=== PATIENT | male | born 1945 | race Caucasian/White ===

== ENCOUNTER 2023-08-24 05:57 | Day surgery (SDC) | payer MEDICARE, OTHER, SELFPAY ==
[2023-08-11 10:04] VITALS: BMI 35.4
[2023-08-24] VITALS (10 sets, daily range): BP systolic 120–166; BP diastolic 52–76; BMI 34.5
[2023-08-24 08:44] LABS: ACT-LR - POC 240 Seconds (116-155)
[2023-08-24 08:59] LABS: ACT-LR - POC 303 Seconds (116-155)
--- NOTE | 2023-08-24 09:20 | ITS.CL.ABL ---
Clinical Laboratory Science Professor - Ablation
Ablation
Procedure Report:
ELECTROPHYSIOLOGY ABLATION STUDY
DATE:: August 24, 2023 REFERRING: Dr. Deny Villar
INDICATION: Paroxysmal supraventricular tachycardia in the form of atrial fibrillation. Also with elevated bleeding risk and eventual consideration for watchman implantation
HISTORY: See H and P. As above
ANTIARRHYTHMIC DRUG: Amiodarone
PRE-PROCEDURE PHANI: No atrial thrombus
PRESENTING RHYTHM: Atrial ventricular pacing
'TIME-OUT': called and confirmed.
SEDATION/ANESTHESIA: provided via the anesthesia department using general anesthesia (LMA).
INTRAVENOUS/ARTERIAL ACCESS:
Right femoral venous - 8Fr
Left femoral venous - 8 Fr, 6 Fr
Ultrasound guidance for bilateral femoral vein access was utilized by me to obtain access with demonstration of normal anatomy
CHADS-VASC Score: Age greater than 75, hypertension
HAS-Bled Score
PROCEDURE:
1. A decapolar CS catheter was placed within the CS for mapping and pacing. This was also used as the reference catheter for the 3-D map.
2. The intracardiac ultrasound catheter was positioned in the RA to identify the FO for targeting of transseptal puncture, assist in identification of the pulmonary vein ostia, monitoring pre and post ablation pulmonary vein flow velocities,
monitoring for 'bubble' formation during RF application as a sign of thermal injury, and to monitor for pericardial effusion during mapping and ablation procedure. Left atrial size, LV ejection fraction, and pulmonary vein flows were monitored
pre and post ablation procedure. The other valves were inspected and found to be free of significant regurgitation or stenosis.
3. Half of the calculated heparin bolus was administered prior to the first transeptal puncture. Transseptal puncture was performed to diagnose RA and LA pressure so that safety of LA mapping and ablation could be further assessed, and to access
the left atrium and pulmonary veins for mapping and ablation. This entailed advancing an 12 Khmer sheath with dilator apparatus into the superior vena cava and withdrawing both (monitoring intracardiac ultrasound, fluoroscopy and tip pressure)
with the tip oriented toward the atrial septum. The fossa ovalis was engaged (indicated by sudden displacement of the sheath tip as well as tenting of the fossa seen on intracardiac ultrasound). Left atrial access required a pass with the
Brock[place]brough needle extended. Left atrial catheter position was confirmed by pressure monitoring (RA mean pressure 8 mm Hg and LA mean presure 14 mm Hg), LA saturation (99%), as well as fluoroscopy. The sheath was advanced over the dilator and
positioned in the left atrium. The remainder of the calculated heparin bolus was administered and heparin was
infused to maintain ACT at 300 -350 seconds throughout the case.
4. RA pacing was performed via the proximal decapolar poles and LA pacing was performed via the distal decapolr poles.
5. A quadrapolar catheter was first positioned at the His position for His Bundle recording which was tagged via the 3-D Navex sytem, and then passed to the RVA for RV pacing and recording.
6. The multipolar catheter and the PFA catheter were placed in each of the LIPV, LSPV, RSPV and the RIPV. The left atrium was relatively narrow and somewhat displaced anteriorly by the descending aorta and as such was very narrow from the posterior
wall to the ligament of Feng region.
7. Next, a 3-D map was created using Navex. A 3-D reconstructed CT image was compared to the 3-D Navex map to assist in anatomic interpretation, mapping and ablation. The CT image and the NavX image were fused.
8. Pulmonary vein and extrapulmonary vein lesions were given. 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 The posterior wall was isolated from 1 cm below the inferior pulmonary veins to the level of the carinae. The patient
was noninducible for nonpulmonary vein triggers or other tachycardia post pulmonary vein and left atrial posterior wall isolation. There was entrance next block in all 4 pulmonary veins and the left atrial posterior wall.
This was confirmed with a multipolar catheter post ablation.
9. The dual-chamber pacemaker was interrogated and found to have stable function. The device was interrogated remotely. Programming is DDD�CLS.
TOTAL FLOURO TIME: 12.7 minutes 123 mGy
TOTAL RF DURATION: 0 minutes
REVERSAL OF HEPARIN: 35 mg of protamine, slow IV administration
COMPLICATIONS:
None
Intracardiac US shows no pericardial effusion post ablation.
SUMMARY:
Complex left atrial mapping and ablation.
Pulmonary vein and left atrial posterior wall isolation as above. The left atrium was displaced by the descending aorta leading to a relatively narrow atrium from transseptal point back to the left pulmonary veins.
RECOMMENDATIONS:
1. Admit to monitored bed.
2. Resume anticoagulation for minimum 3 months
3. Consider watchman implantation in the next 3 to 6 months
4. Will stop amiodarone today
[2023-08-24] MEDS: FLOMAX 0.400000000000000022 MG PO (10:53)
--- NOTE | 2023-08-24 13:11 | W.PN.UPDATE ---
Update Note
Progress Note Update
78 yo WM s/p PVI (same day). He feels good, no cp, sob, lety diet, R fem site c/d/i, EKG AV dual paced. He will continue OAC Eliquis dose at 4pm at home. He will continue atenolol. Activity restrictions reviewed. He will f/u Dr. Villar in 2 mo. He is
for d/c home after 2p if groin stable and voiding.
SUMMARY:
Complex left atrial mapping and ablation.
Pulmonary vein and left atrial posterior wall isolation as above. The left atrium was displaced by the descending aorta leading to a relatively narrow atrium from transseptal point back to the left pulmonary veins.
RECOMMENDATIONS:
1. Admit to monitored bed.
2. Resume anticoagulation for minimum 3 months
3. Consider watchman implantation in the next 3 to 6 months
4. Will stop amiodarone today
== END 2023-08-24 13:58 | disposition home or self-care (01) ==
LOC: CATH 05:57
PROVIDERS: ATTENDING PHYSICIAN Internal Medicine Cardiovascular Disease; FAMILY PHYSICIAN Family Medicine; OTHER PHYSICIAN Internal Medicine Cardiovascular Disease
DX: I48.0 Paroxysmal atrial fibrillation (principal); Z88.5 Allergy status to narcotic agent; I50.32 Chronic diastolic (congestive) heart failure; G45.9 Transient cerebral ischemic attack, unspecified; I71.40 Abdominal aortic aneurysm, without rupture, unspecified; Z79.01 Long term (current) use of anticoagulants; Z79.02 Long term (current) use of antithrombotics/antiplatelets; I47.20 Ventricular tachycardia, unspecified; Z87.891 Personal history of nicotine dependence; C91.10 Chronic lymphocytic leukemia of B-cell type not having achieved remission; I10 Essential (primary) hypertension
CPT/HCPCS: C1732; C1733; C1894; C1730; C1892; C1759; 76937; 85347; 86900; 86901; 93005; 93656; C1769

== ENCOUNTER 2023-09-21 06:16 | Day surgery (SDC) | payer MEDICARE, OTHER, SELFPAY ==
[2023-09-21] VITALS (13 sets, daily range): BP systolic 135–171; BP diastolic 55–90; BMI 34.1
== END 2023-09-21 14:25 | disposition home or self-care (01) ==
LOC: SDS 06:16
PROVIDERS: ATTENDING PHYSICIAN Internal Medicine Gastroenterology
DX: K83.8 Other specified diseases of biliary tract (principal); K80.50 Calculus of bile duct without cholangitis or cholecystitis without obstruction; K31.89 Other diseases of stomach and duodenum; R93.89 Abnormal findings on diagnostic imaging of other specified body structures; R93.5 Abnormal findings on diagnostic imaging of other abdominal regions, including retroperitoneum; R93.2 Abnormal findings on diagnostic imaging of liver and biliary tract; Z79.02 Long term (current) use of antithrombotics/antiplatelets; Z79.01 Long term (current) use of anticoagulants
CPT/HCPCS: 43237; 43264; 43262; 43261; 88305; 74330; 76000; C1769

== ENCOUNTER 2023-12-27 04:41 | Inpatient (IN) | payer MEDICARE, OTHER, SELFPAY ==
[2023-12-26 21:06] VITALS: BP 138/77
[2023-12-26 22:03] LABS: % Basophils 0.4 % (0-2); % Immature Granulocytes 0.6 % (0-0.5); % Lymphocytes 21.6 % (20.5-51.1); % Monocytes 2.9 % (1.7-9.3); % Neutrophils 74.5 % (42.2-75.2); Absolute Basophils 0.1 10^3/uL (0-0.2); Absolute Immature Granulocytes 0.2 10^3/uL (0-0.05); Absolute Lymphocytes 6.7 10^3/uL (1.2-3.4); Absolute Monocytes 0.9 10^3/uL (0.1-0.6); Hematocrit 34.6 % (39.0-52.0); Hemoglobin 10.8 g/dL (13.0-18.0); Mean Corp Hgb Conc. 31.2 g/dL (33.0-37.0); Mean Corpuscular Hgb 24.5 pg (27.0-31.0); Mean Corpuscular Volume 78.6 fL (80.0-94.0); Mean Platelet Volume 10.6 fL (7.4-10.4); Nucleated Red Blood Cells % 0 % (-); Platelet Count 334 10^3/uL (130-400); Red Cell Dist. Width 19.5 % (11.5-14.5); White Blood Cell Count 30.9 10^3/uL (4.8-10.8)
[2023-12-26 22:10] LABS: ALT (SGPT) 18 U/L (0-50); AST (SGOT) 26 U/L (17-59); Albumin 4.4 g/dl (3.5-5.0); Alkaline Phosphatase 59 U/L (38-126); Blood Urea Nitrogen 13 mg/dl (9-20); Carbon Dioxide 25 mmol/L (22-30); Chloride 96 mmol/L (98-107); Glucose 163 mg/dl (70-99); Lipase 32 U/L (23-300); Potassium 4.3 mmol/L (3.5-5.1); Sodium 133 mmol/L (135-145); Total Bilirubin 0.6 mg/dl (0.2-1.3); Total Protein 6.8 g/dl (6.3-8.2); eGFR > 60.00
[2023-12-26 22:29] VITALS: BP 192/62
[2023-12-26 23:00] VITALS: BP 129/107
[2023-12-26] MEDS: ZOFRAN 4 MG IV (23:00)
[2023-12-26] MEDS: OFIRMEV 100 IV (23:00)
[2023-12-26] MEDS: NSS 500 IV (23:00)
[2023-12-26 23:45] VITALS: BMI 36.1
--- NOTE | 2023-12-26 23:53 | ED.GENMED ---
History of Present Illness
General
Chief Complaint: Abdominal Pain
Source: patient and spouse
Exam Limitations: none
Time Seen by Provider: 12/26/23 22:48
History of Present Illness
History of Present Illness:
78-year-old male started with abdominal pain nausea and vomiting earlier today. Continued throughout the day. No radiation to the back. Chest pain or shortness of breath. No fever. Symptoms are moderate in nature
Past History
Past History
ED Past Medical History: Arrthythmia, COPD and Hypercholesterolemia
ED Past Surgical History: Cardiac (Pacemaker) and Orthopedic
Social History
Tobacco: Former smoker
Review of Systems
Review of Systems
All Other Systems: Not applicable
Constitutional: Denies fever
Respiratory: Reports no symptoms
Cardiac: Reports no symptoms
Phy Exam
Physical Exam
Physical Exam:
GENERAL: Alert and oriented in no apparent distress. Elderly and frail
EYE: Orbits normal.
NECK: Supple, no significant adenopathy.
ENT: Pharynx without erythema
CARDIAC: Regular rate and rhythm with occasional irregular beats. Pacemaker left upper chest wall
LUNGS: Clear breath sounds,normal
ABDOMEN: Soft, no distention. Decreased bowel sounds. Mild epigastric tenderness. No rebound or guarding no mass or hernia.
NEUROLOGICAL: Alert and oriented , grossly non-focal
SKIN: Warm and dry, no rash or lesion, no discoloration, skin intact.
MUSCULOSKELETAL: No edema,no deformity.Good color
PSYCH: Normal and appropriate interaction.
Course
Orders/Labs/Results
Orders:
Orders
12/26/23 21:10
Electrocardiogram (*1) Urgent
Reason for Study: Chest Pain
EKG- Treatment ONCE
12/26/23 21:47
Complete Blood Count/With Diff Urgent
Comprehensive Metabolic Panel Urgent
Lipase Urgent
12/26/23 22:49
CT Abd/Pel (IV only)-DH only Urgent
Comment:
Reason For Exam: Abdominal pain nausea vomiting
IV Insert/Care/Rem.- Treatment PRN
Urinalysis Reflex To Culture Urgent
Date Specimen was Collected: 12/27/23
Time Specimen was Collected: 00:44
0.9% Sodium Chloride 500 ml [Nss] 500 ml IV BOLUS
12/26/23 22:59
Acetaminophen 1000MG/100Ml [Ofirmev] 1,000 mg in 100 ml IV ONCE
Acetaminophen IV Indication:: ED Narcotic Naive Pt-ONCE
Ondansetron Injectable [Zofran] 4 mg IV NOW STA
12/26/23 23:31
NT-proBNP Urgent
Comment: ADD ON
Troponin I Urgent
12/27/23 00:39
CXR Port [CR Chest Portable - 1 View] Urgent
Comment:
Reason For Exam: hypoxia
Reason Study Needs to be Portable: Unable to Transport
12/27/23 00:44
Piperacillin/Tazo 3.375 Gram [Zosyn] 3.375 gram in 50 ml IV NOW
12/27/23 00:46
Urine Microscopic Reflex Cult Urgent
Urine Culture Urgent
SASHA Source: U
Specimen Description:
Date Specimen was Collected: 12/27/23
Time Specimen was Collected: 00:44
12/27/23 00:50
Add On- LAB Urgent
Tests Added?: probnp
12/27/23 00:52
Furosemide [Lasix] 40 mg IV NOW STA
12/27/23 01:13
HYDROmorphone [Dilaudid] 0.25 mg .ROUTE .STK-MED ONE
12/27/23 04:10
Albuterol [ProAIR HFA INHALER] 2 puff INH R Q4HPRN PRN
12/27/23 04:11
Admit/Transfer Patient As Directed
Co-Sign Provider:
Level of Care: Inpatient admission
Assign to:: Telemetry
Physician / Group: Hospitalist
Diagnosis: CHF, Abdominal pain
Reason for Telemetry: Subacute Heart Failure
Date to Stop Telemetry: 12/29/23
Time to Stop Telemetry: 11:00
Reason for Hospitalization: CHF
Expected length of stay greater than two midnights?: Yes
ELOS- Estimated Length of Stay in days: 2
I certify the patient meets the requirements for IP care: Yes
12/27/23 04:12
Code Status As Directed
Resuscitation Status: Full Code
PRN Pain Medication Management As Directed
May give lesser potent ordered pain med per pt: Yes
preference::
Protocol:: Medication orders for pain may be administered in a
manner that supports deferring to patient preference
when the pt is:
- Requesting an ordered lesser potent pain medication.
Least to most potent pain medications are defined
as: acetaminophen < NSAID < tramadol < opioids
(morphine, oxycodone, hydromorphone).
- Requesting a lesser dose of the same medication IF
ORDERED.
- Requesting a less intrusive route of administration
if both routes are prescribed by the provider (PO <
IV).
12/27/23 04:28
HYDROmorphone [Dilaudid] 0.25 mg IV NOW STA
12/27/23 05:00
Flush (0.9% Sodium Chloride) [Flush (Nss)] See Dose Instructions IV PER PROTOCOL
12/27/23 05:04
Acetaminophen [Tylenol] 650 mg PO Q6HPRN PRN
HYDROmorphone [Dilaudid] 0.25 mg IV Q4HPRN PRN
Ondansetron Injectable [Zofran] 4 mg IV Q6HPRN PRN
12/27/23 05:04
CT Angio Abd/Pelvis w/wo IV [CT Abd/pelvis Angio W/wo Iv] Routine
Comment:
Reason For Exam: evaluate AAA, ? leak
Consult Notification Routine
Specialty to Notify: Gastroenterology
Date consulting provider notified: 12/27/23
Time consulting provider notified: 19:52
Notified:: Other
Comment: provider already notified
GASTROINTESTINAL CONSULT Routine
Consulting Provider: Amanda Adams
Was physician already notified: No
Reason for consult: Intractable N/abd pain,biliary dilation w/o elev lft
Vascular Surgery Consult Routine
Consulting Provider: Sabrina Ji
Was physician already notified: Yes
Reason for consult: f/u on question of AAA graft leak
VTE Contraindication Routine
VTE Mechanical Device Contraindication: Medical Contraindication
Pharmocologic Contraindication: Medical Contraindication
Activity As Directed
Activity Level: With Assistance
Intake/ Output As Directed
Frequency: Per unit guidelines
Patient Education As Directed
Type: CHF folder
Comment: give on admission. Document in Interdisciplinary Education record
Sleep Apnea Assessment by RN As Directed
Comment:
Physician Instructions:
Vital Signs As Directed
Frequency: Other
Additional Instructions:: Q12 or per unit guidelines if more frequent.
Weight As Directed
Frequency: Daily
Type of Scale: Standing Scale
Comment: Daily morning weight. If unable to stand, use balanced bed scale.
Weight As Directed
Frequency: Once
Type of Scale: Standing Scale
Comment: Upon Admission. If unable to stand, use balanced bed scale.
Pulse Ox/cont/shift [RESP] Routine
Quantity: 1
Special Instructions: Daily pulse oximetry at rest. If greater than 92% at rest also obtain pulse oximetry
while ambulating as tolerated.
12/27/23 05:06
Basic Metabolic Panel Urgent
Complete Blood Count/No Diff Urgent
Magnesium IN AM
Procalcitonin IN AM
PCT Algorithmm Indication: Respiratory
12/27/23 06:00
Echo 2D MMode Color/Doppler IN AM
Reason for Study: heart failure
Cholesterol Lowering
At Your Request: Full Participation
Does patient need a safe tray?: No
Cholesterol Lowering: Sodium, 2 Gram
12/27/23 08:00
Apixaban [Eliquis] 5 mg PO BID
Atenolol [Tenormin] 50 mg PO DAILY
Clopidogrel Bisulfate [Plavix] 75 mg PO DAILY
Furosemide [Lasix] 20 mg IV BID AT 0800,1600
Pantoprazole [Protonix IV] 40 mg IV DAILY
Rosuvastatin Calcium [Crestor] 40 mg PO DAILY
Tamsulosin [Flomax] 0.4 mg PO DAILY
Tiotropium [place] 2.5 Mcg [Spiriva Respimat 2.5 Mcg] 2 puff INH R DAILY
12/29/23 11:00
DC Protocol for Telemetry ONCE
Abnormal Lab Results
12/26/23 12/27/23
21:47 00:46
WBC 30.9 H 10^3/uL
(4.8-10.8)
RBC 4.40 L 10^6/uL
(4.70-6.10)
Hgb 10.8 L g/dL
(13.0-18.0)
Hct 34.6 L %
(39.0-52.0)
MCV 78.6 L fL
(80.0-94.0)
MCH 24.5 L pg
(27.0-31.0)
MCHC 31.2 L g/dL
(33.0-37.0)
RDW 19.5 H %
(11.5-14.5)
MPV 10.6 H fL
(7.4-10.4)
Abs Immat Gran (auto) 0.2 H 10^3/uL
(0-0.05)
Absolute Neuts (auto) 23.0 H 10^3/uL
(1.4-6.5)
Absolute Lymphs (auto) 6.7 H 10^3/uL
(1.2-3.4)
Absolute Monos (auto) 0.9 H 10^3/uL
(0.1-0.6)
Immature Gran % 0.6 H %
(0-0.5)
Sodium 133 L mmol/L
(135-145)
Chloride 96 L mmol/L
(98-107)
Creatinine 0.6 L mg/dL
(0.7-1.3)
Glucose 163 H mg/dl
(70-99)
Ur Occult Blood Reflex 1+ A
(Negative)
Urine RBC 11-15 A /HPF
(0-2)
Urine Bacteria (Reflex) Moderate A
(Negative)
12/26/23 21:47
12/26/23 21:47
Vital Signs
Initial and Last Documented VS:
Initial Vital Signs
Temp Pulse Resp BP Pulse Ox
98.0 F 78 20 138/77 95
12/26/23 21:06 12/26/23 21:06 12/26/23 21:06 12/26/23 21:06 12/26/23 21:06
Last Documented Vital Signs
Temp Pulse Resp BP Pulse Ox
98.0 F 82 18 138/57 92
12/28/23 03:30 12/28/23 03:30 12/28/23 03:30 12/28/23 03:30 12/28/23 03:30
MDM/Problems Addressed
Differential Diagnosis Includes:
Large differential including bowel obstruction, biliary disease, bile duct issue with a history of bile duct stone
*Radiology
Radiology exam reviewed: preliminary read by ED provider (CHF) and radiology read reviewed (Dilated intrahepatic ducts. Questionable endoleak of the graft)
*Pulse Oximetry
Patient hypoxic: no
*EKG
Interpreted by ED Provider?: Yes
Interpretation: abnormal
Comparison EKG: changes noted
Heart Rate: 83
Rate: normal
Rhythm: av sequential
*Critical Care Note
Total Time (30-74mins, 75-104mins- exclusive of procedures): Not Applicable
Data Reviewed
Review of Other/Old Records Reveals: Labs, Records and Testing
Update Note
Update Note:
Reviewed with vascular surgery. They do not feel this is an acute endoleak. Because of patient's symptoms unclear at this time. However with white count of 30,000 over baseline. Does have a history of CLL. In addition dilated ducts. Concerning
for either obstructing stone cholangitis. Antibiotics ordered. Referred to hospitalist.
ED Attending Note
-
Portions of this chart may have been created with voice recognition software.� Occasional wrong word or��sound alike� substitutions may have occurred due to the inherent limitations of voice recognition software.
Discharge Plan
Departure
Patient Disposition: Admit
Date of Disposition: 12/27/23
Time of Disposition: 00:50
Presentation/result/management discussed w/ accepting MD/DO: Vascular surgery
Discharge Problem:
Epigastric pain vomiting, Leukocytosis, CHF, Possible endoleak vascular graft.
Interventions
Interventions:
*Risk Screen - Suicide Last Done: 12/26/23 21:06
*General Assessment Last Done: 12/26/23 21:06
*Neglect/Abuse Screening Last Done: 12/26/23 21:06
ED- Fall Risk Assessment Last Done: 12/26/23 23:50
*ED COVID-19 Vaccine History Last Done: 12/26/23 23:43
HL-Zpuhyy-Niulrzjaaa Assessment Last Done: 12/26/23 23:43
[2023-12-27 00:17] LABS: Troponin I < 0.012 ng/ml
[2023-12-27 00:51] LABS: Urine Albumin Trace (Neg - Trace); Urine Bilirubin Negative (Negative); Urine Character Clear (Clear); Urine Color Yellow; Urine Glucose Negative (Negative); Urine Ketone Negative (Negative); Urine Leukocyte Negative (Negative); Urine Nitrite Negative (Negative); Urine Occult Blood 1+ (Negative); Urine Urobilinogen Negative (Neg - 1+)
[2023-12-27] MEDS: LASIX 40 MG IV (00:58)
[2023-12-27] MEDS: ZOSYN 50 IV ×3 (00:59→23:58)
[2023-12-27 03:55] LABS: NT-proBNP 2090 pg/ml
--- NOTE | 2023-12-27 04:02 | DOWNTIME ---
There was a [employer] Downtime on 11/29/2023 from 0100 to 11/29/2023 at 0300. Downtime documentation of patient's care, including medication administrations, has been reconciled in the electronic record per guidelines. Refer to the
patient's paper chart under the miscellaneous tab to see printed paper medication records and downtime forms.
--- NOTE | 2023-12-27 04:19 | HPS.HSE ---
Family Physician
-
Family Physician: NOT KNOW UNKNOWN - PT DOES
Chief Complaint
-
Nausea and abdominal pain
History of Present Illness
This is an 78-year-old male with past medical history significant for AAA status post grafting at pain after years ago, known biliary dilation with normal LFTs status post ERCP, CLL, status post pacemaker, hypertension presenting to the emergency
department with a 1 day history of abdominal pain and nausea.
Patient reports sudden onset of nausea and abdominal pain at around 12 noon. He was not doing anything unusual. He reports a colicky mid epigastric pain. There was no radiation to the back. There was no radiation down toward the pelvis. He
denies any associated shortness of breath or dyspnea on exertion. He denies any weakness in his arms or tingling. Patient reports nausea but no vomiting. He denied any diaphoresis. He denies history of peptic ulcer disease. He denies history of
GERD. Does not been any recent use of NSAIDs. He is off for aspirin. He denies any melena or hematochezia.
Pain was unrelenting and persistent so he came to the emergency department. He did not try to take anything by mouth due to the nausea. He had no vomiting and he had no diarrhea. He denies any fevers or chills. He denies any cough. He denies
any urinary symptoms recently. He denies any recent episodes of diarrhea. He has not been any recent changes medications. He denies any palpitations or lightheadedness or dizziness.
Patient reports about a 10 pound weight gain over the last 2 months. He denies any significant ankle edema PND. He denied exertional chest pain recently.
ED, afebrile, blood pressure 130/77, pulse 79, oxygen saturation 95 on room air. Troponin is negative. BNP is 2080, unchanged from prior. ECG with a dual a-v paced rhythm with pvcs, WBCs shows a leukocytosis to 30,000 from a baseline of 15,000,
CT of the abdomen pelvis shows abnormality of the graft suggestive for for possible impending leak. This was discussed with vascular who felt there is no such leg. Recommended CTA was not urgently.
Medical History
Past Medical History
Past Medical History: Reports Arrhythmia (Paroxysmal atrial fibrillation), CHF, COPD, CVA and HTN
Additional Past Medical History:
Status post pacemaker
BPH
Past Surgical History: Reports Other
Additional Past Surgical History:
Triple AAA repair 2 years ago
Social History
Tobacco: Former Smoker
Alcohol: Occasional
Drug: None
Personal:
Living: With Family
Employment: Retired
Family History
Family History: Not pertinent
Allergies / Home Medications
Allergies reflects when Allergies were last updated in [facility].
Home Medications with original date entered in [facility]
Allergy/Medication List:
Allergies
Allergy/AdvReac Type Severity Reaction Status Date / Time
oxycodone [From Percocet] Allergy Rash Verified 12/26/23 21:09
atorvastatin [From Lipitor] AdvReac Unknown calf pain Verified 12/26/23 21:09
niacin AdvReac Unknown 'not feel Verified 12/26/23 21:09
well'
Home Medications
albuterol sulfate 90 mcg/actuation aerosol inhaler 2 inh inhalation R Q4HPRN PRN shortness of breath 02/13/23
apixaban 5 mg tablet (Eliquis) 5 mg PO BID Blood Clot Prevention/Tx 02/13/23
atenolol 50 mg tablet 50 mg PO DAILY Blood Pressure 02/13/23
clopidogrel 75 mg tablet 75 mg PO DAILY Blood Clot Prevention/Tx 02/13/23
rosuvastatin 40 mg tablet 40 mg PO DAILY High Cholesterol 02/13/23
tamsulosin 0.4 mg capsule 0.4 mg PO DAILY Urinary Issue 02/13/23
umeclidinium 62.5 mcg/actuation blister powder for inhalation (Incruse Ellipta) 1 inh inhalation R DAILY COPD 02/13/23
potassium chloride 10 mEq capsule,extended release 10 meq PO DAILY Electrolyte Repletion #30 caps 02/17/23
acetaminophen 500 mg tablet (Tylenol Extra Strength) 1,000 mg PO TIDPRN PRN mild pain 03/07/23
therapeutic multivitamin 1 tab PO DAILY Supplement 03/07/23
furosemide 40 mg tablet 20 mg PO DAILY Fluid retention/Swelling 09/21/23
Review of Systems
-
History Source: Patient
Constitutional: Reports No Symptoms
EENT: Reports No Symptoms
Respiratory: Reports No Symptoms
Cardiac: Reports No Symptoms
Abdomen/GI: Reports Abdominal Pain and Nausea
: Reports No Symptoms
Musculoskeletal: Reports No Symptoms
Skin: Reports No Symptoms
Neurological: Reports No Symptoms
Endocrine: Reports No Symptoms
Hematologic/Lymphatic: Reports No Symptoms
Psych: Reports No Symptoms
Physical Exam
Vital Signs
Vital Signs
Temp Pulse Resp BP Pulse Ox
98.5 F 79 23 129/107 97
12/26/23 23:50 12/26/23 23:45 12/26/23 23:45 12/26/23 23:00 12/27/23 00:59
Physical Exam
General: Well Developed, No Apparent Distress and Conversant
HEENT: NormoCephalic, Anicteric, Moist mucous membranes and Atraumatic
Respiratory: Crackles (Bibasilar)
Cardiac: S1/S2 and Regular Rhythm
Breast: Deferred by me
GI: Soft, Non Distended, Normal Bowel Sounds and Tender (Epigastric tenderness)
Rectal: Deferred by Provider
Genito-urinary: Deferred by me
Musculoskeletal: No Clubbing, No Cyanosis and No Edema
Skin: Warm
Neuro: AO x 3
Hematologic/Lymphatic: No Lymphadenopathy
Psych: Calm
Laboratory Results
-
12/26/23 21:47
12/26/23 21:47
Laboratory Results
Total Bilirubin 0.6 mg/dl (0.2-1.3) 12/26/23 21:47
AST 26 U/L (17-59) 12/26/23 21:47
ALT 18 U/L (0-50) 12/26/23 21:47
Alkaline Phosphatase 59 U/L (38-126) 12/26/23 21:47
Troponin I < 0.012 ng/ml 12/26/23 23:31
Lipase 32 U/L (23-300) 12/26/23 21:47
Data Reviewed
-
Diagnostic Radiology: Image Personally Visualized and interpreted
CT Scan: Report Reviewed by me
Medical Tests (Nuc Med, Echo, EKG etc): Image Personally Visualized and interpreted
Lab Data: Labs Reviewed by me
Old Records: Reviewed
Impression/Plan
-
IMPRESSION:
78-year-old with history of AAA status. Graft repair 2 years ago, known biliary abnormality, CLL, presenting to the emergency department with episode of abdominal pain and nausea that started about 12 hours prior. Patient has epigastric tenderness
to palpation but otherwise exam appears benign. He is requiring 2 L nasal cannula but no acute infiltrates on x-ray. Possible mild CHF. He has increased leukocytosis compared to baseline.
PLAN:
1. Abdominal Pain - Epigastric, non-radiating. Associated with nausea. No reliving factors. Improved with zofran and dilaudid in ED. No clear etiology on labs and imaging. Possibly gastritis but patient denies reflux. No melena. No vomiting.
Biliary dilation without transaminitis, elevated lipase or bili. No stones. ? MAss. Prior MRCP per patient
- PPI iv daily
- pain control and antiemetics
- attempt regular diet for now
- GI consultation
2. CHF - 10 Ib weight gain over 2 months. On lasix 20mg po daily. Bibasilar Crackles on exam and on 2 L O2. Increased reticular pattern on Xray. BNP unchanged. Trop negative.
- telemetry
- IV lasix 20mg bid
- check echo
- daily weights and i/os
-fluid restriction
3. AAA - ? of AAA leak on CT a/p. Vascular d/w ED, unlikely. Recommended repeat scan.
- CT angio a/p routine
- Vascular consult
4. Leukocytosis - h/o CLL. Prior baseline is around 15k as recently as July, now 30k. No sign of acute infection for me. U/A clear. Xray ? infiltrates. Got zosyn in ED.
- hold further abx
- urine cultures
- procalcitonin
- repeat labs in am
5. AFIB
- continue apixaban
- continue atenolol
6. COPD - No evidence of acute exacerbation. No history of severe exacerbations
- continue ics/laba and prn albuterol
7. CVA
- on plavix
DVT PPX - on apixaban
Code Status - Full Code
[2023-12-27 04:20] LABS: Urine Bacteria Moderate (Negative); Urine Hyaline Cast 0-2 /LPF (0-2); Urine White Cell 0-2 /HPF (0-5)
--- NOTE | 2023-12-27 04:44 | DOWNTIME ---
There was a [employer] Client [employer] Operator Downtime on 12/27/2023 from 0100 to 12/27/2023 at 0355. Downtime documentation of patient's care, including medication administrations, has been reconciled in the electronic record per guidelines. Refer to the
patient's paper chart under the miscellaneous tab to see printed paper medication records and downtime forms.
[2023-12-27] MEDS: DILAUDID 0.25 MG IV ×4 (05:07→19:54)
[2023-12-27 05:15] VITALS: BMI 36.1
[2023-12-27 05:39] LABS: Hematocrit 32.9 % (39.0-52.0); Hemoglobin 10.5 g/dL (13.0-18.0); Mean Corp Hgb Conc. 31.9 g/dL (33.0-37.0); Mean Corpuscular Hgb 25.7 pg (27.0-31.0); Mean Corpuscular Volume 80.4 fL (80.0-94.0); Mean Platelet Volume 10.6 fL (7.4-10.4); Platelet Count 295 10^3/uL (130-400); Red Blood Cell Count 4.09 10^6/uL (4.70-6.10); Red Cell Dist. Width 19.5 % (11.5-14.5); White Blood Cell Count 31.5 10^3/uL (4.8-10.8)
[2023-12-27 05:51] LABS: Blood Urea Nitrogen 12 mg/dl (9-20); Carbon Dioxide 26 mmol/L (22-30); Chloride 94 mmol/L (98-107); Estimated Creatinine Clearance 113 ml/min; Glucose 145 mg/dl (70-99); Potassium 3.6 mmol/L (3.5-5.1); Procalcitonin < 0.05 ng/ml (0.0-0.25); Sodium 136 mmol/L (135-145); eGFR > 60.00
[2023-12-27 06:00] LABS: Magnesium 1.6 mg/dl (1.6-2.3)
--- NOTE | 2023-12-27 07:55 | W.PN.UPDATE ---
Update Note
Progress Note Update
Seen and examined in the emergency room with RESUME WRITER's. Full consultation to follow. Briefly, 78-year-old male with history of abdominal aortic aneurysm repair with branched endoprosthesis and for visceral stents (Isidoro Montez at the [facility]
[place] 2 years ago). Patient follows with them regularly. Noted new onset of abdominal pain starting yesterday. Describes it is 8 out of 10 in the epigastrium. No associated nausea/vomiting/diarrhea. No radiation to the back. Relatively
constant pain. Relieved somewhat with pain medicines. On exam/ He is in no acute distress. Breathing is unlabored. Abdomen is soft, nondistended, nontender to exam. Lower extremity with 2+ femoral pulses palpable bilaterally. Groins are flat
bilaterally. On the right side nonpalpable distal pulses. Left side 2+ palpable PT pulse. Feet are warm. No rubor, no ulcerations.
CT angiogram images reviewed. Aortic branched endoprosthesis appears well-positioned. 4 visceral stents are widely patent. Including SMA and celiac stents. I do not see any trevon extravasation into the aneurysm sac on arterial phase imaging.
Even on delayed phase imaging I do not see any definitive contrast. As noted on the radiologist report, there may be high attenuation in the aneurysm sac but no definitive findings to my interpretation to definitively confirm endoleak though there
is some high attenuation around the origin of the left iliac limb.
Plan/ Status post endovascular aortic aneurysm repair with four-vessel visceral branch endoprosthesis. No clear evidence of a type Ia or type Ib endoleak. I cannot say that there is a definitive type III endoleak but may be some high attenuation
within the aneurysm sac around the origin of the left iliac limb. But there is no trevon extravasation. The aneurysm sac is intact. I do not have any prior imaging to compare the size and morphology of this to know if this is expanded or not, but
the current measurement suggest that it has not as it only measures approximately 5.2 cm. In addition his white blood cell count is over 30,000. Would explore for other etiologies of abdominal pain. His pain is mainly in the epigastrium which
seems less likely related to this as well. Assuming this is not the cause of his pain, would recommend follow-up with Dr. Montez in relatively short order to reevaluate.
[2023-12-27] MEDS: SPIRIVA RESPIMAT 2.5 MCG INH (08:09)
--- NOTE | 2023-12-27 08:14 | CON.VAS ---
Consultation
Consultation Request
Date/Time Consultation Performed: 12/27/2023 0800
Requesting Provider: Hospitalist
Performing Provider: Blanka Sandoval NP-C for Gus Murry MD
Reason for Consultation: ABD pain
Medical History
-
Chief Complaint: ABD pain
History of Present Illness:
This is an 78-year-old male with history of CAD, CLL, CHF, COPD, CVA, HTN, hypercholesterolemia, and abdominal aortic aneurysm repair with branched endoprosthesis and for visceral stents (Isidoro Montez at the [facility] 2 years
ago), who presents to ED with ABD pain. Patient follows with [facility] regularly, for continued AAA monitoring. Noted new onset of abdominal pain starting yesterday. Describes it is 8 out of 10 in the epigastrium. No associated
nausea/vomiting/diarrhea. No radiation to the back. Relatively constant pain. Relieved somewhat with pain medicines.
Past Medical History
Past Medical History: Arrhythmias (2:1 AV block), CAD, Cancer (CLL), CHF, COPD, CVA, HTN, Hypercholesterolemia and Other (abdominal aortic aneurysm with endovascular repair and stent, iron def anemia, choledocholithiasis)
Past Surgical History: Cardiac (Pacemaker) and Other (abdominal aortic aneurysm with endovascular repair and stent, ERCP, hernia repair)
Social History
Tobacco: Former Smoker
Allergies / Home Medications
Allergy/AdvReac Type Severity Reaction Status Date / Time
oxycodone [From Percocet] Allergy Rash Verified 12/26/23 21:09
atorvastatin [From Lipitor] AdvReac Unknown calf pain Verified 12/26/23 21:09
niacin AdvReac Unknown 'not feel Verified 12/26/23 21:09
well'
�Medication �Instructions �Recorded �Confirmed �Type
albuterol sulfate 90 mcg/actuation 2 inh inhalation R Q4HPRN PRN 02/13/23 12/27/23 History
aerosol inhaler shortness of breath
atenolol 50 mg tablet 50 mg PO DAILY Blood Pressure 02/13/23 12/27/23 History
clopidogrel 75 mg tablet 75 mg PO DAILY Blood Clot 02/13/23 12/27/23 History
Prevention/Tx
rosuvastatin 40 mg tablet 40 mg PO DAILY High Cholesterol 02/13/23 12/27/23 History
tamsulosin 0.4 mg capsule 0.4 mg PO DAILY Urinary Issue 02/13/23 12/27/23 History
umeclidinium 62.5 mcg/actuation 1 inh inhalation R DAILY COPD 02/13/23 12/27/23 History
blister powder for inhalation
(Incruse Ellipta)
potassium chloride 10 mEq 10 meq PO DAILY Electrolyte 02/17/23 12/27/23 Rx
capsule,extended release Repletion #30 caps
acetaminophen 500 mg tablet 1,000 mg PO TIDPRN PRN mild pain 03/07/23 12/27/23 History
(Tylenol Extra Strength)
therapeutic multivitamin 1 tab PO DAILY Supplement 03/07/23 12/27/23 History
furosemide 40 mg tablet 40 mg PO DAILY Fluid 09/21/23 12/27/23 History
retention/Swelling
apixaban 5 mg tablet (Eliquis) 5 mg PO BID 12/27/23 12/27/23 History
Review of Systems
-
History Source: Patient
Constitutional: Reports No Symptoms
EENT: Reports No Symptoms
Respiratory: Reports No Symptoms
Cardiac: Reports No Symptoms
Vascular: Denies Leg Pain / Claudication
Abdomen/GI: Reports Abdominal Pain (epigastric); Denies Nausea or Vomiting
Musculoskeletal: Reports No Symptoms
Skin: Reports No Symptoms
Neurological: Reports No Symptoms
Physical Exam
Vital Signs
Temp Pulse Resp BP Pulse Ox
98 F 79 23 129/107 95
12/27/23 05:16 12/26/23 23:45 12/26/23 23:45 12/26/23 23:00 12/27/23 05:16
Lab Results
12/27/23 05:06
12/27/23 05:06
Troponin I < 0.012 ng/ml 12/26/23 23:31
Kfl-O-Jmznrgjbnko Pept 2090 pg/ml 12/26/23 23:31
Physical Exam
General: No Apparent Distress
HEENT: Normocephalic, Anicteric and Atraumatic
Respiratory: Non Labored Respirations
Cardiac: Negative JVD
GI: Soft, Non Tender and Non Distended
Musculoskeletal: No Edema
Skin: Warm, Dry and Other ( Feet are warm. No rubor, no ulcerations.)
Neuro: AO x 3
Pulses: Bilateral Femoral: +2 and Left Posterior Tibial: +1 ( right side nonpalpable distal pulses)
Assessment / Plan
-
Assessment: 78 year old male with reports of epigastric ABD pain and post endovascular aortic aneurysm repair with four-vessel visceral branch endoprosthesis. No clear evidence of a type Ia or type Ib endoleak.
Plan:
CT angiogram images reviewed with attending Dr. Gus Murry, aortic branched endoprosthesis appears well-positioned. 4 visceral stents are widely patent. Including SMA and celiac stents. No evidence of trevon extravasation into the aneurysm sac on
arterial phase imaging. As noted on the radiologist report, there may be high attenuation in the aneurysm sac but no definitive findings to definitively confirm endoleak though there is some high attenuation around the origin of the left iliac limb.
Would explore for other etiologies of abdominal pain. His pain is mainly in the epigastrium which seems less likely to be related to AAA repair. Assuming this is not the cause of his pain, would recommend follow-up with Dr. Montez in
relatively short order to reevaluate.
--- NOTE | 2023-12-27 09:09 | CON.GI ---
Addendum entered and electronically signed by Amanda Mckenzie Do, MD 12/27/23 16:48:
I saw and examined the patient.
The OPERATIONS TEAM LEADER's note was reviewed and I agree with the note.
Comment: Joby is an 78yo M with h/o AAA s/p endovascular repair 05/2021, pacemaker and afib on eliquis with CLL who was admitted for acute epigastric abd pain x1 day. GI consulted for abnormal CT scan. He has h/o ERCP EUS in 09/[address] Mar. There was plan for repeat EUS in Jan [address] done at [facility]. Vitals stable, obese, epigastric TTP, NABS. no jaundice. Labs with normal LFTs, WBC to 33. CTA Findings: . Moderate extrahepatic and mild
intrahepatic biliary dilatation. Moderate gallbladder distention and mild diffuse gallbladder wall thickening. Cholelithiasis in the gallbladder lumen and suspected obstructing choledocholithiasis in the distal common bile duct. Mild wall thickening
and hyperenhancement of the extrahepatic bile ducts suspicious for acute cholangitis (supported by leukocytosis, but not by normal LFTs and bilirubin level).
Impression
- Acute epigastric abd pain
ddx includes PUD, gastritis or choledocholithiasis
- Abnormal CTA with biliary dilation and possible choledocholithiasis
- Leukocytosis
- CLL
- AAA
- COPD
- CVA
- HTN
- HL
Recommendation
- Trend LFTs
- Monitor abd exam
- Not clear if he can have MRI/MRCP due to his pacemaker
- Will d/w Dr Mar interventional GI to see if pt may benefit from EUS inpatient vs outpatient basis
- For now hold AC (plavix/eliquis) if possible
We will follow with you.
Original Note:
Consultation
-
Date/Time Consultation Requested: 12/27/23 0504
Date/Time Consultation Performed: 12/27/23 0900
Requesting Provider: Dr. Montalvo
Performing Provider: Dr. Adams/EFREN Sands
Reason for Consultation: abd pain
Medical History
Chief Complaint / HPI
Chief Complaint: epigastric pain
History of Present Illness:
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
stent May 2021 at [facility], history of trauma to kidney with repair, history of iron deficiency anemia, choledocholithiasis status post ERCP 09/2023, patient is to have a watchman implant in February. We did order a repeat CT for
follow-up from his ERCP/EUS was performed at [facility] and had planned for a ERCP/EUS in January when he had time for a Plavix washout. The patient states that yesterday morning he awoke around 8 AM. He had ceral and at around
noon he was sitting watching television when he developed epigastric discomfort which he describes as sharp, constant, nonradiating. Nothing made better. Nothing made worse. He tried Tums with no relief. He tried making himself vomit which did
not relieve anything. He he waited until approximately 7 PM and proceeded to the ER. At that time he was given pain medication which relieved the pain. The pain does come back when the pain medication wears off. He denies any fevers, chills,
nausea, vomiting, melena, hematochezia, dysphagia or odynophagia. No early satiety or unintentional weight loss. No acholic stools, no bilirubinuria, no pruritus, his last bowel movement was yesterday prior to breakfast and was normal. He
continues on Eliquis and Plavix at this time. He was started on Zosyn for a white count of 30.9. He has baseline runs in the mid teens with his history of CLL. He has remained afebrile here. He denies any shortness of breath, diaphoresis.WBC
31.5, hemoglobin 10.5, hematocrit 32.9, platelets 295, sodium 136, potassium 3.6, chloride 94, CO2 26, BUN 12, creatinine 0.6, glucose 145, calcium 9.0, magnesium 1.6, total bilirubin 0.6, AST 26, ALT 18, alk phos 59, troponin less than 0.012,
proBNP 2090, albumin 4.4, lipase 32, procalcitonin less than 0.05, UA positive for occult blood, RBC 11-15 with moderate bacteria negative nitrates, chest x-ray pending. CT abdomen and pelvis angio with and without to be detailed below.
Past Medical History
Past Medical History: Arrhythmias (2:1 AV block), CAD, Cancer (CLL), CHF, COPD, CVA, HTN, Hypercholesterolemia and Other (abdominal aortic aneurysm with endovascular repair and stent, iron def anemia, choledocholithiasis)
Past Surgical History: Other ( Pacemaker, abdominal aortic aneurysm with endovascular repair and stent, ERCP, trauma to kidney with repair, hernia repair)
Social History
Tobacco: Former Smoker
Alcohol: Occasional
Drug: None
Personal:
Living: With Family
Employment: Retired
Family History
Family History: Other (No family history gastrointestinal malignancy or IBD)
Allergies / Home Medications
Allergy/AdvReac Type Severity Reaction Status Date / Time
oxycodone [From Percocet] Allergy Rash Verified 12/26/23 21:09
atorvastatin [From Lipitor] AdvReac Unknown calf pain Verified 12/26/23 21:09
niacin AdvReac Unknown 'not feel Verified 12/26/23 21:09
well'
�Medication �Instructions �Recorded
albuterol sulfate 90 mcg/actuation 2 inh inhalation R Q4HPRN PRN 02/13/23
aerosol inhaler shortness of breath
atenolol 50 mg tablet 50 mg PO DAILY Blood Pressure 02/13/23
clopidogrel 75 mg tablet 75 mg PO DAILY Blood Clot 02/13/23
Prevention/Tx
rosuvastatin 40 mg tablet 40 mg PO DAILY High Cholesterol 02/13/23
tamsulosin 0.4 mg capsule 0.4 mg PO DAILY Urinary Issue 02/13/23
umeclidinium 62.5 mcg/actuation 1 inh inhalation R DAILY COPD 02/13/23
blister powder for inhalation
(Incruse Ellipta)
potassium chloride 10 mEq 10 meq PO DAILY Electrolyte 02/17/23
capsule,extended release Repletion #30 caps
acetaminophen 500 mg tablet 1,000 mg PO TIDPRN PRN mild pain 03/07/23
(Tylenol Extra Strength)
therapeutic multivitamin 1 tab PO DAILY Supplement 03/07/23
furosemide 40 mg tablet 40 mg PO DAILY Fluid 09/21/23
retention/Swelling
apixaban 5 mg tablet (Eliquis) 5 mg PO BID 12/27/23
Review of Systems
-
All other systems: A 12 pt ROS was Negative except as stated above in HPI
Vital Signs
Temp Pulse Resp BP Pulse Ox
98 F 79 23 129/107 95
12/27/23 05:16 12/26/23 23:45 12/26/23 23:45 12/26/23 23:00 12/27/23 05:16
Physical Exam
Exam
General: No Apparent Distress
HEENT: Anicteric
Respiratory: Clear
Cardiac: Irregular Rhythm
GI: Soft, Non Distended, Normal Bowel Sounds and Tender (epigastric)
Skin: Warm and Dry
Neuro: AO x 3
Psych: Calm
Results
WBC 31.5 10^3/uL (4.8-10.8) H 12/27/23 05:06
Hgb 10.5 g/dL (13.0-18.0) L 12/27/23 05:06
Hct 32.9 % (39.0-52.0) L 12/27/23 05:06
MCV 80.4 fL (80.0-94.0) 12/27/23 05:06
Plt Count 295 10^3/uL (130-400) 12/27/23 05:06
Absolute Neuts (auto) 23.0 10^3/uL (1.4-6.5) H 12/26/23 21:47
Sodium 136 mmol/L (135-145) 12/27/23 05:06
Potassium 3.6 mmol/L (3.5-5.1) 12/27/23 05:06
Chloride 94 mmol/L (98-107) L 12/27/23 05:06
Carbon Dioxide 26 mmol/L (22-30) 12/27/23 05:06
BUN 12 mg/dl (9-20) 12/27/23 05:06
Creatinine 0.6 mg/dL (0.7-1.3) L 12/27/23 05:06
Calcium 9.0 mg/dl (8.4-10.2) 12/27/23 05:06
Total Bilirubin 0.6 mg/dl (0.2-1.3) 12/26/23 21:47
AST 26 U/L (17-59) 12/26/23 21:47
ALT 18 U/L (0-50) 12/26/23 21:47
Alkaline Phosphatase 59 U/L (38-126) 12/26/23 21:47
Lipase 32 U/L (23-300) 12/26/23 21:47
Diagnostic Image Results:
CT Abd/pelvis Angio W/wo Iv
IMPRESSION:
1. Moderate extrahepatic and mild intrahepatic biliary dilatation. Moderate gallbladder distention and mild diffuse gallbladder wall thickening. Cholelithiasis in the gallbladder lumen and suspected obstructing choledocholithiasis in the distal
common bile duct. Mild wall thickening and hyperenhancement of the extrahepatic bile ducts suspicious for acute cholangitis (supported by leukocytosis, but not by normal LFTs and bilirubin level).
2. Aortobiiliac endograft, celiac artery, superior mesenteric artery, and bilateral renal artery stents in place (all patent).
3. High attenuation blood or thrombus in the [place] aneurysm sac surrounding the endograft with suspected delayed extravasation of contrast from the proximal left iliac limb of the endograft into the aneurysm sac suspicious for a small I or type
III endoleak.
4. 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
5. Small hiatal hernia.
6. Mild to moderate subpleural airspace consolidation in the posterior and anteromedial basilar segment of the left lower lobe which has increased since 08/11/2023. Diagnostic possibilities are (1) left lower lobe pneumonia (if there are
signs/symptoms of pulmonary infection) or (2) increasing segmental atelectasis.
7. 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
8. Severe calcific atherosclerotic disease in the coronary arteries.
Electronically signed by Mason Smith MD, 12/27/2023 7:47 AM
11/02/2023 CT abdomen with IV contrast: ([facility]) hepatic biliary ductal dilatation with possibly choledocholithiasis. Mild diffuse gallbladder wall thickening may be due to acute cholecystitis. Possibly a noncalcified gallstone, small
amount of inspissated sludge or polyp. Tiny air lucency present along the nondependent wall could be iatrogenic in nature.
Prior GI Procedures:
ERCP 09/21/2023 (Dr. Mar) - A filling defect consistent with a stone was seen on
the cholangiogram.
- The common bile duct was moderately dilated.
- Choledocholithiasis was found. Complete removal was
accomplished by biliary sphincterotomy and balloon
extraction.
- Multiple balloon sweeps were performed to see if the
possible soft tissue lesion (hypoechoic material seen
at the level of ampulla) could be extruded out for
visualization and no lesion was seen.
- A biliary sphincterotomy was performed.
- The biliary tree was swept and sludge was found.
- Biopsies were performed in the terminal end of the
main duct and ampulla.
EUS 09/21/2023 (Dr. Mar) - There was dilation in the common bile duct which
measured up to 14 mm.
- Three stones were visualized endosonographically in
the lower third of the main bile duct. Also hypoechoic
material at the level of ampulla favored to be sludge.
- Multiple stones were visualized endosonographically
in the gallbladder body.
- Hypoechoic material which moved with patient's
change in position suggestive of sludge was visualized
endosonographically in the gallbladder body.
- There was no sign of significant pathology in the
pancreatic head and pancreatic body.
- There was no sign of significant pathology in the
ampulla.
- No specimens collected.
EGD: Never
Colonoscopy: Spring 2023 Dr. Grier 'polyp'
Assessment / Plan
-
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
stent May 2021 at [facility], history of trauma to kidney with repair, history of iron deficiency anemia, choledocholithiasis status post ERCP 09/2023, patient is to have a watchman implant in February. We did order a repeat CT for
follow-up from his ERCP/EUS was performed at [facility] and had planned for a ERCP/EUS in January when he had time for a Plavix washout. The patient states that yesterday morning he awoke around 8 AM. He had ceral and at around
noon he was sitting watching television when he developed epigastric discomfort which he describes as sharp, constant, nonradiating. Nothing made better. Nothing made worse. He tried Tums with no relief. He tried making himself vomit which did
not relieve anything. He he waited until approximately 7 PM and proceeded to the ER.
Impression:
Epigastric pain
Leukocytosis-> worse than baseline with hx of CLL
Intra/extrahepatic biliary ductal dilatation with normal LFTs -> prior ERCP 09/21/23
PAF on Eliquis
AAA with Endograft and stent on Plavix-> possible endoleak
Plan:
-On Zosyn
-Check Blood cultures x 2
-Obtain MRI/MRCP
-Trend labs
-Further recommendations to be forthcoming
-
-
Thank you for consultation and allowing me to participate in the patient's care. Please call the commercial pest control technician GI physician during the after hours with any questions or concerns.
[2023-12-27] MEDS: PROTONIX IV 40 MG IV (09:14)
[2023-12-27] MEDS: LASIX 20 MG IV ×2 (09:14→15:18)
[2023-12-27] MEDS: PLAVIX 75 MG PO (09:16)
[2023-12-27] MEDS: FLOMAX 0.4 MG PO (09:16)
[2023-12-27] MEDS: TENORMIN 50 MG PO (09:16)
[2023-12-27] MEDS: CRESTOR 40 MG PO (09:16)
[2023-12-27] MEDS: ELIQUIS 5 MG PO (09:16)
--- NOTE | 2023-12-27 15:31 | W.PN.HOSP.TC ---
Today's Communication/Plan
-
Follow WBC
Watch for fevers
Await GI input
Assessment / Plan
Assessment / Plan
IMPRESSION:
78-year-old with history of AAA status. Graft repair 2 years ago, known biliary abnormality, CLL, presenting to the emergency department with episode of abdominal pain and nausea that started about 12 hours prior. Patient has epigastric tenderness
to palpation but otherwise exam appears benign. He is requiring 2 L nasal cannula but no acute infiltrates on x-ray. Possible mild CHF. He has increased leukocytosis compared to baseline.
PLAN:
Abdominal Pain - Epigastric, non-radiating. Associated with nausea. No reliving factors. Improves with zofran and dilaudid . Rule out biliary etiology
Intra and extrahepatic biliary ductal dilatation with suspicion for obstructing choledocholithiasis in the distal common bile duct-patient also has mild wall thickening and hyperenhancement of the extrahepatic biliary duct suspicious for
cholangitis. With CLL and elevated white count unclear which is contributing to leukocytosis today but the levels of WBCs higher than before. Follow closely for fevers. GI input pending. LFTs are normal.
AAA - with endovascular graft -appreciate vascular input who does not see an obvious endoleak. Advised to follow-up as an outpatient.
CHF - 10 Ib weight gain over 2 months. On lasix 20mg po daily. Bibasilar Crackles on exam and on 2 L O2. Increased reticular pattern on Xray. BNP unchanged. Trop negative.
- telemetry
-cw IV lasix 20mg bid
- check echo
- daily weights and i/os
-fluid restriction
Leukocytosis - h/o CLL. Prior baseline is around 15k as recently as July, now 30k.
AFIB
- continue apixaban
- continue atenolol
COPD - No evidence of acute exacerbation. No history of severe exacerbations
- continue ics/laba and prn albuterol
CVA
- on plavix
DVT PPX - on apixaban
Code Status - Full Code
DW at bedside.
Total time spent on today's encounter was 52 minutes which included time spent in counseling the patient/family regarding diagnosis and treatment plan as listed above, goals of care, and symptom management. Case was discussed with nursing staff,
specialists.. All labs and imaging personally reviewed by me. Remainder the time spent in detailed review of previous records, lab data, imaging, and other medical provider documentation.
Anticipated Discharge: > 48 hours
Subjective/Interval History
-
Date of Service: December 27, 2023
Abdominal pain is better as long as he is getting the pain medication. No fevers.
Denies any nausea vomiting currently.
Objective Data
-
Labs:
Laboratory Results
12/27/23
05:06
WBC 31.5 H
Hgb 10.5 L
Hct 32.9 L
Plt Count 295
Sodium 136
Potassium 3.6
Chloride 94 L
Carbon Dioxide 26
BUN 12
Creatinine 0.6 L
Glucose 145 H
Calcium 9.0
Vital Signs:
Vital Signs
Temp Pulse Resp BP Pulse Ox
99.0 F 79 23 129/107 95
12/27/23 11:14 12/26/23 23:45 12/26/23 23:45 12/26/23 23:00 12/27/23 05:16
I&O
12/26/23 12/27/23 12/28/23
06:59 06:59 06:59
Intake Total 550 / 550
Output Total 1000 / 1000 800 / 800
Balance -450 / -450 -800 / -800
Review of Systems
-
Constitutional: Denies Fever
EENT: Denies Sore Throat
Respiratory: Denies Trouble Breathing
Cardiac: Denies Chest Pain
Neuro: Denies Dizzy
Physical Exam
-
General: No Apparent Distress
HEENT: Moist Mucous Membranes
Respiratory: Wheezes (occasional), Rales (BL bases) and Non Labored Respirations; Negative Accessory Resp Muscle Use
Cardiac: Regular Rhythm and S1/S2
GI: Soft, Nondistended, Normal Bowel Sounds and Tender (Epigatric/RUQ area)
Neuro: AO x 3
Psych: Calm
Data Reviewed
-
Labs: Labs Reviewed by me
[2023-12-27 17:55] VITALS: BP 139/61
[2023-12-27 17:56] VITALS: BMI 34.5
--- NOTE | 2023-12-27 18:00 | PTCARENOTE ---
Received patient from ED via stretcher. AAOx3, pulled over from stretcher to bed. Assessed and oriented to room. Call billy in close reach.
[2023-12-27 19:35] VITALS: BP 106/35
[2023-12-27 23:18] VITALS: BP 124/51
[2023-12-28] VITALS (7 sets, daily range): BP systolic 90–138; BP diastolic 40–57; BMI 33.5
[2023-12-28] MEDS: ZOSYN 50 IV ×3 (05:09→17:44)
[2023-12-28 06:07] LABS: INR 1.52; PT 18.4 Sec (11.4-14.6)
[2023-12-28 06:11] LABS: Hematocrit 31.5 % (39.0-52.0); Hemoglobin 10.1 g/dL (13.0-18.0); Mean Corp Hgb Conc. 32.1 g/dL (33.0-37.0); Mean Corpuscular Hgb 25.9 pg (27.0-31.0); Mean Corpuscular Volume 80.8 fL (80.0-94.0); Mean Platelet Volume 10.7 fL (7.4-10.4); Platelet Count 257 10^3/uL (130-400); Red Cell Dist. Width 19.2 % (11.5-14.5); White Blood Cell Count 39.8 10^3/uL (4.8-10.8)
[2023-12-28 06:28] LABS: % Basophils 0.2 % (0-2); % Eosinophils 0.1 % (0-6); % Immature Granulocytes 1.1 % (0-0.5); % Lymphocytes 16.9 % (20.5-51.1); % Monocytes 7.5 % (1.7-9.3); % Neutrophils 74.2 % (42.2-75.2); Absolute Basophils 0.1 10^3/uL (0-0.2); Absolute Eosinophils 0.1 10^3/uL (0-0.7); Absolute Immature Granulocytes 0.4 10^3/uL (0-0.05); Absolute Lymphocytes 6.7 10^3/uL (1.2-3.4); Absolute Neutrophils 29.6 10^3/uL (1.4-6.5); Nucleated Red Blood Cells % 0 % (-)
[2023-12-28 06:33] LABS: ALT (SGPT) 16 U/L (0-50); AST (SGOT) 34 U/L (17-59); Albumin 3.6 g/dl (3.5-5.0); Alkaline Phosphatase 56 U/L (38-126); Blood Urea Nitrogen 18 mg/dl (9-20); Calcium 8.8 mg/dl (8.4-10.2); Carbon Dioxide 31 mmol/L (22-30); Chloride 91 mmol/L (98-107); Direct Bilirubin 0.2 mg/dl (0.0-0.4); Estimated Creatinine Clearance 83 ml/min; Glucose 107 mg/dl (70-99); Potassium 3.2 mmol/L (3.5-5.1); Sodium 132 mmol/L (135-145); Total Bilirubin 0.9 mg/dl (0.2-1.3); Total Protein 5.9 g/dl (6.3-8.2); eGFR > 60.00
[2023-12-28] MEDS: SPIRIVA RESPIMAT 2.5 MCG 2 PUFF INH (07:39)
[2023-12-28] MEDS: CRESTOR 40 MG PO (09:01)
[2023-12-28] MEDS: TENORMIN 50 MG PO (09:01)
[2023-12-28] MEDS: LASIX 20 MG IV (09:01)
[2023-12-28] MEDS: FLOMAX 0.4 MG PO (09:01)
[2023-12-28] MEDS: PROTONIX IV 40 MG IV (09:01)
[2023-12-28] MEDS: NSS (PRESERVATIVE FREE) 10 ML IV (09:06)
--- NOTE | 2023-12-28 09:15 | W.PN.GI.CBS2 ---
Addendum entered and electronically signed by Amanda Mckenzie Do, MD 12/28/23 11:10:
I saw and examined the patient.
The THREAD TOOL GRINDER SET UP OPERATOR's note was reviewed and I agree with the note.
Comment: Continues to have similar abd pain. No nausea/vomiting but lack of appetite. Vitals stable, exam TTP epigastric OOB to chair pale appearing. Labs LFTs remain normal but WBC rising. BC pending
Recommendations
- Plan for EUS/ERCP tomorrow after eliquis washout
- Due to plavix on board would preclude biopsies
- Our team will update
- Continue to hold AC
- NPO at NM
- Optimize respiratory status as much as possible
Will follow with you
Original Note:
Today's Communication / Plan
-
still with abdominal pain with chest pressure, requiring 1 L O2 with hypoxemia with weaning
per pt likely cannot have MRI but awaiting records and MRI review of pacer
LFT's remains normal
further rise in WBC's today-- IV Zosyn added 12/26
blood cx pending
Dr. Mar to review if EUS can be done and timing -- pt with similar CT in October and due follow up EUS 02/01/24
Eliquis/Plavix hold last dose 12/26
on cholesterol lowering diet
cont rx for CHF per hospitalist team
Assessment / Plan
-
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
stent May 2021 at [facility], history of trauma to kidney with repair, history of iron deficiency anemia, choledocholithiasis status post ERCP 09/2023, patient is to have a watchman implant in February. We did order a repeat CT for
follow-up from his ERCP/EUS was performed at [facility] and had planned for a ERCP/EUS in January when he had time for a Plavix washout. The patient states that yesterday morning he awoke around 8 AM. He had ceral and at around
noon he was sitting watching television when he developed epigastric discomfort which he describes as sharp, constant, nonradiating. Nothing made better. Nothing made worse. He tried Tums with no relief. He tried making himself vomit which did
not relieve anything. He he waited until approximately 7 PM and proceeded to the ER.
Impression:
Epigastric pain
chest tightness
hypoxemia -CXR with mild edema/atlectasis LLL PNA not excluded
CHF with recent wt gain prior to admission
Leukocytosis-> worse than baseline with hx of CLL
Intra/extrahepatic biliary ductal dilatation with normal LFTs -> prior ERCP 09/21/23( filling defect with stone s/p shincterotomy and stone removal, CBD dilated, multiple balloon sweeps to see if soft tissue lesion(hypoechoic material seen at the
level of ampulla, no lesion seen bx ampullary leison neg)
cholelithiasis with GBWT and distention
PAF on Eliquis
AAA with Endograft and stent on Plavix-> possible endoleak s/p vascular eval
other med problems:
- CLL
- AAA
- COPD
- CVA
- HTN
- HL
11/02/23- CT abdomen with contrast /oral contrast ---extraheopatic biliary dilatation with possible choledocholithiasis, mild diffuse GBWT may be acute cholecystitis, possible non calcified gallstone, small amount of sludge or polyp, tiny air laong
non dependent wall could be iatrogenic in nature
Plan:
still with abdominal pain with chest pressure, requiring 1 L O2 with hypoxemia with weaning
per pt likely cannot have MRI but awaiting records and MRI review of pacer
LFT's remains normal
further rise in WBC's today-- IV Zosyn added 12/26
blood cx pending
Dr. Mar to review if EUS can be done and timing -- pt with similar CT in October and due follow up EUS 02/01/24
Eliquis/Plavix hold last dose 12/26
on cholesterol lowering diet
cont rx for CHF per hospitalist team
Subjective
Subjective
Date of Service: December 28, 2023
12/25 stool, on cholesterol lowering diet, no fever
Objective
Data Reviewed
Laboratory Data:
Laboratory Results
12/28/23 05:12
12/28/23 05:12
Laboratory Results
PT 18.4 Sec (11.4-14.6) H 12/28/23 05:12
INR 1.52 12/28/23 05:12
Magnesium 1.6 mg/dl (1.6-2.3) 12/27/23 05:06
Total Bilirubin 0.9 mg/dl (0.2-1.3) 12/28/23 05:12
AST 34 U/L (17-59) 12/28/23 05:12
ALT 16 U/L (0-50) 12/28/23 05:12
Alkaline Phosphatase 56 U/L (38-126) 12/28/23 05:12
Lipase 32 U/L (23-300) 12/26/23 21:47
Vital Signs and I&O:
Vital Signs
Temp Pulse Resp BP Pulse Ox
98.4 F 83 18 130/53 95
12/28/23 07:54 12/28/23 07:54 12/28/23 07:54 12/28/23 07:54 12/28/23 07:54
I&O
12/27/23 12/28/23 12/29/23
06:59 06:59 06:59
Intake Total 550 / 550 480 / 480
Output Total 1000 / 1000 1350 / 1350
Balance -450 / -450 -870 / -870
Physical Exam
Physical Exam
HEENT: Anicteric and Moist mucous membranes
Cardiology: Normal Sinus Rhythm
Pulmonary: Other (decreased )
GI: Soft, Distended (mild with large abdomen ) and Tender (epigastric )
Neuro: Non Focal
[2023-12-28] MEDS: DILAUDID 0.25 MG IV ×3 (10:53→21:05)
--- NOTE | 2023-12-28 11:25 | CON.CAR ---
Addendum entered and electronically signed by Ricky Kendall MD 12/28/23 16:19:
I saw and examined the patient.
The Duster Tender's note was reviewed and I agree with the note.
Comment: Briefly, 78-year-old man past medical history of ischemic cardiomyopathy presenting in acute decompensated heart failure with reduced ejection fraction (EF 40%), prior SC with PCI and on revascularized residual disease, permanent pacemaker,
prior TIA who presents with abdominal pain and is being worked up for cholelithiasis/acute cholangitis by GI and cardiology is asked to comment on his risk for this procedure
On admission he was found to have decompensated heart failure
His tells me that she feels his abdomen has been more distended over at least the past week or so
Initially requiring supplemental oxygen, chest x-ray concerning for pulmonary edema
With IV diuresis he has been weaned to room air at the time of my exam
Would continue IV diuresis 40 mg twice daily
Monitor daily weights and renal function/electrolytes closely
In regards to surgical risk, ERCP is not a high risk procedure
Given known ischemic heart disease, heart failure and prior TIA he would be high risk
Plan to optimize with further IV diuresis leading into the procedure
Original Note:
Consultation
Consultation Request
Date/Time Consultation Requested: 12/28/23
Date/Time Consultation Performed: 12/28/23
Requesting Provider: Dr. Medley
Performing Provider: Dr. Kendall
Reason for Consultation: Preoperative risk stratification, recurrent CM, PPM and needs MRI
Medical History
-
History of Present Illness:
Patient came to [facility] Monday night with abdominal pain and was admitted with acute HF and plans for GI work-up, cardiology is now consulted for preoperative risk stratification, acute HF and CM treatment and also to help determine if PPM is MRI
compatible. Patient has a h/o abnormal ERCP and has [facility] Patient had an outpatient CT scan 12/06/23 and was recommended to proceed with EUS/ERCP on 12/15/23, but was not scheduled until 02/01/24. Patient now admitted
and being seen by GI who is recommend an inpatient MRI and EUS/ERCP. Patient reports that he was able to vacuum his home prior to admission without chest pain or SOB. Patient has a h/o CAD with previous SC and PCI in 1999, but stable CAD by last
cath in 2018. Patient had an echo 02/14/23 and EF was 50-55%. Echo repeated this admission shows EF is down to 40-45%. Patient also being treated for acute HF and weight is down by at least 7 lbs from admission, but he remains hypoxic. Interestingly
his pro-BNP is lower than previous. No pleural effusion on CXR. Patient has a Biotronik PPM since 2012 and had a generator change 2020. Patient reportedly with increased PVC burden as noticed by his primary insurance collector's office, but this was just
prior to admission and he has not talked to them about the increased PVCs yet. Patient is v paced 97% of the time.
PMH:
h/o abnormal ERCP abnormality filling defect with stone s/p sphincterotomy and stone removal, CBD dilated, hypoechoic material seen at the level of ampulla, no lesion seen bx ampullary lesion neg 09/21/23
Chronic HFrEF
CLL
CM EF 40% by echo 12/27/23
CAD
h/o anteroseptal SC w/ stent 03/1999
cath at [facility] mid to distal LAD 90% stenosis , Diag-1 ostial 90%, Diag-2 ostial 20%, Diag-3 ostial 80%, ostial circumflex 20%, ramus ostial 50%, RCA 30%, proximal PDA 40% 02/06/13
significant distal LAD, severe proximal diagonal, 100% stenosis of proximal PDA, and 60% stenosis of the mid OM1 by cath 09/18/18
s/p Biotronik dual-chamber permanent pacemaker 12/2012, s/p generator change 01/20/21
Paroxysmal atrial fibrillation
47 min long episode 11/15/23
Chronic Eliquis anticoagulation
h/o TIA
Hypertension
Hyperlipidemia
AAA status post endovascular repair 05/2021
COPD
Past Medical History
Past Medical History: Other (in HPI)
Past Surgical History: Cardiac (EVAR 05/2021 at [place], [facility])
Social History
Tobacco: Former Smoker
Alcohol: Daily
Drug: None
Personal:
Living: With Family
Employment: Retired
Family History
Family History: CAD
Allergies / Home Medications
Allergy/AdvReac Type Severity Reaction Status Date / Time
oxycodone [From Percocet] Allergy Rash Verified 12/26/23 21:09
atorvastatin [From Lipitor] AdvReac Unknown calf pain Verified 12/26/23 21:09
niacin AdvReac Unknown 'not feel Verified 12/26/23 21:09
well'
�Medication �Instructions �Recorded �Confirmed �Type
albuterol sulfate 90 mcg/actuation 2 inh inhalation R Q4HPRN PRN 02/13/23 12/27/23 History
aerosol inhaler shortness of breath
atenolol 50 mg tablet 50 mg PO DAILY Blood Pressure 02/13/23 12/27/23 History
clopidogrel 75 mg tablet 75 mg PO DAILY Blood Clot 02/13/23 12/27/23 History
Prevention/Tx
rosuvastatin 40 mg tablet 40 mg PO DAILY High Cholesterol 02/13/23 12/27/23 History
tamsulosin 0.4 mg capsule 0.4 mg PO DAILY Urinary Issue 02/13/23 12/27/23 History
umeclidinium 62.5 mcg/actuation 1 inh inhalation R DAILY COPD 02/13/23 12/27/23 History
blister powder for inhalation
(Incruse Ellipta)
potassium chloride 10 mEq 10 meq PO DAILY Electrolyte 02/17/23 12/27/23 Rx
capsule,extended release Repletion #30 caps
acetaminophen 500 mg tablet 1,000 mg PO TIDPRN PRN mild pain 03/07/23 12/27/23 History
(Tylenol Extra Strength)
therapeutic multivitamin 1 tab PO DAILY Supplement 03/07/23 12/27/23 History
furosemide 40 mg tablet 40 mg PO DAILY Fluid 09/21/23 12/27/23 History
retention/Swelling
apixaban 5 mg tablet (Eliquis) 5 mg PO BID Blood Clot 12/27/23 12/27/23 History
Prevention/Tx
Review of Systems
-
History Source: Patient and Family ( and sister in law sitting bedside helping with HPI)
All other systems: Negative unless noted
Physical Exam
Vital Signs
Temp Pulse Resp BP Pulse Ox
98.4 F 83 18 130/53 96
12/28/23 07:54 12/28/23 07:54 12/28/23 07:54 12/28/23 07:54 12/28/23 08:10
GEN: NAD. AAOx3
HEENT: EOMI, MMM
LUNGS: Wearing oxygen at 2 L NC. CTA B/L, no wheezes or rales
CV: Reg, S1/S2, no murmur
ABD: soft, BS+, NT, ND
EXT: Trace B/L LE edema
NEURO: Gross non-focal
SKIN: No rash
Lab Results
12/28/23 05:12
12/28/23 05:12
Troponin I < 0.012 ng/ml 12/26/23 23:31
Hhj-M-Pemvxpxmepw Pept 2090 pg/ml 12/26/23 23:31
Impression / Plan
-
PCP: Dr. Raphael Fenton
Director Payer: Dr. Villar
Impression:
Admitted with abdominal pain 12/26/23
Intra/extrahepatic biliary ductal dilatation with normal LFTs
s/p ERCP abnormality filling defect with stone s/p sphincterotomy and stone removal, CBD dilated, hypoechoic material seen at the level of ampulla, no lesion seen bx ampullary lesion neg 09/21/23
Acute HFrEF
Leukocytosis
CLL
CM EF 40% by echo 12/27/23
CAD
h/o anteroseptal SC w/ stent 03/1999
cath at [facility] mid to distal LAD 90% stenosis , Diag-1 ostial 90%, Diag-2 ostial 20%, Diag-3 ostial 80%, ostial circumflex 20%, ramus ostial 50%, RCA 30%, proximal PDA 40% 02/06/13
significant distal LAD, severe proximal diagonal, 100% stenosis of proximal PDA, and 60% stenosis of the mid OM1 by cath 09/18/18
s/p Biotronik dual-chamber permanent pacemaker 12/2012, s/p generator change 01/20/21
Paroxysmal atrial fibrillation
47 min long episode 11/15/23
Chronic Eliquis anticoagulation
h/o TIA
Hypertension
Hyperlipidemia
AAA status post endovascular repair 05/2021
COPD
Frequent PVCs
Hypokalemia
Echo 02/14/2023: EF 50-55%, mild cLVH, mild TR
Echo 12/27/23: EF 40 to 45%, global hypokinesis, mild concentric LVH, mild peak/mean 21/11 mmHg and KILO 1.3 cm sq, no aortic regurgitation
Plan:
-Patient came to [facility] Monday night with abdominal pain and was admitted with acute HF and plans for GI work-up, cardiology is now consulted for preoperative risk stratification, acute HF and CM treatment and also to help determine if PPM is MRI
compatible. Patient has a h/o abnormal ERCP and has been following with Dr. Mar at [facility]. Patient had an outpatient CT scan 12/06/23 and was recommended to proceed with EUS/ERCP on 12/15/23, but was not scheduled until 02/01/24. Patient now admitted
and being seen by GI who is recommend an inpatient MRI and EUS/ERCP. Patient reports that he was able to vacuum his home prior to admission without chest pain or SOB. Patient has a h/o CAD with previous SC and PCI in 1999, but stable CAD by last
cath in 2019. Patient had an echo 02/14/23 and EF was 50-55%. Echo repeated this admission shows EF is down to 40-45%. Patient also being treated for acute HF and weight is down by at least 7 lbs from admission, but he remains hypoxic. Interestingly
his pro-BNP is lower than previous. No pleural effusion on CXR. Patient has a Biotronik PPM since 2012 and had a generator change 2020. Patient reportedly with increased PVC burden as noticed by his primary insurance collector's office, but this was just
prior to admission and he has not talked to them about the increased PVCs yet. Patient is v paced 97% of the time.
-Weight is down 7 lbs overnight and LE edema has improved, but patient remains hypoxic on 2 L NC. Will increase Lasix to 40 mg IV BID. Patient was taking Lasix 40 mg PO daily prior to admission.
-EF down to 40-45% by echo 12/27/23 compared to echo 02/14/23 when EF was 50-55%.
-Patient with h/o CAD, but no chest pain or anginal symptoms recently. Last stress test and cath were in 2019 when he had multivessel CAD with significant distal LAD, severe proximal Diag-1, 100% stenosis within the proximal PDA and 60% mid OM-1
stenosis. Patient has been medically managed for this CAD. Patient will need to follow up with his primary insurance collector to consider repeat ischemic evaluation.
-Patient was taking Plavix 75 mg daily prior to admission and this is on hold in anticipation of EUS/ERCP, will start aspirin 81 mg daily.
-Will change atenolol to Toprol XL 25 mg BID
-Hypotension precludes addition of MICHAEL/ARB/aldosterone antagonist
-When patient was in earlier this year the CM team checked SGLT-2 cost and it was cost prohibitive.
-Potassium down to 3.2 today, KCl 40 meq now and then 20 meq daily ordered by me
-ECG reviewed by me is AV paced and frequent PVCs seen
-Patient's Biotronik DC PPM is MRI compatible. Called MRI dept and had them refax the MRI clearance to patient's primary insurance collector and also talked with patient's primary insurance collector's office to confirm receipt and they are diligently working to
complete form to expedite MRI. TT communication with GI team as well to let them known that MRI can be performed.
-Device checked 11/15/23 and patient had a 47 minute long episode of Afib. Patient with known paroxysmal Afib and s/p PVI 08/24/23
-Eliquis is on hold in anticipation of EUS/ERCP. Patient with h/o TIA. Last dose of Eliquis 12/27/23 AM and resume as soon as possible. If patient needs to be off OAC for more than 24 hours post-EUS/ERCP then would consider Heparin gtt.
-Patient with known CLL, but WBC trending up. Afebrile.
-90 minutes in face to face time, chart prep and coordination of care
--- NOTE | 2023-12-28 11:27 | W.PN.HOSP.TC ---
Today's Communication/Plan
-
Continue antibiotics.
EUS tomorrow. Continue to hold Eliquis and Plavix.
Consult cardiology.
Continue with IV Lasix for today.
Assessment / Plan
Assessment / Plan
IMPRESSION:
78-year-old with history of AAA status. Graft repair 2 years ago, known biliary abnormality, CLL, presenting to the emergency department with episode of abdominal pain and nausea that started about 12 hours prior. Patient has epigastric tenderness
to palpation but otherwise exam appears benign. He is requiring 2 L nasal cannula but no acute infiltrates on x-ray. Possible mild CHF. He has increased leukocytosis compared to baseline.
PLAN:
Abdominal Pain - Epigastric, non-radiating. Associated with nausea. No reliving factors. Improves with zofran and dilaudid . Rule out biliary etiology.
Intra and extrahepatic biliary ductal dilatation with suspicion for obstructing choledocholithiasis in the distal common bile duct-patient also has mild wall thickening and hyperenhancement of the extrahepatic biliary duct suspicious for
cholangitis. With CLL and elevated white count unclear which is contributing to leukocytosis today but the levels of WBCs higher than before. Follow closely for fevers. GI input noted -EUS tomorrow planned. LFTs are normal. Hold AC
CW empirical abx with Zosyn till EUS.
AAA - with endovascular graft -appreciate vascular input who does not see an obvious endoleak. Advised to follow-up as an outpatient.
Acute on chronic CHF - 10 Ib weight gain over 2 months. On lasix 20mg po daily. Bibasilar Crackles on exam and on 2 L O2. Increased reticular pattern on Xray. BNP unchanged. Trop negative.
-Improved weight with IV diuresis. He is off of oxygen.
-Echo shows EF of 40 to 45% which is the same for his mild attic stenosis which is new compared to recent echocardiogram. The echocardiogram was difficult study .
- telemetry
- cw IV lasix 20mg bid
- Consult cards for pre endo cardiac clearance
- daily weights and i/os
-fluid restriction
Leukocytosis - h/o CLL. Prior baseline is around 15k as recently as July, now 30k.
AFIB
- Hold apixaban for procedure
- continue atenolol
COPD - No evidence of acute exacerbation. No history of severe exacerbations
- continue ics/laba and prn albuterol
CVA
- on plavix -hold for procedure tomorrow.
DVT PPX - on AC
Code Status - Full Code
Total time spent on today's encounter was 52 minutes which included time spent in counseling the patient/family regarding diagnosis and treatment plan as listed above, goals of care, and symptom management. Case was discussed with nursing staff,
specialists.. All labs and imaging personally reviewed by me. Remainder the time spent in detailed review of previous records, lab data, imaging, and other medical provider documentation.
Anticipated Discharge: > 48 hours
Subjective/Interval History
-
Date of Service: December 28, 2023
Complains of persistent abdominal pain but improved with pain medication. No nausea vomiting.
Cough present but denies shortness of breath at rest. He is off of oxygen today.
Objective Data
-
Labs:
Laboratory Results
12/28/23
05:12
WBC 39.8 H
Hgb 10.1 L
Hct 31.5 L
Plt Count 257
PT 18.4 H
INR 1.52
Sodium 132 L
Potassium 3.2 L
Chloride 91 L
Carbon Dioxide 31 H
BUN 18
Creatinine 0.8
Glucose 107 H
Calcium 8.8
Total Bilirubin 0.9
AST 34
ALT 16
Alkaline Phosphatase 56
Vital Signs:
Vital Signs
Temp Pulse Resp BP Pulse Ox
98.4 F 83 18 130/53 96
12/28/23 07:54 12/28/23 07:54 12/28/23 07:54 12/28/23 07:54 12/28/23 08:10
I&O
12/27/23 12/28/23 12/29/23
06:59 06:59 06:59
Intake Total 550 / 550 480 / 480
Output Total 1000 / 1000 1350 / 1350
Balance -450 / -450 -870 / -870
Review of Systems
-
EENT: Denies Sore Throat
Cardiac: Denies Chest Pain
Neuro: Denies Dizzy
Physical Exam
-
General: No Apparent Distress
HEENT: Moist Mucous Membranes
Respiratory: Crackles (bibasal); Negative Wheezes
Cardiac: Regular Rhythm and S1/S2
GI: Soft, Nondistended, Normal Bowel Sounds and Tender (in epigastric and RUQ)
Neuro: AO x 3
Psych: Calm
Data Reviewed
-
Labs: Labs Reviewed by me
--- NOTE | 2023-12-28 11:47 | W.PN.UPDATE ---
Update Note
Progress Note Update
updated pt , wifem, nursing staff, and Dr. Medley with plan for EUS tomorrow. Still awaiting pt smoke jumper supervisor review if MRI can be done with current pacer.
--- NOTE | 2023-12-28 14:23 | PN.CDI ---
CDI
- -
CDI:
Physician Documentation Request
Admit Date: 12/27/23 04:41
Dear Doctor Galindo,
Clinical Indicators:
Patient admitted with abdominal pain and acute on chronic CHF.
Lasix IV x 4 doses.
Sodium levels:
12/26/23 12/28/23
21:47 05:12
Sodium 133 L 132 L
Based on the above, could you clarify in the progress notes, the appropriate diagnosis, if significant, that supports the above abnormalities and additional evaluation, monitoring and/or treatment rendered:
Hyponatremia
Abnormal lab values, clinically insignificant
Other, please specify
Use of terms such as suspected, likely, concern for, or probable (associated with a specific diagnosis that is being evaluated, monitored, or treated as if it exists) are acceptable and can be coded in the inpatient setting, when documented at the
time of discharge.
Thank you,
Stephanie Mercado RN BSN
CDI Specialist
available via tiger text
Please use your independent medical judgment in providing your response.
[2023-12-28] MEDS: LOW STRENGTH ASPIRIN 81 MG PO (15:40)
[2023-12-28] MEDS: KCL 40 MEQ PO (15:40)
[2023-12-28] MEDS: LASIX 40 MG IV (15:41)
--- NOTE | 2023-12-28 15:44 | CM ---
Alert awake oriented patient who lives with his Elke who lives in a 1 story home with 1 step to enter and bed and bathroom on first floor. He is independent in driving and in all activities of daily living.He was offered VN he declined
need.No DME.
[facility] hx / No SNF history
Pharmacy [facility]
PCP DR Raphael Mar
PLAN Home Declined VN
[2023-12-29] VITALS (12 sets, daily range): BP systolic 109–144; BP diastolic 45–74; BMI 33.7
[2023-12-29] MEDS: ZOSYN 50 IV ×2 (00:35→05:11)
[2023-12-29 08:07] LABS: Hematocrit 32.4 % (39.0-52.0); Hemoglobin 10.4 g/dL (13.0-18.0); Mean Corp Hgb Conc. 32.1 g/dL (33.0-37.0); Mean Corpuscular Hgb 25.7 pg (27.0-31.0); Mean Corpuscular Volume 80.2 fL (80.0-94.0); Platelet Count 276 10^3/uL (130-400); Red Blood Cell Count 4.04 10^6/uL (4.70-6.10); Red Cell Dist. Width 18.8 % (11.5-14.5); White Blood Cell Count 25.2 10^3/uL (4.8-10.8)
[2023-12-29 08:10] LABS: INR 1.39; PT 16.9 Sec (11.4-14.6)
[2023-12-29 08:28] LABS: ALT (SGPT) 21 U/L (0-50); AST (SGOT) 38 U/L (17-59); Albumin 3.5 g/dl (3.5-5.0); Alkaline Phosphatase 69 U/L (38-126); Blood Urea Nitrogen 25 mg/dl (9-20); Calcium 8.7 mg/dl (8.4-10.2); Carbon Dioxide 28 mmol/L (22-30); Chloride 90 mmol/L (98-107); Estimated Creatinine Clearance 73 ml/min; Glucose 98 mg/dl (70-99); Potassium 3.4 mmol/L (3.5-5.1); Sodium 133 mmol/L (135-145); Total Protein 6.1 g/dl (6.3-8.2); eGFR > 60.00
[2023-12-29] MEDS: SPIRIVA RESPIMAT 2.5 MCG 2 PUFF INH (08:33)
[2023-12-29] MEDS: KCL 20 MEQ PO ×2 (09:01→17:20)
[2023-12-29] MEDS: FLOMAX 0.4 MG PO (09:01)
[2023-12-29] MEDS: CRESTOR 40 MG PO (09:01)
[2023-12-29] MEDS: LOW STRENGTH ASPIRIN 81 MG PO (09:01)
[2023-12-29] MEDS: NSS (PRESERVATIVE FREE) 10 ML IV (09:02)
[2023-12-29] MEDS: PROTONIX IV 40 MG IV (09:02)
[2023-12-29] MEDS: LASIX 40 MG IV ×2 (09:02→17:21)
[2023-12-29] MEDS: FLUSH (NSS) 2 FLUSH IV ×2 (09:02→17:21)
[2023-12-29] MEDS: TOPROL XL 25 MG PO ×2 (09:03→21:17)
[2023-12-29] MEDS: DILAUDID 0.25 MG IV (09:14)
[2023-12-29] MEDS: FLUSH (NSS) 1 FLUSH IV (09:17)
--- NOTE | 2023-12-29 10:20 | W.PN.CARDCBS ---
Addendum entered and electronically signed by Sonny Alegre DO 12/29/23 17:40:
I saw and examined the patient.
The Doll Wigs Hackler's note was reviewed and I agree with the note.
Comment:
Patient seen post-procedurally. Patient reports doing well, no complaints. No cp, sob, palpitations, or weakness. Additionally, notes no edema or distension.
tele HEALTH COUNSELOR with PVCs
PO diuresis in AM and reassess in AM
Eliquis, plavix when able; stop ASA
Replete electrolytes
Monitor on telemetry
Original Note:
Today's Communication / Plan
-
Will continue IV lasix today, plan to transition to PO lasix in AM, possibly 60mg daily.
BMP in 1 week
Eliquis and plavix ok to restart tonight per GI
Stop aspirin
K 3.4, will give an additional 20 meq
Impression / Plan
-
PCP: Dr. Raphael Fenton
Model Maker Scale: Dr. Villar
Impression:
Admitted with abdominal pain 12/26/23
Intra/extrahepatic biliary ductal dilatation with normal LFTs
s/p ERCP abnormality filling defect with stone s/p sphincterotomy and stone removal, CBD dilated, hypoechoic material seen at the level of ampulla, no lesion seen bx ampullary lesion neg 09/21/23
Acute HFrEF
Leukocytosis
CLL
CM EF 40% by echo 12/27/23
CAD
h/o anteroseptal IN w/ stent 03/1999
cath at [facility] mid to distal LAD 90% stenosis , Diag-1 ostial 90%, Diag-2 ostial 20%, Diag-3 ostial 80%, ostial circumflex 20%, ramus ostial 50%, RCA 30%, proximal PDA 40% 02/06/13
significant distal LAD, severe proximal diagonal, 100% stenosis of proximal PDA, and 60% stenosis of the mid OM1 by cath 09/18/18
s/p Biotronik dual-chamber permanent pacemaker 12/2012, s/p generator change 01/20/21
Paroxysmal atrial fibrillation
47 min long episode 11/15/23
Chronic Eliquis anticoagulation
h/o TIA
Hypertension
Hyperlipidemia
AAA status post endovascular repair 05/2021
COPD
Frequent PVCs
Hypokalemia
Echo 02/14/2023: EF 50-55%, mild cLVH, mild TR
Echo 12/27/23: EF 40 to 45%, global hypokinesis, mild concentric LVH, mild peak/mean 21/11 mmHg and KILO 1.3 cm sq, no aortic regurgitation
Plan:
-Presented with abdominal pain. Admitted with suspected cholelithiasis and acute heart failure.
-Underwent EUS today and found to have sludge in the gallbladder without evidence of cholelithiasis.
-Aspirin 81mg daily started while Plavix and Eliquis on hold for procedure. Per GI, ok to resume Plavix and Eliquis tonight. Will stop aspirin.
-EF down to 40-45% by echo 12/26, may consider repeat ischemic eval as OP.
-Diuresing with IV lasix 40mg BID. Weight down at least 5lbs this admission, down to 215lbs 12/28. Creat stable at 0.9. He reports weight typically between 210-213lbs.
-Continue IV lasix for now, will plan to transition to PO lasix in AM.
-Continue Toprol XL 25mg BID. SGLT 2 inhibitor cost prohibitive.
-Follow BP and consider addition MICHAEL/ARB/aldosterone antagonist as BP allows.
-K 3.4. KCl 20 meq daily started 12/27. Will give an additional 20 meq today.
-No arrhythmias noted on review of telemetry. HR stable.
HPI: Patient came to [facility] Monday night with abdominal pain and was admitted with acute HF and plans for GI work-up, cardiology is now consulted for preoperative risk stratification, acute HF and CM treatment and also to help determine if PPM is MRI
compatible. Patient has a h/o abnormal ERCP and has been following with Dr. Mar at [facility]. Patient had an outpatient CT scan 12/06/23 and was recommended to proceed with EUS/ERCP on 12/15/23, but was not scheduled until 02/01/24. Patient now admitted
and being seen by GI who is recommend an inpatient MRI and EUS/ERCP. Patient reports that he was able to vacuum his home prior to admission without chest pain or SOB. Patient has a h/o CAD with previous IN and PCI in 1999, but stable CAD by last
cath in 2018. Patient had an echo 02/14/23 and EF was 50-55%. Echo repeated this admission shows EF is down to 40-45%. Patient also being treated for acute HF and weight is down by at least 7 lbs from admission, but he remains hypoxic. Interestingly
his pro-BNP is lower than previous. No pleural effusion on CXR. Patient has a Biotronik PPM since 2012 and had a generator change 2020. Patient reportedly with increased PVC burden as noticed by his primary turret punch operator's office, but this was just
prior to admission and he has not talked to them about the increased PVCs yet. Patient is v paced 97% of the time.
Progress Note - Model Maker Scale
Subjective
Date of Service: December 29, 2023
Feeling well post-procedure. No chest pain, no SOB.
Objective
Labs:
12/29/23 07:16
12/29/23 07:16
Labs
Hgb 10.4 g/dL (13.0-18.0) L 12/29/23 07:16
Hct 32.4 % (39.0-52.0) L 12/29/23 07:16
Plt Count 276 10^3/uL (130-400) 12/29/23 07:16
PT 16.9 Sec (11.4-14.6) H 12/29/23 07:16
INR 1.39 12/29/23 07:16
Sodium 133 mmol/L (135-145) L 12/29/23 07:16
Potassium 3.4 mmol/L (3.5-5.1) L 12/29/23 07:16
BUN 25 mg/dl (9-20) H 12/29/23 07:16
Creatinine 0.9 mg/dL (0.7-1.3) 12/29/23 07:16
Glucose 98 mg/dl (70-99) 12/29/23 07:16
Troponins
12/26/23
23:31
Troponin I < 0.012
Vital Signs and I&O:
Vital Signs
Temp Pulse Resp BP Pulse Ox
98.7 F 57 16 123/54 95
12/29/23 07:30 12/29/23 08:37 12/29/23 08:37 12/29/23 07:30 12/29/23 08:37
Vital Signs
Temp Pulse Resp BP Pulse Ox
98.7 F 57 16 123/54 95
12/29/23 07:30 12/29/23 08:37 12/29/23 08:37 12/29/23 07:30 12/29/23 08:37
Intake & Output
12/27/23 12/28/23 12/29/23 12/30/23
06:59 06:59 06:59 06:59
Intake Total 550 / 550 480 / 480 620 / 620
Output Total 1000 / 1000 1350 / 1350 600 / 600
Balance -450 / -450 -870 / -870
Physical Exam
Physical Exam
GEN: No distress, awake, alert, oriented x3
HEENT: supple, anicteric, mmm
LUNGS: CTA, no wheezes/rales
CV: irreg, S1/S2, 1/6 syst LSB, no gallop
EXT: No clubbing or cyanosis, trace edema
NEURO: Gross non-focal
SKIN: Warm, dry, no rash
--- NOTE | 2023-12-29 12:55 | PTCARENOTE ---
received patient from PACU post EUS- assisted to bed. vitals noted, patient remains on oxygen 2L, POX 94%. no distress noted. patient reporting no complaints. at bedside. plan of care on going.
[2023-12-29] MEDS: ZOSYN IV (13:25)
--- NOTE | 2023-12-29 14:50 | W.PN.HOSP.TC ---
Addendum entered and electronically signed by Wu Medley MD 12/29/23 16:46:
Na 132-133 noted - abnormal lab value
Original Note:
Today's Communication/Plan
-
Start on diet.
Resume anticoagulants.
Discontinue antibiotics.
DC planning
Assessment / Plan
Assessment / Plan
IMPRESSION:
78-year-old with history of AAA status. Graft repair 2 years ago, known biliary abnormality, CLL, presenting to the emergency department with episode of abdominal pain and nausea that started about 12 hours prior. Patient has epigastric tenderness
to palpation but otherwise exam appears benign. He is requiring 2 L nasal cannula but no acute infiltrates on x-ray. Possible mild CHF. He has increased leukocytosis compared to baseline.
PLAN:
Abdominal Pain - Epigastric, non-radiating. Associated with nausea. No reliving factors. Improves with zofran and dilaudid . Rule out biliary etiology.
Intra and extrahepatic biliary ductal dilatation with suspicion for obstructing choledocholithiasis in the distal common bile duct-patient also has mild wall thickening and hyperenhancement of the extrahepatic biliary duct suspicious for
cholangitis. With CLL and elevated white count unclear which is contributing to leukocytosis today but the levels of WBCs higher than before. LFT remain normal.
Patient endoscopic ultrasound which shows no cholelithiasis but the sludge in the gallbladder. CBD dilated but no stones. No further interventions recommended by GI. Discontinue antibiotics. Start on diet. Reassume anticoagulants and Plavix.
Pt today asymptomatic without abdo pain.
AAA - with endovascular graft -appreciate vascular input who does not see an obvious endoleak. Advised to follow-up as an outpatient.
Acute on chronic CHF - 10 Ib weight gain over 2 months. On lasix 20mg po daily. Bibasilar Crackles on exam and on 2 L O2. Increased reticular pattern on Xray. BNP unchanged. Trop negative.
-Improved weight with IV diuresis. He is off of oxygen.
-Echo shows EF of 40 to 45% which is the same for his mild attic stenosis which is new compared to recent echocardiogram. The echocardiogram was difficult study .
- telemetry
- cw IV lasix per cards
- appt cards for pre endo cardiac clearance
- daily weights and i/os
-fluid restriction
Leukocytosis - h/o CLL.
AFIB
- cw apixaban
- continue atenolol
COPD - No evidence of acute exacerbation. No history of severe exacerbations
- continue ics/laba and prn albuterol
CVA
- on plavix -hold for procedure tomorrow.
DVT PPX - on AC
Code Status - Full Code
Anticipated Discharge: Within 24 hours
Subjective/Interval History
-
Date of Service: December 29, 2023
Back from endoscopic ultrasound. Currently without any abdominal pain. Denies any nausea vomiting. No fevers.
Objective Data
-
Labs:
Laboratory Results
12/29/23
07:16
WBC 25.2 H
Hgb 10.4 L
Hct 32.4 L
Plt Count 276
PT 16.9 H
INR 1.39
Sodium 133 L
Potassium 3.4 L
Chloride 90 L
Carbon Dioxide 28
BUN 25 H
Creatinine 0.9
Glucose 98
Calcium 8.7
Total Bilirubin 1.0
AST 38
ALT 21
Alkaline Phosphatase 69
Vital Signs:
Vital Signs
Temp Pulse Resp BP Pulse Ox
97.8 F 79 18 127/53 93
12/29/23 14:28 12/29/23 14:28 12/29/23 14:28 12/29/23 14:28 12/29/23 14:28
I&O
12/28/23 12/29/23 12/30/23
06:59 06:59 06:59
Intake Total 480 / 480 620 / 620 100 / 100
Output Total 1350 / 1350 600 / 600
Balance -870 / -870 20 / 20 100 / 100
Review of Systems
-
Respiratory: Denies Trouble Breathing
Cardiac: Denies Chest Pain
Neuro: Denies Dizzy
Physical Exam
-
General: No Apparent Distress
HEENT: Moist Mucous Membranes
Respiratory: Non Labored Respirations; Negative Accessory Resp Muscle Use
Cardiac: Regular Rhythm and S1/S2
GI: Soft and Nontender
Neuro: AO x 3
Psych: Calm
Data Reviewed
-
Labs: Labs Reviewed by me
--- NOTE | 2023-12-29 15:40 | W.PN.UPDATE ---
Update Note
Progress Note Update
GI front end mechanic aware to call patient and schedule outpatient f/u with Dr Mar in 8 weeks as per him.
wll sign off.
--- NOTE | 2023-12-29 16:52 | CM ---
Pt had Echo today.
supportive .
Offered VN he declined need. at this time.
will drive him home.
PLAN Home no needs
[2023-12-29] MEDS: ELIQUIS 5 MG PO (21:17)
[2023-12-30 03:25] VITALS: BP 139/68
[2023-12-30 05:05] VITALS: BMI 33.7
[2023-12-30] MEDS: SPIRIVA RESPIMAT 2.5 MCG 2 PUFF INH (07:25)
[2023-12-30 08:15] VITALS: BP 134/58
--- NOTE | 2023-12-30 08:35 | W.PN.HOSP.TC ---
Today's Communication/Plan
-
dc
Assessment / Plan
Assessment / Plan
IMPRESSION:
78-year-old with history of AAA status. Graft repair 2 years ago, known biliary abnormality, CLL, presenting to the emergency department with episode of abdominal pain and nausea that started about 12 hours prior. Patient has epigastric tenderness
to palpation but otherwise exam appears benign. He is requiring 2 L nasal cannula but no acute infiltrates on x-ray. Possible mild CHF. He has increased leukocytosis compared to baseline.
PLAN:
Abdominal Pain - Epigastric, non-radiating. Associated with nausea. No reliving factors. Resolved now.
Intra and extrahepatic biliary ductal dilatation with suspicion for obstructing choledocholithiasis in the distal common bile duct-patient also has mild wall thickening and hyperenhancement of the extrahepatic biliary duct suspicious for
cholangitis. With CLL and elevated white count unclear which is contributing to leukocytosis today but the levels of WBCs higher than before. LFT remain normal.
Patient endoscopic ultrasound which shows no cholelithiasis but the sludge in the gallbladder. CBD dilated but no stones. No further interventions recommended by GI. Discontinued antibiotics. Started on diet. Reassumed anticoagulants and Plavix.
Pt remains asymptomatic and tolerating diet. Abdomen benign.
AAA - with endovascular graft -appreciate vascular input who does not see an obvious endoleak. Advised to follow-up as an outpatient.
Acute on chronic CHF - 10 Ib weight gain over 2 months. On lasix 20mg po daily. Bibasilar Crackles on exam and on 2 L O2. Increased reticular pattern on Xray. BNP unchanged. Trop negative.
-Improved weight with IV diuresis. He is off of oxygen. Patient says his weight is around 212.
-Echo shows EF of 40 to 45% which is the same for his mild attic stenosis which is new compared to recent echocardiogram. The echocardiogram was difficult study .
-Will switch back to home dose of Lasix.
Leukocytosis - h/o CLL.
AFIB
-Rate controlled.
- cw apixaban
- continue atenolol
COPD - No evidence of acute exacerbation. No history of severe exacerbations
- continue ics/laba and prn albuterol
CVA
- on plavix -hold for procedure tomorrow.
DVT PPX - on AC
Code Status - Full Code
Medically stable for discharge home today.
Total time of discharge 32 minutes
Anticipated Discharge: Today
Subjective/Interval History
-
Date of Service: December 30, 2023
No further abdominal pains. Tolerating diet. He had his breakfast without any issues. He is up and about walking without difficulty he states.
Not short of breath. No chest pain or palpitations.
No fever.
Objective Data
-
Vital Signs:
Vital Signs
Temp Pulse Resp BP Pulse Ox
97.4 F 79 18 134/58 93
12/30/23 08:15 12/30/23 08:15 12/30/23 08:15 12/30/23 08:15 12/30/23 08:15
I&O
12/29/23 12/30/23 12/31/23
06:59 06:59 06:59
Intake Total 620 / 620 1240 / 1240
Output Total 600 / 600 1575 / 1575
Balance -335 / -335
Review of Systems
-
Neuro: Denies Dizzy
Physical Exam
-
General: Comfortable
Respiratory: Clear to Auscultation and Non Labored Respirations; Negative Accessory Resp Muscle Use
Cardiac: Regular Rhythm, S1/S2 and Other (V paced)
GI: Soft and Nontender
Neuro: AO x 3
Psych: Calm; Negative Confused
[2023-12-30] MEDS: ELIQUIS 5 MG PO (08:52)
[2023-12-30] MEDS: FLOMAX 0.4 MG PO (08:52)
[2023-12-30] MEDS: KCL 20 MEQ PO (08:52)
[2023-12-30] MEDS: NSS (PRESERVATIVE FREE) 10 ML IV (08:53)
[2023-12-30] MEDS: PROTONIX IV 40 MG IV (08:53)
[2023-12-30] MEDS: FLUSH (NSS) 2 FLUSH IV (08:53)
[2023-12-30] MEDS: TOPROL XL 25 MG PO (08:53)
[2023-12-30] MEDS: PLAVIX 75 MG PO (08:53)
[2023-12-30] MEDS: CRESTOR 40 MG PO (08:53)
[2023-12-30] MEDS: LASIX 40 MG IV (08:54)
--- NOTE | 2023-12-30 09:25 | CM ---
Jordon is cleared for discharge today. He has declined home care services.
Pt's to provide transport home at discharge.
Plan: Discharge to home with no needs.
--- NOTE | 2023-12-30 09:28 | W.PN.CARDCBS ---
Addendum entered and electronically signed by Sonny Alegre DO 12/30/23 09:48:
I saw and examined the patient.
The Skip Hoist Engineer's note was reviewed and I agree with the note.
Comment:
Patient resting comfortably in bed, no complaints
Euvolemic on exam
ASVP on telemetry
Resume oral lasix, BMP 1 week
GDMT with beta-jose ramon; reassess further medical therapy as outpatient (unable to tolerate in-patient due to low BP)
Follow-up as scheduled with outpatient wildlife management professor, Dr Villar
Stable for DC from CV standpoint, will sign off. Please call with questions.
Original Note:
Today's Communication / Plan
-
PO lasix
BMP in 1 week
Follow up arranged
Impression / Plan
-
PCP: Dr. Raphael Fenton
Snow Remover: Dr. Villar
Impression:
Admitted with abdominal pain 12/26/23
Intra/extrahepatic biliary ductal dilatation with normal LFTs
s/p ERCP abnormality filling defect with stone s/p sphincterotomy and stone removal, CBD dilated, hypoechoic material seen at the level of ampulla, no lesion seen bx ampullary lesion neg 09/21/23
Acute HFrEF
Leukocytosis
CLL
CM EF 40% by echo 12/27/23
CAD
h/o anteroseptal [place] w/ stent 03/1999
cath at [facility] mid to distal LAD 90% stenosis , Diag-1 ostial 90%, Diag-2 ostial 20%, Diag-3 ostial 80%, ostial circumflex 20%, ramus ostial 50%, RCA 30%, proximal PDA 40% 02/06/13
significant distal LAD, severe proximal diagonal, 100% stenosis of proximal PDA, and 60% stenosis of the mid OM1 by cath 09/18/18
s/p Biotronik dual-chamber permanent pacemaker 12/2012, s/p generator change 01/20/21
Paroxysmal atrial fibrillation
47 min long episode 11/15/23
Chronic Eliquis anticoagulation
h/o TIA
Hypertension
Hyperlipidemia
AAA status post endovascular repair 05/2021
COPD
Frequent PVCs
Hypokalemia
Echo 02/14/2023: EF 50-55%, mild cLVH, mild TR
Echo 12/27/23: EF 40 to 45%, global hypokinesis, mild concentric LVH, mild peak/mean 21/11 mmHg and KILO 1.3 cm sq, no aortic regurgitation
Plan:
-Presented with abdominal pain. Admitted with suspected cholelithiasis and acute heart failure.
-Underwent EUS 12/28 and found to have sludge in the gallbladder without evidence of cholelithiasis.
-Continue Plavix and Eliquis.
-Diuresed with IV lasix 40mg BID this admission. Weight down at least 5lbs this admission, down to 215lbs 12/29. Creat stable at 0.9.
-Agree w/ transition back to PO lasix 40mg daily. Recheck BMP in 1 week.
-EF down to 40-45% by echo 12/26, may consider repeat ischemic eval as OP.
-Continue Toprol XL 25mg BID. SGLT 2 inhibitor cost prohibitive.
-Follow up has been arranged w/ primary wildlife management professor.
HPI: Patient came to [facility] Monday night with abdominal pain and was admitted with acute HF and plans for GI work-up, cardiology is now consulted for preoperative risk stratification, acute HF and CM treatment and also to help determine if PPM is MRI
compatible. Patient has a h/o abnormal ERCP and has been following with Dr. Mar at [facility]. Patient had an outpatient CT scan 12/06/23 and was recommended to proceed with EUS/ERCP on 12/15/23, but was not scheduled until 02/01/24. Patient now admitted
and being seen by GI who is recommend an inpatient MRI and EUS/ERCP. Patient reports that he was able to vacuum his home prior to admission without chest pain or SOB. Patient has a h/o CAD with previous AL and PCI in 1999, but stable CAD by last
cath in 2019. Patient had an echo 02/14/23 and EF was 50-55%. Echo repeated this admission shows EF is down to 40-45%. Patient also being treated for acute HF and weight is down by at least 7 lbs from admission, but he remains hypoxic. Interestingly
his pro-BNP is lower than previous. No pleural effusion on CXR. Patient has a Biotronik PPM since 2012 and had a generator change 2020. Patient reportedly with increased PVC burden as noticed by his primary wildlife management professor's office, but this was just
prior to admission and he has not talked to them about the increased PVCs yet. Patient is v paced 97% of the time.
Progress Note - Snow Remover
Subjective
Date of Service: December 30, 2023
No complaints. Denies SOB or edema.
Objective
Labs:
12/29/23 07:16
12/29/23 07:16
Labs
Hgb 10.4 g/dL (13.0-18.0) L 12/29/23 07:16
Hct 32.4 % (39.0-52.0) L 12/29/23 07:16
Plt Count 276 10^3/uL (130-400) 12/29/23 07:16
PT 16.9 Sec (11.4-14.6) H 12/29/23 07:16
INR 1.39 12/29/23 07:16
Sodium 133 mmol/L (135-145) L 12/29/23 07:16
Potassium 3.4 mmol/L (3.5-5.1) L 12/29/23 07:16
BUN 25 mg/dl (9-20) H 12/29/23 07:16
Creatinine 0.9 mg/dL (0.7-1.3) 12/29/23 07:16
Glucose 98 mg/dl (70-99) 12/29/23 07:16
Vital Signs and I&O:
Vital Signs
Temp Pulse Resp BP Pulse Ox
97.4 F 79 18 134/58 93
12/30/23 08:15 12/30/23 08:15 12/30/23 08:15 12/30/23 08:15 12/30/23 08:15
Vital Signs
Temp Pulse Resp BP Pulse Ox
97.4 F 79 18 134/58 93
12/30/23 08:15 12/30/23 08:15 12/30/23 08:15 12/30/23 08:15 12/30/23 08:15
Intake & Output
12/28/23 12/29/23 12/30/23 12/31/23
06:59 06:59 06:59 06:59
Intake Total 480 / 480 620 / 620 1240 / 1240
Output Total 1350 / 1350 600 / 600 1575 / 1575
Balance -870 / -870 -335 / -335
Physical Exam
Physical Exam
GEN: No distress, awake, alert, oriented x3
HEENT: supple, anicteric, mmm
LUNGS: CTA, no wheezes/rales
CV: irreg, S1/S2, 1/6 syst murmur, no gallop
EXT: No clubbing or cyanosis, trace edema
NEURO: Gross non-focal
SKIN: Warm, dry, no rash
[2023-12-30 11:34] VITALS: BP 141/72
--- NOTE | 2023-12-30 15:02 | W.DCSUMMARY ---
Discharge Summary
Discharge Data
Date of Admission: 12/27/23
Date of Discharge: 12/30/23
-
Pending Results: No
Hospital Course
Primary diagnosis:
Acute abdominal pain suspected biliary in nature
Sludge in gallbladder
Common bile duct dilatation without stones
acute on chronic heart failure with mid range EF
Secondary diagnosis:
abdominal aortic aneurysm status post endovascular graft in past
History of chronic lymphocytic leukemia
Paroxysmal atrial fibrillation
chronic obstructive pulmonary disease without flare
History of stroke
Hospital course:
patient presents with abdominal pain. He was quite symptomatic. Initial CT imaging abdominal and subsequent CT angiogram abdomen pelvis showed moderate extrahepatic and mild intrahepatic biliary dilatation. There was also moderate gallbladder
distention and mild diffuse gallbladder wall thickening. There is a cholelithiasis in the gallbladder lumen and suspected obstructing choledocholithiasis in the distal common bile duct. There is mild wall thickening of the hyperenhancement of the
extrahepatic bile duct. Despite this his LFTs were normal.
In view of abnormal biliary tract he went on to have an endoscopic ultrasound which showed CBD dilatation but no evidence of ducatal stones. There was gallbladder without stones but there was thick sludge. Post ERCP he had no further abdominal
pain and he was tolerating diet. I suspect may be this was more of biliary colic in nature from sludge or having had passed stones.
He has a AAA with endovascular graft and was seen by vascular who felt there is no endovascular leak issues and had no recommendations for interventions.
Once he was tolerating diet he was discharged home.
There was element of acute on chronic heart failure needing intravenous diuretics. On was seen by cardiology. His weight did improve to 215 pounds. Normally he is up to 212 at home apparently. He was switched back to his home Lasix dose and
advised to follow with Cards on DC.
Consultants on board:
Vascular Everett Lobato
Cardiology Danish Parker
GI Jose A Cheng
Discharge Plan
-
Patient Disposition: Home (Routine Discharge)
Discharge Diagnosis/Procedures: Acute abdominal pain suspect possibly biliary colic status post endoscopic ultrasound with dilatation of CBD ( no stones) and sludge in the gallbladder.
Diet: 2 Gram Sodium
Activity: As tolerated
Driving Restrictions: As prior to admission
Blood Work: BMP in 1 week
Specialty Instructions: Weigh Daily- Call MD for wt gain/loss 3 lbs overnight/5 lbs in 1 week
Instructions: *[facility] Heart Failure Instructions
Referrals:
Jose A Mar MD [Active] - in one to two months (in 8 weeks)
Deny Villar MD [Active] - 01/03/24 10:00 am (You have a follow up visit with Dr. Villar. Please call the office with questions. )
UNKNOWN - PT DOES,NOT KNOW [Family Provider] -
Prescriptions:
New
metoprolol succinate 25 mg Tablet Extended Release 24 Hr
25 mg PO BID Qty: 60 0RF
Rx Instructions:
New in lieu of your Atenolol
Continued
clopidogrel 75 mg tablet
75 mg PO DAILY
tamsulosin 0.4 mg capsule
0.4 mg PO DAILY
rosuvastatin 40 mg tablet
40 mg PO DAILY
albuterol sulfate 90 mcg/actuation HFA aerosol inhaler
2 inh INHALATION R Q4HPRN PRN (Reason: shortness of breath )
Incruse Ellipta 62.5 mcg/actuation Blister With Device
1 inh INHALATION R DAILY
potassium chloride 10 mEq capsule, extended release
10 meq PO DAILY Qty: 30 0RF
therapeutic multivitamin Tablet
1 tab PO DAILY
acetaminophen [Tylenol Extra Strength] 500 mg Tablet
1,000 mg PO TIDPRN PRN (Reason: mild pain)
furosemide 40 mg tablet
40 mg PO DAILY
Eliquis 5 mg Tablet
5 mg PO BID
Discontinued
atenolol 50 mg tablet
50 mg PO DAILY
Discharge Orders:
Discharge Patient (As Directed); Ordered 12/30/23
Ordered By: Wu Medley
Discharge Date and Time
Discharge Date/Time: 12/30/23 12:30
Print Language: IRISH
--- NOTE | 2024-01-01 09:33 | W.HF.CON ---
Heart Failure
- LV Function
Left ventricular function study result: LV Ejection fraction >40%
Ejection Fraction Percentage: 40-45
- ARNI
Patient already on ARNI: No
Heart Failure ARNI Not Indicated: LV Ejection Fraction >/= 40%
- ACEI/ARB
Patient already on ACEI/ARB: No
Heart Failure ACEI/ARB Not Indicated: LV Ejection Fraction > 40%
- Beta Jude
Patient already on Evidence Based Beta Jude: Yes
- Mineralocorticord Receptor Antagonist
Patient already on MRA: No
Heart Failure MRA Not Indicated: LV Ejection Fraction > 40%
- SGLT-2 Inhibitor
Patient already on SGLT-2 Inhibitor: No
Heart Failure SGLT-2 Inhibitor Contraindication: Patient Refusal
Heart Failure SGLT-2 Inhibitor Not Indicated: LV Ejection Fraction >40%
- Afib Anticoagulation
Patient already on Anticoagulation for Afib: Yes
- NYHA CHF Classification
NYHA CHF Classification Level: Class III - Symptoms w/ min exertion, interferes w/ nml daily activity
- ACC/AHA Stage
ACC/AHA Stage: Stage C: Symptomatic Heart Failure
== END 2023-12-30 12:30 | disposition home or self-care (01) | DRG 291 ==
LOC: 4 EAST ACU 04:41
PROVIDERS: Nurse Practitioner; Nurse Practitioner Adult Health; Student in an Organized Health Care Education/Training Program; ADMITTING PHYSICIAN Internal Medicine; ATTENDING PHYSICIAN Internal Medicine; CONSULT PHYSICIAN Internal Medicine Cardiovascular Disease; CONSULT PHYSICIAN Internal Medicine Gastroenterology; EMERGENCY PHYSICIAN Emergency Medicine; OTHER PHYSICIAN Nurse Practitioner
DX: I11.0 Hypertensive heart disease with heart failure (principal); I50.23 Acute on chronic systolic (congestive) heart failure; C91.10 Chronic lymphocytic leukemia of B-cell type not having achieved remission; R10.9 Unspecified abdominal pain; E66.9 Obesity, unspecified; Z68.33 Body mass index [BMI] 33.0-33.9, adult; I48.0 Paroxysmal atrial fibrillation; J44.9 Chronic obstructive pulmonary disease, unspecified; E87.6 Hypokalemia; I25.10 Atherosclerotic heart disease of native coronary artery without angina pectoris; Z87.891 Personal history of nicotine dependence; Z95.0 Presence of cardiac pacemaker; I25.2 Old myocardial infarction; Z79.01 Long term (current) use of anticoagulants; Z86.73 Personal history of transient ischemic attack (TIA), and cerebral infarction without residual deficits
CPT/HCPCS: 71045; 74174; 74177; 80048; 80053; 81003; 81015; 82248; 83690; 83735; 83880; 84145; 84484; 85025; 85027; 85610; 87040; 87086; 93005; 93306; 94640; Q9950; Q9967

== ENCOUNTER 2024-02-20 06:00 | Inpatient (IN) | payer MEDICARE, OTHER, SELFPAY ==
[2024-02-14 10:29] VITALS: BMI 35.5
[2024-02-20] VITALS (22 sets, daily range): BP systolic 90–166; BP diastolic 41–75; BMI 34.9
[2024-02-20 08:34] LABS: ACT-LR - POC 252 Seconds (116-155)
--- NOTE | 2024-02-20 08:43 | ITS.CL.PN ---
Application Integrator - Procedure Note
Procedure
Procedure Note:
Watchman implantation report
Date: February 20, 2024
Referring: Dr. Deny Villar
History: 78-year-old male with history of significant anemia and bleeding as well as elevated stroke risk. Prior history of dual-chamber pacemaker for AV block and PVI with maintenance of sinus rhythm but given elevated stroke risk need for
long-term oral anticoagulation or it substitute
Procedure report:
Primary: Erickson
Transseptal spar machine operator Manager Department: [facility]
After informed consent and patient safety timeout the patient was sedated by the anesthesiology service with general anesthesia. The PHANI probe was passed demonstrating no left atrial appendage thrombus and right femoral venous access under
ultrasound guidance was performed. Intracardiac ultrasound demonstrated no pericardial effusion nor intracardiac thrombus. The 8 Congolese sheath was upgraded to a watchman sheath with its RF wire system. The dual-chamber pacemaker was interrogated
preprocedure and left at DDD�CLS 6130 beats minute with stable lead pre and post procedure.
Under direct visualization of intracardiac ultrasound the RF wire was withdrawn into the sheath and at the fossa radiofrequency wire crossed into the left atrium and over this wire the sheath was brought into the left atrium. Over the RF wire the
pigtail catheter was brought to the left atrium and venography demonstrated an anterior windsock morphology with a 20 mm ostium. A 24 mm device was brought to the table and exchanged for the pigtail wire with slight clockwise delivery at the back
wall of the left atrial appendage a 24 mm device was delivered. 10 to 15% compression was noted.
Pass criteria was met with tug test, compression, position, and venography demonstrating an ostial location. The device was delivered and sheaths were removed from the left atrium. Heparin was utilized to maintain an ACT from 300 to 350 seconds.
Protamine was delivered once the sheath was back into the right atrium and there was no pericardial effusion postdelivery. Stable lead positions were noted and sheaths were withdrawn with a [id number] stitch at the right femoral vein.
Impression:
24 mm Watchman device delivery
Plan:
Continue oral coagulation for 3 months with PHANI in 3 months and outpatient follow-up with Dr. Villar.
[2024-02-20] MEDS: SOLU-CORTEF 100 MG IV (09:10)
[2024-02-20] MEDS: BENADRYL 50 MG IV (09:10)
[2024-02-20] MEDS: TYLENOL 650 MG PO (09:43)
--- NOTE | 2024-02-20 10:51 | PTCARENOTE ---
Rec'd Pt a,a+ox3, denies pain, hives on Pt chest and R shoulder, previously noted in recovery by Vickie MCMANUS, are fading and nearly gone now. R femoral vein dsg D+I with pea sized SS drainage noted. Site soft, no hematoma noted. Bilat DP pulses weak on
palpation.
--- NOTE | 2024-02-20 13:57 | CM ---
Reviewed chart. Met with and Mrs. Gray to review discharge plans. He states prior to admission he resides with his spouse in a one story home without any steps to enter. He states prior to admission he was independent with ambulation and adls.
He states he does not have any DME in the home. He states he has a prescription plan. Medical work-up in progress. The discharge plan is to return home with his spouse when medically stable.
[2024-02-20] MEDS: TOPROL XL 50 MG PO (20:02)
[2024-02-20] MEDS: ELIQUIS 5 MG PO (20:02)
--- NOTE | 2024-02-21 02:30 | PTCARENOTE ---
received patient at the change of shift. AAOx3. denies any pain. ambulating to the BR independently. R groin site CDI. + pulses/ LE edema noted. Vpaced on tele with PVCs. bp stable. R groin site intact/ecchymotic. reviewed plan of care with patient
and verbalized understanding. call billy within reach. makes needs known.
[2024-02-21 04:35] VITALS: BP 129/82; BMI 34.9
[2024-02-21 06:04] LABS: Blood Urea Nitrogen 15 mg/dl (9-20); Carbon Dioxide 28 mmol/L (22-30); Chloride 101 mmol/L (98-107); Estimated Creatinine Clearance 104 ml/min; Glucose 122 mg/dl (70-99); Potassium 4.4 mmol/L (3.5-5.1); Sodium 136 mmol/L (135-145); eGFR > 60.00
[2024-02-21 06:06] LABS: Hematocrit 32.5 % (39.0-52.0); Hemoglobin 9.7 g/dL (13.0-18.0); Mean Corp Hgb Conc. 29.8 g/dL (33.0-37.0); Mean Corpuscular Hgb 25.7 pg (27.0-31.0); Mean Corpuscular Volume 86.2 fL (80.0-94.0); Mean Platelet Volume 11.1 fL (7.4-10.4); Platelet Count 288 10^3/uL (130-400); Red Blood Cell Count 3.77 10^6/uL (4.70-6.10); Red Cell Dist. Width 25.2 % (11.5-14.5); White Blood Cell Count 15.5 10^3/uL (4.8-10.8)
[2024-02-21] MEDS: SPIRIVA RESPIMAT 2.5 MCG 2 PUFF INH (07:46)
[2024-02-21 07:57] VITALS: BP 121/43
--- NOTE | 2024-02-21 07:59 | W.PN.CARDCBS ---
Addendum entered and electronically signed by Alden Erickson MD 02/21/24 09:34:
Patient seen and examined
No chest pain or pressure
Agree with PIPE FITTER note and assessment
Agree with PIPE FITTER plan
Exam as per PIPE FITTER note
Right groin clean dry and intact
Cor regular
Paced on telemetry
Impression:
PAF prior PVI 08/2023
post Watchman device 02/20/24
HTN
HLD
CAD PCI 1999
NSVT
AVB post PPM 2012
COPD
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
AAA post EVAR 06/01
TIA/CVA
BPH
LEVI prior IV iron infusions
Chronic lymphocytic leukemia
Plan:
post Watchman device implant
groin stable, mild ecchymosis
tele AsVpaced with occ PVC's
hives post procedure, ? IV contrast allergy vs latex, completely resolved this am
Continue OAC Eliquis 5mg bid
HF continue toprol, lasix, farxiga
f/u PHANI in 3 mo
continue cardiac care with Dr. Villar
stable for d/c home today
Original Note:
Today's Communication / Plan
-
stable for d/c home
Impression / Plan
-
PCP: Raphael Fenton DO
CDY: Deny Villar MD
Impression:
PAF prior PVI 08/2023
post Watchman device 02/20/24
HTN
HLD
CAD PCI 1999
NSVT
AVB post PPM 2012
COPD
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
AAA post EVAR 06/01
TIA/CVA
BPH
LEVI prior IV iron infusions
Chronic lymphocytic leukemia
Plan:
post Watchman device implant
groin stable, mild ecchymosis
tele AsVpaced with occ PVC's
hives post procedure, ? IV contrast allergy vs latex, completely resolved this am
Continue OAC Eliquis 5mg bid
HF continue toprol, lasix, farxiga
f/u PHANI in 3 mo
continue cardiac care with Dr. Villar
stable for d/c home today
Progress Note - Front Edger
Subjective
Date of Service: February 21, 2024
denies cp, sob
Objective
Labs:
02/21/24 04:34
02/21/24 04:34
Labs
Hgb 9.7 g/dL (13.0-18.0) L 02/21/24 04:34
Hct 32.5 % (39.0-52.0) L 02/21/24 04:34
Plt Count 288 10^3/uL (130-400) D 02/21/24 04:34
Sodium 136 mmol/L (135-145) 02/21/24 04:34
Potassium 4.4 mmol/L (3.5-5.1) 02/21/24 04:34
BUN 15 mg/dl (9-20) 02/21/24 04:34
Creatinine 0.6 mg/dL (0.7-1.3) L 02/21/24 04:34
Glucose 122 mg/dl (70-99) H 02/21/24 04:34
Vital Signs and I&O:
Vital Signs
Temp Pulse Resp BP Pulse Ox
97.7 F 73 16 124/64 93
02/21/24 04:35 02/21/24 07:52 02/21/24 07:52 02/20/24 23:02 02/21/24 07:52
Vital Signs
Temp Pulse Resp BP Pulse Ox
97.7 F 73 16 124/64 93
02/21/24 04:35 02/21/24 07:52 02/21/24 07:52 02/20/24 23:02 02/21/24 07:52
Intake & Output
02/19/24 02/20/24 02/21/24 02/22/24
06:59 06:59 06:59 06:59
Intake Total 950 / 950
Balance 950 / 950
Physical Exam
Physical Exam
NAD< AOX3
S1, S2, RRR
bibasilar rales, no wheeze, non labored
SNTND Bsx4
R fem site c/d/i mild ecchymosis, soft
[2024-02-21 08:00] VITALS: BP 130/41
[2024-02-21] MEDS: ELIQUIS 5 MG PO (08:05)
[2024-02-21] MEDS: TOPROL XL 50 MG PO (08:05)
[2024-02-21] MEDS: LASIX 20 MG PO (08:05)
[2024-02-21] MEDS: FARXIGA 10 MG PO (08:05)
[2024-02-21] MEDS: CRESTOR 40 MG PO (08:05)
[2024-02-21] MEDS: PLAVIX 75 MG PO (08:05)
[2024-02-21] MEDS: FLOMAX 0.4 MG PO (08:05)
[2024-02-21] MEDS: KCL 10 MEQ PO (08:05)
--- NOTE | 2024-02-21 09:04 | W.DS.TRANS ---
DC Summary - Toggle Press Folder And Feeder
-
Discharge Instructions:
Sleep Apnea Risk Intermediate
Discharge Diagnosis/Procedures AFib, s/p Watchman device implant
Diet Low Cholesterol
Driving Restrictions No driving for 24 hours
Others Tests Follow up PHANI is scheduled at [facility] with Dr. Stewart on 05/21/2024. You will
receive information in the mail and a call the
day prior with arrival time.
Instructions:
Stand-Alone Forms: DC Instructions- Cath/EP Lab
Changes to Home Medications: No
Discharge Medications:
DC Medications w/original date entered in [facility]
albuterol sulfate 90 mcg/actuation aerosol inhaler 2 inh inhalation R Q4HPRN PRN shortness of breath 02/13/23
clopidogrel 75 mg tablet 75 mg PO DAILY Blood Clot Prevention/Tx 02/13/23
rosuvastatin 40 mg tablet 40 mg PO DAILY High Cholesterol 02/13/23
tamsulosin 0.4 mg capsule 0.4 mg PO DAILY Urinary Issue 02/13/23
umeclidinium 62.5 mcg/actuation blister powder for inhalation (Incruse Ellipta) 1 inh inhalation R DAILY COPD 02/13/23
potassium chloride 10 mEq capsule,extended release 10 meq PO DAILY Electrolyte Repletion #30 caps 02/17/23
acetaminophen 500 mg tablet (Tylenol Extra Strength) 1,000 mg PO TIDPRN PRN mild pain 03/07/23
therapeutic multivitamin 1 tab PO DAILY Supplement 03/07/23
apixaban 5 mg tablet (Eliquis) 5 mg PO BID Blood Clot Prevention/Tx 12/27/23
dapagliflozin propanediol 10 mg tablet (Farxiga) 10 mg PO DAILY 02/13/24
furosemide 20 mg tablet 20 mg PO DAILY 02/14/24
metoprolol succinate 50 mg tablet,extended release 24 hr (Toprol XL) 50 mg PO BID 02/14/24
Home Medication Changes
Pending Results: No
[2024-02-21 10:10] VITALS: BMI 35.7
--- NOTE | 2024-02-21 11:09 | PTCARENOTE ---
Patient discharge to home, escorted to car in a wheelchair. Discharge teaching completed with and patient, they verbalized understanding.
== END 2024-02-21 11:12 | disposition home or self-care (01) | DRG 274 ==
LOC: IVU 06:00
PROVIDERS: Internal Medicine Cardiovascular Disease; Nurse Practitioner; ADMITTING PHYSICIAN Internal Medicine Cardiovascular Disease; FAMILY PHYSICIAN Family Medicine
PROC: B24BZZ4 Ultrasonography of Heart with Aorta, Transesophageal (ICD-10-PCS; 2024-02-20)
PROC: 02L73DK Occlusion of Left Atrial Appendage with Intraluminal Device, Percutaneous Approach (ICD-10-PCS; 2024-02-20)
DX: I48.0 Paroxysmal atrial fibrillation (principal); Q21.19 Other specified atrial septal defect
CPT/HCPCS: 33340; 80048; 85027; 86850; 86900; 86901; 93005; 93355; C1759; C1892; C1894; Q9967

== ENCOUNTER 2024-05-21 08:13 | Day surgery (SDC) | payer MEDICARE, OTHER, SELFPAY ==
[2024-05-21 08:34] VITALS: BMI 32.1
== END 2024-05-21 10:00 | disposition home or self-care (01) ==
LOC: CATH 08:13
PROVIDERS: ATTENDING PHYSICIAN Internal Medicine Cardiovascular Disease; FAMILY PHYSICIAN Family Medicine; OTHER PHYSICIAN Internal Medicine Cardiovascular Disease
DX: Z45.09 Encounter for adjustment and management of other cardiac device (principal); I48.0 Paroxysmal atrial fibrillation; I08.1 Rheumatic disorders of both mitral and tricuspid valves; I11.0 Hypertensive heart disease with heart failure; I50.22 Chronic systolic (congestive) heart failure; E78.5 Hyperlipidemia, unspecified; I25.10 Atherosclerotic heart disease of native coronary artery without angina pectoris; J44.9 Chronic obstructive pulmonary disease, unspecified; Z86.73 Personal history of transient ischemic attack (TIA), and cerebral infarction without residual deficits; C91.10 Chronic lymphocytic leukemia of B-cell type not having achieved remission; Z79.02 Long term (current) use of antithrombotics/antiplatelets; Z79.01 Long term (current) use of anticoagulants; Z79.84 Long term (current) use of oral hypoglycemic drugs
CPT/HCPCS: 93312; 93320; 93325

== ENCOUNTER → 2024-09-20 11:27 | Outpatient (REF) | payer MEDICARE, OTHER, SELFPAY ==
[2024-09-20 12:42] LABS: Blood Urea Nitrogen 9 mg/dl (9-20); Calcium 9.2 mg/dl (8.4-10.2); Carbon Dioxide 28 mmol/L (22-30); Chloride 98 mmol/L (98-107); Glucose 100 mg/dl (70-99); Potassium 4.3 mmol/L (3.5-5.1); Sodium 135 mmol/L (135-145); eGFR > 60.00
== END ==
LOC: REG 11:27
PROVIDERS: ATTENDING PHYSICIAN Internal Medicine Gastroenterology; FAMILY PHYSICIAN Family Medicine
DX: K52.9 Noninfective gastroenteritis and colitis, unspecified (principal); K80.50 Calculus of bile duct without cholangitis or cholecystitis without obstruction
CPT/HCPCS: 36415; 80048

== ENCOUNTER → 2024-09-26 09:31 | Outpatient (REF) | payer MEDICARE, OTHER, SELFPAY | LOC: RAD 09:31 | PROVIDERS: ATTENDING PHYSICIAN Internal Medicine Gastroenterology; FAMILY PHYSICIAN Family Medicine | DX: K80.50 Calculus of bile duct without cholangitis or cholecystitis without obstruction (principal) | CPT/HCPCS: 74170; Q9967 ==

== ENCOUNTER 2024-09-28 09:56 | Emergency (ER) | payer MEDICARE, OTHER, SELFPAY ==
[2024-09-28] VITALS (9 sets, daily range): BP systolic 137–178; BP diastolic 63–74; BMI 29.9
--- NOTE | 2024-09-28 10:50 | EDRN ---
Alyx Loza PA in to see pt at this time.
--- NOTE | 2024-09-28 11:17 | ED.GENMED ---
History of Present Illness
General
Chief Complaint: Vascular Symptoms
Source: patient
Exam Limitations: none
Time Seen by Provider: 09/28/24 10:40
Nursing documentation reviewed up to this point in time: agreed with
History of Present Illness
History of Present Illness:
Patient is an 79-year-old male who presents to the emergency department after abnormal result of CT scan performed outpatient. Patient states he has had a few weeks of lack of appetite as well as loose stools. He was seen by the GI doctor who
ordered a CAT scan. The CT scan which was performed on 09/26/2024 revealed a possible contained rupture of his AAA surrounding his stent. This was discussed with patient's vascular surgeon, Dr. Montez at [facility] who recommended evaluation in the
emergency department for further workup.
Patient had a stent placed for a AAA at [facility] many years ago.
Patient denies any chest pain, shortness of breath, dizziness/lightheadedness. He denies any numbness/tingling in extremities. He denies any true abdominal pain however just reports a generalized lack of appetite and loose stools. No fevers or
chills. No urinary symptoms.
Past History
Past History
ED Past Medical History: Arrthythmia, COPD and Hypercholesterolemia
ED Past Surgical History: Cardiac (Pacemaker) and Orthopedic
Social History
Tobacco: Former smoker
Review of Systems
Review of Systems
Allergies reviewed?: Yes
All Other Systems: ROS reviewed and negative except as documented in HPI and ROS
Phy Exam
Physical Exam
Physical Exam:
Vitals: Hypertensive, otherwise vital signs stable. Afebrile
General: Patient is in no apparent distress
Skin: Warm and dry, no rashes or lesions
Head: Normocephalic, atraumatic
Eyes: Sclera nonicteric. EOMs intact. No nystagmus.
Throat: Protecting airway
Neck: Normal ROM, no cervical spine tenderness, no meningismus. No JVD
Cardiac: Regular rate and rhythm, no murmurs. 2+ palpable radial, femoral, DP pulses.
Pulm: Normal respiratory effort, no wheezes, rales, rhonchi heard on exam
.
Abdomen: Abdomen soft. No focal abdominal tenderness. No pulsatile mass.
Extremities: No evidence of cyanosis or edema. Perfusing
Neuro: AAOx3. Grossly intact.
Psychiatric: Normal affect.
Course
Orders/Labs/Results
Orders:
Orders
09/28/24 11:03
CT Angio Abd/Pelvis w/wo IV [CT Abd/pelvis Angio W/wo Iv] Urgent
Comment: possible endoleak seen on prior study
Reason For Exam: Anorexia, weakness
pacemaker [Interrogate Pacemaker- Treatment] ONCE
09/28/24 11:05
Electrocardiogram (*1) Urgent
Reason for Study: Fatigue / Weakness
EKG- Treatment ONCE
09/28/24 11:32
Complete Blood Count/With Diff Urgent
Comprehensive Metabolic Panel Urgent
Lipase Urgent
Comment: ADD ON
09/28/24 15:32
Add On- LAB Urgent
Tests Added?: Lipase
Abnormal Lab Results
09/28/24
11:32
WBC 16.9 H 10^3/uL
(4.8-10.8)
Hgb 11.4 L g/dL
(13.0-18.0)
Hct 38.5 L %
(39.0-52.0)
MCH 24.0 L pg
(27.0-31.0)
MCHC 29.6 L g/dL
(33.0-37.0)
RDW 19.8 H %
(11.5-14.5)
MPV 11.0 H fL
(7.4-10.4)
Abs Immat Gran (auto) 0.1 H 10^3/uL
(0-0.05)
Absolute Neuts (auto) 11.5 H 10^3/uL
(1.4-6.5)
Absolute Lymphs (auto) 4.2 H 10^3/uL
(1.2-3.4)
Carbon Dioxide 33 H mmol/L
(22-30)
Creatinine 0.6 L mg/dL
(0.7-1.3)
09/28/24 11:32
09/28/24 11:32
Vital Signs
Initial and Last Documented VS:
Initial Vital Signs
Temp Pulse Resp BP Pulse Ox
97.6 F 79 16 153/74 96
09/28/24 10:03 09/28/24 10:03 09/28/24 10:03 09/28/24 10:03 09/28/24 10:03
Last Documented Vital Signs
Temp Pulse Resp BP Pulse Ox
97.6 F 74 23 162/69 99
09/28/24 10:03 09/28/24 17:30 09/28/24 17:30 09/28/24 17:00 09/28/24 17:30
MDM/Problems Addressed
Differential Diagnosis Includes:
Not limited to: AAA leak, acute dehydration, cardiac arrhythmia, pancreatitis, malignancy, etc.
MDM/Problems Addressed:
79-year-old male with 2 weeks of anorexia and loose stools presenting with concern of possible contained rupture of AAA and new endoleak seen on outpatient CT scan. Patient has history of AAA s/p stent placement approximately 4 years ago with [facility],
follows with Dr. Montez. Sent by [facility] for further evaluation and possible transfer. Patient denies chest pain, abdominal pain, numbness/tingling in extremities or significant weakness. Patient mildly hypertensive and hemodynamically
stable on arrival. He is afebrile. Physical exam as above. Patient well-appearing, no apparent distress. Cardio/pulmonary assessment unremarkable. He has 2+ palpable and equal peripheral pulses in bilateral upper and lower extremities. Abdomen
benign without pulsatile mass. Discussed with attending physician. Will plan to check basic labs, EKG. Will interrogate pacemaker. Will obtain CT angiogram of the abdomen/pelvis for further characterization of possible AAA stent abnormality.
Update: Labs reviewed. Leukocytosis of 16.9 which appears around patient's baseline. Stable anemia of 11.4, Actually increased from last visit. Chemistry unremarkable with normal lipase. Unfortunately�we do not have the equipment in our
department to interrogate patient's pacemaker. EKG shows paced rhythm. CT pending. Patient remains hemodynamically stable and in no apparent distress.
Update: CTA abdomen/pelvis reveals similar findings outpatient CT scan concern for contained rupture of [place] abdominal aortic aneurysm with surrounding stent with progressive endoleak. Also findings consistent with possible pancolitis and biliary
dilatation. Ultimately�suspect patient's presenting symptoms possibly related to pancolitis however more emergent concern would be a rupture of his AAA.
Update 4:00 PM: Case discussed with [facility], Dr. Rodrigez. His CT imaging was reviewed by both herself and her colleague, patient's vascular surgeon Dr. Montez. They are concerned for possible mass surrounding area of AAA,
considering possible lymphoma. However�they recommend immediate level 0 transfer down to [facility] ICU given concern for contained ruptured AAA with endoleak. They will proceed with further monitoring/workup at [facility]. Patient
accepted to [facility] under the service of Dr. Rodrigez. Estimated transport time 6 PM. Discussed with patient and patient's who are comfortable with plan. He remains hemodynamically stable.
Update 5:49 PM: Patient transported to [facility] in stable condition.
Chronic conditions affecting care:
AAA status post stent, CHF, pacemaker
Acute Exacerbation and/or Progression of Chronic Illness:
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
*Radiology
Radiology exam reviewed: radiology read reviewed
*Pulse Oximetry
SaO2: 96
Oxygen Mode of Delivery: Room air
Patient hypoxic: no
*EKG
Interpreted by ED Provider?: Yes
EKG Intrepretation Date: 09/28/24
Interpretation: abnormal
Comparison EKG: changes noted
Heart Rate: 71
Rate: normal
Rhythm: ventricular paced
Ischemia: non-specific ST changes
*Clearance Diver Interpretation
Rate: normal
Interpretation: abnormal
Heart Rate: 76
Rhythm: ventricular paced
*Critical Care Note
Total Time (30-74mins, 75-104mins- exclusive of procedures): Not Applicable
Data Reviewed
Review of Other/Old Records Reveals: Radiology Studies (CT abdomen/pelvis performed outpatient 09/26/2024 which showed new contained rupture of [place] abdominal aortic aneurysm with progressive endoleak)
Patient Management
Discussion with other providers: Tooling Inspector (Discussed with vascular surgery at [facility])
ED Attending Note
-
Portions of this chart may have been created with voice recognition software.� Occasional wrong word or��sound alike� substitutions may have occurred due to the inherent limitations of voice recognition software.
Discharge Plan
Departure
Patient Disposition: Acute Care Hospital
Date of Disposition: 09/28/24
Time of Disposition: 16:19
Discharge Problem:
Leaking abdominal aortic aneurysm (AAA), Anorexia
Prescriptions:
No Action
clopidogrel 75 mg tablet
75 mg PO DAILY
tamsulosin 0.4 mg capsule
0.4 mg PO DAILY
rosuvastatin 40 mg tablet
40 mg PO DAILY
albuterol sulfate 90 mcg/actuation HFA aerosol inhaler
2 inh INHALATION R Q4HPRN PRN (Reason: shortness of breath )
Incruse Ellipta 62.5 mcg/actuation Blister With Device
1 inh INHALATION R DAILY
potassium chloride 10 mEq capsule, extended release
10 meq PO DAILY Qty: 30 0RF
therapeutic multivitamin Tablet
1 tab PO DAILY
dapagliflozin propanediol [Farxiga] 10 mg Tablet
10 mg PO DAILY
furosemide 20 mg Tablet
20 mg PO DAILY
metoprolol succinate [Toprol XL] 50 mg Tablet Extended Release 24 Hr
25 mg PO DAILY
Eliquis 5 mg Tablet
5 mg PO BID
Referrals:
Raphael Fenton DO [Family Provider, Family Practice]
Hospital Transfer
Other hospital: [facility]
I certify that the patient requires transfer: Yes
Discussed case with accepting physician: Dr. Rodrigez
Reason for transfer: higher level of care
Interventions
Interventions:
*Risk Screen - Suicide Last Done: 09/28/24 10:03
*General Assessment Last Done: 09/28/24 11:20
*Neglect/Abuse Screening Last Done: 09/28/24 10:03
*ED- Fall Risk Assessment Last Done: 09/28/24 11:20
*ED COVID-19 Vaccine History Last Done: 09/28/24 11:20
ED- Cardiac Assessment Last Done: 09/28/24 11:30
ED- Pulmonary Assessment Last Done: 09/28/24 11:30
ED-Peripheral Vascular Assessment Last Done: 09/28/24 11:30
ED-Skin Assessment Last Done: 09/28/24 11:30
Discharge Date and Time
Print Language: CROATIAN
[2024-09-28 11:47] LABS: Hematocrit 38.5 % (39.0-52.0); Hemoglobin 11.4 g/dL (13.0-18.0); Mean Corp Hgb Conc. 29.6 g/dL (33.0-37.0); Mean Corpuscular Volume 81.1 fL (80.0-94.0); Platelet Count 257 10^3/uL (130-400); Red Cell Dist. Width 19.8 % (11.5-14.5)
[2024-09-28 11:58] LABS: Nucleated Red Blood Cells % 0 % (-)
[2024-09-28 12:02] LABS: ALT (SGPT) 11 U/L (0-50); AST (SGOT) 21 U/L (17-59); Albumin 3.8 g/dl (3.5-5.0); Alkaline Phosphatase 55 U/L (38-126); Blood Urea Nitrogen 10 mg/dl (9-20); Calcium 9.2 mg/dl (8.4-10.2); Carbon Dioxide 33 mmol/L (22-30); Chloride 99 mmol/L (98-107); Estimated Creatinine Clearance 100 ml/min; Glucose 85 mg/dl (70-99); Potassium 4.2 mmol/L (3.5-5.1); Sodium 135 mmol/L (135-145); Total Protein 6.4 g/dl (6.3-8.2); eGFR > 60.00
--- NOTE | 2024-09-28 12:42 | EDRN ---
Pt OOB to [facility] at this time.
--- NOTE | 2024-09-28 15:56 | EDRN ---
Pt assisted in calling his and speaking w/ her at this time about pending transfer to [facility].
--- NOTE | 2024-09-28 16:08 | EDRN ---
Pt's spouse called about pt's plan for transfer to [facility] and asking about his CT scan and is now speaking w/ Alyx BRAXTON. Pt asking to speak w/ spouse again and will pass my phone to him when Alyx BRAXTON is done.
--- NOTE | 2024-09-28 16:34 | EDRN ---
Report called to Lydia Ceja RN at [facility] at this time. Pt will be admitted to [facility] Heart and Vascular ICU [facility] room 735. Pt is scheduled to leave via ground transport at 18:00. [facility] has requested a call when pt leaves here.
[2024-09-28 16:37] LABS: Lipase 32 U/L (23-300)
--- NOTE | 2024-09-28 17:39 | EDRN ---
Report given to [facility] transport person from [facility] at this time.
--- NOTE | 2024-09-28 17:50 | EDRN ---
Per pt request this RN called his spouse to tell him that pt had left via ambulance for [facility] at this time and gave her room number and building and floor info.
--- NOTE | 2024-09-28 18:26 | EDRN ---
Attempted to call Lydia Ceja RN at 17:55 though there was no answer. Called again at 18:26 and informed Suzy MCMANUS that pt had left [facility] at 17:50.
== END 2024-09-28 17:50 | disposition short-term general hospital (02) ==
LOC: EMR 09:56
PROVIDERS: Physician Assistant; EMERGENCY PHYSICIAN Emergency Medicine; FAMILY PHYSICIAN Family Medicine
DX: I71.30 Abdominal aortic aneurysm, ruptured, unspecified (principal); R63.0 Anorexia; Z68.29 Body mass index [BMI] 29.0-29.9, adult; I50.9 Heart failure, unspecified; R03.0 Elevated blood-pressure reading, without diagnosis of hypertension; Z95.0 Presence of cardiac pacemaker; Z87.891 Personal history of nicotine dependence
CPT/HCPCS: 99285; 74174; 80053; 83690; 85025; 93005; Q9967

== ENCOUNTER 2024-10-16 15:50 | Inpatient (IN) | payer MEDICARE, OTHER, SELFPAY ==
[2024-10-16 11:47] VITALS: BMI 30.1
[2024-10-16 11:53] VITALS: BP 135/64
[2024-10-16 12:08] LABS: Hematocrit 32.3 % (39.0-52.0); Hemoglobin 9.6 g/dL (13.0-18.0); Mean Corp Hgb Conc. 29.7 g/dL (33.0-37.0); Mean Corpuscular Volume 81.2 fL (80.0-94.0); Nucleated Red Blood Cells % 0 % (-); Platelet Count 184 10^3/uL (130-400); Red Cell Dist. Width 18.8 % (11.5-14.5)
[2024-10-16 12:20] LABS: INR 1.06; PT 14.3 Sec (11.4-14.6)
[2024-10-16 12:22] LABS: ALT (SGPT) 12 U/L (0-50); AST (SGOT) 21 U/L (17-59); Albumin 3.7 g/dl (3.5-5.0); Alkaline Phosphatase 52 U/L (38-126); Blood Urea Nitrogen 9 mg/dl (9-20); Calcium 8.8 mg/dl (8.4-10.2); Carbon Dioxide 28 mmol/L (22-30); Chloride 100 mmol/L (98-107); Glucose 100 mg/dl (70-99); Potassium 3.7 mmol/L (3.5-5.1); Sodium 134 mmol/L (135-145); Total Protein 6.1 g/dl (6.3-8.2); eGFR > 60.00
--- NOTE | 2024-10-16 13:48 | ED.GENMED ---
History of Present Illness
General
Chief Complaint: Abdominal Symptoms
Source: patient
Exam Limitations: none
Time Seen by Provider: 10/16/24 12:59
Nursing documentation reviewed up to this point in time: agreed with
History of Present Illness
History of Present Illness:
79-year-old male with past medical history of AAA with repair CHF, paroxysmal A-fib with pulmonary vein isolation, watchman's procedure 03/05,, COPD, chronic heart failure, and iron deficiency anemia
pacemaker stroke on Plavix, CLL(no meds followed by trent at [facility]) presents to the ER for evaluation of for evaluation of dark stools since yesterday. Patient denies any abdominal pain. He does feel little weak. He denies any back pain
chest pain. reports that patient will typically get iron transfusions however has not needed one in the past several months. His GI specialist was made aware today of his dark stools and recommend that he come to the ER.
Past History
Past History
ED Past Medical History: Arrthythmia, COPD and Hypercholesterolemia
ED Past Surgical History: Cardiac (Pacemaker) and Orthopedic
Social History
Tobacco: Former smoker
Phy Exam
General Physical Exam
General Presentation: no apparent distress
General age: appears stated age
General Skin: warm and dry
General Habitus: elderly
General Mental: alert
General Hydration: appears well hydrated
Cardiovascular Exam
Cardiovascular Exam: regular rate/rhythm and normal peripheral pulses
Pulmonary Exam
Pulmonary Exam: lungs clear and no respiratory distress
Gastrointestinal Exam
Gastrointestinal Exam: soft and other ( dark brown stool heme positive )
Neurological Exam
Neurological Exam: alert and oriented x3
Musculoskeletal Exam
Musculoskeletal Exam: full ROM
Skin Exam
Skin Exam: normal color and warm/dry
Psychiatric Exam
Psychiatric Exam: normal mood/affect
Course
Orders/Labs/Results
Orders:
Orders
10/16/24 11:59
Complete Blood Count/With Diff Urgent
Comprehensive Metabolic Panel Urgent
PT/INR [Prothrombin Time] Urgent
10/16/24 14:29
Electrocardiogram (*1) Stat
Reason for Study: Other
Other Reason for Exam: chest pain
Cardiac Monitoring- Treatment ONCE
EKG- Treatment ONCE
10/16/24 15:14
Admit/Transfer Patient As Directed
Co-Sign Provider:
Level of Care: Inpatient admission
Assign to:: Telemetry
Physician / Group: Jaime Ugarte
Diagnosis: GI bleed, anemia
Reason for Telemetry: Arrhythmia
Date to Stop Telemetry: 10/19/24
Time to Stop Telemetry: 11:00
Reason for Hospitalization: GI bleed, anemia
Expected length of stay greater than two midnights?: Yes
ELOS- Estimated Length of Stay in days: 3
I certify the patient meets the requirements for IP care: Yes
PRN Pain Medication Management As Directed
May give lesser potent ordered pain med per pt: Yes
preference::
Protocol:: Medication orders for pain may be administered in a
manner that supports deferring to patient preference
when the pt is:
- Requesting an ordered lesser potent pain medication.
Least to most potent pain medications are defined
as: acetaminophen < NSAID < tramadol < opioids
(morphine, oxycodone, hydromorphone).
- Requesting a lesser dose of the same medication IF
ORDERED.
- Requesting a less intrusive route of administration
if both routes are prescribed by the provider (PO <
IV).
10/16/24 15:16
Code Status As Directed
Resuscitation Status: Full Code
10/16/24 17:07
HydrALAZINE [Apresoline] 25 mg PO TID
10/16/24 17:07
GASTROINTESTINAL CONSULT Routine
Consulting Provider: Salguti,Samantha
Was physician already notified: Yes
Activity As Directed
Activity Level: As Tolerated
INT (Intravenous Needle Therapy) As Directed
Comment: Place 2 IV catheters of the largest bore possible until stable
Intake/ Output As Directed
Frequency: Per unit guidelines
Orthostatic Vital Signs As Directed
Orthostatic VS Frequency: Now
Comment: then every four hours for twenty-four hours
Pneumatic Compression Sleeves As Directed
Type: Knee high
Vital Signs As Directed
Frequency: Per unit guidelines
Weight As Directed
Frequency: Daily
Type of Scale: Standing Scale
Comment: Daily morning weight. If unable to stand, use balanced bed scale.
Weight As Directed
Frequency: Once
Type of Scale: Standing Scale
Comment: Upon Admission. If unable to stand, use balanced bed scale.
Pulse Ox/cont/shift [RESP] Routine
Quantity: 1
Special Instructions: Daily pulse oximetry at rest. If greater than 92% at rest also obtain pulse oximetry
while ambulating as tolerated.
DX Deep Vein Thrombosis Video Routine
10/16/24 20:00
Pantoprazole [Protonix IV] 40 mg IV BID
10/17/24 06:00
Basic Metabolic Panel IN AM
Complete Blood Count/No Diff IN AM
10/17/24 08:00
Dapagliflozin [Farxiga] 10 mg PO DAILY
Furosemide [Lasix] 20 mg PO DAILY
Metoprolol Xl [Toprol Xl] 50 mg PO DAILY
Potassium Chloride [KCl] 10 meq PO DAILY
Rosuvastatin Calcium [Crestor] 40 mg PO DAILY
Tamsulosin [Flomax] 0.4 mg PO DAILY
umeclidinium [Incruse Ellipta] 1 inh INH R DAILY
10/19/24 11:00
DC Protocol for Telemetry ONCE
Abnormal Lab Results
10/16/24
11:59
WBC 16.4 H 10^3/uL
(4.8-10.8)
RBC 3.98 L 10^6/uL
(4.70-6.10)
Hgb 9.6 L g/dL
(13.0-18.0)
Hct 32.3 L %
(39.0-52.0)
MCH 24.1 L pg
(27.0-31.0)
MCHC 29.7 L g/dL
(33.0-37.0)
RDW 18.8 H %
(11.5-14.5)
MPV 10.7 H fL
(7.4-10.4)
Abs Immat Gran (auto) 0.1 H 10^3/uL
(0-0.05)
Absolute Neuts (auto) 12.2 H 10^3/uL
(1.4-6.5)
Absolute Monos (auto) 0.7 H 10^3/uL
(0.1-0.6)
Immature Gran % 0.7 H %
(0-0.5)
Lymphocytes % 18.5 L %
(20.5-51.1)
Sodium 134 L mmol/L
(135-145)
Creatinine 0.6 L mg/dL
(0.7-1.3)
Glucose 100 H mg/dl
(70-99)
Total Protein 6.1 L g/dl
(6.3-8.2)
10/16/24 11:59
10/16/24 11:59
Vital Signs
Initial and Last Documented VS:
Initial Vital Signs
Temp Pulse Resp BP Pulse Ox
98.5 F 96 18 135/64 98
10/16/24 11:53 10/16/24 11:53 10/16/24 11:53 10/16/24 11:53 10/16/24 11:53
Last Documented Vital Signs
Temp Pulse Resp BP Pulse Ox
97.8 F 77 16 147/68 98
10/16/24 17:10 10/16/24 17:10 10/16/24 17:10 10/16/24 17:10 10/16/24 17:10
Diathermy Equipment Repairer consulted with Physician
Diathermy Equipment Repairer consulted with physician?: Yes (Gordon )
MDM/Problems Addressed
Differential Diagnosis Includes:
Not limited to GI bleed, anemia
MDM/Problems Addressed:
Patient is an 79-year-old male presents to the ER for evaluation of black dark stools. Patient is on Plavix. Patient denies any lightheaded weakness. He is in no acute distress. He denies any shortness of breath. Hemoglobin today is 9.6 which
is decreased from hemoglobin of 11.4 on September 28 several weeks ago. Will admit for GI bleed. brown stool heme positive.
Chronic conditions affecting care:
On Plavix
*Pulse Oximetry
SaO2: 98
Oxygen Mode of Delivery: Room air
Patient hypoxic: no
*Critical Care Note
Total Time (30-74mins, 75-104mins- exclusive of procedures): Not Applicable
ED Attending Note
-
Portions of this chart may have been created with voice recognition software.� Occasional wrong word or��sound alike� substitutions may have occurred due to the inherent limitations of voice recognition software.
Discharge Plan
Departure
Patient Disposition: Admit
Date of Disposition: 10/16/24
Time of Disposition: 14:32
Admit to: Med/Surg
Admit to doctor: hospitalist
Presentation/result/management discussed w/ accepting MD/DO: Hospitalist
Patient with high blood pressure during this ER visit?: Yes
Condition: Fair
Covid-19: Not Applicable
Discharge Problem:
GI (gastrointestinal hemorrhage)
Interventions
Interventions:
*Risk Screen - Suicide Last Done: 10/16/24 11:53
*General Assessment Last Done: 10/16/24 11:53
*Neglect/Abuse Screening Last Done: 10/16/24 11:53
*ED- Fall Risk Assessment Last Done: 10/16/24 11:53
*ED COVID-19 Vaccine History Last Done: 10/16/24 16:46
*Nursing Disposition Last Done: 10/16/24 16:23
LO-Ydhidb-Uxfcfmanql Assessment Last Done: 10/16/24 12:00
Discharge Date and Time
Discharge Date/Time: 10/16/24 16:44
--- NOTE | 2024-10-16 14:36 | HPS.HSE ---
Addendum entered and electronically signed by Jaime Ugarte MD 10/16/24 16:03:
see update note for addendum
Original Note:
Family Physician
-
Family Physician: Raphael Fenton DO
Chief Complaint
-
dark stools
History of Present Illness
Patient is a 79-year-old male with past medical history significant for paroxysmal atrial fibrillation, HFrEF, COPD, CVA, hypertension, BPH and CLL who presented to [facility] ED for evaluation of dark stools since yesterday. Patient and at bedside
assisted in HPI. Patient with recent hospitalization at [facility] and was discharged 10/06/2024. During that stay patient vascular surgeon did procedure to check for leaking of AAA stent, which it was not. Patient reports normal bowel movements post
discharge up to yesterday when he began having watery black stools. This morning they contacted GI who recommended patient go to ED for evaluation. He reports that he has required multiple iron infusions for iron deficiency and recently has not
needed one. Patient denies any abdominal pain, nausea, vomiting, constipation, dizziness, chills or shortness of breath.
Medical History
Past Medical History
Past Medical History: Reports Other
Additional Past Medical History:
paroxysmal atrial fibrillation
HFrEF
COPD
CVA
hypertension
BPH
CLL
Past Surgical History: Reports Other
Additional Past Surgical History:
dual chamber pacer implantation 12/23
left groin abscess removal 10/26
Cardiac Cath 09/28
Stent implant 04/2021
cardiac ablation August 2023
watchman 02/2024
Triple AAA repair
Social History
Tobacco: Former Smoker
Alcohol: Occasional
Drug: None
Personal:
Living: With Family
Employment: Retired
Family History
Family History: Not pertinent
Allergies / Home Medications
Allergies reflects when Allergies were last updated in [employer].
Home Medications with original date entered in [email or web address]
Allergy/Medication List:
Allergies
Allergy/AdvReac Type Severity Reaction Status Date / Time
atorvastatin (From Lipitor) Allergy calf pain Verified 10/16/24 11:52
niacin Allergy 'not feel Verified 10/16/24 11:52
well'
oxycodone (From Percocet) Allergy Rash Verified 10/16/24 11:52
Home Medications
clopidogrel 75 mg tablet 75 mg PO DAILY Blood Clot Prevention/Tx 02/13/23
rosuvastatin 40 mg tablet 40 mg PO DAILY High Cholesterol 02/13/23
tamsulosin 0.4 mg capsule 0.4 mg PO DAILY Urinary Issue 02/13/23
umeclidinium 62.5 mcg/actuation blister powder for inhalation (Incruse Ellipta) 1 inh inhalation R DAILY COPD 02/13/23
potassium chloride 10 mEq capsule,extended release 10 meq PO DAILY Electrolyte Repletion #30 caps 02/17/23
dapagliflozin propanediol 10 mg tablet (Farxiga) 10 mg PO DAILY Diabetes 02/13/24
furosemide 20 mg tablet 20 mg PO DAILY Electrolyte Repletion 02/14/24
famotidine 20 mg tablet (Pepcid) 20 mg PO BID 10/16/24
hydralazine 25 mg tablet 25 mg PO TID 10/16/24
metoprolol succinate 50 mg tablet,extended release 24 hr (Toprol XL) 50 mg PO DAILY 10/16/24
Review of Systems
-
History Source: Patient
Constitutional: Denies Fatigue or Chills
EENT: Reports No Symptoms
Respiratory: Denies Cough or Trouble Breathing
Cardiac: Denies Chest Pain, Palpitations or Syncope
Abdomen/GI: Reports Black Stools; Denies Abdominal Pain, Nausea, Vomiting or Constipated
: Reports No Symptoms
Musculoskeletal: Reports No Symptoms
Skin: Reports No Symptoms
Neurological: Denies Dizzy or Weakness
Endocrine: Reports No Symptoms
Hematologic/Lymphatic: Reports No Symptoms
Psych: Reports No Symptoms
Physical Exam
Vital Signs
Vital Signs
Temp Pulse Resp BP Pulse Ox
98.5 F 96 18 135/64 98
10/16/24 11:53 10/16/24 11:53 10/16/24 11:53 10/16/24 11:53 10/16/24 13:50
Physical Exam
General: Well Developed, Well Nourished, No Apparent Distress, Comfortable and Conversant
HEENT: NormoCephalic, Moist mucous membranes and Atraumatic
Respiratory: Clear
Cardiac: S1/S2 and Regular Rhythm; No Murmur, Rub or Gallop
GI: Soft, Non Tender, Non Distended and Normal Bowel Sounds
Rectal: Hem Positive (per ED ); No Deferred by Provider
Musculoskeletal: No Clubbing, No Cyanosis and No Edema
Skin: Warm and IV/Catheter Site
Neuro: Awake, AO x 3 and Nonfocal/grossly intact
Psych: Calm and Intact Judgment/Insight
Laboratory Results
-
10/16/24 11:59
10/16/24 11:59
Laboratory Results
PT 14.3 Sec (11.4-14.6) 10/16/24 11:59
INR 1.06 10/16/24 11:59
Total Bilirubin 0.6 mg/dl (0.2-1.3) 10/16/24 11:59
AST 21 U/L (17-59) 10/16/24 11:59
ALT 12 U/L (0-50) 10/16/24 11:59
Alkaline Phosphatase 52 U/L (38-126) 10/16/24 11:59
Data Reviewed
-
Lab Data: Labs Reviewed by me (WBC 16.4, hgb 9.6, hct 32.3)
Impression/Plan
-
IMPRESSION/PLAN:
#GI bleed
WBC 16.4, hgb 9.6, hct 32.3
- Admit to telemetry
- Consult GI
- NPO
- IV Protonix BID
- trend h/h
#paroxysmal atrial fibrillation
s/p watchman
- continue metoprolol
#HFrEF
- daily weights
- I & Os
- continue dapagliflozin, furosemide and potassium chloride
#COPD
- continue Incruse Ellipta
#CVA
- hold clopidogrel in setting of GI bleed
#hypertension
- continue hydralazine
#BPH
- continue tamsulosin
#CLL
follows with [facility] in [place]
no current treatment
Code status: full code
DVT prophylaxis: SCDs
--- NOTE | 2024-10-16 15:35 | CM ---
Patient seen at bedside in ED, also present. Patient states that he lives with his in a one story home with no DME prior to admission. Patient stated that his PCP is Dr. Fenton and that he uses the [facility] in [place]. Patient stated that his
is his only VN support. CM will continue to follow for discharge planning needs.
Plan; home with ; watch for medical treatment plan
[2024-10-16 15:50] VITALS: BMI 30.1
--- NOTE | 2024-10-16 15:54 | CON.GI ---
Addendum entered and electronically signed by Samantha Miller MD 10/16/24 18:01:
I saw and examined the patient.
The GROUP FITNESS ASSISTANT DEPARTMENT HEAD or PA's note was reviewed and I agree with the note.
Comment: 79-year-old male with history of abdominal aortic aneurysm with endovascular repair with [facility], currently on Plavix, history of choledocholithiasis status post EUS/ERCP in 2019 for, history of CLL presenting with black
stool in the last 3 days. No previous similar episodes. No abdominal pain, nausea, vomiting, heartburn or trouble swallowing. Normal bowel pattern is 1 formed stool a day without any blood or black stool. Denies any oral iron, Pepto-Bismol.
Does not take any PPI or H2 jose ramon. History of iron deficiency anemia, followed by Dr. Pimentel his outpatient campus security officer, endoscopy evaluation in July 2024, EGD with gastritis and some erosions in the antrum, colonoscopy with diverticulosis.
No small bowel capsule done per patient. Gets IV iron infusions every couple of months, last infusion was 3 months ago. No dizziness or lightheadedness. Baseline hemoglobin around 9.0-11.0
In the emergency room, hemoglobin was 9.6, normal LFTs, normal BUN. Currently hemodynamically stable
Abdominal exam-soft, nontender, nondistended
Heme positive dark green stool
- Anemia and heme positive dark stool, hemodynamically stable
Rule out esophagitis, ulcer disease, erosions versus other
Currently not on PPI, start Protonix 40 mg IV twice daily
Okay for clear liquid diet tonight but n.p.o. past midnight for upper endoscopy tomorrow on Plavix
Discussed with patient that this is more for diagnostic endoscopy since his last endoscopy in July 2024 did show erosions in the stomach.
Monitor H&H and transfuse if needed
Patient reports seeing his vascular surgeon at [facility] for recent CAT scan showing possible leak around abdominal aortic aneurysm as per patient, no leakage noted and no concern.
Will follow-up
Original Note:
Consultation
-
Date/Time Consultation Requested: 10/16/24 1530
Date/Time Consultation Performed: 10/16/24 1555
Requesting Provider: EFREN Madrigal
Performing Provider: Dr. Miller/EFREN Sands
Reason for Consultation: dark OB positive stool
Medical History
Chief Complaint / HPI
Chief Complaint: epigastric pain
History of Present Illness:
79-year-old male with past medical history of iron deficiency anemia, CLL, 40 lbs weight loss, recent endoscopic evaluation by his primary GI (Dr. 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
status post post pacemaker, TIA, CAD with anteroseptal [place] in 1999, PAF s/p Watchman 02/15/2025, COPD, hyperlipidemia, CHF, BPH, abdominal aortic aneurysm with endovascular repair and stent May 2021 at [facility] on Plavix, history of trauma
to kidney with repair, choledocholithiasis status post EUS/ERCP 09/2023 extracting stones. Had outpatient CT that was concerning for new contained rupture of the [place] AAA surrounding an abdominal aortobiliac endograft. Patient states he was
evaluated by his CT Surg at [place] who states this was not a leak. Patient currently presents with 3 days of dark black stools. We are asked to evaluate for the same. He usually has 1 soft brown formed BM daily. Denies any oral iron or Pepto. He is
on Plavix only. Not on PPI. He denies any Fevers, C, N, V, hematochezia, dysphagia or odynophagia. States his weight stabilized this past month. Denies any early satiety. He does not smoke. He drinks 1 glass of wine most days of the week. Was dx
with CLL just over 1 year ago. His Hgb runs between 9-12 with the need for IV iron every 2 months. He states his last IV iron was 3 months ago.
Past Medical History
Past Medical History: Arrhythmias (2:1 AV block), CAD, Cancer (CLL), CHF, COPD, CVA, HTN, Hypercholesterolemia and Other (abdominal aortic aneurysm with endovascular repair and stent, iron def anemia, choledocholithiasis)
Past Surgical History: Other ( Pacemaker, abdominal aortic aneurysm with endovascular repair and stent, ERCP, trauma to kidney with repair, hernia repair, Watchman)
Social History
Tobacco: Former Smoker
Alcohol: Occasional
Drug: None
Personal:
Living: With Family
Employment: Retired
Family History
Family History: Other (No family history gastrointestinal malignancy or IBD)
Allergies / Home Medications
Allergy/AdvReac Type Severity Reaction Status Date / Time
atorvastatin (From Lipitor) Allergy calf pain Verified 10/16/24 11:52
niacin Allergy 'not feel Verified 10/16/24 11:52
well'
oxycodone (From Percocet) Allergy Rash Verified 10/16/24 11:52
�Medication �Instructions �Recorded
clopidogrel 75 mg tablet 75 mg PO DAILY Blood Clot 02/13/23
Prevention/Tx
rosuvastatin 40 mg tablet 40 mg PO DAILY High Cholesterol 02/13/23
tamsulosin 0.4 mg capsule 0.4 mg PO DAILY Urinary Issue 02/13/23
umeclidinium 62.5 mcg/actuation 1 inh inhalation R DAILY COPD 02/13/23
blister powder for inhalation
(Incruse Ellipta)
potassium chloride 10 mEq 10 meq PO DAILY Electrolyte 02/17/23
capsule,extended release Repletion #30 caps
dapagliflozin propanediol 10 mg 10 mg PO DAILY Diabetes 02/13/24
tablet (Farxiga)
furosemide 20 mg tablet 20 mg PO DAILY Electrolyte 02/14/24
Repletion
famotidine 20 mg tablet (Pepcid) 20 mg PO BID 10/16/24
hydralazine 25 mg tablet 25 mg PO TID 10/16/24
metoprolol succinate 50 mg 50 mg PO DAILY 10/16/24
tablet,extended release 24 hr
(Toprol XL)
Review of Systems
-
All other systems: A 12 pt ROS was Negative except as stated above in HPI
Vital Signs
Temp Pulse Resp BP Pulse Ox
98.5 F 96 18 135/64 98
10/16/24 11:53 10/16/24 11:53 10/16/24 11:53 10/16/24 11:53 10/16/24 13:50
Physical Exam
Exam
General: No Apparent Distress
HEENT: Anicteric
Respiratory: Clear (anterior)
Cardiac: Regular Rhythm
GI: Soft, Non Tender, Non Distended and Normal Bowel Sounds
Rectal: Hem Positive (very dark brown, briskly OB positive)
Musculoskeletal: No Edema
Neuro: AO x 3
Psych: Calm
Results
WBC 16.4 10^3/uL (4.8-10.8) H 10/16/24 11:59
Hgb 9.6 g/dL (13.0-18.0) L 10/16/24 11:59
Hct 32.3 % (39.0-52.0) L 10/16/24 11:59
MCV 81.2 fL (80.0-94.0) 10/16/24 11:59
Plt Count 184 10^3/uL (130-400) 10/16/24 11:59
Absolute Neuts (auto) 12.2 10^3/uL (1.4-6.5) H 10/16/24 11:59
PT 14.3 Sec (11.4-14.6) 10/16/24 11:59
INR 1.06 10/16/24 11:59
Sodium 134 mmol/L (135-145) L 10/16/24 11:59
Potassium 3.7 mmol/L (3.5-5.1) 10/16/24 11:59
Chloride 100 mmol/L (98-107) 10/16/24 11:59
Carbon Dioxide 28 mmol/L (22-30) 10/16/24 11:59
BUN 9 mg/dl (9-20) 10/16/24 11:59
Creatinine 0.6 mg/dL (0.7-1.3) L 10/16/24 11:59
Calcium 8.8 mg/dl (8.4-10.2) 10/16/24 11:59
Total Bilirubin 0.6 mg/dl (0.2-1.3) 10/16/24 11:59
AST 21 U/L (17-59) 10/16/24 11:59
ALT 12 U/L (0-50) 10/16/24 11:59
Alkaline Phosphatase 52 U/L (38-126) 10/16/24 11:59
Diagnostic Image Results:
Prior GI Procedures:
EGD 07/31/24 (Dr. Pimentel) Z line irregular, small HH, patchy inflammation, erosions and erythema in the gastric antrum. Second portion of the duodenum and examined portion of the duodenum were normal.
COLO 07/31/24 (Dr. Pimentel) Examined portion of the ileum was normal. Entire examined colon normal. Diverticulosis in the sigmoid colon.
EUS 12/29/23:
- There was dilation in the common bile duct which
measured up to 11 mm.
- Hyperechoic material consistent with sludge was
visualized endosonographically in the gallbladder body.
- Main pancreatic duct (MPD) diameter was measured.
Endosonographically, the MPD had a mildly dilated
appearance.
- There was no sign of significant pathology in the
ampulla.
- No specimens collected.
ERCP 09/21/2023 (Dr. Mar) - A filling defect consistent with a stone was seen on
the cholangiogram.
- The common bile duct was moderately dilated.
- Choledocholithiasis was found. Complete removal was
accomplished by biliary sphincterotomy and balloon
extraction.
- Multiple balloon sweeps were performed to see if the
possible soft tissue lesion (hypoechoic material seen
at the level of ampulla) could be extruded out for
visualization and no lesion was seen.
- A biliary sphincterotomy was performed.
- The biliary tree was swept and sludge was found.
- Biopsies were performed in the terminal end of the
main duct and ampulla.
EUS 09/21/2023 (Dr. Mar) - There was dilation in the common bile duct which
measured up to 14 mm.
- Three stones were visualized endosonographically in
the lower third of the main bile duct. Also hypoechoic
material at the level of ampulla favored to be sludge.
- Multiple stones were visualized endosonographically
in the gallbladder body.
- Hypoechoic material which moved with patient's
change in position suggestive of sludge was visualized
endosonographically in the gallbladder body.
- There was no sign of significant pathology in the
pancreatic head and pancreatic body.
- There was no sign of significant pathology in the
ampulla.
- No specimens collected.
Colonoscopy: Spring 2023 Dr. Grier 'polyp'
Assessment / Plan
-
79-year-old male with past medical history of iron deficiency anemia, CLL, 40 lbs weight loss, recent endoscopic evaluation by his primary GI (Dr. 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
status post post pacemaker, TIA, CAD with anteroseptal [place] in 1999, PAF s/p Watchman 02/15/2025, COPD, hyperlipidemia, CHF, BPH, abdominal aortic aneurysm with endovascular repair and stent May 2021 at [facility] on Plavix, history of trauma
to kidney with repair, choledocholithiasis status post EUS/ERCP 09/2023 extracting stones. Had outpatient CT that was concerning for new contained rupture of the [place] AAA surrounding an abdominal aortobiiliac endograft. Patient states he was
evaluated by his CT Surg at [place] who states this was not a leak. Patient currently presents with 3 days of dark black stools. We are asked to evaluate for the same. Patient with Hgb of 9.6 down from 11.4 on
7/19/25. Patient with gastric erosions seen on EGD in July with primary GI. Patient currenly on Plavix. Discussed with patient and Dx EGD while on Plavix will be performed tomorrow.
Impression:
OB positive anemia
Hx iron deficiency anemia
CLL
PAF s/p Watchman
HFrEF
COPD
Abdominal endovascular repair/stent on Plavix
Recent cath at [facility] right fem approach -> groin site looks good
Plan:
-Clear liquid, no red
-NPO after midnight
-Pantoprazole 40 mg IV BID
-EGD tomorrow (dx only)
-Trend labs
-Further recommendations to be forthcoming.
-
-
Thank you for consultation and allowing me to participate in the patient's care. Please call the machine precision engraver GI physician during the after hours with any questions or concerns.
--- NOTE | 2024-10-16 16:04 | W.PN.UPDATE ---
Update Note
Progress Note Update
I saw and examined the patient.
The FIRE PROTECTION SPECIALIST Gerardo's note was reviewed and I agree with the note.
Comment: 79 y/o M, hx of paroxysmal atrial fibrillation, HFrEF, COPD, CVA, hypertension, BPH and CLL presents to ER for dark stools. Patient was evaluated 2 weeks prior (09/28) at ER with concern for ruptured AAA with endoleak - patient was
evaluated at [place] and felt not an endoleak - no intervention was recommended. Patient reports yesterday he developed dark stools seen on multiple BM's. He denies abd pain, nausea/vomiting. Does feel weak but no other complaints. Previously did
received Iron transfusions but not for several months. He caleld his GI specialist who recommended ER for hospitalization.
Exam:
General: Well Developed, Well Nourished, No Apparent Distress, Comfortable and Conversant
HEENT: NormoCephalic, Moist mucous membranes and Atraumatic
Respiratory: Clear
Cardiac: S1/S2 and Regular Rhythm; No Murmur, Rub or Gallop
GI: Soft, Non Tender, Non Distended and Normal Bowel Sounds
Rectal: Hem Positive (per ED ); No Deferred by Provider
Musculoskeletal: No Clubbing, No Cyanosis and No Edema
Skin: Warm and IV/Catheter Site
Neuro: Awake, AO x 3 and Nonfocal/grossly intact
Psych: Calm and Intact Judgment/Insight
Assessment:
GI bleed, likely upper
- melanotic stools
- HD stable
- daily CBC
- hold Plavix
- IV PPI BID
- GI consulted
- clears for now
PAF
Hx of CHF
- euvolemic status
- s/p Watchman - Eliquis stopped previously
- continue BB/Lasix/KCL/Farxiga
DVT ppx: SCDs
Code: Full
Rest of plan as per FIRE PROTECTION SPECIALIST Gerardo note
[2024-10-16 16:23] VITALS: BP 133/78
[2024-10-16 17:10] VITALS: BP 147/68
[2024-10-16 17:11] VITALS: BMI 29.1
--- NOTE | 2024-10-16 17:22 | PTCARENOTE ---
pt arrived at 1650 via stretcher from ED. pt ambulated from hallway to bed w/out assist. assessment completed by this nurse. VSS. pt oriented to room
[2024-10-16] MEDS: APRESOLINE 25 MG PO ×2 (18:33→21:50)
[2024-10-16 19:00] VITALS: BP 122/58
[2024-10-16 20:15] VITALS: BMI 29.1
[2024-10-16] MEDS: NSS (PRESERVATIVE FREE) 10 ML IV (20:23)
[2024-10-16] MEDS: PROTONIX IV 40 MG IV (20:23)
[2024-10-16] MEDS: PEPCID 20 MG PO (20:23)
[2024-10-16 23:00] VITALS: BP 116/77; BP 120/53; BP 135/73; PULSE 101; PULSE 99
[2024-10-17] VITALS (9 sets, daily range): BP systolic 94–146; BP diastolic 44–72; PULSE 77–98; BMI 29.0
--- NOTE | 2024-10-17 07:29 | W.PN.HOSP.TC ---
Today's Communication/Plan
-
monitor H&H
IV iron supplementation
diet as per GI
Assessment / Plan
Assessment / Plan
Physical Exam
General: no acute distress, appears comfortable at this time
HEENT: NormoCephalic, Moist mucous membranes and Atraumatic
Respiratory: Clear
Cardiac: S1/S2 and Regular Rhythm; No Murmur, Rub or Gallop
GI: Soft, Non Tender, Non Distended and Normal Bowel Sounds
Musculoskeletal: No Clubbing, No Cyanosis and No Edema
Neuro: AOx3 conversant coherent
Psych: Calm and Intact Judgment/Insight
79M afib watchman HFrEF COPD CVA HTN BPH CLL here for black stools anemia concerning for GIB
#GI bleed
- Tele admit
- Consult GI appreciated EGD performed unremarkable, diet advanced to full liquid, possible colonoscopy inpt vs outpt with his GI doctor
- IV Protonix BID
- trend h/h
#Iron deficiency Anemia
IV iron supplementation
#paroxysmal atrial fibrillation
s/p watchman
- continue metoprolol
#HFrEF
- daily weights
- I & Os
- continue dapagliflozin, furosemide and potassium chloride
#COPD
- continue Incruse Ellipta
#CVA
- hold clopidogrel in setting of GI bleed
#hypertension
- continue hydralazine
#BPH
- continue tamsulosin
#CLL
follows with [facility] in [place]
no current treatment
Code status: full code
DVT prophylaxis: SCDs
discussed with patient and patient's Elke
I spent a total of 50 minutes with the patient or on the floor. More than 50% of this time involved counseling and coordination of care.
Anticipated Discharge: 24 - 48 hours
Subjective/Interval History
-
Date of Service: October 17, 2024
No acute distress, ambulatory without need for assist device. Reports having diarrhea but no further black stools. Elke present during evaluation.
Objective Data
-
Labs:
Laboratory Results
10/17/24
06:45
WBC Pending
Hgb Pending
Hct Pending
Plt Count Pending
Sodium Pending
Potassium Pending
Chloride Pending
Carbon Dioxide Pending
BUN Pending
Creatinine Pending
Glucose Pending
Calcium Pending
Vital Signs:
Vital Signs
Temp Pulse Resp BP Pulse Ox
98.9 F 78 16 137/61 94
10/17/24 03:00 10/17/24 03:00 10/17/24 03:00 10/17/24 03:00 10/17/24 03:00
[2024-10-17 07:36] LABS: Blood Urea Nitrogen 7 mg/dl (9-20); Calcium 8.3 mg/dl (8.4-10.2); Carbon Dioxide 29 mmol/L (22-30); Chloride 100 mmol/L (98-107); Estimated Creatinine Clearance 90 ml/min; Glucose 87 mg/dl (70-99); Potassium 3.8 mmol/L (3.5-5.1); Sodium 133 mmol/L (135-145); eGFR > 60.00
[2024-10-17] MEDS: SPIRIVA RESPIMAT 2.5 MCG 2 PUFF INH (07:58)
[2024-10-17 07:59] LABS: Hematocrit 28.1 % (39.0-52.0); Hemoglobin 8.6 g/dL (13.0-18.0); Mean Corp Hgb Conc. 30.6 g/dL (33.0-37.0); Mean Corpuscular Volume 78.7 fL (80.0-94.0); Platelet Count 161 10^3/uL (130-400); Red Cell Dist. Width 18.6 % (11.5-14.5)
[2024-10-17] MEDS: NSS (PRESERVATIVE FREE) 10 ML IV ×2 (08:29→21:02)
[2024-10-17] MEDS: TOPROL XL 50 MG PO (08:29)
[2024-10-17] MEDS: PROTONIX IV 40 MG IV ×2 (08:29→21:02)
[2024-10-17] MEDS: FLOMAX 0.4 MG PO (08:29)
[2024-10-17] MEDS: PEPCID 20 MG PO ×2 (08:29→21:02)
[2024-10-17] MEDS: LASIX 20 MG PO (08:30)
[2024-10-17] MEDS: FARXIGA 10 MG PO (08:30)
[2024-10-17] MEDS: KCL 10 MEQ PO (08:30)
[2024-10-17] MEDS: CRESTOR 40 MG PO (08:30)
[2024-10-17] MEDS: APRESOLINE 25 MG PO ×3 (08:30→21:04)
[2024-10-17 10:23] LABS: Hematocrit 31.4 % (39.0-52.0); Hemoglobin 9.3 g/dL (13.0-18.0)
[2024-10-17 13:46] LABS: Iron 35 ug/dl (49-181)
[2024-10-17 13:55] LABS: Total Iron Binding Capacity 235 ug/dl (261-462)
[2024-10-17 14:11] LABS: Ferritin 69.1 ng/ml (17.9-464.0)
--- NOTE | 2024-10-17 14:29 | W.PN.UPDATE ---
Update Note
Progress Note Update
Discussed with patient and , upper endoscopy unremarkable.
Advance to full liquid diet and if continues to have black stool, he will consider colonoscopy inpatient and if it clears and hemoglobin stable, he is going to call his GI doctor for outpatient colonoscopy and capsule study.
[2024-10-17 14:31] LABS: Vitamin B12 768 pg/ml (239-931)
[2024-10-17 15:51] LABS: Folate 7.0 ng/ml (2.76-20)
[2024-10-17] MEDS: FERRLECIT 110 MG IV (16:24)
[2024-10-18 03:01] VITALS: BP 149/62
[2024-10-18 05:36] LABS: Hematocrit 27.9 % (39.0-52.0); Hemoglobin 8.5 g/dL (13.0-18.0); Mean Corp Hgb Conc. 30.5 g/dL (33.0-37.0); Mean Corpuscular Volume 79.3 fL (80.0-94.0); Platelet Count 142 10^3/uL (130-400); Red Cell Dist. Width 18.8 % (11.5-14.5)
[2024-10-18 06:00] VITALS: BMI 28.9
--- NOTE | 2024-10-18 06:30 | PTCARENOTE ---
Pt had 12-beat run of V tach on monitor. Pt asymptomatic. Back into A-V paced rhythm. EFREN Penn notified. Add-on magnesium to morning labs ordered. Plan of care ongoing.
[2024-10-18 06:36] LABS: Blood Urea Nitrogen 5 mg/dl (9-20); Calcium 8.3 mg/dl (8.4-10.2); Carbon Dioxide 30 mmol/L (22-30); Chloride 100 mmol/L (98-107); Estimated Creatinine Clearance 90 ml/min; Glucose 87 mg/dl (70-99); Magnesium 2.0 mg/dl (1.6-2.3); Potassium 3.6 mmol/L (3.5-5.1); Sodium 134 mmol/L (135-145); eGFR > 60.00
--- NOTE | 2024-10-18 07:14 | W.PN.HOSP.TC ---
Today's Communication/Plan
-
monitor H&H, possible discharge tomorrow if remains stable/improves
IV iron infusion
diet as per GI
stool studies, prn Imodium if neg
Assessment / Plan
Assessment / Plan
Physical Exam
General: no acute distress, appears comfortable at this time
HEENT: NormoCephalic, Moist mucous membranes and Atraumatic
Respiratory: Clear
Cardiac: S1/S2 and Regular Rhythm; No Murmur, Rub or Gallop
GI: Soft, Non Tender, Non Distended and Normal Bowel Sounds
Musculoskeletal: No Clubbing, No Cyanosis and No Edema
Neuro: AOx3 conversant coherent
Psych: Calm and Intact Judgment/Insight
79M afib watchman HFrEF COPD CVA HTN BPH CLL here for black stools anemia concerning for GIB
#GI bleed
- Tele admit
- Consult GI appreciated EGD performed unremarkable, diet advanced to full liquid, outpt capsule endoscopy
- IV Protonix BID
- trend h/h
#Iron deficiency Anemia
IV iron supplementation
#Diarrhea
check stool studies, if neg start imodium prn
#paroxysmal atrial fibrillation
s/p watchman
- continue metoprolol
#HFrEF
- daily weights
- I & Os
- continue dapagliflozin, furosemide and potassium chloride
#COPD
- continue Incruse Ellipta
#CVA
- hold clopidogrel in setting of GI bleed
#hypertension
- continue hydralazine
#BPH
- continue tamsulosin
#CLL
follows with [facility] in [place]
no current treatment
Code status: full code
DVT prophylaxis: SCDs
discussed with patient and patient's Elke
I spent a total of 40 minutes with the patient or on the floor. More than 50% of this time involved counseling and coordination of care.
Anticipated Discharge: Within 24 hours
Subjective/Interval History
-
Date of Service: October 18, 2024
No acute distress sitting up comfortably in chair. Reports persistent diarrhea non-bloody, small dark stools. Family present during evaluation.
Objective Data
-
Labs:
Laboratory Results
10/18/24
05:22
WBC 12.9 H
Hgb 8.5 L
Hct 27.9 L
Plt Count 142
Sodium 134 L
Potassium 3.6
Chloride 100
Carbon Dioxide 30
BUN 5 L
Creatinine 0.6 L
Glucose 87
Calcium 8.3 L
Vital Signs:
Vital Signs
Temp Pulse Resp BP Pulse Ox
98.2 F 85 16 149/62 96
10/18/24 03:01 10/18/24 03:01 10/18/24 03:01 10/18/24 03:01 10/18/24 03:01
I&O
10/17/24 10/18/24 10/19/24
06:59 06:59 06:59
Intake Total 1140 / 1140
Balance 1140 / 1140
[2024-10-18] MEDS: SPIRIVA RESPIMAT 2.5 MCG 2 PUFF INH (07:24)
[2024-10-18 07:35] VITALS: BP 136/56
[2024-10-18] MEDS: KCL 10 MEQ PO (09:14)
[2024-10-18] MEDS: APRESOLINE 25 MG PO ×3 (09:15→21:08)
[2024-10-18] MEDS: CRESTOR 40 MG PO (09:15)
[2024-10-18] MEDS: TOPROL XL 50 MG PO (09:15)
[2024-10-18] MEDS: PEPCID 20 MG PO ×2 (09:15→21:08)
[2024-10-18] MEDS: FLOMAX 0.4 MG PO (09:15)
[2024-10-18] MEDS: LASIX 20 MG PO (09:15)
[2024-10-18] MEDS: FARXIGA 10 MG PO (09:15)
[2024-10-18] MEDS: NSS (PRESERVATIVE FREE) 10 ML IV ×2 (09:16→21:08)
[2024-10-18] MEDS: KCL 40 MEQ PO (09:16)
[2024-10-18] MEDS: PROTONIX IV 40 MG IV ×2 (09:16→21:07)
[2024-10-18 11:11] VITALS: BP 118/66
[2024-10-18 11:51] LABS: Glucose - Point of Care 155 mg/dl (70-99)
[2024-10-18] MEDS: FERRLECIT 110 MG IV (13:32)
--- NOTE | 2024-10-18 14:28 | W.PN.GI.CBS2 ---
Today's Communication / Plan
-
Full liquid diet
Trend Hb
Outpatient video capsule endoscopy
Assessment / Plan
-
79-year-old male with past medical history of iron deficiency anemia, CLL, 40 lbs weight loss, recent endoscopic evaluation by his primary GI (Dr. 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
status post post pacemaker, TIA, CAD with anteroseptal [place] in 1999, PAF s/p Watchman 02/15/2025, COPD, hyperlipidemia, CHF, BPH, abdominal aortic aneurysm with endovascular repair and stent May 2021 at [facility] on Plavix, history of trauma
to kidney with repair, choledocholithiasis status post EUS/ERCP 09/2023 extracting stones. Had outpatient CT that was concerning for new contained rupture of the [place] AAA surrounding an abdominal aortobiiliac endograft. Patient states he was
evaluated by his CT Surg at [place] who states this was not a leak. Patient currently presents with 3 days of dark black stools. We are asked to evaluate for the same. Patient with Hgb of 9.6 down from 11.4 on
09/28/24. Patient with gastric erosions seen on EGD in July with primary GI. Patient currenly on Plavix. Discussed with patient and Dx EGD while on Plavix will be performed tomorrow.
Impression:
OB positive anemia
Hx iron deficiency anemia
CLL
PAF s/p Watchman
HFrEF
COPD
Abdominal endovascular repair/stent on Plavix
Recent cath at [facility] right fem approach -> groin site looks good
EGD 10/17/2024
Impression:
- No gross lesions in the entire esophagus.
- Z-line variable, 37 cm from the incisors.
- 3 cm, small hiatal hernia.
- Erosive gastropathy with no bleeding and no stigmata of recent
bleeding.
- Normal examined duodenum.
Plan:
Patient has small amount of dark stool this a.m. No significant amount. Hb this a.m. 8.5. Continue full liquid diet
Continue to trend hemoglobin
Continue PPI
plavix on hold . Ok to restart in 72 hours if stable
If Hb stable tomorrow okay to advance diet. Will recommend outpatient video capsule endoscopy-patient's family would like to have capsule endoscopy with Dr. Mar (already seen him in the office in the past) . Last colonoscopy 07/2024.
Total Time Spent with Patient (in minutes): 35
Subjective
Subjective
Date of Service: October 18, 2024
Small amount of dark stool this a.m. Denies any abdominal pain/nausea/vomiting. Tolerating liquid diet
Objective
Data Reviewed
Laboratory Data:
Laboratory Results
10/18/24 05:22
10/18/24 05:22
Laboratory Results
PT 14.3 Sec (11.4-14.6) 10/16/24 11:59
INR 1.06 10/16/24 11:59
Phosphorus 2.9 mg/dl (2.5-4.5) 10/18/24 05:22
Magnesium 2.0 mg/dl (1.6-2.3) 10/18/24 05:22
Total Bilirubin 0.6 mg/dl (0.2-1.3) 10/16/24 11:59
AST 21 U/L (17-59) 10/16/24 11:59
ALT 12 U/L (0-50) 10/16/24 11:59
Alkaline Phosphatase 52 U/L (38-126) 10/16/24 11:59
Vital Signs and I&O:
Vital Signs
Temp Pulse Resp BP Pulse Ox
97.8 F 90 14 118/66 95
10/18/24 11:11 10/18/24 11:11 10/18/24 11:11 10/18/24 11:11 10/18/24 11:11
I&O
10/17/24 10/18/24 10/19/24
06:59 06:59 06:59
Intake Total 1140 / 1140
Balance 1140 / 1140
Physical Exam
Physical Exam
GI: Soft, Non Distended and Non Tender
[2024-10-18 15:07] VITALS: BP 138/58
--- NOTE | 2024-10-18 16:55 | PN.CDI ---
CDI
- -
CDI:
Physician Documentation Request
Admit Date: 10/16/24 15:50
Dear Doctor Kalli,
Please review the following and provide your response in the progress notes.
Clinical Indicators:
Pt admitted with GI bleed/CLL no source found yet
Sodium levels are as below
10/16/24
11:59
Sodium 134 L
10/17/24 10/18/24
06:45 05:22
Sodium 133 L 134 L
Based on the above, could you clarify in the progress notes, the appropriate diagnosis, if significant, that supports the above abnormalities and additional evaluation, monitoring and/or treatment rendered:
Hyponatremia
Abnormal lab value
Other ( please specify)
Use of terms such as suspected, likely, concern for, or probable (associated with a specific diagnosis that is being evaluated, monitored, or treated as if it exists) are acceptable and can be coded in the inpatient setting, when documented at the
time of discharge.
Thank you,
Radha Riggs RN
CDI Specialist
[place] [facility]
Please use your independent medical judgment in providing your response.
[2024-10-18 19:48] VITALS: BP 144/66
[2024-10-18 23:56] VITALS: BP 132/62
[2024-10-19 03:47] VITALS: BP 120/60
[2024-10-19 06:00] VITALS: BMI 28.7
--- NOTE | 2024-10-19 07:24 | W.PN.HOSP.TC ---
Today's Communication/Plan
-
Discharge
Assessment / Plan
Assessment / Plan
Physical Exam
General: no acute distress, appears comfortable at this time
HEENT: NormoCephalic, Moist mucous membranes and Atraumatic
Respiratory: Clear
Cardiac: S1/S2 and Regular Rhythm; No Murmur, Rub or Gallop
GI: Soft, Non Tender, Non Distended and Normal Bowel Sounds
Musculoskeletal: No Clubbing, No Cyanosis and No Edema
Neuro: AOx3 conversant coherent
Psych: Calm and Intact Judgment/Insight
79M afib watchman HFrEF COPD CVA HTN BPH CLL here for black stools anemia concerning for GIB
#GI bleed
- Tele admit
- Consult GI appreciated EGD performed unremarkable, diet advanced to Low residue, outpt capsule endoscopy
- no further episodes dark stool
- IV Protonix BID completed
- H&H trending up
#Iron deficiency Anemia
IV iron supplementation
switch to oral Iron on discharge
#Diarrhea resolved
#paroxysmal atrial fibrillation s/p watchman
#Episode NSVT noted on monitor 10/18/24 12 beats asymptomatic, no further episodes noted
- continue metoprolol
#HFrEF
- daily weights
- I & Os
- continue dapagliflozin, furosemide and potassium chloride
#COPD
- continue Incruse Ellipta
#CVA
#Abdominal endovascular repair/stent
- hold clopidogrel in setting of GI bleed, resume 10/21/24 as per GI
#hypertension
- continue hydralazine
#BPH
- continue tamsulosin
#CLL
follows with [facility] in [place]
Follow up recommended
#Mild Hyponatremia
Code status: full code
DVT prophylaxis: SCDs
Medically stable for discharge home with outpatient follow up recommendations.
discussed with patient and patient's Elke
I spent a total of 40 minutes with the patient or on the floor. More than 50% of this time involved counseling and coordination of care.
Anticipated Discharge: Today
Subjective/Interval History
-
Date of Service: October 19, 2024
No acute distress, sitting up comfortably in chair. Overall reports feeling well. Diarrhea resolved. Denies new acute issues. Eager to go home.
Objective Data
-
Labs:
Laboratory Results
10/19/24
06:00
WBC Pending
Hgb Pending
Hct Pending
Plt Count Pending
Sodium Pending
Potassium Pending
Chloride Pending
Carbon Dioxide Pending
BUN Pending
Creatinine Pending
Glucose Pending
Calcium Pending
Vital Signs:
Vital Signs
Temp Pulse Resp BP Pulse Ox
98.6 F 83 18 120/60 97
10/19/24 03:47 10/19/24 03:47 10/19/24 03:47 10/19/24 03:47 10/19/24 03:47
I&O
10/18/24 10/19/24 10/20/24
06:59 06:59 06:59
Intake Total 1140 / 1140 720 / 720
Balance 1140 / 1140 720 / 720
[2024-10-19] MEDS: SPIRIVA RESPIMAT 2.5 MCG 2 PUFF INH (07:37)
[2024-10-19 07:41] VITALS: BP 122/53
[2024-10-19] MEDS: PEPCID 20 MG PO (08:06)
[2024-10-19] MEDS: CRESTOR 40 MG PO (08:06)
[2024-10-19] MEDS: APRESOLINE 25 MG PO (08:06)
[2024-10-19] MEDS: FARXIGA 10 MG PO (08:07)
[2024-10-19] MEDS: NSS (PRESERVATIVE FREE) 10 ML IV (08:07)
[2024-10-19] MEDS: TOPROL XL 50 MG PO (08:07)
[2024-10-19] MEDS: KCL 10 MEQ PO (08:07)
[2024-10-19] MEDS: LASIX 20 MG PO (08:07)
[2024-10-19] MEDS: FLOMAX 0.4 MG PO (08:07)
[2024-10-19] MEDS: PROTONIX IV 40 MG IV (08:08)
[2024-10-19 09:51] LABS: Hematocrit 32.5 % (39.0-52.0); Hemoglobin 9.4 g/dL (13.0-18.0); Mean Corp Hgb Conc. 28.9 g/dL (33.0-37.0); Mean Corpuscular Volume 82.1 fL (80.0-94.0); Platelet Count 165 10^3/uL (130-400); Red Cell Dist. Width 18.8 % (11.5-14.5)
[2024-10-19 10:39] LABS: Blood Urea Nitrogen 4 mg/dl (9-20); Calcium 8.7 mg/dl (8.4-10.2); Carbon Dioxide 27 mmol/L (22-30); Chloride 100 mmol/L (98-107); Estimated Creatinine Clearance 77 ml/min; Glucose 98 mg/dl (70-99); Magnesium 2.0 mg/dl (1.6-2.3); Potassium 3.8 mmol/L (3.5-5.1); Sodium 135 mmol/L (135-145); eGFR > 60.00
[2024-10-19 11:19] VITALS: BP 137/60
--- NOTE | 2024-10-19 12:40 | W.PN.GI.CBS2 ---
Today's Communication / Plan
-
VCE as outpatient
Monitor H&H
Assessment / Plan
-
79-year-old male with past medical history of iron deficiency anemia, CLL, 40 lbs weight loss, recent endoscopic evaluation by his primary GI (Dr. 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
status post post pacemaker, TIA, CAD with anteroseptal FL in 1999, PAF s/p Watchman 02/15/2025, COPD, hyperlipidemia, CHF, BPH, abdominal aortic aneurysm with endovascular repair and stent May 2021 at [facility] on Plavix, history of trauma
to kidney with repair, choledocholithiasis status post EUS/ERCP 09/2023 extracting stones. Had outpatient CT that was concerning for new contained rupture of the [place] AAA surrounding an abdominal aortobiiliac endograft. Patient states he was
evaluated by his CT Surg at [place] who states this was not a leak. Patient currently presents with 3 days of dark black stools. We are asked to evaluate for the same. Patient with Hgb of 9.6 down from 11.4 on
09/28/24. Patient with gastric erosions seen on EGD in July with primary GI. Patient currenly on Plavix. Discussed with patient and Dx EGD while on Plavix will be performed tomorrow.
Impression:
OB positive anemia
Hx iron deficiency anemia
CLL
PAF s/p Watchman
HFrEF
COPD
Abdominal endovascular repair/stent on Plavix
Recent cath at [facility] right fem approach -> groin site looks good
EGD 10/17/2024
Impression:
- No gross lesions in the entire esophagus.
- Z-line variable, 37 cm from the incisors.
- 3 cm, small hiatal hernia.
- Erosive gastropathy with no bleeding and no stigmata of recent
bleeding.
- Normal examined duodenum.
Plan:
No further GI bleeding today. Hb stable at 9.4. Okay to advance diet
Continue PPI bid
plavix on hold . Ok to restart in 48 hours
Will recommend outpatient video capsule endoscopy-patient's family would like to have capsule endoscopy with Dr. Mar (already seen him in the office in the past) . Last colonoscopy 07/2024.
Will sign off. Please call us back if any questions
Total Time Spent with Patient (in minutes): 35
Subjective
Subjective
Date of Service: October 19, 2024
No further black stool. Tolerating liquid diet
Objective
Data Reviewed
Laboratory Data:
Laboratory Results
10/19/24 09:30
10/19/24 09:30
Laboratory Results
PT 14.3 Sec (11.4-14.6) 10/16/24 11:59
INR 1.06 10/16/24 11:59
Phosphorus 2.8 mg/dl (2.5-4.5) 10/19/24 09:30
Magnesium 2.0 mg/dl (1.6-2.3) 10/19/24 09:30
Total Bilirubin 0.6 mg/dl (0.2-1.3) 10/16/24 11:59
AST 21 U/L (17-59) 10/16/24 11:59
ALT 12 U/L (0-50) 10/16/24 11:59
Alkaline Phosphatase 52 U/L (38-126) 10/16/24 11:59
Vital Signs and I&O:
Vital Signs
Temp Pulse Resp BP Pulse Ox
97.4 F 86 14 137/60 98
10/19/24 11:19 10/19/24 11:19 10/19/24 11:19 10/19/24 11:19 10/19/24 11:19
I&O
10/18/24 10/19/24 10/20/24
06:59 06:59 06:59
Intake Total 1140 / 1140 720 / 720
Balance 1140 / 1140 720 / 720
Physical Exam
Physical Exam
GI: Soft, Non Distended and Non Tender
[2024-10-19] MEDS: FERRLECIT 110 MG IV (13:05)
[2024-10-19 15:04] VITALS: BP 135/62
--- NOTE | 2024-10-19 15:32 | W.DCSUMMARY ---
Discharge Summary
Discharge Data
Date of Admission: 10/16/24
Date of Discharge: 10/19/24
-
Pending Results: No
Discharge Plan
-
Patient Disposition: Home (Routine Discharge)
Discharge Diagnosis/Procedures: Occult GI Bleed
Iron deficiency Anemia
paroxysmal atrial fibrillation status post watchman
Chronic Heart Failure with Reduced Ejection Fraction
COPD
History Stroke
Abdominal endovascular repair/stent
Hypertension
BPH
CLL
Condition: Fair
Diet: Low Cholesterol, 2 Gram Sodium and Low Residue
Activity: As tolerated
Driving Restrictions: As prior to admission
Bathing Restrictions: None
Blood Work: Repeat CBC and BMP with primary care provider in 1 week of discharge.
Others Tests: Follow up with GI for Capsule Endoscopy
Activity Restrictions/Additional Instructions:
Follow up with primary care provider in 1 week of discharge. Follow up with GI and Transit Operations Supervisor in 2 weeks of discharge.
Iron Supplementation prescribed for iron deficiency anemia.
Plavix on hold for recent occult GI bleed. Ok to resume Monday10/21/24.
Please take medications as prescribed/recommended and follow up with primary care provider and/or other healthcare provider involved in your care for refills and/or further adjustment to your medication regimen as necessary.
Referrals:
Nicanor Landers DO [Active, Hematology / Oncology] - in two weeks
Raphael Fenton DO [Family Provider, Family Practice] - in one week
Prescriptions:
New
ferrous sulfate 325 mg (65 mg iron) tablet
325 mg PO DAILY Qty: 30 0RF
Continued
tamsulosin 0.4 mg capsule
0.4 mg PO DAILY
rosuvastatin 40 mg tablet
40 mg PO DAILY
Incruse Ellipta 62.5 mcg/actuation Blister With Device
1 inh INHALATION R DAILY
potassium chloride 10 mEq capsule, extended release
10 meq PO DAILY Qty: 30 0RF
dapagliflozin propanediol [Farxiga] 10 mg Tablet
10 mg PO DAILY
furosemide 20 mg Tablet
20 mg PO DAILY
metoprolol succinate [Toprol XL] 50 mg Tablet Extended Release 24 Hr
50 mg PO DAILY
hydralazine 25 mg Tablet
25 mg PO TID
famotidine [Pepcid] 20 mg Tablet
20 mg PO BID
Held
clopidogrel 75 mg tablet
75 mg PO DAILY
Hold Instructions: Resume on 10/21/24.
Discharge Orders:
Discharge Patient (As Directed); Ordered 10/19/24
Ordered By: Gypsy Mahan
Discharge Date and Time
Print Language: UZBEK
--- NOTE | 2024-10-19 16:11 | CM ---
Pt for dc today with .
No needs were identified. IMM Signed.
== END 2024-10-19 16:16 | disposition home or self-care (01) | DRG 378 ==
LOC: 3 WEST ACU 15:50
PROVIDERS: Emergency Medicine; Nurse Practitioner Family; ADMITTING PHYSICIAN Internal Medicine; ATTENDING PHYSICIAN Internal Medicine; CONSULT PHYSICIAN Internal Medicine Gastroenterology; EMERGENCY PHYSICIAN Emergency Medicine; FAMILY PHYSICIAN Family Medicine
PROC: 0DJ08ZZ Inspection of Upper Intestinal Tract, Via Natural or Artificial Opening Endoscopic (ICD-10-PCS; 2024-10-17)
DX: K25.4 Chronic or unspecified gastric ulcer with hemorrhage (principal); C91.10 Chronic lymphocytic leukemia of B-cell type not having achieved remission; I50.22 Chronic systolic (congestive) heart failure; E87.1 Hypo-osmolality and hyponatremia; D50.9 Iron deficiency anemia, unspecified; J44.9 Chronic obstructive pulmonary disease, unspecified; R63.4 Abnormal weight loss; I25.10 Atherosclerotic heart disease of native coronary artery without angina pectoris; N40.0 Benign prostatic hyperplasia without lower urinary tract symptoms; K44.9 Diaphragmatic hernia without obstruction or gangrene; K31.89 Other diseases of stomach and duodenum; K22.89 Other specified disease of esophagus; I11.0 Hypertensive heart disease with heart failure; E78.00 Pure hypercholesterolemia, unspecified; I48.0 Paroxysmal atrial fibrillation; R19.7 Diarrhea, unspecified; I25.2 Old myocardial infarction; Z86.79 Personal history of other diseases of the circulatory system; Z86.73 Personal history of transient ischemic attack (TIA), and cerebral infarction without residual deficits; Z87.891 Personal history of nicotine dependence; Z95.0 Presence of cardiac pacemaker; Z79.02 Long term (current) use of antithrombotics/antiplatelets; Z95.828 Presence of other vascular implants and grafts; Z88.5 Allergy status to narcotic agent; Z88.8 Allergy status to other drugs, medicaments and biological substances; Z68.28 Body mass index [BMI] 28.0-28.9, adult; Z79.84 Long term (current) use of oral hypoglycemic drugs
CPT/HCPCS: 80048; 80053; 82607; 82728; 82746; 82962; 83540; 83550; 83735; 84100; 85014; 85018; 85025; 85027; 85610; 86850; 86900; 86901; 93005; 94640; 99285; J2916

== ENCOUNTER 2025-01-08 18:39 | Inpatient (IN) | payer MEDICARE, OTHER, SELFPAY ==
[2025-01-08] VITALS (10 sets, daily range): BP systolic 126–140; BP diastolic 42–69; BMI 25.9; BMI 26.1
[2025-01-08 16:25] LABS: INR 1.29; PT 16.6 Sec (11.4-14.6)
[2025-01-08 16:26] LABS: APTT 45.6 Sec (23.4-35.0)
[2025-01-08 16:36] LABS: ALT (SGPT) 47 U/L (0-50); AST (SGOT) 61 U/L (17-59); Albumin 2.8 g/dl (3.5-5.0); Alkaline Phosphatase 88 U/L (38-126); Blood Urea Nitrogen 18 mg/dl (9-20); Calcium 8.6 mg/dl (8.4-10.2); Carbon Dioxide 29 mmol/L (22-30); Chloride 96 mmol/L (98-107); Estimated Creatinine Clearance 97 ml/min; Glucose 109 mg/dl (70-99); Potassium 3.7 mmol/L (3.5-5.1); Sodium 130 mmol/L (135-145); Total Protein 5.6 g/dl (6.3-8.2); eGFR > 60.00
[2025-01-08 16:39] LABS: Hematocrit 23.3 % (39.0-52.0); Hemoglobin 7.0 g/dL (13.0-18.0); Mean Corp Hgb Conc. 30.0 g/dL (33.0-37.0); Mean Corpuscular Volume 71.5 fL (80.0-94.0); Platelet Count 116 10^3/uL (130-400); Red Cell Dist. Width 19.7 % (11.5-14.5)
[2025-01-08 16:57] LABS: Absolute Neutrophils -Man Diff 15.9 10^3/uL (1.4-6.5)
[2025-01-08 16:59] LABS: Anisocytosis 1+; Macrocytosis 1+; Normal RBC Morphology No; Platelets Checked Yes
[2025-01-08 17:00] LABS: Polychromasia Slight
[2025-01-08 17:01] LABS: Hypochromasia 2+
[2025-01-08 17:02] LABS: Stomatocytes 1+; Total Cells Counted 100
--- NOTE | 2025-01-08 17:30 | ED.GENMED ---
History of Present Illness
General
Chief Complaint: Rectal Bleeding
Source: patient
Exam Limitations: none
Time Seen by Provider: 01/08/25 15:57
History of Present Illness
History of Present Illness:
See MDM
Past History
Past History
ED Past Medical History: Arrthythmia, COPD and Hypercholesterolemia
ED Past Surgical History: Cardiac (Pacemaker) and Orthopedic
Social History
Tobacco: Former smoker
Phy Exam
Physical Exam
Physical Exam:
See MDM
Course
Orders/Labs/Results
Orders:
Orders
01/08/25 15:56
Electrocardiogram (*1) Urgent
Reason for Study: Fatigue / Weakness
EKG- Treatment ONCE
01/08/25 16:03
Type+Screen Urgent
Complete Blood Count/With Diff Urgent
Comprehensive Metabolic Panel Urgent
Manual Differential Urgent
PTT Urgent
Prothrombin Time Urgent
01/08/25 17:27
IV Insert/Care/Rem.- Treatment PRN
Pantoprazole 80 mg/100 ml Nss [Protonix] 80 mg in 100 ml IV NOW
Pantoprazole [Protonix IV] 80 mg IV NOW STA
01/08/25 17:30
Blood Bank Products [* Blood Bank Products] Urgent
's Orders: Mason Hale DO
Blood Bank Products: *Packed RBC Leuko (PRBC's
Quantity: 1
Transfuse Today: Yes
Reason: Bleeding
Abnormal Lab Results
01/08/25
16:03
WBC 19.2 H 10^3/uL
(4.8-10.8)
RBC 3.26 L 10^6/uL
(4.70-6.10)
Hgb 7.0 L g/dL
(13.0-18.0)
Hct 23.3 L %
(39.0-52.0)
MCV 71.5 L fL
(80.0-94.0)
MCH 21.5 L pg
(27.0-31.0)
MCHC 30.0 L g/dL
(33.0-37.0)
RDW 19.7 H %
(11.5-14.5)
Plt Count 116 L 10^3/uL
(130-400)
Abs Neuts (Manual) 15.9 H 10^3/uL
(1.4-6.5)
Segmented Neutrophils 83 H %
(42-75)
Lymphocytes (Manual) 11 L %
(20-51)
PT 16.6 H Sec
(11.4-14.6)
APTT 45.6 H Sec
(23.4-35.0)
Sodium 130 L mmol/L
(135-145)
Chloride 96 L mmol/L
(98-107)
Creatinine 0.5 L mg/dL
(0.7-1.3)
Glucose 109 H mg/dl
(70-99)
AST 61 H U/L
(17-59)
Total Protein 5.6 L g/dl
(6.3-8.2)
Albumin 2.8 L g/dl
(3.5-5.0)
01/08/25 16:03
01/08/25 16:03
Vital Signs
Initial and Last Documented VS:
Initial Vital Signs
Resp
16
01/08/25 15:59
Last Documented Vital Signs
Temp Pulse Resp BP Pulse Ox
98.4 F 73 21 127/46 99
01/08/25 16:09 01/08/25 17:30 01/08/25 17:30 01/08/25 17:00 01/08/25 17:31
MDM/Problems Addressed
Differential Diagnosis Includes:
Note:
CHIEF COMPLAINT(S)
Weakness and black stools.
HISTORY OF PRESENT ILLNESS
The patient is an 79-year-old male with a history of chronic lymphocytic leukemia (CLL), presenting with weakness and black stools. He has a history of an abdominal aortic aneurysm (AAA) with previous stent placement and has been under monitoring by
several specialists, including a supervisor sandblaster/oncologist, vascular surgeon, and investments manager (GI). The patient reports weakness noted while attempting to get out of bed, requiring assistance. As per the conversation with accompanying family,
the patient has experienced black stools recently and noted stomach upset with diarrhea. Notably, he recently underwent a video capsule endoscopy approximately three to four weeks ago, revealing a GI bleed, per family. He had discontinued
clopidogrel (Plavix) as per his cardiologists instructions after the placement of a Watchman device. There is concern for a recurring GI bleed. The patient reported not taking any iron supplements or bismuth subsalicylate (Pepto Bismol) recently.
PAST MEDICAL AND SURGICAL HISTORY
The patient has a known history of CLL, AAA with stent placement, and is under the care of various specialists for these conditions. He has undergone multiple CT scans, endoscopies, and capsule endoscopy.
PHYSICAL EXAM
General: Alert, no acute distress.
Skin: Warm, dry. Pale
Head: Normocephalic, atraumatic
Neck: Appears supple, trachea midline.
Eyes, Ears, Nose, Mouth, and Throat: Moist mucous membranes
Cardiovascular: No signs of cyanosis
Respiratory: Respirations are non-labored.
Abdomen: Non-distended and nontender
Rectal: Melanotic stool that is guaiac positive
Musculoskeletal: No deformities
Neurological: No focal neurological deficit observed.
Psychiatric: Cooperative, appropriate mood and affect.
PLAN
The plan includes blood transfusion due to symptomatic anemia and a hemoglobin level of seven. The patient will be admitted for further evaluation and management of the potential GI bleed. Protonix (pantoprazole) will be administered to reduce
stomach acid production. The patients management will involve the GI team, and further imaging or procedures such as endoscopy may be considered based on the hospitalist teams evaluation.
DIFFERENTIAL DIAGNOSIS
- Gastrointestinal bleed
- Chronic lymphocytic leukemia
- Anemia due to chronic disease
- Peptic ulcer disease
- Colorectal cancer
- Gastritis
- Diverticulosis
- Angiodysplasia
- Ischemic colitis
- Medication-induced gastrointestinal bleeding
SUMMARY OF ENCOUNTER
The patient was seen in the emergency department for evaluation of weakness and black stools, likely due to a GI bleed. Discussion with the family revealed a recent history of black stools and prior gastrointestinal evaluations indicating bleeding.
The patient required a blood transfusion due to significant anemia likely exacerbated by the GI bleed.
DISPOSITION
Admit.
EMERGENCY TREATMENTS ADMINISTERED
Transfusion and Protonix (pantoprazole) for reduction of gastric acid.
DIAGNOSIS
- Gastrointestinal hemorrhage (ICD-10: K92.2)
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
- Chronic lymphocytic leukemia (ICD-10: C91.10)
EKG
My independent EKG interpretation is:
- Rhythm at 78 beats per minute
- Wide QRS
- Left axis
- No ST elevation noted
Disposition:
SUMMARY OF ENCOUNTER
The patient, an 79-year-old male with a history of chronic lymphocytic leukemia, presented with generalized weakness and fatigue. He appeared somewhat pale and complained of dark stools. On examination, there was evidence of melena, which tested
guaiac positive. The patients baseline hemoglobin is typically around 9 to 10, but today it was noted to be 7. Due to symptomatic anemia and the marking of a potential gastrointestinal bleed, a proton pump inhibitor drip was initiated, and a blood
transfusion was administered. The decision was made to admit the patient for further evaluation and management.
DISPOSITION
Admit.
ASSESSMENT
Symptomatic anemia likely secondary to gastrointestinal bleed, history of chronic lymphocytic leukemia, and documented melena.
EMERGENCY TREATMENTS ADMINISTERED
Pantoprazole drip and blood transfusion were administered to manage symptomatic anemia.
PLAN
Initiate admission for further evaluation and management of potential gastrointestinal bleed, monitoring of hemoglobin levels, and continuation of the PPI drip.
INDEPENDENT REVIEW OF LABS AND INTERPRETATION OF TESTS
My independent review of hemoglobin level is 7, a marked drop from the patients baseline of 9 to 10, indicating significant anemia.
MEDICAL DECISION MAKING
- Complexity of Data Reviewed: Chronic conditions affecting care: Chronic lymphocytic leukemia, gastrointestinal bleed, anemia due to chronic disease. Differential diagnosis includes gastrointestinal bleed, chronic lymphocytic leukemia, anemia due
to chronic disease, peptic ulcer disease, colorectal cancer, gastritis, diverticulosis, angiodysplasia, ischemic colitis, and medication-induced gastrointestinal bleeding.
- Data:
Category 1:
My independent interpretation of EKG: Rhythm at 78 beats per minute, wide QRS, left axis, no ST elevation noted.
Category 3:
Discussion of management with other physicians, specifically consultation with Dr. Fermin office regarding the potential need for further imaging and university transfer, which was not deemed necessary at this time.
DIAGNOSIS
- Gastrointestinal hemorrhage (ICD-10: K92.2)
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
- Chronic lymphocytic leukemia (ICD-10: C91.10)
*Pulse Oximetry
SaO2: 99
Oxygen Mode of Delivery: Room air
Patient hypoxic: no
*Critical Care Note
Total Time (30-74mins, 75-104mins- exclusive of procedures): 33 min
comment:
The high probability of a clinically significant, sudden or life threatening deterioration of the gastrointestinal system(s) required my full and direct attention, intervention and personal management. The aggregate critical care time was 33
minutes. This time is in addition to time spent performing reported procedures but includes the following:
[x] Data Review and interpretation
[x] Patient assessment and monitoring of vital signs
[x] Documentation
[x] Medication orders and management
ED Attending Note
-
Portions of this chart may have been created with voice recognition software.� Occasional wrong word or��sound alike� substitutions may have occurred due to the inherent limitations of voice recognition software.
Discharge Plan
Departure
Patient Disposition: Admit
Date of Disposition: 01/08/25
Time of Disposition: 17:37
Admit to: Med/Surg
Presentation/result/management discussed w/ accepting MD/DO: Hospitalist
Discharge Problem:
GI (gastrointestinal bleed)
Prescriptions:
No Action
clopidogrel 75 mg tablet
75 mg PO DAILY
tamsulosin 0.4 mg capsule
0.4 mg PO DAILY
rosuvastatin 40 mg tablet
40 mg PO DAILY
Incruse Ellipta 62.5 mcg/actuation Blister With Device
1 inh INHALATION R DAILY
potassium chloride 10 mEq capsule, extended release
10 meq PO DAILY Qty: 30 0RF
dapagliflozin propanediol [Farxiga] 10 mg Tablet
10 mg PO DAILY
furosemide 20 mg Tablet
20 mg PO DAILY
metoprolol succinate [Toprol XL] 50 mg Tablet Extended Release 24 Hr
50 mg PO DAILY
hydralazine 25 mg Tablet
25 mg PO TID
famotidine [Pepcid] 20 mg Tablet
20 mg PO BID
ferrous sulfate 325 mg (65 mg iron) tablet
325 mg PO DAILY Qty: 30 0RF
Referrals:
Raphael Fenton DO [Family Provider, Family Practice]
Interventions
Interventions:
*Risk Screen - Suicide Last Done: 01/08/25 16:13
*General Assessment Last Done: 01/08/25 16:13
*Neglect/Abuse Screening Last Done: 01/08/25 16:13
*ED- Fall Risk Assessment Last Done: 01/08/25 16:13
*ED COVID-19 Vaccine History Last Done: 01/08/25 16:13
*ED Influenza Vaccine History Last Done: 01/08/25 16:13
KX-Rtwfib-Kufantbljo Assessment Last Done: 01/08/25 16:25
ED- Cardiac Assessment Last Done: 01/08/25 16:25
ED- Pulmonary Assessment Last Done: 01/08/25 16:25
Discharge Date and Time
Print Language: MOHAWK
[2025-01-08] MEDS: PROTONIX IV 80 MG IV (17:37)
[2025-01-08] MEDS: PROTONIX 100 IV (17:37)
--- NOTE | 2025-01-08 17:49 | W.PN.UPDATE ---
Update Note
Progress Note Update
This note serves as an addendum to the H&P by sales and retail management recruiter Manasa Jeffrey
HPI�
79M
PMH: GIB, Fe Def anemia, CLL, Prx AF, watchman, chr HFrEF, COPD, CVA, HTN, BPH seen at ER
- [facility]: BP 125/60, HR 90, POx 95%
- reports black stools anemia concerning for GIB
- [facility]
- weakness for 6 months
- dark stool
Relevant VS:
Temp Pulse Resp BP Pulse Ox
98.4 F 73 21 127/46 99
01/08/25 16:09 01/08/25 17:30 01/08/25 17:30 01/08/25 17:00 01/08/25 17:31
PE
Gen: NAD
HEENT: anicteric
Neck: supple
Lungs: CTA
Cor: RRR S1 S2
Abdomen:�soft non tender abdomen
OSEI: hoB POS black stool
NARROW GAUGE ENGINEER: NFND
Relevant Data�
10/19/24 01/08/25
09:30 16:03
WBC 15.1 H 19.2 H
Hgb 9.4 L 7.0 L
Plt Count 165 116 L
Lymphocytes (Manual) 11 L
Last hospitalist admission: 10/16/24 -10/19/24
DC DXS:
Occult GI Bleed
Iron deficiency Anemia
paroxysmal atrial fibrillation status post watchman
Chronic Heart Failure with Reduced Ejection Fraction
COPD
History Stroke
Abdominal endovascular repair/stent
Hypertension
BPH
CLL
ASSESSMENT & PLAN
UGIB - acute vs. subacute
ACBLA with Hgb 7
New mild thrombocytopenia
- Not on blood thinner
- Blood consented
- T & S
- agree with 1 Unit PRBC - trend H & H
- Clear till MN then NPO after MN
- PPI gtt
- GI consult
Known HX
paroxysmal atrial fibrillation status post watchman
Chronic Heart Failure with Reduced Ejection Fraction
COPD
History Stroke
Abdominal endovascular repair/stent
Hypertension
BPH
CLL
DVT Px: SCD
Full code
IP TLM
--- NOTE | 2025-01-08 17:53 | HPS.HSE ---
Family Physician
-
Family Physician: Raphael Fenton DO
Chief Complaint
-
weakness and dark stools
History of Present Illness
Patient is a 79-year-old male with past medical history significant for paroxysmal atrial fibrillation, HFrEF, COPD, CVA, hypertension, BPH and CLL who presented to [facility] ED for evaluation of weakness and dark stools. Patient and family at bedside to
assist with HPI. Patient has been experiencing black stools, stomach upset and diarrhea with significant weakness this morning when attempting to get out of bed. He recently underwent a video capsule endoscopy approximately three to four weeks ago,
revealing a GI bleed, per family. He had discontinued clopidogrel (Plavix) as per his cardiologists instructions after the placement of a Watchman device. There is concern for a recurring GI bleed. The patient reported not taking any iron
supplements or bismuth subsalicylate (Pepto Bismol) recently. Patient denies any chest pain, shortness of breath, nausea or vomiting.
Medical History
Past Medical History
Past Medical History: Reports Other
Additional Past Medical History:
paroxysmal atrial fibrillation
HFrEF
COPD
CVA
hypertension
BPH
CLL
Past Surgical History: Reports Other
Additional Past Surgical History:
dual chamber pacer implantation 12/23
left groin abscess removal 10/26
Cardiac Cath 09/28
Stent implant 04/2021
cardiac ablation August 2023
watchman 02/2024
Triple AAA repair
Social History
Tobacco: Former Smoker
Alcohol: Occasional
Drug: None
Personal:
Living: With Family
Employment: Retired
Family History
Family History: Not pertinent
Allergies / Home Medications
Allergies reflects when Allergies were last updated in [facility].
Home Medications with original date entered in [facility]
Allergy/Medication List:
Allergies
Allergy/AdvReac Type Severity Reaction Status Date / Time
atorvastatin (From Lipitor) Allergy calf pain Verified 01/08/25 18:20
niacin Allergy 'not feel Verified 01/08/25 18:20
well'
oxycodone (From Percocet) Allergy Rash Verified 01/08/25 18:20
Home Medications
rosuvastatin 40 mg tablet 40 mg PO DAILY High Cholesterol 02/13/23
tamsulosin 0.4 mg capsule 0.4 mg PO DAILY Urinary Issue 02/13/23
umeclidinium 62.5 mcg/actuation blister powder for inhalation (Incruse Ellipta) 1 inh inhalation R DAILY COPD 02/13/23
potassium chloride 10 mEq capsule,extended release 10 meq PO DAILY Electrolyte Repletion #30 caps 02/17/23
dapagliflozin propanediol 10 mg tablet (Farxiga) 10 mg PO DAILY Diabetes 02/13/24
furosemide 20 mg tablet 20 mg PO DAILY Electrolyte Repletion 02/14/24
metoprolol succinate 50 mg tablet,extended release 24 hr (Toprol XL) 50 mg PO DAILY Blood Pressure 10/16/24
Review of Systems
-
History Source: Patient
Constitutional: Denies Fever or Chills
EENT: Denies Sore Throat
Respiratory: Denies Cough, Hemoptysis or Trouble Breathing
Cardiac: Denies Chest Pain, Diaphoresis, Palpitations or Syncope
Abdomen/GI: Reports Abdominal Pain, Diarrhea and Black Stools; Denies Nausea or Vomiting
: Denies Dysuria, Frequency or Urgency
Musculoskeletal: Denies Joint Pain or Joint Swelling
Skin: Denies Rash
Neurological: Reports Weakness; Denies Dizzy, Headache or Numbness
Endocrine: Denies Polyuria or Polydipsia
Physical Exam
Vital Signs
Vital Signs
Temp Pulse Resp BP Pulse Ox
98.4 F 73 21 127/46 99
01/08/25 16:09 01/08/25 17:30 01/08/25 17:30 01/08/25 17:00 01/08/25 17:31
Physical Exam
General: Well Developed, No Apparent Distress, Comfortable, Conversant and Appears Chronically Ill
HEENT: NormoCephalic, Moist mucous membranes, PERRLA, Nose Appears Normal and Ears Appear Normal
Respiratory: Clear and Non Labored Respirations
Cardiac: S1/S2 and Regular Rhythm; No Murmur or Peripheral Edema
GI: Soft, Non Tender, Non Distended and Normal Bowel Sounds
Rectal: Hem Positive (tested in ED )
Musculoskeletal: No Clubbing, No Cyanosis and No Edema
Skin: Warm and IV/Catheter Site
Neuro: Awake and AO x 3
Psych: Calm and Intact Judgment/Insight
Laboratory Results
-
01/08/25 16:03
01/08/25 16:03
Laboratory Results
PT 16.6 Sec (11.4-14.6) H 01/08/25 16:03
INR 1.29 01/08/25 16:03
APTT 45.6 Sec (23.4-35.0) H 01/08/25 16:03
Total Bilirubin 0.8 mg/dl (0.2-1.3) 01/08/25 16:03
AST 61 U/L (17-59) H 01/08/25 16:03
ALT 47 U/L (0-50) 01/08/25 16:03
Alkaline Phosphatase 88 U/L (38-126) 01/08/25 16:03
Data Reviewed
-
Medical Tests (Nuc Med, Echo, EKG etc): Report Reviewed by me (EKG: Atrial-sensed ventricular-paced rhythm with prolonged AV conduction WITH PREMATURE ATRIAL COMPLEXES WITH Aberrant conduction)
Lab Data: Labs Reviewed by me (WBC 19.2, hgb 7.0, hct 23.3, PT16.6, INR 1.29, PTT 45.6, Na 130)
Impression/Plan
-
IMPRESSION/PLAN:
#symptomatic anemia likely 2/2 UGIB
WBC 19.2, hgb 7.0, hct 23.3, PT 16.6, INR 1.29, PTT 45.6, Na 130
EKG: Atrial-sensed ventricular-paced rhythm with prolonged AV conduction WITH
PREMATURE ATRIAL COMPLEXES WITH Aberrant conduction
- Admit to telemetry
- Consult GI
- NPO at midnight, clears until then
- blood consent obtained in ED, scanned to chart
- 1 unit PRBCs
- IV Protonix gtt
- trend h/h
#paroxysmal atrial fibrillation
s/p watchman
- continue metoprolol
#HFrEF
- daily weights
- I & Os
- continue dapagliflozin, furosemide and potassium chloride
#COPD
- continue Incruse Ellipta
#BPH
- continue tamsulosin
#CLL
follows with [facility] in [place]
no current treatment
#CVA
clopidogrel d/c per cardiology s/p watchman
#hypertension
Code status: full code
DVT prophylaxis: SCDs
[2025-01-08] MEDS: OFIRMEV 100 IV (21:21)
[2025-01-09] VITALS (11 sets, daily range): BP systolic 12–139; BP diastolic 50–64; PULSE 76–84; BMI 27.0
[2025-01-09 00:32] LABS: Hematocrit 23.6 % (39.0-52.0); Hemoglobin 7.1 g/dL (13.0-18.0)
--- NOTE | 2025-01-09 01:02 | PTCARENOTE ---
Patient admitted to room 2137 from ED. Patient AAOX3, VSS, machine tack puller from ED stretcher due to weakness. Tele on patient: AV paced. Patient states he is familiar with room and using call billy appropriately.
[2025-01-09] MEDS: PROTONIX 100 IV ×3 (02:39→23:02)
[2025-01-09 03:05] LABS: Hematocrit 24.7 % (39.0-52.0); Hemoglobin 7.3 g/dL (13.0-18.0)
[2025-01-09] MEDS: TYLENOL 650 MG PO (04:38)
--- NOTE | 2025-01-09 05:12 | PTCARENOTE ---
Patients initial Hemoglobin 7.0. Redraw done two hours after packed RBC completed. HGB resulted 7.1. Messaged SCREEN PRINTING MACHINE OPERATOR. Patient asymptomatic and vitals stable. Redraw completed 2 hours after. HGB resulted 7.3. Messaged SCREEN PRINTING MACHINE OPERATOR. No new orders at this time.
[2025-01-09 06:39] LABS: Hematocrit 25.1 % (39.0-52.0); Hemoglobin 7.5 g/dL (13.0-18.0); Mean Corp Hgb Conc. 29.9 g/dL (33.0-37.0); Mean Corpuscular Volume 75.4 fL (80.0-94.0); Platelet Count 94 10^3/uL (130-400); Red Cell Dist. Width 20.3 % (11.5-14.5)
--- NOTE | 2025-01-09 06:50 | CON.GI ---
Addendum entered and electronically signed by Vee Fisher DO 01/09/25 11:28:
Patient seen and examined independently of EFREN. I agree with her note with my additions below
Jordon is an 79-year-old male with history of CLL follows with Dr. Herrera, pacemaker, TIA, CAD, CVA, PAF status post watchman in February 2024, COPD, AAA repair in 2021 at [place] who was taken off Plavix last month and is off all anticoagulation, does
not take NSAIDs who is here with weakness and black formed stools with drop in hemoglobin requiring transfusion who has been hemodynamically stable throughout his admission since yesterday. He is not on any therapy for CLL. Was told he has bulky
lymphadenopathy but it should not be causing his lower abdominal pain which he describes as pressure and ache.
From a bleeding standpoint since he has been off Plavix since last month he felt like his bleeding had improved until yesterday it recurred. States it was not melena but formed black stool. On admission hemoglobin 7 and on last hemoglobin here in
October was 9.4. Melenic stool on exam in the emergency room.
Denies dysphagia, GERD, nausea, vomiting. He has lost about 40 pounds this year with minimal appetite.
He has had multiple procedures done including 2 endoscopies without any significant findings, a colonoscopy with no findings and a capsule in October that showed proximal small bowel angioectasias.
He has received 1 unit transfusion since admission with no significant improvement in hemoglobin. He is still hemodynamically stable
He is on a Protonix drip.
Discussed with at the bedside
Plan for today EGD and possible enteroscopy
Addendum entered and electronically signed by EFREN Dang 01/09/25 10:14:
pt denies NSAID use
Original Note:
Consultation
-
Date/Time Consultation Requested: 01/08/252144
Date/Time Consultation Performed: 01/09/25 2024
Requesting Provider: EFREN Lara
Performing Provider: EFREN Brooks, Vee Walp, DO
Reason for Consultation: GI bleed
Medical History
Chief Complaint / HPI
Chief Complaint: epigastric pain, black stools, weakness, groin pain
History of Present Illness:
79-year-old male with past medical history of CLL (follows with Dr. 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
aortic aneurysm with endovascular repair and stent May 2021 at [facility] off plavix , prior CT in September with concerning for new contained rupture of the [place] AAA surrounding an abdominal aortobiiliac endograft with evaluated by his CT
Surg at [place] who states this was not a leak, trauma to kidney with repair, choledocholithiasis status post EUS/ERCP 09/2023 extracting stones with follow up EUS in 12/2023 with duct dilation without pathology, celiac, SM and renal artery stent per
imaging, and LEVI with wt loss and work up over last year with Dr. Pimentel and through . He also had recent second opinion with Dr. Srivastava but was awaiting record review. He now returns with weakness and dark stools with stomach upset. He also
admits to continued wt loss and lower abdominal/groin pain. On admission he is noted with hbg 7 with prior hbg 9.4 on discharge 10/19/24. In ER rectal exam with melanotic stool heme +.
In review with patient he current admits to tenderness and enlarging nodes in neck and groin. He also admits to intermittent black stool and noted recurrent 01/08 along with weakness and near fall. He was due to get CT per oncology today for
follow up for abdominal pain. He denies issues odynophagia, dysphagia, GERD, nausea, vomiting, diarrhea, constipation, or red blood in stools.
Range: Spring 2023 Dr. Grier 'polyp'
EGD 07/31/24 (Dr. Pimentel) Z line irregular, small HH, patchy inflammation, erosions and erythema in the gastric antrum. Second portion of the duodenum and examined portion of the duodenum were normal.
COLO 07/31/24 (Dr. Pimentel) Examined portion of the ileum was normal. Entire examined colon normal. Diverticulosis in the sigmoid colon.
EGD: salguti 10/17/24 -No lesions in entire esophagus Z-line variable, 3 cm, small HH- Erosive gastropathy-no bleeding and no stigmata of recent bleeding Normal examined duodenum. No specimens collected.
capsule: 10/23/24 - stomach normal, smal bowel tiny AVM's- proximal, no mass lesion, or polyps, colon normal mucosal
01/07/25 srivastava second opinion GI awaiting records
Past Medical History
Past Medical History: Arrhythmias (2:1 AV block), CAD, Cancer (CLL), CHF (with reduced EF), COPD, CVA, HTN, Hypercholesterolemia, Valvular Disease (mild ) and Other (abdominal aortic aneurysm with endovascular repair and stent with possible leak
on imaging in past, iron def anemia, choledocholithiasis, BPH, biliary ductal dilation )
Past Surgical History: Other ( Pacemaker, abdominal aortic aneurysm with endovascular repair and stent, ERCP, trauma to kidney with repair, celiac, SM,and Renal artery stent per imaging, hernia repair, Watchman)
Social History
Tobacco: Former Smoker
Alcohol: Occasional
Drug: None
Personal:
Living: With Family
Employment: Retired
Family History
Family History: Other (No family history gastrointestinal malignancy or IBD)
Allergies / Home Medications
Allergy/AdvReac Type Severity Reaction Status Date / Time
atorvastatin (From Lipitor) Allergy calf pain Verified 01/08/25 18:20
niacin Allergy 'not feel Verified 01/08/25 18:20
well'
oxycodone (From Percocet) Allergy Rash Verified 01/08/25 18:20
�Medication �Instructions �Recorded
rosuvastatin 40 mg tablet 40 mg PO DAILY High Cholesterol 02/13/23
tamsulosin 0.4 mg capsule 0.4 mg PO DAILY Urinary Issue 02/13/23
umeclidinium 62.5 mcg/actuation 1 inh inhalation R DAILY COPD 02/13/23
blister powder for inhalation
(Incruse Ellipta)
potassium chloride 10 mEq 10 meq PO DAILY Electrolyte 02/17/23
capsule,extended release Repletion #30 caps
dapagliflozin propanediol 10 mg 10 mg PO DAILY Diabetes 02/13/24
tablet (Farxiga)
furosemide 20 mg tablet 20 mg PO DAILY Electrolyte 02/14/24
Repletion
metoprolol succinate 50 mg 50 mg PO DAILY Blood Pressure 10/16/24
tablet,extended release 24 hr
(Toprol XL)
Review of Systems
-
History Source: Patient
Constitutional: Reports Weight Loss (232 down to 166 lbs )
EENT: Reports Other (concern for enlarge nodes in neck)
Respiratory: Reports No Symptoms
Cardiac: Reports No Symptoms
Abdomen/GI: Reports Abdominal Pain (lower abdomen ) and Black Stools
: Reports No Symptoms
Musculoskeletal: Reports No Symptoms
Skin: Reports No Symptoms
Neurological: Reports Weakness
Endocrine: Reports No Symptoms
Hematologic/Lymphatic: Reports Bleeding
Vital Signs
Temp Pulse Resp BP Pulse Ox
98.0 F 77 18 122/60 94
01/09/25 03:18 01/09/25 03:18 01/09/25 03:18 01/09/25 03:18 01/08/25 21:53
Physical Exam
Exam
General: Well Developed, Well Nourished and No Apparent Distress
HEENT: Normocephalic, Anicteric and Other (neck fullness )
Respiratory: Clear
Cardiac: Regular Rhythm and Murmur
GI: Soft, Non Distended and Tender (lower abdomen )
Rectal: Other (melena per ER)
Musculoskeletal: No Clubbing and No Cyanosis
Skin: Warm and Dry
Neuro: Awake, Alert and AO x 3
Psych: Calm
Results
WBC 16.3 10^3/uL (4.8-10.8) H 01/09/25 06:15
Hgb 7.5 g/dL (13.0-18.0) L 01/09/25 06:15
Hct 25.1 % (39.0-52.0) L 01/09/25 06:15
MCV 75.4 fL (80.0-94.0) L 01/09/25 06:15
Plt Count 94 10^3/uL (130-400) L 01/09/25 06:15
PT 16.6 Sec (11.4-14.6) H 01/08/25 16:03
INR 1.29 01/08/25 16:03
APTT 45.6 Sec (23.4-35.0) H 01/08/25 16:03
Sodium 130 mmol/L (135-145) L 01/08/25 16:03
Potassium 3.7 mmol/L (3.5-5.1) 01/08/25 16:03
Chloride 96 mmol/L (98-107) L 01/08/25 16:03
Carbon Dioxide 29 mmol/L (22-30) 01/08/25 16:03
BUN 18 mg/dl (9-20) 01/08/25 16:03
Creatinine 0.5 mg/dL (0.7-1.3) L 01/08/25 16:03
Calcium 8.6 mg/dl (8.4-10.2) 01/08/25 16:03
Total Bilirubin 0.8 mg/dl (0.2-1.3) 01/08/25 16:03
AST 61 U/L (17-59) H 01/08/25 16:03
ALT 47 U/L (0-50) 01/08/25 16:03
Alkaline Phosphatase 88 U/L (38-126) 01/08/25 16:03
Diagnostic Image Results:
09/28/24 CT A/p
1. CONTAINED RUPTURE of the [place] ABDOMINAL AORTIC ANEURYSM surrounding an abdominal aortobiiliac endograft with a new crescent-shaped collection of extraluminal hemorrhage peripheral to the calcified wall of the [place] aneurysm sac and overall
increase in size in the [place] aneurysm sac since 12/27/2023 consistent with a progressive endoleak (probably type I endoleak at the junction of the aortic and left iliac limbs of the endograft).
2. Patent stents in the celiac, superior mesenteric, and bilateral renal arteries. Previous embolization of the posterior branch of the left renal artery.
3. Moderate intrahepatic biliary dilatation in the left lobe of the liver. Mild extrahepatic biliary dilatation. Mild bile duct enhancement and gallbladder wall thickening which could be secondary to acute cholangitis.
4. Large chronic infarct in the posterior cortex of the left kidney.
5. Mild acute pancolitis (probably infectious in etiology).
6. Moderate diffuse thickening and trabeculation of the urinary bladder wall (either cystitis or chronic outlet obstruction).
7. Severe calcification in the coronary arteries and thoracic aorta. Mild cardiomegaly. Cardiac pacemaker in place.
8. Chronic asbestos exposure with calcified pleural plaques and mild asbestosis.
EGD 07/31/24 (Dr. Pimentel) Z line irregular, small HH, patchy inflammation, erosions and erythema in the gastric antrum. Second portion of the duodenum and examined portion of the duodenum were normal.
EGD: salguti 10/17/24 -No lesions in entire esophagus Z-line variable, 3 cm, small HH- Erosive gastropathy-no bleeding and no stigmata of recent bleeding Normal examined duodenum. No specimens collected.
COLO 07/31/24 (Dr. Pimentel) Examined portion of the ileum was normal. Entire examined colon normal. Diverticulosis in the sigmoid colon.
EUS 12/29/23:
- There was dilation in the common bile duct which
measured up to 11 mm.
- Hyperechoic material consistent with sludge was
visualized endosonographically in the gallbladder body.
- Main pancreatic duct (MPD) diameter was measured.
Endosonographically, the MPD had a mildly dilated
appearance.
- There was no sign of significant pathology in the
ampulla.
- No specimens collected.
ERCP 09/21/2023 (Dr. Mar) - A filling defect consistent with a stone was seen on
the cholangiogram.
- The common bile duct was moderately dilated.
- Choledocholithiasis was found. Complete removal was
accomplished by biliary sphincterotomy and balloon
extraction.
- Multiple balloon sweeps were performed to see if the
possible soft tissue lesion (hypoechoic material seen
at the level of ampulla) could be extruded out for
visualization and no lesion was seen.
- A biliary sphincterotomy was performed.
- The biliary tree was swept and sludge was found.
- Biopsies were performed in the terminal end of the
main duct and ampulla.
EUS 09/21/2023 (Dr. Mar) - There was dilation in the common bile duct which
measured up to 14 mm.
- Three stones were visualized endosonographically in
the lower third of the main bile duct. Also hypoechoic
material at the level of ampulla favored to be sludge.
- Multiple stones were visualized endosonographically
in the gallbladder body.
- Hypoechoic material which moved with patient's
change in position suggestive of sludge was visualized
endosonographically in the gallbladder body.
- There was no sign of significant pathology in the
pancreatic head and pancreatic body.
- There was no sign of significant pathology in the
ampulla.
- No specimens collected.
Colonoscopy: Spring 2023 Dr. Grier 'polyp'
Assessment / Plan
-
79-year-old male with past medical history of CLL (follows with Dr. 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
aortic aneurysm with endovascular repair and stent May 2021 at [facility] off plavix , prior CT in September with concerning for new contained rupture of the [place] AAA surrounding an abdominal aortobiliac endograft with evaluated by his CT
Surg at [place] who states this was not a leak, trauma to kidney with repair, choledocholithiasis status post EUS/ERCP 09/2023 extracting stones with follow up EUS in 12/2023 with duct dilation without pathology, celiac, SM and Renal artery stent per
imaging, and LEVI with wt loss and work up over last year with Dr. Pimentel and through . He also had recent second opinion with Dr. Srivastava but was awaiting record review. He now returns with weakness and dark stools with stomach upset. He
also admits to continued wt loss and lower abdominal/groin pain. On admission he is noted with hbg 7 with prior hbg 9.4 on discharge 10/19/24. In ER rectal exam with melanotic stool heme +.
Range: Spring 2023 Dr. Grier 'polyp'
EGD 07/31/24 (Dr. Pimentel) Z line irregular, small HH, patchy inflammation, erosions and erythema in the gastric antrum. Second portion of the duodenum and examined portion of the duodenum were normal.
COLO 07/31/24 (Dr. Pimentel) Examined portion of the ileum was normal. Entire examined colon normal. Diverticulosis in the sigmoid colon.
EGD: salguti 10/17/24 -No lesions in entire esophagus Z-line variable, 3 cm, small HH- Erosive gastropathy-no bleeding and no stigmata of recent bleeding Normal examined duodenum. No specimens collected.
capsule: 10/23/24 - stomach normal, smal bowel tiny AVM's- proximal, no mass lesion, or polyps, colon normal mucosal
01/07/25 srivastava second opinion awaiting records
-recurrent GI bleeding with melena on admission
-microcytic anemia
-leukocytosis with chronic elevation
-hx erosive gastropathy on EGD 10/2024 and tiny proximal AVM on capsule 10/2024
-ongoing lower abdominal pain
-murmur on exam
-hx CLL
-thrombocytopenia
-wt loss of 232 down to 160's over last year
-concern for enlarge lymph nodes in neck and lower abdomen
-pancolitis noted on prior CT 09/2024
-CT in September with concerning for new contained rupture of the [place] AAA surrounding an abdominal aortobiliac endograft with evaluated by his CT Surg at [place] who states this was not a leak
-choledocholithiasis status post EUS/ERCP 09/2023 extracting stones with follow up EUS in 12/2023 with duct dilation without pathology
other med problems:
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
[place] off Plavix , trauma to kidney with repair, hx celiac,SM and renal artery stents per imaging
PLAN:
Etiology of melena related to SB bleeding with proximal AVM noted on capsule in October vs other
trend hbg transfuse as needed
will add repeat iron studies, b12, folate to ER labs - in October iron 35, TIBC 235, % sat 14, ferritin 69 b13 768, folate 7
follow stool record no stools recorded overnight
consider EGD with enteroscopy will review with Dr. Fisher for timing as pt was also due for CT today and continued with lower abdominal pain with wt loss
cont NPO
t/c proceeding with CT with wt loss and lower abdominal pain and leukocytosis but noted with chronic elevation
pain control per hospitalist team
work up per medical team for murmur on exam- prior note mild per echo 2023
Pt due 01/[address] Mar
-
-
Thank you for consultation and allowing me to participate in the patient's care. Please call the ion implant machine operator GI physician during the after hours with any questions or concerns.
[2025-01-09 07:17] LABS: Blood Urea Nitrogen 14 mg/dl (9-20); Calcium 8.2 mg/dl (8.4-10.2); Carbon Dioxide 30 mmol/L (22-30); Chloride 97 mmol/L (98-107); Estimated Creatinine Clearance 90 ml/min; Glucose 83 mg/dl (70-99); Potassium 4.0 mmol/L (3.5-5.1); Sodium 129 mmol/L (135-145); eGFR > 60.00
[2025-01-09] MEDS: SPIRIVA RESPIMAT 2.5 MCG 2 PUFF INH (07:51)
[2025-01-09] MEDS: TOPROL XL 50 MG PO (09:37)
[2025-01-09] MEDS: DILAUDID 0.25 MG IV ×3 (09:38→21:52)
[2025-01-09] MEDS: LASIX 20 MG PO (09:38)
[2025-01-09] MEDS: CRESTOR 40 MG PO (09:38)
[2025-01-09] MEDS: FLOMAX 0.4 MG PO (09:38)
[2025-01-09] MEDS: FARXIGA 10 MG PO (09:38)
[2025-01-09] MEDS: KCL 10 MEQ PO (09:38)
--- NOTE | 2025-01-09 10:33 | W.PN.HOSP.TC ---
Today's Communication/Plan
-
start IVF.
PPI for now
trend hgb.
Gi recs
Assessment / Plan
Assessment / Plan
#symptomatic anemia likely 2/2 UGIB
- Consult GI
- NPO
- blood consent obtained in ED, scanned to chart
- s/p 1 unit PRBCs
- IV Protonix gtt
- trend h/h
#paroxysmal atrial fibrillation
s/p watchman
- continue metoprolol
#HFrEF
- daily weights
- I & Os
- continue dapagliflozin, furosemide and potassium chloride
#COPD
- continue Incruse Ellipta
#BPH
- continue tamsulosin
#CLL
follows with [facility] in [place]
no current treatment
#CVA
clopidogrel d/c per cardiology s/p watchman
#hypertension
#Neck and groin lymphadenopathy
-follows with [facility]
Code status: full code
DVT prophylaxis: SCDs
Anticipated Discharge: > 48 hours
Subjective/Interval History
-
Date of Service: January 09, 2025
states of groin lymphadenopathy pain
Objective Data
-
Labs:
Laboratory Results
01/09/25 01/09/25 01/09/25
00:07 02:55 06:15
WBC 16.3 H
Hgb 7.1 L 7.3 L 7.5 L
Hct 23.6 L 24.7 L 25.1 L
Plt Count 94 L
Sodium 129 L
Potassium 4.0
Chloride 97 L
Carbon Dioxide 30
BUN 14
Creatinine 0.5 L
Glucose 83
Calcium 8.2 L
01/09/25 01/09/25
12:00 18:00
WBC
Hgb Pending Pending
Hct Pending Pending
Plt Count
Sodium
Potassium
Chloride
Carbon Dioxide
BUN
Creatinine
Glucose
Calcium
Vital Signs:
Vital Signs
Temp Pulse Resp BP Pulse Ox
97.7 F 73 18 133/59 94
01/09/25 07:35 01/09/25 09:38 01/09/25 07:53 01/09/25 09:38 01/09/25 07:53
I&O
01/08/25 01/09/25 01/10/25
06:59 06:59 06:59
Intake Total 490 / 490
Output Total 500 / 500
Balance -10
Physical Exam
-
General: Comfortable and Pain
Respiratory: Clear to Auscultation and Non Labored Respirations; Negative Accessory Resp Muscle Use
Cardiac: Regular Rhythm and S1/S2
GI: Soft, Nontender, Nondistended and Normal Bowel Sounds
Neuro: Awake and AO x 3
Hematologic / Lymphatic: Lymphadenopathy
Psych: Calm; Negative Confused
Data Reviewed
-
Total Time Spent with Patient (in minutes): 55
[2025-01-09 10:41] LABS: Iron 23 ug/dl (49-181)
[2025-01-09] MEDS: NSS 1000 IV (10:45)
[2025-01-09 10:50] LABS: Total Iron Binding Capacity 198 ug/dl (261-462)
--- NOTE | 2025-01-09 12:17 | PTCARENOTE ---
Patient to GI lab for EGD, sent in bed with chart, IV Protonix and NSS infusing. 1200 hgb lab draw obtained prior to transport.
[2025-01-09 12:27] LABS: Hematocrit 26.3 % (39.0-52.0); Hemoglobin 7.6 g/dL (13.0-18.0)
[2025-01-09] MEDS: FERRLECIT 110 MG IV (14:06)
[2025-01-09] MEDS: DIFLUCAN 200 MG PO (14:47)
[2025-01-09 15:28] LABS: Ferritin 275.0 ng/ml (17.9-464.0)
[2025-01-09 15:59] LABS: Folate 7.5 ng/ml (2.76-20); Vitamin B12 > 1000 pg/ml (239-931)
--- NOTE | 2025-01-09 16:04 | CM ---
Met with patient at bedside; lives w/ ; one floor home; no steps to enter; no basement
Pharmacy verified: [facility] @ [address] [place]
Reported he was independent with ambulation and ADLs; drives
NO SNF or Home Health utilization history
will transport home
Plan: Discharge to home when stable; Case Management will monitor and support if services recommended
[2025-01-09 17:11] LABS: Hematocrit 24.7 % (39.0-52.0); Hemoglobin 7.4 g/dL (13.0-18.0)
[2025-01-09 17:43] LABS: Troponin I < 0.012 ng/ml
--- NOTE | 2025-01-09 17:49 | PTCARENOTE ---
Addendum entered by Claritza Kapadia RN 01/09/25 19:33:
Patient states improvement in chest discomfort s/p IV morphine administration - see MAY.
IVF and Protonix gtt infusing through R FA. Patient bedrest this shift d/t weakness, able to reposition self in bed, denies dizziness/lightheadedness. Orthos taken w/o standing negative, MD aware, PT consult in place.
Original Note:
Patient ringing call billy c/o chest discomfort to this RN, states he does not know if he has ever felt this before, describes discomfort as 'sharp' and rates it 4/10, pointing towards center of chest. Patient states he just had water ice. Vitals
taken BP 123/56 HR 85 AV paced on monitor, 98% RA. EKG taken - sent to MD. Trop and H&H ordered per MD, hgb 7.4 trop neg. MD made aware. Patient states improvement in discomfort after repositioning to a 2/10. made aware, one time dose of IV
morphine ordered.
[2025-01-09] MEDS: MORPHINE SULFATE 1 MG IV (18:14)
[2025-01-09] MEDS: MELATONIN 5 MG PO (21:51)
[2025-01-10] VITALS (7 sets, daily range): BP systolic 111–133; BP diastolic 49–62
[2025-01-10] MEDS: NSS 1000 IV (00:06)
--- NOTE | 2025-01-10 05:53 | W.PN.GI.CBS2 ---
Today's Communication / Plan
-
Please see assessment and plan for details.
Assessment / Plan
-
1. GI bleed: Likely secondary to small bowel angiectasia, on endoscopy yesterday with multiple angiectasia with oozing with contact, status post treatment. He has remained hemodynamically stable overnight, no further signs of gross bleeding.
There was 1 area that was difficult to treat likely near the ampulla, though usually bleeding is multifactorial from multiple angiectasia. At this point we will await morning hemoglobin, and if stable will advance diet, continue PPI for now.
2. Melody esophagitis: Noted on endoscopy, started on Diflucan to continue for 2 weeks.
3. Inguinal pain: Likely secondary to adenopathy given its position and palpable adenopathy, without other significant pathology in that area on previous CT scan.
Pt due 01/[address] Mar
Subjective
Subjective
Date of Service: January 10, 2025
Patient feeling well overnight, no abdominal pain, nausea or vomiting. No bowel movements overnight. Still with persistent bilateral inguinal discomfort, no changes.
Objective
Data Reviewed
Laboratory Data:
Laboratory Results
PT 16.6 Sec (11.4-14.6) H 01/08/25 16:03
INR 1.29 01/08/25 16:03
APTT 45.6 Sec (23.4-35.0) H 01/08/25 16:03
Total Bilirubin 0.8 mg/dl (0.2-1.3) 01/08/25 16:03
AST 61 U/L (17-59) H 01/08/25 16:03
ALT 47 U/L (0-50) 01/08/25 16:03
Alkaline Phosphatase 88 U/L (38-126) 01/08/25 16:03
Vital Signs and I&O:
Vital Signs
Temp Pulse Resp BP Pulse Ox
97.8 F 73 18 129/61 97
01/10/25 03:09 01/10/25 03:09 01/10/25 03:09 01/10/25 03:09 01/10/25 03:09
I&O
01/08/25 01/09/25 01/10/25
06:59 06:59 06:59
Intake Total 490 / 490 510 / 510
Output Total 500 / 500 1625 / 1625
Balance -10 / 10 -1115 / -1115
Physical Exam
Physical Exam
General: NAD
Abdomen: normal bowel sounds, soft, no tenderness, no masses or bruits, no ascites
[2025-01-10 06:59] LABS: Hematocrit 24.5 % (39.0-52.0); Hemoglobin 7.0 g/dL (13.0-18.0); Mean Corp Hgb Conc. 28.6 g/dL (33.0-37.0); Mean Corpuscular Volume 75.4 fL (80.0-94.0); Nucleated Red Blood Cells % 1.4 % (-); Platelet Count 107 10^3/uL (130-400); Red Cell Dist. Width 20.7 % (11.5-14.5)
[2025-01-10 07:30] LABS: Blood Urea Nitrogen 12 mg/dl (9-20); Calcium 7.9 mg/dl (8.4-10.2); Carbon Dioxide 25 mmol/L (22-30); Chloride 98 mmol/L (98-107); Estimated Creatinine Clearance 90 ml/min; Glucose 92 mg/dl (70-99); Potassium 4.0 mmol/L (3.5-5.1); Sodium 127 mmol/L (135-145); eGFR > 60.00
[2025-01-10] MEDS: SPIRIVA RESPIMAT 2.5 MCG 2 PUFF INH (07:34)
[2025-01-10] MEDS: FARXIGA 10 MG PO (08:05)
[2025-01-10] MEDS: CRESTOR 40 MG PO (08:05)
[2025-01-10] MEDS: DIFLUCAN 200 MG PO (08:06)
[2025-01-10] MEDS: FLOMAX 0.4 MG PO (08:06)
[2025-01-10] MEDS: DILAUDID 0.25 MG IV ×2 (08:07→18:13)
[2025-01-10] MEDS: LASIX 20 MG PO (08:07)
[2025-01-10] MEDS: TOPROL XL 50 MG PO (08:07)
[2025-01-10] MEDS: KCL 10 MEQ PO (08:07)
--- NOTE | 2025-01-10 08:31 | W.PN.HOSP.TC ---
Addendum entered and electronically signed by Cira Russell MD 01/10/25 12:06:
UA with blood, bacteria no significant WBC
will order CT w/w out contrast (patient was due to get this as outpatient for lower abdominal pain)
pain described as suprapubic/groin radiating to left flank; no hx renal stones
Hyponatremia
-fluids off
-fluid restriction, received Lasix this morning
Addendum entered and electronically signed by Cira Russell MD 01/10/25 08:58:
repeat Hg 7.8, will hold off on transfusion
Original Note:
Today's Communication/Plan
-
transfuse 1 unit
discussing diet plan with GI
monitor H/H
Assessment / Plan
Assessment / Plan
Patient is a 79-year-old male with past medical history significant for paroxysmal atrial fibrillation, HFrEF, COPD, CVA, hypertension, BPH and CLL who presented to [facility] ED for evaluation of weakness and dark stools.
EGD 01/09/25
Impression:
- It was difficult to advance beyond the 4th portion due to looping
in the stomach with resistance.
- Esophageal plaques were found, consistent with candidiasis.
- 2 cm hiatal hernia.
- Non-bleeding gastric ulcers with no stigmata of bleeding.
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 Treated with argon
plasma coagulation (APC).
- No specimens collected.
#symptomatic anemia
Melena
- s/p 1 unit PRBCs
- appreciate GI
-s/p EGD 01/09 with finding of non-bleeding gastric ulcers with no stigmata of bleeding; multiple angiectasias in duodenum s/p APC
-Hg at 7 today, may be dilution or lab fluctuation - will transfuse an additional unit
- FLD yest; NPO after MN in case requires repeat scope - discussing diet recs with GI
- PPI BID x 1 month then daily
- Per GI, Consider repeat EGD with side viewing scope
Esophageal Candidiasis
-Fluconazole 200mg PO QD x 2 weeks total
Suprapubic pain
-follow up UA
-abdomen soft
-trial of simethicone
#paroxysmal atrial fibrillation
s/p watchman
- continue metoprolol
#HFrEF
- daily weights
- I & Os
- hold farxiga and Lasix while nPO
AAA s/p endograft repar at [facility]
#COPD
- continue Incruse Ellipta
#BPH
- continue tamsulosin
#CLL
follows with [facility] in [place]
no current treatment
#CVA
clopidogrel d/c per cardiology s/p watchman
#hypertension
#Neck and groin lymphadenopathy
-follows with [facility]
Code status: full code
DVT prophylaxis: SCDs
51 minutes spent on patient care
Anticipated Discharge: 24 - 48 hours
Subjective/Interval History
-
Date of Service: January 10, 2025
has some suprapubic pain
no bleeding or melena overnight
no nausea
he feels hungry
Objective Data
-
Labs:
Laboratory Results
01/10/25 01/10/25 01/10/25
06:02 08:21 15:13
WBC 16.4 H Pending Pending
Hgb 7.0 L Pending Pending
Hct 24.5 L Pending Pending
Plt Count 107 L Pending Pending
Sodium 127 L
Potassium 4.0
Chloride 98
Carbon Dioxide 25
BUN 12
Creatinine 0.5 L
Glucose 92
Calcium 7.9 L
01/10/25
23:13
WBC Pending
Hgb Pending
Hct Pending
Plt Count Pending
Sodium
Potassium
Chloride
Carbon Dioxide
BUN
Creatinine
Glucose
Calcium
Vital Signs:
Vital Signs
Temp Pulse Resp BP Pulse Ox
97.8 F 70 16 129/61 97
01/10/25 03:09 01/10/25 07:34 01/10/25 07:34 01/10/25 03:09 01/10/25 03:09
I&O
01/09/25 01/10/25 01/11/25
06:59 06:59 06:59
Intake Total 490 / 490 510 / 510
Output Total 500 / 500 1625 / 1625
Balance -10 / -10 -1115 / -1115
Review of Systems
-
History Source: Patient
All other systems: Reviewed and negative
Physical Exam
-
General: Comfortable and Pain
Respiratory: Clear to Auscultation and Non Labored Respirations; Negative Accessory Resp Muscle Use
Cardiac: Regular Rhythm and S1/S2
GI: Soft, Nondistended, Normal Bowel Sounds and Other (suprapubic pain, no rebound or guarding )
Neuro: Awake and AO x 3
Hematologic / Lymphatic: Lymphadenopathy
Psych: Calm; Negative Confused
Data Reviewed
-
Diagnostic Radiology: Report Reviewed by me
Labs: Labs Reviewed by me
[2025-01-10 08:54] LABS: Hematocrit 26.5 % (39.0-52.0); Hemoglobin 7.8 g/dL (13.0-18.0); Mean Corp Hgb Conc. 29.4 g/dL (33.0-37.0); Mean Corpuscular Volume 76.4 fL (80.0-94.0); Nucleated Red Blood Cells % 1.2 % (-); Platelet Count 114 10^3/uL (130-400); Red Cell Dist. Width 21.2 % (11.5-14.5)
[2025-01-10] MEDS: MYLICON 80 MG PO (09:02)
[2025-01-10] MEDS: PROTONIX IV (09:03)
--- NOTE | 2025-01-10 10:15 | PN.CDI ---
CDI
- -
CDI:
Physician Documentation Request
Admit Date: 01/08/25 18:39
Dear Doctor Drew,
Please review the following and provide your response in the progress notes.
Clinical Indicators:
- Patient admit for GI bleed
- 2L IVF given
- Sodium levels:
Laboratory Tests
01/08/25 01/09/25 01/10/25
16:03 06:15 06:02
Sodium 130 L 129 L 127 L
Please provide a diagnosis for the above lab values that were monitored and treatment rendered:
Hyponatremia
Abnormal lab value only
Other (please specify)
Use of terms such as suspected, likely, concern for, or probable (associated with a specific diagnosis that is being evaluated, monitored, or treated as if it exists) are acceptable and can be coded in the inpatient setting, when documented at the
time of discharge.
Thank you,
Stacy Herrera RN
CDI Specialist
Please use your independent medical judgment in providing your response.
[2025-01-10 10:35] LABS: Urine Character Cloudy (Clear)
[2025-01-10] MEDS: TYLENOL 650 MG PO ×2 (11:33→21:00)
[2025-01-10] MEDS: NSS (PRESERVATIVE FREE) 10 ML IV ×2 (11:34→20:57)
[2025-01-10] MEDS: PROTONIX IV 40 MG IV ×2 (11:34→20:58)
[2025-01-10] MEDS: FERRLECIT 110 MG IV (13:57)
[2025-01-10] MEDS: OMNIPAQUE 50 ML PO (13:57)
[2025-01-10 18:46] LABS: Hemoglobin 7.1 g/dL (13.0-18.0)
[2025-01-10] MEDS: MELATONIN 5 MG PO (21:00)
[2025-01-10] MEDS: FLUSH (NSS) 2 FLUSH IV (21:02)
[2025-01-11] VITALS (11 sets, daily range): BP systolic 94–139; BP diastolic 44–66; PULSE 88–103; BMI 26.8
[2025-01-11] MEDS: DILAUDID 0.25 MG IV ×4 (03:03→19:52)
[2025-01-11] MEDS: FLUSH (NSS) 2 FLUSH IV (03:05)
[2025-01-11 05:54] LABS: Blood Urea Nitrogen 8 mg/dl (9-20); Calcium 8.2 mg/dl (8.4-10.2); Carbon Dioxide 28 mmol/L (22-30); Chloride 96 mmol/L (98-107); Estimated Creatinine Clearance 90 ml/min; Glucose 107 mg/dl (70-99); Magnesium 1.9 mg/dl (1.6-2.3); Potassium 3.7 mmol/L (3.5-5.1); Sodium 127 mmol/L (135-145); eGFR > 60.00
[2025-01-11 05:57] LABS: Hematocrit 23.7 % (39.0-52.0); Hemoglobin 7.2 g/dL (13.0-18.0); Mean Corp Hgb Conc. 30.4 g/dL (33.0-37.0); Mean Corpuscular Volume 73.4 fL (80.0-94.0); Platelet Count 125 10^3/uL (130-400); Red Cell Dist. Width 21.0 % (11.5-14.5)
[2025-01-11] MEDS: SPIRIVA RESPIMAT 2.5 MCG 2 PUFF INH (07:36)
[2025-01-11] MEDS: NSS (PRESERVATIVE FREE) 10 ML IV ×2 (08:47→19:12)
[2025-01-11] MEDS: PROTONIX IV 40 MG IV ×2 (08:47→19:12)
[2025-01-11] MEDS: LASIX 20 MG PO (08:48)
[2025-01-11] MEDS: FARXIGA 10 MG PO (08:48)
[2025-01-11] MEDS: CRESTOR 40 MG PO (08:48)
[2025-01-11] MEDS: TOPROL XL 50 MG PO (08:49)
[2025-01-11] MEDS: KCL 10 MEQ PO (08:49)
[2025-01-11] MEDS: DIFLUCAN 200 MG PO (08:49)
[2025-01-11] MEDS: FLOMAX 0.4 MG PO (08:50)
--- NOTE | 2025-01-11 09:13 | W.PN.GI.CBS2 ---
Today's Communication / Plan
-
Please see assessment and plan for details.
Assessment / Plan
-
1. GI bleed: Likely secondary to small bowel angiectasia, on endoscopy with multiple angiectasia with oozing with contact, status post treatment. His hemoglobin has remained stable, has been hemodynamically stable. 1 dark stool, likely
old blood yesterday, none overnight. At this point from a GI standpoint would be okay to restart diet, continue PPI twice daily for now and observation. If further signs of significant bleeding then we will plan repeat EGD with side-viewing scope
to assess the periampullary area further.
2. Melody esophagitis: Noted on endoscopy, started on Diflucan to continue for 2 weeks.
3. Inguinal pain: Likely secondary to adenopathy given its position and palpable adenopathy, without other significant pathology in that area on previous CT scan. CT scan now with similar appearance of adenopathy, slightly larger excluded
aneurysmal sac, and some stranding along this in the proximal iliac limbs. Clinically aortitis seems less likely, vascular surgery has been consulted.
Pt due 01/[address] Mar
Subjective
Subjective
Date of Service: January 11, 2025
Patient feeling well, still with some inguinal pain, but no abdominal pain. Had 1 bowel movement after he tried contrast for CT scan which was dark, though no other bowel movements. No nausea or vomiting, tolerated diet yesterday without
difficulty.
Objective
Data Reviewed
Laboratory Data:
Laboratory Results
01/11/25 05:09
01/11/25 05:09
Laboratory Results
PT 16.6 Sec (11.4-14.6) H 01/08/25 16:03
INR 1.29 01/08/25 16:03
APTT 45.6 Sec (23.4-35.0) H 01/08/25 16:03
Magnesium 1.9 mg/dl (1.6-2.3) 01/11/25 05:09
Total Bilirubin 0.8 mg/dl (0.2-1.3) 01/08/25 16:03
AST 61 U/L (17-59) H 01/08/25 16:03
ALT 47 U/L (0-50) 01/08/25 16:03
Alkaline Phosphatase 88 U/L (38-126) 01/08/25 16:03
Vital Signs and I&O:
Vital Signs
Temp Pulse Resp BP Pulse Ox
98.4 F 86 16 130/64 99
01/11/25 07:35 01/11/25 08:49 01/11/25 07:38 01/11/25 08:49 01/11/25 07:38
I&O
01/10/25 01/11/25 01/12/25
06:59 06:59 05:59
Intake Total 510 / 510 2059
Output Total 1625 / 1625 850 / 850
Balance -1115 / -1115 1210 / 1210
Physical Exam
Physical Exam
General: NAD
Abdomen: normal bowel sounds, soft, no tenderness, no masses or bruits, no ascites
--- NOTE | 2025-01-11 09:21 | W.PN.HOSP.TC ---
Today's Communication/Plan
-
see plan
Assessment / Plan
Assessment / Plan
Patient is a 79-year-old male with past medical history significant for paroxysmal atrial fibrillation, HFrEF, COPD, CVA, hypertension, BPH and CLL who presented to [facility] ED for evaluation of weakness and dark stools.
EGD 01/09/25
Impression:
- It was difficult to advance beyond the 4th portion due to looping
in the stomach with resistance.
- Esophageal plaques were found, consistent with candidiasis.
- 2 cm hiatal hernia.
- Non-bleeding gastric ulcers with no stigmata of bleeding.
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 Treated with argon
plasma coagulation (APC).
- No specimens collected.
CT A/P 01/10/25
IMPRESSION:
Prior aortic fenestrated aortobiiliac endograft which appears patent. The excluded aneurysm sac is increased in size from prior measuring 7.0 cm, previously 6.6 cm. There are findings consistent with endoleak extending along the left iliac limb,
similar to prior. There is new stranding along the excluded aneurysm sac and proximal iliac limbs as well as extensive right iliac and retroperitoneal lymphadenopathy. While this patient has reported history of CLL for which the lymph nodes may be
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 Recommend vascular surgery consultation.
Mild circumferential urinary bladder wall thickening which is nonspecific although can be seen with cystitis. Recommend correlation with urinalysis.
There is chronic mild gallbladder wall thickening and enhancement which element of chronic cholecystitis is possible.
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
#symptomatic anemia
Melena
- appreciate GI
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
- Hg slowly trending down, close to 7; given hx CAD (patient reports hx NV; will transfuse an additional unit today)
- from GI perspective, no need for further intervention inpatient
- PPI BID x 1 month then daily
Esophageal Candidiasis
-Fluconazole 200mg PO QD x 2 weeks total
Suprapubic pain
AAA s/p endograft at [facility] with concern for endoleak on imaging (determined not to require intervention at [facility] - 10/04)
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
-unclear if this is chronic finding; patient without significant mid abdominal pain; he reports his Oncologist said degree of LN wouldn't correlate with his level of CLL
-NPO until Vascular surgery eval
#paroxysmal atrial fibrillation
s/p watchman
- continue metoprolol
#HFrEF
- daily weights
- I & Os
- hold Farxiga (received this AM)
-[employer] Lasix
Hyponatremia
-urine studies show SIADH
-repeat post PRBC transfusion
-fluid restriction
-may require renal consult for SAMSCA
#COPD
- continue Incruse Ellipta
#BPH
- continue tamsulosin
#CLL
follows with [facility] in [place]
no current treatment
#CVA
clopidogrel d/c per cardiology s/p watchman
#hypertension
Code status: full code
DVT prophylaxis: SCDs
51 minutes spent on patient care
Anticipated Discharge: 24 - 48 hours
Subjective/Interval History
-
Date of Service: January 11, 2025
he is feeling ok
one episode dark BM post contrast
continues to have lower groin/abdominal pain - states his Oncologist stated lymphadenopathy not from CLL given CLL is mild
Objective Data
-
Labs:
Laboratory Results
01/11/25 01/11/25 01/11/25
05:09 05:09 13:00
WBC 18.9 H
Hgb 7.2 L Cancelled Pending
Hct 23.7 L
Plt Count 125 L
Sodium 127 L Pending
Potassium 3.7
Chloride 96 L
Carbon Dioxide 28
BUN 8 L
Creatinine 0.5 L
Glucose 107 H
Calcium 8.2 L
Vital Signs:
Vital Signs
Temp Pulse Resp BP Pulse Ox
98.4 F 86 16 130/64 99
01/11/25 07:35 01/11/25 08:49 01/11/25 07:38 01/11/25 08:49 01/11/25 07:38
I&O
01/10/25 01/11/25 01/12/25
06:59 06:59 05:59
Intake Total 510 / 510 2059
Output Total 1625 / 1625 850 / 850
Balance -1115 / -1115 1210 / 1210
Review of Systems
-
History Source: Patient
All other systems: Reviewed and negative
Physical Exam
-
General: Comfortable and Pain
Respiratory: Clear to Auscultation and Non Labored Respirations; Negative Accessory Resp Muscle Use
Cardiac: Regular Rhythm and S1/S2
GI: Soft, Nondistended, Normal Bowel Sounds and Other (suprapubic pain, no rebound or guarding )
Neuro: Awake and AO x 3
Hematologic / Lymphatic: Lymphadenopathy
Psych: Calm; Negative Confused
Data Reviewed
-
Diagnostic Radiology: Report Reviewed by me
Labs: Labs Reviewed by me
--- NOTE | 2025-01-11 10:05 | W.PN.UPDATE ---
Addendum entered and electronically signed by Cira Russell MD 01/11/25 15:04:
I discussed case with Dr. Cabrera (Vascular surgery) at [place] who reviewed films himself and with Dr. Montez - there is no change in this CT compared to one done in December. Patient has had extensive work up and they do not feel he has any need
for transfer. They stated Dr Montez is willing to do lymph node biopsy but this wouldn't be until later in the week and can be done as outpatient. I updated patient and his sister in law who would rather have this done as outpatient.
Urine positive for Proteus with + leuk esterase and nitrate, I will start antibiotics as may be contributing to some discomfort.
Our vascular surgeon, Dr. Duke, updated
Original Note:
Update Note
Progress Note Update
Discussed case with our Vascular surgeon, recommending transfer to [facility]. I called Vascular surgeon at [facility] who will review images and call me back. Patient updated.
[2025-01-11] MEDS: TYLENOL 650 MG PO ×2 (11:49→23:10)
[2025-01-11 14:55] LABS: Hemoglobin 8.0 g/dL (13.0-18.0)
[2025-01-11 15:13] LABS: Sodium 129 mmol/L (135-145)
[2025-01-11] MEDS: FERRLECIT 110 MG IV (15:24)
[2025-01-11] MEDS: STERILE WATER FOR INJECTION 10 ML IV (15:25)
[2025-01-11] MEDS: ROCEPHIN 1000 MG IV (15:25)
--- NOTE | 2025-01-11 16:48 | PTCARENOTE ---
Patient on orthostatics daily. vs documented and made aware. Pt denies dizziness or sob or pain at this time. Plan of care ongoing.
[2025-01-11] MEDS: MELATONIN 5 MG PO (21:39)
[2025-01-12] VITALS (8 sets, daily range): BP systolic 111–136; BP diastolic 47–63; PULSE 78–92; BMI 26.6
[2025-01-12] MEDS: DILAUDID 0.25 MG IV ×3 (05:30→16:43)
[2025-01-12 08:06] LABS: Hematocrit 25.5 % (39.0-52.0); Hemoglobin 7.7 g/dL (13.0-18.0); Mean Corp Hgb Conc. 30.2 g/dL (33.0-37.0); Mean Corpuscular Volume 78.5 fL (80.0-94.0); Platelet Count 125 10^3/uL (130-400); Red Cell Dist. Width 22.0 % (11.5-14.5)
[2025-01-12 08:10] LABS: Blood Urea Nitrogen 9 mg/dl (9-20); Calcium 8.2 mg/dl (8.4-10.2); Carbon Dioxide 29 mmol/L (22-30); Chloride 96 mmol/L (98-107); Estimated Creatinine Clearance 90 ml/min; Glucose 96 mg/dl (70-99); Potassium 3.5 mmol/L (3.5-5.1); Sodium 128 mmol/L (135-145); eGFR > 60.00
[2025-01-12] MEDS: SPIRIVA RESPIMAT 2.5 MCG 2 PUFF INH (08:23)
--- NOTE | 2025-01-12 08:26 | W.PN.HOSP.TC ---
Today's Communication/Plan
-
transfuse additional unit
monitor Hg and sodium
appreciate GI
continue fluconazole
IV Ceftriaxone, awaiting final culture
PT recommending HH
Assessment / Plan
Assessment / Plan
Patient is a 79-year-old male with past medical history significant for paroxysmal atrial fibrillation, HFrEF, COPD, CVA, hypertension, BPH and CLL who presented to [facility] ED for evaluation of weakness and dark stools.
EGD 01/09/25
Impression:
- It was difficult to advance beyond the 4th portion due to looping
in the stomach with resistance.
- Esophageal plaques were found, consistent with candidiasis.
- 2 cm hiatal hernia.
- Non-bleeding gastric ulcers with no stigmata of bleeding.
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 Treated with argon
plasma coagulation (APC).
- No specimens collected.
CT A/P 01/10/25
IMPRESSION:
Prior aortic fenestrated aortobiiliac endograft which appears patent. The excluded aneurysm sac is increased in size from prior measuring 7.0 cm, previously 6.6 cm. There are findings consistent with endoleak extending along the left iliac limb,
similar to prior. There is new stranding along the excluded aneurysm sac and proximal iliac limbs as well as extensive right iliac and retroperitoneal lymphadenopathy. While this patient has reported history of CLL for which the lymph nodes may be
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 Recommend vascular surgery consultation.
Mild circumferential urinary bladder wall thickening which is nonspecific although can be seen with cystitis. Recommend correlation with urinalysis.
There is chronic mild gallbladder wall thickening and enhancement which element of chronic cholecystitis is possible.
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
#symptomatic anemia
Melena
- appreciate GI
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
- Given hx CAD (s/p PCI 1999); goal for Hg > 7; s/p PRBC transfusion 01/11; will give additional today (patient at risk for slow oozing from angioectasias)
- appreciate GI, follow up further recommendations today; may get repeat scope tomorrow
- PPI BID x 1 month then daily
Esophageal Candidiasis
-Fluconazole 200mg PO QD x 2 weeks total
Suprapubic pain
AAA s/p endograft at [facility] with concern for endoleak on imaging (determined not to require intervention at [facility] - 10/04)
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
case discussed at length yesterday which patient's vascular surgeons from [facility] who did not see any change from most recent CT performed with them. They did not recommend acute transfer. They stated that Dr. Montez can biopsy the LN as
inpatient or outpatient. Patient and family prefer outpatient follow up - which should be arranged within next 1-2 weeks.
#paroxysmal atrial fibrillation
s/p watchman
- continue metoprolol
UTI
-may be contributing to suprapubic pain
-IV Ceftriaxone (day 2), follow up final cultures
#HFrEF
- daily weights
- I & Os
- hold Farxiga as may be NPO tomorrow
-[employer] Lasix
Hyponatremia
-urine studies show SIADH
-repeat post PRBC transfusion
-fluid restriction
-may require renal consult for SAMSCA
#COPD
- continue Incruse Ellipta
#BPH
- continue tamsulosin
#CLL
follows with [facility] in [place]
no current treatment
#CVA
clopidogrel d/c per cardiology s/p watchman
#hypertension
Code status: full code
DVT prophylaxis: SCDs
51 minutes spent on patient care
Anticipated Discharge: 24 - 48 hours
Subjective/Interval History
-
Date of Service: January 12, 2025
feeling well
no active complaints
getting up and moving around
no black or bloody stools
Objective Data
-
Labs:
Laboratory Results
01/12/25 01/12/25
07:20 15:00
WBC 22.5 H
Hgb 7.7 L Pending
Hct 25.5 L
Plt Count 125 L
Sodium 128 L Pending
Potassium 3.5
Chloride 96 L
Carbon Dioxide 29
BUN 9
Creatinine 0.5 L
Glucose 96
Calcium 8.2 L
Vital Signs:
Vital Signs
Temp Pulse Resp BP Pulse Ox
97.9 F 82 16 128/63 98
01/12/25 03:30 01/12/25 08:25 01/12/25 08:25 01/12/25 03:30 01/12/25 08:25
I&O
01/11/25 01/12/25 01/13/25
06:59 05:59 06:59
Intake Total 2059 1210 / 1210
Output Total 850 / 850 450 / 450
Balance 1210 / 1210 760 / 760
Review of Systems
-
History Source: Patient
All other systems: Reviewed and negative
Physical Exam
-
General: Comfortable and Pain
Respiratory: Clear to Auscultation and Non Labored Respirations; Negative Accessory Resp Muscle Use
Cardiac: Regular Rhythm and S1/S2
GI: Soft, Nondistended, Normal Bowel Sounds and Other (suprapubic pain, no rebound or guarding )
Neuro: Awake and AO x 3
Hematologic / Lymphatic: Lymphadenopathy
Psych: Calm; Negative Confused
Data Reviewed
-
Diagnostic Radiology: Report Reviewed by me
Labs: Labs Reviewed by me
[2025-01-12] MEDS: TOPROL XL 50 MG PO (08:40)
[2025-01-12] MEDS: FLOMAX 0.4 MG PO (08:40)
[2025-01-12] MEDS: TYLENOL 650 MG PO (08:41)
[2025-01-12] MEDS: LASIX 20 MG PO (08:41)
[2025-01-12] MEDS: DIFLUCAN 200 MG PO (08:41)
[2025-01-12] MEDS: CRESTOR 40 MG PO (08:41)
[2025-01-12] MEDS: NSS (PRESERVATIVE FREE) 10 ML IV ×2 (08:42→20:40)
[2025-01-12] MEDS: PROTONIX IV 40 MG IV ×2 (08:42→20:40)
[2025-01-12] MEDS: KCL 10 MEQ PO (08:42)
--- NOTE | 2025-01-12 12:09 | CON.VAS ---
Medical History
-
Chief Complaint: Abdominal Pain
History of Present Illness:
79M hx of CLL admitted for lower GI bleed now s/p scope and treatment of duodenal angioectasia. hx of fenestrated EVAR ar [facility]. 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
Past Medical History
Past Medical History: CAD, HTN and Hypercholesterolemia
Past Surgical History: Other (Fenestrated EVAR)
Family History
Family History: Reviewed & Not Pertinent
Allergies / Home Medications
Allergy/AdvReac Type Severity Reaction Status Date / Time
atorvastatin (From Lipitor) Allergy calf pain Verified 01/08/25 18:20
niacin Allergy 'not feel Verified 01/08/25 18:20
well'
oxycodone (From Percocet) Allergy Rash Verified 01/08/25 18:20
�Medication �Instructions �Recorded �Confirmed �Type
rosuvastatin 40 mg tablet 40 mg PO DAILY High Cholesterol 02/13/23 01/08/25 History
tamsulosin 0.4 mg capsule 0.4 mg PO DAILY Urinary Issue 02/13/23 01/08/25 History
umeclidinium 62.5 mcg/actuation 1 inh inhalation R DAILY COPD 02/13/23 01/08/25 History
blister powder for inhalation
(Incruse Ellipta)
potassium chloride 10 mEq 10 meq PO DAILY Electrolyte 02/17/23 01/08/25 Rx
capsule,extended release Repletion #30 caps
dapagliflozin propanediol 10 mg 10 mg PO DAILY Diabetes 02/13/24 01/08/25 History
tablet (Farxiga)
furosemide 20 mg tablet 20 mg PO DAILY Electrolyte 02/14/24 01/08/25 History
Repletion
metoprolol succinate 50 mg 50 mg PO DAILY Blood Pressure 10/16/24 01/08/25 History
tablet,extended release 24 hr
(Toprol XL)
Physical Exam
Vital Signs
Temp Pulse Resp BP Pulse Ox
98.1 F 77 16 111/47 98
01/12/25 11:35 01/12/25 11:35 01/12/25 11:35 01/12/25 11:35 01/12/25 11:29
Lab Results
Troponin I < 0.012 ng/ml 01/09/25 17:02
Physical Exam
General: Well Developed, Well Nourished and No Apparent Distress
HEENT: Normocephalic
Respiratory: Clear
Cardiac: S1/S2
GI: Soft and Tender (bilateral lower quadrant tenderness to palpation)
Musculoskeletal: No Clubbing
Skin: Warm and Dry
Neuro: Awake
Pulses: Bilateral Femoral: +2
Assessment / Plan
-
79M hx of fenestrated EVAR with expanding residual aneurysmal sac with type III vs 1b endoleak.
-recommended tx to [place] with operative surgeon. Scans were reviewed by him and he thought no intervention was warranted. Reiterated thoughts for transfer to patient who also did not want to get transferred. At this time, recommend outpatient follow
up with surgeon at [place].
-f/u Bx for baceteremia. If +, then would certaily tx [facility] for possible infected endograft
--- NOTE | 2025-01-12 12:33 | W.PN.GI.CBS2 ---
Today's Communication / Plan
-
Please see assessment and plan for details.
Assessment / Plan
-
1. GI bleed: Likely secondary to small bowel angiectasia, on endoscopy with multiple angiectasia with oozing with contact, status post treatment. His hemoglobin has remained overall stable, though has drifted down has required further
transfusion. Because of this we will plan repeat EGD tomorrow.
2. Melody esophagitis: Noted on endoscopy, started on Diflucan to continue for 2 weeks.
3. Inguinal pain: Likely secondary to adenopathy given its position and palpable adenopathy, without other significant pathology in that area on previous CT scan. CT scan now with similar appearance of adenopathy, slightly larger excluded
aneurysmal sac, and some stranding along this in the proximal iliac limbs. Events noted, discussed with vascular surgery at [facility] thought to be no significant changes.
I discussed with the patient and his [id number] at length.
Pt due 01/[address] Mar
Subjective
Subjective
Date of Service: January 12, 2025
Patient thing okay, had 1 black bowel movement this morning, doses for since yesterday, previous were more burgundy colored. He denies new abdominal pain, still some lower inguinal discomfort. He notes any fever, chills, tolerating diet without
difficulty.
Objective
Data Reviewed
Laboratory Data:
Laboratory Results
PT 16.6 Sec (11.4-14.6) H 01/08/25 16:03
INR 1.29 01/08/25 16:03
APTT 45.6 Sec (23.4-35.0) H 01/08/25 16:03
Magnesium 1.9 mg/dl (1.6-2.3) 01/11/25 05:09
Total Bilirubin 0.8 mg/dl (0.2-1.3) 01/08/25 16:03
AST 61 U/L (17-59) H 01/08/25 16:03
ALT 47 U/L (0-50) 01/08/25 16:03
Alkaline Phosphatase 88 U/L (38-126) 01/08/25 16:03
Vital Signs and I&O:
Vital Signs
Temp Pulse Resp BP Pulse Ox
98.1 F 77 16 111/47 98
01/12/25 11:35 01/12/25 11:35 01/12/25 11:35 01/12/25 11:35 01/12/25 11:29
I&O
01/11/25 01/12/25 01/13/25
06:59 05:59 06:59
Intake Total 2059 / 2059 1210 / 1210 0 / 0
Output Total 850 / 850 450 / 450
Balance 1210 / 1210 760 / 760 0 / 0
Physical Exam
Physical Exam
General: NAD
Abdomen: normal bowel sounds, soft, no tenderness, no masses or bruits, no ascites
[2025-01-12] MEDS: FERRLECIT 110 MG IV (13:02)
[2025-01-12] MEDS: SAMSCA 7.5 MG PO (13:05)
[2025-01-12 14:56] LABS: Hemoglobin 8.4 g/dL (13.0-18.0)
--- NOTE | 2025-01-12 15:11 | W.CON.NEPH ---
Consultation
-
Date/Time Consultation Requested: 01/12/25 11 AM
Date/Time Consultation Performed: 01/12/25 11 AM
Requesting Provider: Dr. Russell
Performing Provider: Dr. Stanton
Reason for Consultation: Hyponatremia
Medical History
-
Chief Complaint: Hyponatremia
History of Present Illness:
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 He has hyperlipidemia which is controlled on statin therapy. He also
has known heart failure with reduced ejection fraction on chronic diuretic therapy as well as Farxiga. He has diagnosed CLL though not on active treatment. He was admitted with weakness and dark stools. He also had stomach upset and diarrhea.
Given the severe weakness he was unable to stand and called 911 and was brought to the emergency room. Sodium on admission was 130 and has remained low. He has had intermittent hyponatremia episodes over the last 2 years as well though typically
above 130.
Past Medical History
paroxysmal atrial fibrillation
HFrEF
COPD
CVA
hypertension
BPH
CLL
dual chamber pacer implantation 12/23
left groin abscess removal 10/26
Cardiac Cath 09/28
Stent implant 04/2021
cardiac ablation August 2023
watchman 02/2024
Triple AAA repair
Social History
Tobacco: Former Smoker
Alcohol: Occasional
Family History
Family History: Not Pertinent
Allergies / Home Medications
Allergy/AdvReac Type Severity Reaction Status Date / Time
atorvastatin (From Lipitor) Allergy calf pain Verified 01/08/25 18:20
niacin Allergy 'not feel Verified 01/08/25 18:20
well'
oxycodone (From Percocet) Allergy Rash Verified 01/08/25 18:20
�Medication �Instructions �Recorded �Confirmed �Type
rosuvastatin 40 mg tablet 40 mg PO DAILY High Cholesterol 02/13/23 01/08/25 History
tamsulosin 0.4 mg capsule 0.4 mg PO DAILY Urinary Issue 02/13/23 01/08/25 History
umeclidinium 62.5 mcg/actuation 1 inh inhalation R DAILY COPD 02/13/23 01/08/25 History
blister powder for inhalation
(Incruse Ellipta)
potassium chloride 10 mEq 10 meq PO DAILY Electrolyte 02/17/23 01/08/25 Rx
capsule,extended release Repletion #30 caps
dapagliflozin propanediol 10 mg 10 mg PO DAILY Diabetes 02/13/24 01/08/25 History
tablet (Farxiga)
furosemide 20 mg tablet 20 mg PO DAILY Electrolyte 02/14/24 01/08/25 History
Repletion
metoprolol succinate 50 mg 50 mg PO DAILY Blood Pressure 10/16/24 01/08/25 History
tablet,extended release 24 hr
(Toprol XL)
Review of Systems
-
No chest pain or shortness of breath. Weakness overall.
He drinks up to 60 ounces per day. And has been told in the past to increase fluid intake.
Physical Exam
Vital Signs
Vital Signs
Temp Pulse Resp BP Pulse Ox
98.3 F 75 16 130/52 98
01/12/25 14:07 01/12/25 14:07 01/12/25 14:07 01/12/25 14:07 01/12/25 11:29
Lab Results
WBC 22.5 10^3/uL (4.8-10.8) H 01/12/25 07:20
RBC 3.25 10^6/uL (4.70-6.10) L 01/12/25 07:20
Hgb 8.4 g/dL (13.0-18.0) L 01/12/25 14:33
Hct 25.5 % (39.0-52.0) L 01/12/25 07:20
Plt Count 125 10^3/uL (130-400) L 01/12/25 07:20
Potassium 3.5 mmol/L (3.5-5.1) 01/12/25 07:20
Chloride 96 mmol/L (98-107) L 01/12/25 07:20
Carbon Dioxide 29 mmol/L (22-30) 01/12/25 07:20
BUN 9 mg/dl (9-20) 01/12/25 07:20
Creatinine 0.5 mg/dL (0.7-1.3) L 01/12/25 07:20
eGFR > 60.00 01/12/25 07:20
Glucose 96 mg/dl (70-99) 01/12/25 07:20
Calcium 8.2 mg/dl (8.4-10.2) L 01/12/25 07:20
Albumin 2.8 g/dl (3.5-5.0) L 01/08/25 16:03
Laboratory Tests
10/19/24
09:[address] abdomen pelvis 01/10/2025
IMPRESSION:
Prior aortic fenestrated aortobiiliac endograft which appears patent. The excluded aneurysm sac is increased in size from prior measuring 7.0 cm, previously 6.6 cm. There are findings consistent with endoleak extending along the left iliac limb,
similar to prior. There is new stranding along the excluded aneurysm sac and proximal iliac limbs as well as extensive right iliac and retroperitoneal lymphadenopathy. While this patient has reported history of CLL for which the lymph nodes may be
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 Recommend vascular surgery consultation.
Mild circumferential urinary bladder wall thickening which is nonspecific although can be seen with cystitis. Recommend correlation with urinalysis.
There is chronic mild gallbladder wall thickening and enhancement which element of chronic cholecystitis is possible.
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
Physical Exam
Patient is awake alert oriented and in no distress. Mood and affect were pleasant, insight and judgment were good. Pupils are equal round and reactive to light, extraocular movements are intact, sclera were anicteric. Hearing was normal, ears and
nose are intact. Oropharynx was clear. Neck was supple with trachea midline and no thyromegaly. Heart was regular rate and rhythm without rubs. Lower extremities without edema. Lungs were clear to auscultation bilaterally and with normal
excursion. Abdomen was soft, nontender, with normal active bowel sounds, and no hepatosplenomegaly. Skin was without rash and with normal turgor.
Data Reviewed
-
CT Scan: Report Reviewed by me
Medical Tests (Nuc Med, Echo etc): Image Personally Visualized and interpreted (EKG 01/09/2025 by my reading AV paced rhythm)
Labs: Labs Reviewed by me
Old Records: Reviewed
Assessment/Plan
-
Assessment
GI bleed
Hyponatremia
Paroxysmal atrial fibrillation CLL
Fenestrated EVAR
Melody esophagitis
Duodenal angiectasias
Heart failure reduced ejection fraction
COPD
Hypertension
Plan
Hyponatremia appears to be euvolemic and excess ADH related
Cause of excess ADH is uncertain at this time. He does not appear to have worsening COPD or exacerbation
Samsca 7.5 mg a day. Dose reduced given use of Diflucan
Follow BMP
[2025-01-12 15:14] LABS: Sodium 131 mmol/L (135-145)
[2025-01-12] MEDS: STERILE WATER FOR INJECTION 10 ML IV (16:28)
[2025-01-12] MEDS: ROCEPHIN 1000 MG IV (16:28)
--- NOTE | 2025-01-12 20:55 | PTCARENOTE ---
Addendum entered by Fam Fairbanks RN 01/12/25 21:18:
Compazine d/missy due to QTc being 551 so pharmacy changed the compazine to IM George
Original Note:
Patient states that Dilaudid 0.25 mg had no effect on his pain level. Also states that he has new upper GI discomfort. Patient feels nauseous and states he thinks he ate too fast. Messaged [employer]. Dilaudid increased to 0.5 mgs and compazine added to
[facility] med list.
[2025-01-12] MEDS: DILAUDID 0.5 MG IV (21:24)
[2025-01-12] MEDS: TIGAN 200 MG IM (21:25)
[2025-01-12] MEDS: MELATONIN 5 MG PO (21:29)
[2025-01-13] MEDS: DILAUDID 0.5 MG IV ×5 (01:27→21:38)
[2025-01-13 06:00] VITALS: BMI 26.4
[2025-01-13] MEDS: NSS (PRESERVATIVE FREE) 10 ML IV ×2 (07:35→20:09)
[2025-01-13] MEDS: PROTONIX IV 40 MG IV ×2 (07:35→20:09)
[2025-01-13] MEDS: DIFLUCAN 200 MG PO (07:36)
[2025-01-13] MEDS: CRESTOR 40 MG PO (07:40)
[2025-01-13] MEDS: KCL 10 MEQ PO (07:40)
[2025-01-13] MEDS: LASIX 20 MG PO (07:40)
[2025-01-13] MEDS: FLOMAX 0.4 MG PO (07:40)
[2025-01-13] MEDS: TOPROL XL 50 MG PO (07:41)
[2025-01-13 07:52] VITALS: BP 139/62
[2025-01-13] MEDS: SPIRIVA RESPIMAT 2.5 MCG INH (08:50)
[2025-01-13 08:56] LABS: Hematocrit 28.2 % (39.0-52.0); Hemoglobin 8.3 g/dL (13.0-18.0); Mean Corp Hgb Conc. 29.4 g/dL (33.0-37.0); Mean Corpuscular Volume 79.7 fL (80.0-94.0); Platelet Count 118 10^3/uL (130-400); Red Cell Dist. Width 22.8 % (11.5-14.5)
[2025-01-13 09:18] LABS: Blood Urea Nitrogen 9 mg/dl (9-20); Calcium 8.1 mg/dl (8.4-10.2); Carbon Dioxide 29 mmol/L (22-30); Chloride 97 mmol/L (98-107); Estimated Creatinine Clearance 90 ml/min; Glucose 104 mg/dl (70-99); Potassium 3.6 mmol/L (3.5-5.1); Sodium 129 mmol/L (135-145); eGFR > 60.00
[2025-01-13 10:14] VITALS: BP 119/59
--- NOTE | 2025-01-13 10:43 | PTCARENOTE ---
Pt refusing to get OOB for orthostatic vital signs today.
[2025-01-13 11:10] LABS: Hematocrit 27.8 % (39.0-52.0); Hemoglobin 8.3 g/dL (13.0-18.0); Mean Corp Hgb Conc. 29.9 g/dL (33.0-37.0); Mean Corpuscular Volume 80.8 fL (80.0-94.0); Nucleated Red Blood Cells % 0.3 % (-); Platelet Count 105 10^3/uL (130-400); Red Cell Dist. Width 23.2 % (11.5-14.5)
--- NOTE | 2025-01-13 12:05 | W.PN.HOSP.TC ---
Addendum entered and electronically signed by Sharad Navarro MD 01/13/25 14:34:
update spouse over the phone in details
Original Note:
Today's Communication/Plan
-
Clear liquid diet
Monitor potassium
Repeat H&H later today
Continue Diflucan
Assessment / Plan
Assessment / Plan
Patient is a 79-year-old male with past medical history significant for paroxysmal atrial fibrillation, HFrEF, COPD, CVA, hypertension, BPH and CLL who presented to [facility] ED for evaluation of weakness and dark stools.
#symptomatic anemia
Melena
- appreciate GI
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
- s/p repeat EGD 01/13 normal esophagus. Erosive gastropathy with no bleeding and no stigmata of recent bleeding. 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
- Given hx CAD (s/p PCI 1999); goal for Hg > 7; s/p 3u of PRBC transfusion so far. Hgb at 8.3. Repeat H/H later today.
- Clear liquids for today. Plan for possible diet advancement tomorrow and then discharge
- PPI BID x 1 month then daily
Esophageal Candidiasis
-Fluconazole 200mg PO QD x 2 weeks total
Suprapubic pain
AAA s/p endograft at [facility] with concern for endoleak on imaging (determined not to require intervention at [facility] - 10/04)
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
Dr. Russell discussed at length yesterday on 01/12/2025 which patient's vascular surgeons from [facility] who did not see any change from most recent CT performed with them. They did not recommend acute transfer. They stated that Dr. Montez can biopsy
the LN as inpatient or outpatient. Patient and family prefer outpatient follow up - which should be arranged within next 1-2 weeks.
#paroxysmal atrial fibrillation
s/p watchman
- continue metoprolol
Protease UTI
-may be contributing to suprapubic pain
-IV Ceftriaxone and p.o. antibiotics on discharge
#HFrEF
-daily weights
-I & Os
-hold Farxiga as may be NPO tomorrow
-TECHNICIAN [facility]AT[facility] Lasix
Hyponatremia
-urine studies show SIADH
-repeat post PRBC transfusion
-fluid restriction
-Status post 7.5 mg of Samsca on 01/12. Sodium at 129 today.
-Nephrology following
#COPD
- continue Incruse Ellipta
#BPH
- continue tamsulosin
#CLL
follows with [facility] in [place]
no current treatment
#CVA
clopidogrel d/c per cardiology s/p watchman
#hypertension
Code status: full code
DVT prophylaxis: SCDs
Anticipated Discharge: Within 24 hours
Subjective/Interval History
-
Date of Service: January 13, 2025
Seen post endoscopy
Denies any abdominal pain
Objective Data
-
Labs:
Laboratory Results
01/13/25 01/13/25 01/13/25
08:34 10:40 17:32
WBC 23.1 H 22.7 H Pending
Hgb 8.3 L 8.3 L Pending
Hct 28.2 L 27.8 L Pending
Plt Count 118 L 105 L Pending
Sodium 129 L
Potassium 3.6
Chloride 97 L
Carbon Dioxide 29
BUN 9
Creatinine 0.5 L
Glucose 104 H
Calcium 8.1 L
Vital Signs:
Vital Signs
Temp Pulse Resp BP Pulse Ox
98.1 F 76 18 119/59 94
01/13/25 10:14 01/13/25 10:14 01/13/25 10:14 01/13/25 10:14 01/13/25 11:43
I&O
01/12/25 01/13/25 01/14/25
05:59 06:59 06:59
Intake Total 1210 / 1210 1730 / 1730
Output Total 450 / 450 950 / 950 275 / 275
Balance 760 / 760 780 / 780 -275 / -275
Physical Exam
-
General: Comfortable
Respiratory: Clear to Auscultation and Non Labored Respirations; Negative Accessory Resp Muscle Use
Cardiac: Regular Rhythm and S1/S2
GI: Soft, Nondistended, Normal Bowel Sounds and Other (suprapubic pain, no rebound or guarding )
Neuro: Awake and AO x 3
Hematologic / Lymphatic: Lymphadenopathy
Psych: Calm; Negative Confused
Data Reviewed
-
Total Time Spent with Patient (in minutes): 55
[2025-01-13 14:00] VITALS: BP 109/52; BP 93/46; BP 98/46; PULSE 77; PULSE 88; PULSE 97
--- NOTE | 2025-01-13 14:15 | CM ---
Addendum entered by Marlys Jones 01/13/25 15:10:
HH Preference is HH. Referral forwarded.
Original Note:
GIB, Monitoring H/H, IV/Ceftriaxone, clear liquid diet, PO Diflucan. Discharge POC: Therapy rec for HH PT. Will get preference agency.
--- NOTE | 2025-01-13 14:48 | W.PN.NEPH.PH ---
Today's Communication / Plan
-
Continue Lasix
Assessment/Plan
-
79-year-old gentleman who has paroxysmal atrial fibrillation status post Watchman procedure given history of GI bleeding and rate controlled on beta-jose ramon therapy. He has hyperlipidemia which is controlled on statin therapy. He also has known
heart failure with reduced ejection fraction on chronic diuretic therapy as well as Farxiga. He has diagnosed CLL though not on active treatment. He was admitted with weakness and dark stools. He also had stomach upset and diarrhea. Given the
severe weakness he was unable to stand and called 911 and was brought to the emergency room. Sodium on admission was 130 and has remained low. He has had intermittent hyponatremia episodes over the last 2 years as well though typically above 130.
Assessment
GI bleed
Hyponatremia
Paroxysmal atrial fibrillation CLL
Fenestrated EVAR
Melody esophagitis
Duodenal angiectasias
Heart failure reduced ejection fraction
COPD
Hypertension
Plan
Hyponatremia appears to be euvolemic and excess ADH related
Cause of excess ADH is uncertain at this time. He does not appear to have worsening COPD or exacerbation
Status post Samsca 7.5 mg Dose reduced given use of Diflucan
Lasix daily
Follow BMP
-
-
Date of Service: January 13, 2025
CC / HPI / ROS
-
Chief Complaint:
Weakness dark stools
History of Present Illness:
Hyponatremia stable chronic
Review of Systems:
No chest pain or shortness of breath
Labs
-
Labs:
Sodium 129 mmol/L (135-145) L 01/13/25 08:34
Potassium 3.6 mmol/L (3.5-5.1) 01/13/25 08:34
Chloride 97 mmol/L (98-107) L 01/13/25 08:34
Carbon Dioxide 29 mmol/L (22-30) 01/13/25 08:34
BUN 9 mg/dl (9-20) 01/13/25 08:34
Creatinine 0.5 mg/dL (0.7-1.3) L 01/13/25 08:34
eGFR > 60.00 01/13/25 08:34
Glucose 104 mg/dl (70-99) H 01/13/25 08:34
Calcium 8.1 mg/dl (8.4-10.2) L 01/13/25 08:34
Albumin 2.8 g/dl (3.5-5.0) L 01/08/25 16:03
Physical Exam
-
Vital Signs:
Vital Signs
Temp Pulse Resp BP Pulse Ox
98.1 F 76 18 119/59 94
01/13/25 10:14 01/13/25 10:14 01/13/25 10:14 01/13/25 10:14 01/13/25 11:43
Respiratory:: Bilateral: Coarse
Lung Excursion:: Normal
Abdomen:: Soft
Bowel Sounds:: Normal
[2025-01-13 14:50] VITALS: BP 109/52; BP 93/46; BP 98/46; PULSE 77; PULSE 88; PULSE 97
[2025-01-13] MEDS: ROCEPHIN 1000 MG IV (14:51)
[2025-01-13] MEDS: STERILE WATER FOR INJECTION 10 ML IV (14:51)
[2025-01-13 15:48] VITALS: BP 97/61
[2025-01-13 17:37] LABS: Hematocrit 27.9 % (39.0-52.0); Hemoglobin 8.2 g/dL (13.0-18.0); Mean Corp Hgb Conc. 29.4 g/dL (33.0-37.0); Mean Corpuscular Volume 79.9 fL (80.0-94.0); Nucleated Red Blood Cells % 0.3 % (-); Platelet Count 109 10^3/uL (130-400); Red Cell Dist. Width 23.2 % (11.5-14.5)
[2025-01-13 17:49] LABS: Anisocytosis 1+; Normal RBC Morphology No
[2025-01-13 17:50] LABS: Hypochromasia 2+
[2025-01-13 17:51] LABS: Polychromasia Slight; Stomatocytes 1+
[2025-01-13 17:52] LABS: Microcytosis 1+; Target Cells Slight
[2025-01-13 17:53] LABS: Macrocytosis 2+
[2025-01-13] MEDS: MELATONIN 5 MG PO (21:36)
[2025-01-13 23:40] VITALS: BP 119/63
[2025-01-14] MEDS: DILAUDID 0.5 MG IV ×3 (01:52→11:26)
[2025-01-14 05:02] VITALS: BMI 26.3
[2025-01-14 07:00] VITALS: BP 134/66
[2025-01-14] MEDS: SPIRIVA RESPIMAT 2.5 MCG 2 PUFF INH (07:27)
[2025-01-14] MEDS: KCL 10 MEQ PO (08:49)
[2025-01-14] MEDS: FLOMAX 0.4 MG PO (08:49)
[2025-01-14] MEDS: CRESTOR 40 MG PO (08:49)
[2025-01-14] MEDS: DIFLUCAN 200 MG PO (08:50)
[2025-01-14] MEDS: PROTONIX IV 40 MG IV (08:50)
[2025-01-14] MEDS: NSS (PRESERVATIVE FREE) 10 ML IV (08:50)
[2025-01-14] MEDS: LASIX 20 MG PO (08:50)
[2025-01-14] MEDS: TOPROL XL 50 MG PO (08:51)
--- NOTE | 2025-01-14 09:25 | W.PN.GI.CBS2 ---
Addendum entered and electronically signed by Bobby Torrez MD 01/14/25 14:29:
I saw and examined the patient.
The CERTIFIED VEHICLE FIRE INVESTIGATOR or PA's note was reviewed and I agree with the note.
Comment:
This patient is an 79-year-old who had APC of his duodenum and currently has had no more bleeding. He does have no abdominal pain.
abd: soft nontender
hgb stable
plan:
diet as tolerated
f/u with dr. duff 01/24
will sign off call with questions
Original Note:
Today's Communication / Plan
-
s/p EGD with notedErosive gastropathy with no bleeding and no stigmata of recent bleeding. Multiple angioectasias in the duodenum with active oozing in the third portion of the duodenum distal to the ampulla. Treated with argon plasma
coagulation (APC)
hbg pending but no stools overnight
will allow low residue breakfast today
trend hbg-- AM labs pending
OP follow up for lymph node biopsy
pain control per hospitalist team
reviewed with nursing staff
Pt due 01/[address] Duff
Assessment / Plan
-
79-year-old male with past medical history of CLL (follows with Dr. 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
aortic aneurysm with endovascular repair and stent May 2021 at [facility] off plavix , prior CT in September with concerning for new contained rupture of the [place] AAA surrounding an abdominal aortobiliac endograft with evaluated by his CT
Surg at [facility] who states this was not a leak, trauma to kidney with repair, choledocholithiasis status post EUS/ERCP 09/2023 extracting stones with follow up EUS in 12/2023 with duct dilation without pathology, celiac, SM and Renal artery stent per
imaging, and LEVI with wt loss and work up over last year with Dr. Pimentel and through . He also had recent second opinion with Dr. Srivastava but was awaiting record review. He now returns with weakness and dark stools with stomach upset. He
also admits to continued wt loss and lower abdominal/groin pain. On admission he is noted with hbg 7 with prior hbg 9.4 on discharge 10/19/24. In ER rectal exam with melanotic stool. Since admission required 3 units PRBC's.
01/10/25 CT A/p
Prior aortic fenestrated aortobiiliac endograft which appears patent. The excluded aneurysm sac is increased in size from prior measuring 7.0 cm, previously 6.6 cm. There are findings consistent with endoleak extending along the left iliac limb,
similar to prior. There is new stranding along the excluded aneurysm sac and proximal iliac limbs as well as extensive right iliac and retroperitoneal lymphadenopathy. While this patient has reported history of CLL for which the lymph nodes may be
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 Recommend vascular surgery consultation.
Mild circumferential urinary bladder wall thickening which is nonspecific although can be seen with cystitis. Recommend correlation with urinalysis.
There is chronic mild gallbladder wall thickening and enhancement which element of chronic cholecystitis is possible.
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
Hospitalist reviewed with vascular surgery at [facility] no change
[place]: Spring 2023 Dr. Grier 'polyp'
EGD 07/31/24 (Dr. Pimentel) Z line irregular, small HH, patchy inflammation, erosions and erythema in the gastric antrum. Second portion of the duodenum and examined portion of the duodenum were normal.
COLO 07/31/24 (Dr. Pimentel) Examined portion of the ileum was normal. Entire examined colon normal. Diverticulosis in the sigmoid colon.
EGD: miguelguti 10/17/24 -No lesions in entire esophagus Z-line variable, 3 cm, small HH- Erosive gastropathy-no bleeding and no stigmata of recent bleeding Normal examined duodenum. No specimens collected.
capsule: 10/23/24 - stomach normal, smal bowel tiny AVM's- proximal, no mass lesion, or polyps, colon normal mucosal
EGD: josy 01/13/25 - Normal esophagus. Erosive gastropathy with no bleeding and no stigmata of recent bleeding. Multiple angioectasias in the duodenum with active oozing in the third portion of the duodenum distal to the ampulla. Treated
with argon plasma coagulation (APC). no specimens.
-recurrent GI bleeding with melena on admission-- EGD with erosive gastropathy and multiple duodenal angioectasia with oozing (-hx erosive gastropathy on EGD 10/2024 and tiny proximal AVM on capsule 10/2024)
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
-microcytic anemia
-leukocytosis with chronic elevation
-ongoing lower abdominal pain
-murmur on exam
-hx CLL
-thrombocytopenia
-GB thickening per imaging
-wt loss of 232 down to 160's over last year
-concern for enlarge lymph nodes in neck and lower abdomen
-pancolitis noted on prior CT 09/2024
-CT in September with concerning for new contained rupture of the [place] AAA surrounding an abdominal aortobiliac endograft with evaluated by his CT Surg at [facility] who states this was not a leak
-choledocholithiasis status post EUS/ERCP 09/2023 extracting stones with follow up EUS in 12/2023 with duct dilation without pathology
other med problems:
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
[place] off Plavix , trauma to kidney with repair, hx celiac,SM and renal artery stents per imaging
PLAN:
s/p EGD with notedErosive gastropathy with no bleeding and no stigmata of recent bleeding. Multiple angioectasias in the duodenum with active oozing in the third portion of the duodenum distal to the ampulla. Treated with argon plasma
coagulation (APC)
hbg pending but no stools overnight
will allow low residue breakfast today
trend hbg-- AM labs pending
OP follow up for lymph node biopsy
pain control per hospitalist team
reviewed with nursing staff
Pt due 01/[address] Duff
Subjective
Subjective
Date of Service: January 14, 2025
feeling hungry and still lower abdominal pain but overall feeling better
Objective
Data Reviewed
Laboratory Data:
Laboratory Results
PT 16.6 Sec (11.4-14.6) H 01/08/25 16:03
INR 1.29 01/08/25 16:03
APTT 45.6 Sec (23.4-35.0) H 01/08/25 16:03
Magnesium 1.9 mg/dl (1.6-2.3) 01/11/25 05:09
Total Bilirubin 0.8 mg/dl (0.2-1.3) 01/08/25 16:03
AST 61 U/L (17-59) H 01/08/25 16:03
ALT 47 U/L (0-50) 01/08/25 16:03
Alkaline Phosphatase 88 U/L (38-126) 01/08/25 16:03
Vital Signs and I&O:
Vital Signs
Temp Pulse Resp BP Pulse Ox
98.1 F 83 14 134/66 97
01/14/25 07:00 01/14/25 08:51 01/14/25 07:29 01/14/25 08:51 01/14/25 07:46
I&O
01/13/25 01/14/25 01/15/25
06:59 06:59 06:59
Intake Total 1730 / 1730 1720 / 1720
Output Total 950 / 950 275 / 275
Balance 780 / 780 1445 / 1445
Physical Exam
Physical Exam
HEENT: Anicteric and Moist mucous membranes
Cardiology: Normal Sinus Rhythm
Pulmonary: Clear
GI: Soft, Non Distended and Tender (lower abdomen )
Extremities: No Edema
Neuro: Non Focal
[2025-01-14 09:58] LABS: Hematocrit 30.4 % (39.0-52.0); Hemoglobin 8.7 g/dL (13.0-18.0); Mean Corp Hgb Conc. 28.6 g/dL (33.0-37.0); Mean Corpuscular Volume 81.1 fL (80.0-94.0); Nucleated Red Blood Cells % 0.3 % (-); Platelet Count 102 10^3/uL (130-400); Red Cell Dist. Width 23.7 % (11.5-14.5)
[2025-01-14 10:25] LABS: Blood Urea Nitrogen 7 mg/dl (9-20); Calcium 8.3 mg/dl (8.4-10.2); Carbon Dioxide 31 mmol/L (22-30); Chloride 96 mmol/L (98-107); Estimated Creatinine Clearance 90 ml/min; Glucose 102 mg/dl (70-99); Potassium 3.7 mmol/L (3.5-5.1); Sodium 132 mmol/L (135-145); eGFR > 60.00
[2025-01-14] MEDS: MYLICON 80 MG PO (11:21)
--- NOTE | 2025-01-14 11:43 | W.PN.HOSP.TC ---
Today's Communication/Plan
-
po diflucan
ppi bid
dc home
Assessment / Plan
Assessment / Plan
Patient is a 79-year-old male with past medical history significant for paroxysmal atrial fibrillation, HFrEF, COPD, CVA, hypertension, BPH and CLL who presented to [facility] ED for evaluation of weakness and dark stools.
#symptomatic anemia
Melena
- appreciate GI
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
- s/p repeat EGD 01/13 normal esophagus. Erosive gastropathy with no bleeding and no stigmata of recent bleeding. 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
- Given hx CAD (s/p PCI 1999); goal for Hg > 7; s/p 3u of PRBC transfusion so far. Hgb at 8.7.
- diet advanced.
- PPI BID x 1 month then daily
Esophageal Candidiasis
-Fluconazole 200mg PO QD x 2 weeks total
Suprapubic pain
AAA s/p endograft at [facility] with concern for endoleak on imaging (determined not to require intervention at [facility] - 10/04)
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
Dr. Russell discussed at length yesterday on 01/12/2025 which patient's vascular surgeons from [facility] who did not see any change from most recent CT performed with them. They did not recommend acute transfer. They stated that Dr. Montez can biopsy
the LN as inpatient or outpatient. Patient and family prefer outpatient follow up - which should be arranged within next 1-2 weeks.
#paroxysmal atrial fibrillation
s/p watchman
- continue metoprolol
Protease UTI
-may be contributing to suprapubic pain
-IV Ceftriaxone and p.o. antibiotics on discharge
#HFrEF
-daily weights
-I & Os
-hold Farxiga
-PROGRAM PROPOSALS COORDINATOR Lasix
Hyponatremia
-urine studies show SIADH
-repeat post PRBC transfusion
-fluid restriction
-Status post 7.5 mg of Samsca on 01/12. Sodium at 132 today.
-Nephrology recs-okay for dc. FR.
#COPD
- continue Incruse Ellipta
#BPH
- continue tamsulosin
#CLL
follows with [facility] in [place]
no current treatment
#CVA
clopidogrel d/c per cardiology s/p watchman
#hypertension
Code status: full code
DVT prophylaxis: SCDs
update spouse on 01/13.
d/w with nephrology
More than 30 minutes spent in discharge including
Final examination of the patient
Summarizing hospital stay
Instructions for continuing care to all relevant caregivers
Preparation of discharge records, prescriptions, and referral forms
Total time spent (in minutes): 55
Anticipated Discharge: Today
Subjective/Interval History
-
Date of Service: January 14, 2025
states of intermittent groin pain
no bm overnight
Objective Data
-
Labs:
Laboratory Results
01/14/25
09:35
WBC 20.9 H
Hgb 8.7 L
Hct 30.4 L
Plt Count 102 L
Sodium 132 L
Potassium 3.7
Chloride 96 L
Carbon Dioxide 31 H
BUN 7 L
Creatinine 0.6 L
Glucose 102 H
Calcium 8.3 L
Vital Signs:
Vital Signs
Temp Pulse Resp BP Pulse Ox
98.1 F 83 14 134/66 97
01/14/25 07:00 01/14/25 08:51 01/14/25 07:29 01/14/25 08:51 01/14/25 11:36
I&O
01/13/25 01/14/25 01/15/25
06:59 06:59 06:59
Intake Total 1730 / 1730 1720 / 1720
Output Total 950 / 950 275 / 275
Balance 780 / 780 1445 / 1445
Physical Exam
-
General: Comfortable
Respiratory: Clear to Auscultation and Non Labored Respirations; Negative Accessory Resp Muscle Use
Cardiac: Regular Rhythm and S1/S2
GI: Soft, Nondistended, Normal Bowel Sounds and Other (suprapubic pain, no rebound or guarding )
Neuro: Awake and AO x 3
Hematologic / Lymphatic: Lymphadenopathy
Psych: Calm; Negative Confused
--- NOTE | 2025-01-14 11:46 | W.DCSUMMARY ---
Discharge Summary
Discharge Data
Date of Admission: 01/08/25
Date of Discharge: 01/14/25
-
Pending Results: No
Hospital Course
79-year-old male with past medical history significant for paroxysmal atrial fibrillation, HFrEF, COPD, CVA, hypertension, BPH and CLL who presented to [facility] ED for evaluation of weakness and dark stools. Patient was eval by gastroenterology.
Patient underwent endoscopy. s/p EGD 01/09 with finding of non-bleeding gastric ulcers with no stigmata of bleeding; multiple angiectasias in duodenum s/p APC . s/p repeat EGD 01/13 normal esophagus. Erosive gastropathy with no bleeding and no
stigmata of recent bleeding. 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 Patient was continued on Diflucan. PPI was continued. Patient received total of 3 units
of PRBC. Hemoglobin was stable. Patient also with hyponatremia with concern for SIADH nephrology was consulted. Nephrology recommended Samsca and fluid restriction. Patient's sodium stabilized. Patient also complaining of groin pain. Patient
underwent CT abdomen pelvis. Per radiology there was concern for possible endoleak. Dr. Russell discussed with patient primary vascular surgeon on 01/12/2025 which patient's vascular surgeons from [facility] who did not see any change from most recent CT
performed with them. They did not recommend acute transfer. They stated that Dr. Montez can biopsy the LN as inpatient or outpatient. Patient and family prefer outpatient follow up - which should be arranged within next 1-2 weeks. Patient
postprocedure was tolerating diet without difficulty. Patient was also found to urinary tract infection and IV antibiotics were transitioned to p.o. on discharge. Patient SGLT2 inhibitor was held and recommend to follow with primary doctor.
Discharge Plan
-
Patient Disposition: Home with Home Care
Discharge Diagnosis/Procedures: Duodenal angioectasias status post APC;
Proteus urinary tract infection
Esophageal candidiasis
Hyponatremia
Diet: Low Residue
Activity: As tolerated
Driving Restrictions: As prior to admission
Bathing Restrictions: None
Blood Work: CBC and bmp in one week via primary doctor.
Referrals:
Jose A Mar MD [Active, Gastroenterology] - 01/24/25 7:30 am
Referral Note: follow up with Dr. Mar as scheduled
Raphael Fenton, [Family Provider, Family Practice] - in less than 1 week
Additional Discharge Medication Instructions: Hold Farxiga, follow up with your outpatient physician on when to resume (can increase the risk of urinary tract infections).
Prescriptions:
New
fluconazole 200 mg Tablet
200 mg PO DAILY Qty: 8 0RF
pantoprazole [Protonix] 40 mg tablet,delayed release (DR/EC)
40 mg PO BID Qty: 60 0RF
tramadol 25 mg tablet
25 mg PO Q6H PRN (Reason: Pain) Qty: 15 0RF
cephalexin 500 mg capsule
500 mg PO Q6H 7 Days Qty: 28 0RF
Continued
tamsulosin 0.4 mg capsule
0.4 mg PO DAILY
rosuvastatin 40 mg tablet
40 mg PO DAILY
Incruse Ellipta 62.5 mcg/actuation Blister With Device
1 inh INHALATION R DAILY
potassium chloride 10 mEq capsule, extended release
10 meq PO DAILY Qty: 30 0RF
furosemide 20 mg Tablet
20 mg PO DAILY
metoprolol succinate [Toprol XL] 50 mg Tablet Extended Release 24 Hr
50 mg PO DAILY
Held
dapagliflozin propanediol [Farxiga] 10 mg Tablet
10 mg PO DAILY
Hold Instructions: Resume on 01/28/25.
Discharge Orders:
Discharge Patient (As Directed); Ordered 01/14/25
Ordered By: Sharad Navarro
Discharge Date and Time
Print Language: VIETNAMESE
[2025-01-14] MEDS: ULTRAM 12.5 MG PO (12:51)
--- NOTE | 2025-01-14 13:00 | VNURNOTE ---
Home Health Liaison met with patient at bedside to discuss [facility] nurse/therapy, visits, schedule and homebound status. Patient is agreeable and understands that visits at home will be 2-3 x per week to assess and teach medical management. Patient
is aware that [facility] will contact them for start of care within a few days to approx a week after DC from . Patient is ok with timeframe.
[facility] referral accepted in Care Port.
--- NOTE | 2025-01-14 13:47 | CM ---
IV/Rocephin. Discharge POC: Home with [facility] RN, PT/OT.
--- NOTE | 2025-01-14 13:52 | W.PN.NEPH.PH ---
Today's Communication / Plan
-
Signed off
Assessment/Plan
-
79-year-old gentleman who has paroxysmal atrial fibrillation status post Watchman procedure given history of GI bleeding and rate controlled on beta-jose ramon therapy. He has hyperlipidemia which is controlled on statin therapy. He also has known
heart failure with reduced ejection fraction on chronic diuretic therapy as well as Farxiga. He has diagnosed CLL though not on active treatment. He was admitted with weakness and dark stools. He also had stomach upset and diarrhea. Given the
severe weakness he was unable to stand and called 911 and was brought to the emergency room. Sodium on admission was 130 and has remained low. He has had intermittent hyponatremia episodes over the last 2 years as well though typically above 130.
Assessment
GI bleed
Hyponatremia
Paroxysmal atrial fibrillation CLL
Fenestrated EVAR
Melody esophagitis
Duodenal angiectasias
Heart failure reduced ejection fraction
COPD
Hypertension
Plan
Hyponatremia appears to be euvolemic and excess ADH related
Cause of excess ADH is uncertain at this time. He does not appear to have worsening COPD or exacerbation
Status post Samsca 7.5 mg Dose reduced given use of Diflucan
Lasix daily
Follow BMP
Sodium remains stable at 132
Will sign off
-
-
Date of Service: January 14, 2025
CC / HPI / ROS
-
Chief Complaint:
Weakness dark stools
History of Present Illness:
Hyponatremia stable chronic
Review of Systems:
No chest pain or shortness of breath
Labs
-
Labs:
WBC 20.9 10^3/uL (4.8-10.8) H 01/14/25 09:35
RBC 3.75 10^6/uL (4.70-6.10) L 01/14/25 09:35
Hgb 8.7 g/dL (13.0-18.0) L 01/14/25 09:35
Hct 30.4 % (39.0-52.0) L 01/14/25 09:35
Plt Count 102 10^3/uL (130-400) L 01/14/25 09:35
Sodium 132 mmol/L (135-145) L 01/14/25 09:35
Potassium 3.7 mmol/L (3.5-5.1) 01/14/25 09:35
Chloride 96 mmol/L (98-107) L 01/14/25 09:35
Carbon Dioxide 31 mmol/L (22-30) H 01/14/25 09:35
BUN 7 mg/dl (9-20) L 01/14/25 09:35
Creatinine 0.6 mg/dL (0.7-1.3) L 01/14/25 09:35
eGFR > 60.00 01/14/25 09:35
Glucose 102 mg/dl (70-99) H 01/14/25 09:35
Calcium 8.3 mg/dl (8.4-10.2) L 01/14/25 09:35
Albumin 2.8 g/dl (3.5-5.0) L 01/08/25 16:03
Physical Exam
-
Vital Signs:
Vital Signs
Temp Pulse Resp BP Pulse Ox
98.1 F 83 14 134/66 97
01/14/25 07:00 01/14/25 08:51 01/14/25 07:29 01/14/25 08:51 01/14/25 11:36
Respiratory:: Bilateral: Coarse
Lung Excursion:: Normal
Abdomen:: Soft
Bowel Sounds:: Normal
--- NOTE | 2025-01-14 14:02 | W.[place]-PDMP ---
[place]-PDMP
-
Checked the [place]- Prescription Drug Monitoring Program website, no red flags identified; safe to proceed with prescription.
[2025-01-14 15:10] VITALS: BP 126/57
--- NOTE | 2025-01-14 15:21 | CM ---
Patient has been medically cleared for discharge to home with [facility] RN, PT/OT services. Patient has arranged for transport home.
== END 2025-01-14 15:21 | disposition home health service (06) | DRG 378 ==
LOC: 2 NORTH 18:39
PROVIDERS: Internal Medicine Gastroenterology; Nurse Practitioner Family; Nurse Practitioner Gerontology; Student in an Organized Health Care Education/Training Program; ADMITTING PHYSICIAN Internal Medicine; ATTENDING PHYSICIAN Hospitalist; CONSULT PHYSICIAN Internal Medicine; CONSULT PHYSICIAN Specialist; CONSULT PHYSICIAN Surgery Vascular Surgery; EMERGENCY PHYSICIAN Student in an Organized Health Care Education/Training Program; FAMILY PHYSICIAN Family Medicine
PROC: 30233N1 Transfusion of Nonautologous Red Blood Cells into Peripheral Vein, Percutaneous Approach (ICD-10-PCS; 2025-01-08)
PROC: 0D598ZZ Destruction of Duodenum, Via Natural or Artificial Opening Endoscopic (ICD-10-PCS; 2025-01-09)
DX: K31.811 Angiodysplasia of stomach and duodenum with bleeding (principal); B37.81 Candidal esophagitis; C91.10 Chronic lymphocytic leukemia of B-cell type not having achieved remission; I50.22 Chronic systolic (congestive) heart failure; E87.1 Hypo-osmolality and hyponatremia; D62 Acute posthemorrhagic anemia; K44.9 Diaphragmatic hernia without obstruction or gangrene; K25.7 Chronic gastric ulcer without hemorrhage or perforation; I48.0 Paroxysmal atrial fibrillation; I11.0 Hypertensive heart disease with heart failure; J44.9 Chronic obstructive pulmonary disease, unspecified; Z86.73 Personal history of transient ischemic attack (TIA), and cerebral infarction without residual deficits; N40.0 Benign prostatic hyperplasia without lower urinary tract symptoms; Z87.891 Personal history of nicotine dependence; Z88.6 Allergy status to analgesic agent; Z79.899 Other long term (current) drug therapy; D69.6 Thrombocytopenia, unspecified; E78.00 Pure hypercholesterolemia, unspecified; I25.10 Atherosclerotic heart disease of native coronary artery without angina pectoris; I25.2 Old myocardial infarction; Z77.090 Contact with and (suspected) exposure to asbestos; Z95.0 Presence of cardiac pacemaker; I44.1 Atrioventricular block, second degree
CPT/HCPCS: 74178; 80048; 80053; 81003; 81015; 82607; 82728; 82746; 83540; 83550; 83735; 83935; 84295; 84300; 84484; 85014; 85018; 85025; 85027; 85610; 85730; 86850; 86900; 86901; 86920; 87040; 87077; 87086; 87186; 93005; 94640; 96365; 96366; 96376; 97162; 97530; 99291; J1610; J2916; P9016; Q9967

== ENCOUNTER 2025-01-27 14:14 | Inpatient (IN) | payer MEDICARE, OTHER, SELFPAY ==
[2025-01-27] VITALS (11 sets, daily range): BP systolic 94–145; BP diastolic 41–88; PULSE 86–109; BMI 25.5; BMI 25.6
--- NOTE | 2025-01-27 11:12 | ED.GENMED ---
History of Present Illness
General
Chief Complaint: Weakness
Source: patient
Exam Limitations: none
Time Seen by Provider: 01/27/25 10:58
History of Present Illness
History of Present Illness:
79-year-old male complaining of progressive weakness shortness of breath with exertion over the last few weeks. Has remained with dark stool. Recent admission for GI bleed. No chest pain. Patient was weak when he left the hospital however his
weakness has progressed.
Past History
Past History
ED Past Medical History: Arrthythmia, COPD and Hypercholesterolemia
ED Past Surgical History: Cardiac (Pacemaker) and Orthopedic
Social History
Tobacco: Former smoker
Review of Systems
Review of Systems
All Other Systems: Not applicable
Constitutional: Denies fever or chills
Cardiac: Denies chest pain or syncope
Phy Exam
Physical Exam
Physical Exam:
GENERAL: Alert and oriented in no apparent distress. Old for stated age. Generally weak appearing. Slightly pale
EYE: Orbits normal.
NECK: Supple, no significant adenopathy.
ENT: Pharynx without erythema
CARDIAC: Regular rate and rhythm without any obvious murmurs. Pacemaker
LUNGS: No distress but a few crackles in the bases
ABDOMEN: Soft, mild left lower quadrant tenderness, which apparently is not new. No rebound or guarding no mass or hernia. Rectal exam is minimally dark but test positive
NEUROLOGICAL: Alert and oriented , grossly non-focal
SKIN: Warm and dry, pale
MUSCULOSKELETAL: No edema,no deformity.Good color
PSYCH: Normal and appropriate interaction.
Course
Orders/Labs/Results
Orders:
Orders
01/27/25 10:42
Electrocardiogram (*1) Urgent
Reason for Study: Chest Pain
Cardiac Monitoring- Treatment ONCE
EKG- Treatment ONCE
01/27/25 10:54
Type And Crossmatch [Type+Screen] Urgent
Complete Blood Count/With Diff Urgent
Comprehensive Metabolic Panel Urgent
Troponin I Urgent
01/27/25 11:10
CXR2 [CR Chest - 2 Views ] Urgent
Comment:
Reason For Exam: Short of breath/weak
Abnormal Lab Results
01/27/25
10:54
WBC 28.1 H 10^3/uL
(4.8-10.8)
RBC 3.42 L 10^6/uL
(4.70-6.10)
Hgb 7.7 L g/dL
(13.0-18.0)
Hct 26.6 L %
(39.0-52.0)
MCV 77.8 L fL
(80.0-94.0)
MCH 22.5 L pg
(27.0-31.0)
MCHC 28.9 L g/dL
(33.0-37.0)
RDW 23.2 H %
(11.5-14.5)
MPV 11.2 H fL
(7.4-10.4)
Sodium 131 L mmol/L
(135-145)
Chloride 93 L mmol/L
(98-107)
Carbon Dioxide 33 H mmol/L
(22-30)
Creatinine 0.6 L mg/dL
(0.7-1.3)
Glucose 120 H mg/dl
(70-99)
AST 129 H U/L
(17-59)
ALT 92 H U/L
(0-50)
Total Protein 5.4 L g/dl
(6.3-8.2)
Albumin 2.7 L g/dl
(3.5-5.0)
01/27/25 10:54
01/27/25 10:54
Vital Signs
Initial and Last Documented VS:
Initial Vital Signs
Temp Pulse Resp BP Pulse Ox
98.0 F 92 16 104/48 96
01/27/25 10:33 01/27/25 10:33 01/27/25 10:33 01/27/25 10:33 01/27/25 10:33
Last Documented Vital Signs
Temp Pulse Resp BP Pulse Ox
98.0 F 84 18 119/41 96
01/27/25 10:33 01/27/25 11:45 01/27/25 11:45 01/27/25 11:28 01/27/25 11:45
MDM/Problems Addressed
Differential Diagnosis Includes:
Patient with progressive weakness. Also shortness of breath with exertion. Etiologies could include recurrent GI bleed with progressive anemia, heart failure, electrolyte abnormality. Doubt infection.
*Pulse Oximetry
SaO2: 96
Oxygen Mode of Delivery: Room air
Patient hypoxic: no
*EKG
Interpreted by ED Provider?: Yes
Interpretation: abnormal
Comparison EKG: no changes
Heart Rate: 84
Rate: normal
Rhythm: other (Atrial sensed ventricular paced)
*Critical Care Note
Total Time (30-74mins, 75-104mins- exclusive of procedures): Not Applicable
Data Reviewed
Review of Other/Old Records Reveals: Labs, Records, Radiology Studies, Testing and Discharge Summary
Update Note
Update Note:
Suspect ongoing slow GI bleed. This drop in his hemoglobin may be enough to make him feel extra weak. Nothing to support heart failure or primary cardiac issue. White count is progressed upwards with mild transaminitis. This may be his CLL.
Nothing clinically to support secondary infection. Pacemaker interrogation within normal limits.
ED Attending Note
-
Portions of this chart may have been created with voice recognition software.� Occasional wrong word or��sound alike� substitutions may have occurred due to the inherent limitations of voice recognition software.
Discharge Plan
Departure
Patient Disposition: Admit
Date of Disposition: 01/27/25
Time of Disposition: 12:48
Presentation/result/management discussed w/ accepting MD/DO: Hospitalist
Discharge Problem:
Ongoing weakness/progressive GI bleed, Progressive anemia, CLL
Prescriptions:
No Action
tamsulosin 0.4 mg capsule
0.4 mg PO DAILY
rosuvastatin 40 mg tablet
40 mg PO DAILY
Incruse Ellipta 62.5 mcg/actuation Blister With Device
1 inh INHALATION R DAILY
potassium chloride 10 mEq capsule, extended release
10 meq PO DAILY Qty: 30 0RF
furosemide 20 mg Tablet
20 mg PO DAILY
metoprolol succinate [Toprol XL] 50 mg Tablet Extended Release 24 Hr
50 mg PO DAILY
acetaminophen [Tylenol] 325 mg Tablet
325 mg PO Q6HPRN PRN (Reason: MILD PAIN)
polyethylene glycol 3350 [Miralax] 17 gram Powder In Packet
17 g PO DAILY
dapagliflozin propanediol [Farxiga] 10 mg Tablet
10 mg PO DAILY
Rx Instructions:
ON HOLD UNTIL 01/28/25
pantoprazole [Protonix] 40 mg tablet,delayed release (DR/EC)
40 mg PO BID
tramadol 25 mg tablet
25 mg PO Q6HPRN PRN (Reason: MODERATE Pain)
Referrals:
Raphael Fenton DO [Family Provider, Family Practice]
Interventions
Interventions:
*Risk Screen - Suicide Last Done: 01/27/25 10:33
*General Assessment Last Done: 01/27/25 10:58
*Neglect/Abuse Screening Last Done: 01/27/25 10:33
*ED- Fall Risk Assessment Last Done: 01/27/25 10:58
*ED COVID-19 Vaccine History Last Done: 01/27/25 10:58
*ED Influenza Vaccine History Last Done: 01/27/25 10:58
ED- Cardiac Assessment Last Done: 01/27/25 11:17
ED- Neurological Assessment Last Done: 01/27/25 11:17
ED- Pulmonary Assessment Last Done: 01/27/25 11:17
Discharge Date and Time
Print Language: NAMIBIAN
[2025-01-27 11:25] LABS: ALT (SGPT) 92 U/L (0-50); AST (SGOT) 129 U/L (17-59); Albumin 2.7 g/dl (3.5-5.0); Alkaline Phosphatase 90 U/L (38-126); Blood Urea Nitrogen 20 mg/dl (9-20); Calcium 9.0 mg/dl (8.4-10.2); Carbon Dioxide 33 mmol/L (22-30); Chloride 93 mmol/L (98-107); Estimated Creatinine Clearance 90 ml/min; Glucose 120 mg/dl (70-99); Potassium 4.4 mmol/L (3.5-5.1); Sodium 131 mmol/L (135-145); Total Protein 5.4 g/dl (6.3-8.2); eGFR > 60.00
[2025-01-27 11:36] LABS: Troponin I 0.016 ng/ml
[2025-01-27 11:55] LABS: Hematocrit 26.6 % (39.0-52.0); Hemoglobin 7.7 g/dL (13.0-18.0); Mean Corp Hgb Conc. 28.9 g/dL (33.0-37.0); Mean Corpuscular Volume 77.8 fL (80.0-94.0); Platelet Count 230 10^3/uL (130-400); Red Cell Dist. Width 23.2 % (11.5-14.5)
--- NOTE | 2025-01-27 13:13 | HPS.HSE ---
Addendum entered and electronically signed by Roro Arreguin MD 01/27/25 14:11:
This is an addendum to the H&P written by Karin Harrell on 01/27/2025. �Patient seen and examined independently with [employer].
79-year-old male past medical history of paroxysmal atrial fibrillation with pacemaker and Watchman, CAD, chronic HFrEF, nonsustained ventricular tachycardia, abdominal aortic aneurysm status post repair, duodenal angiectasias status post
cauterization, erosive gastropathy, COPD, CVA, hypertension, BPH, CLL, iron deficiency anemia, hyponatremia, presenting after a fall today and hitting his forehead. With ongoing lower abdominal pain and black stool since discharge. �Also shortness
of breath and weakness.
Abdominal pain is similar to pain that he had on recent admission.
Patient was recently admitted from 01/08 to 01/14 for weakness and dark stools. �He underwent EGD which showed nonbleeding gastric ulcers, erosive gastropathy and multiple angiectasia's in the duodenum. �He received 3 units of blood. �He was also
treated for esophageal candidiasis with Diflucan. �He was treated for hyponatremia with Samsca. �He also had groin pain and underwent CT scan abdomen pelvis which showed possible endoleak/expanding aneurysm sac and stranding, lymphadenopathy and was
deemed to be stable by vascular. �He was recommended to have outpatient lymph node biopsy. �He also had a UTI treated with antibiotic.
Vital signs unremarkable.
Labs show hemoglobin 7.7 from 8.7. �Leukocytosis 28. �Sodium stable 131. �Mild transaminitis. �Hemoccult positive.
Chest x-ray shows clear lungs.
Patient with fall. �Check CT head due to head injury.
Patient with recurrent black stool likely recurrent bleeding from duodenal AVM. �Monitor hemoglobin. �Patient was told that he needed another endoscopy at [place] to further visualize deeper in the GI tract. �GI consulted.
Lower abdominal pain likely due to extensive right iliac and retroperitoneal lymphadenopathy. �Outpatient lymph node biopsy is scheduled at [place] for next week. �The findings of increased aneurysm sac and stranding noted on prior CT scan were already
discussed with vascular and no further intervention necessary.
Transaminitis possibly from Diflucan. �Continue to monitor.
Original Note:
Family Physician
-
Family Physician: Raphael Fenton,
Chief Complaint
-
weakness
History of Present Illness
79-year-old with past medical history for COPD, hypercholesteremia,CLL ,HTN, GERD, HLD, BPH,CLL with stents presented as with complaining of progressive weakness shortness of breath with exertion over the last few weeks. patient had a fall today and
hit his head on the floor due to the weakness. Has remained with dark stool. patient complained of lower abdominal pain. patient stated the pain is same as previous admission. patient was seen by GI last Monday and not sure what is causing black
stool and he need special Endoscopy which we do not do here. patient has history of AAA with stents and concern for enlarged lymph nodes. he is schedule for Biopsy next Monday. patient stated worsening sob. denied chest pain, fever, chills,
cough,congestion. denied DE LUNA< dizzy or syncope. denied dysuria or hematuria.
patient has a history AAA s/p abdominal stent 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 he is scheduled for Biopsy next Monday.
admitting for further management.
Medical History
Past Medical History
Past Medical History: Reports Other
Additional Past Medical History:
Hyperlipidemia, coronary artery disease, AAA, cataracts, groin abscess, [place], ventricular tachycardia, bundle branch block, paroxysmal A-fib, pacemaker, diastolic heart failure, DJD, headache, sick sinus syndrome, TIA, CLL, UTI
Past Surgical History: Reports Other
Additional Past Surgical History:
Pacer implantation, left groin abscess removal, stent, cardiac ablation, Watchman procedure,
Social History
Tobacco: Former Smoker
Alcohol: Occasional
Drug: None
Personal:
Living: With Family
Family History
Family History: Not pertinent
Allergies / Home Medications
Allergies reflects when Allergies were last updated in [facility].
Home Medications with original date entered in [facility]
Allergy/Medication List:
Allergies
Allergy/AdvReac Type Severity Reaction Status Date / Time
atorvastatin (From Lipitor) Allergy calf pain Verified 01/27/25 10:35
niacin Allergy 'not feel Verified 01/27/25 10:35
well'
oxycodone (From Percocet) Allergy Rash Verified 01/27/25 10:35
Home Medications
rosuvastatin 40 mg tablet 40 mg PO DAILY High Cholesterol 02/13/23
tamsulosin 0.4 mg capsule 0.4 mg PO DAILY Urinary Issue 02/13/23
umeclidinium 62.5 mcg/actuation blister powder for inhalation (Incruse Ellipta) 1 inh inhalation R DAILY COPD 02/13/23
potassium chloride 10 mEq capsule,extended release 10 meq PO DAILY Electrolyte Repletion #30 caps 02/17/23
furosemide 20 mg tablet 20 mg PO DAILY Electrolyte Repletion 02/14/24
metoprolol succinate 50 mg tablet,extended release 24 hr (Toprol XL) 50 mg PO DAILY Blood Pressure 10/16/24
acetaminophen 325 mg tablet (Tylenol) 325 mg PO Q6HPRN PRN MILD PAIN 01/27/25
dapagliflozin propanediol 10 mg tablet (Farxiga) 10 mg PO DAILY 01/27/25
pantoprazole 40 mg tablet,delayed release (Protonix) 40 mg PO BID Gastrointestinal Issue 01/27/25
polyethylene glycol 3350 17 gram oral powder packet (Miralax) 17 g PO DAILY Constipation 01/27/25
tramadol 25 mg tablet 25 mg PO Q6HPRN PRN MODERATE Pain 01/27/25
Review of Systems
-
Constitutional: Reports No Symptoms
EENT: Reports No Symptoms
Respiratory: Reports No Symptoms
Cardiac: Reports No Symptoms
Abdomen/GI: Reports Abdominal Pain and Black Stools
: Reports No Symptoms
Musculoskeletal: Reports No Symptoms
Skin: Reports No Symptoms
Neurological: Reports No Symptoms
Endocrine: Reports No Symptoms
Hematologic/Lymphatic: Reports No Symptoms
Psych: Reports No Symptoms
Physical Exam
Vital Signs
Vital Signs
Temp Pulse Resp BP Pulse Ox
98.0 F 84 18 119/41 96
01/27/25 10:33 01/27/25 11:45 01/27/25 11:45 01/27/25 11:28 01/27/25 11:45
Physical Exam
General: Well Developed, Well Nourished and No Apparent Distress
HEENT: NormoCephalic, Moist mucous membranes and Atraumatic
Respiratory: Clear
Cardiac: S1/S2 and Regular Rhythm; No Murmur or Rub
GI: Soft, Non Distended, Normal Bowel Sounds and Tender; No Organomegaly
Rectal: Deferred by Provider; No Maroon Stools
Musculoskeletal: No Clubbing, No Cyanosis and No Edema
Skin: No Rash
Neuro: Nonfocal/grossly intact
Psych: Calm
Laboratory Results
-
01/27/25 10:54
01/27/25 10:54
Laboratory Results
Total Bilirubin 0.7 mg/dl (0.2-1.3) 01/27/25 10:54
AST 129 U/L (17-59) H 01/27/25 10:54
ALT 92 U/L (0-50) H 01/27/25 10:54
Alkaline Phosphatase 90 U/L (38-126) 01/27/25 10:54
Troponin I 0.016 ng/ml 01/27/25 10:54
Data Reviewed
-
Lab Data: Labs Reviewed by me
Impression/Plan
-
# black stool with lower abdominal pain Concern for GI bleed
-Hemoccult positive in ER
- Hemoglobin 7.7
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
- s/p repeat EGD 01/13 normal esophagus. Erosive gastropathy with no bleeding and no stigmata of recent bleeding. 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
-trend hgb, transfuse if hgb less than 7
-GI consulted.
# progressive weakness weakness secondary to GI bleed as well as CLL
#fall
- PT/OT consulted
-obtain CT head.
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
#hxt of AAA s/p stents
-follows vascular at [place]
-plan for Biopsy next Monday.
#Esophageal Candidiasis
-finished the course of Fluconazole 200mg.
# History of CLL
- WBCs 28.1
-follows oncology as outpatient
# Chronic hyponatremia
- Sodium 131
-treated with Samsca last admission
-monitor BMP
# Transaminitis likely from fluconazole
- AST 129, ALT 92
-continue to trend.
#paroxysmal atrial fibrillation
-s/p watchman
- continue metoprolol
-EKg with paced rhythm
#HFrEF-not in acute exacerbation
-daily weights
-I & Os
-hold Farxiga
-HAIR DRYER Lasix
#COPD
- continue Incruse Ellipta
#BPH
- continue tamsulosin
#CLL
-follows with [facility] in [place]
-no current treatment
#GERD
-PPI continued
#HLD
-statin continued
#CVA
Code status: full code
DVT prophylaxis: SCDs
[2025-01-27] MEDS: ULTRAM 25 MG PO ×2 (13:47→16:04)
--- NOTE | 2025-01-27 14:16 | CM ---
chart reviewed. Spoke with patient at bedside
Was in in 12/2024 for upper gastrointestinal bleed
Lives with in [address] uses a walker
Independent otherwise
DME walker
PCP Dr. Raphael Fenton
[facility] [place]
[facility]
no hx of [facility]
DCP to go home with [facility]
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
will continue to follow up for dcp needs
--- NOTE | 2025-01-27 14:35 | CON.GI ---
Addendum entered and electronically signed by Nolan Quintero DO 01/27/25 17:43:
I saw and examined the patient.
The LABOR RELATIONS REPRESENTATIVE's note was reviewed and I agree with the note.
Comment: Mr. Gray is a 79 y.o male with an extensive past medical history of CLL (f/w Dr. Herrera), AV block (s/p PPM), TIA, CAD, CVA, PAF (s/p Watchman 02/2024), COPD, PAD, hx of AAA repair (in 2021 at [facility], off plavix), history of small bowel AVMs
complicated by prior obscure GI bleeding in the past (as detailed below) who re-presented to the ED with with dark stools, weight loss and intermittent lower abdominal pain. Patient has undergone multiple endoscopic evaluations in the past and was
recently seen in the GI office with Dr. Mar back on 01/24/25 given his obscure GI bleeding and known AVMs. He was advised double-balloon enteroscopy (DBE) as a definitive intervention given his previous capsule endoscopy revealing AVMs in the
proximal small bowel. He was referred to [facility] for a DBE as an outpatient was also advised to follow-up with his vascular surgeon as he was having lower abdominal pain concerning for potential vascular etiology (such as chronic mesenteric ischemia).
He represented to the ED with ongoing intermittent darker stools and chronic lower abdominal pain found to have a Hgb 7.7 (previously 8.7 on 01/14/25). Clinically, concern for recurrent black stools in the setting of his known bleeding small bowel
AVMs. Would defer pursuing an endoscopic evaluation as he was previously advised to have a double-balloon enteroscopy based on his prior video capsule endoscopy. Furthermore, in regards to his chronic lower abdominal discomfort denies any other
symptoms suggest a vascular etiology although does have risk factors. Suspect this is likely due to his extensive retroperitoneal lymphadenopathy and right iliac lymphadenopathy. Of note, he was also scheduled for an outpatient lymph node biopsy
at [facility] next week. For now, favor conservative approach and continue to monitor his serial Hgb and transfuse if needed. No plans for an inpatient endoscopic evaluation at this time and favor outpatient DBE with [facility]. However, if ongoing dark stools
and anemia requiring transfusions would consider transfer to [facility] for consideration of a DBE. See rest of care as outlined below.
GI will continue to follow, please call with any questions or concerns.
Original Note:
Consultation
-
Date/Time Consultation Requested: 01/27/25 1415
Date/Time Consultation Performed: 01/27/25 1430
Requesting Provider: EFREN Gamboa
Performing Provider: EFREN Brooks, Nolan Quintero DO
Reason for Consultation: black stools
Medical History
Chief Complaint / HPI
Chief Complaint: weakness
History of Present Illness:
79-year-old male with past medical history of CLL (follows with Dr. Herrera), hyperlipidemia, 2-1 AV block status post post pacemaker, TIA, CAD with anteroseptal RI in 1999,CVA, PAF s/p Watchman 02/20/2024, COPD, hyperlipidemia, CHF, BPH, abdominal
aortic aneurysm with endovascular repair and stent May 2021 at [facility] off plavix , prior CT in September with concerning for new contained rupture of the [place] AAA surrounding an abdominal aortobiiliac endograft with evaluated by his CT
Surg at [facility] who states this was not a leak, trauma to kidney with repair, choledocholithiasis status post EUS/ERCP 09/2023 extracting stones with follow up EUS in 12/2023 with duct dilation without pathology, celiac, SM and renal artery stent per
imaging, and LEVI with wt loss and work up over last year with Dr. Pimentel and through . He also had recent second opinion with Dr. Guthrie but was awaiting record review. On recent admission 01/08-01/14 he had hbg 7-8 range and completed EGD x 2
on 01/08 difficulty advancing to 4th portion of duodenum with looping but non bleeding ulcers and multiple duodenal angiectasias s/p APC and repeat 01/13 with multiple angioectasia in duodenum with oozing with APC treatment. he now returns with
weakness with fall and dark stools. He also admits to concern for continued wt loss with wt 232 5 month ago now down to 165 lbs. On admission labs with WBC 28,100, hbg 7.7, platelets 230(prior 90-110 range) na 131, bili 0.7, AST 129, ALT 92, alk
phos 90, albumin 2.7. Pt has also had lower abdominal pain and adenopathy due for biopsy at [facility] next week. Pt with 3 units transfused over last few weeks.
In review with patient he current admits to tenderness with concern for enlarge lower abdominal nodes. Pain is now radiating into back. He is due for follow up biopsy next week with Dr. Delcid. He also admits to continued black stool.
He did have follow up last week with Dr. Mar and discussed possible double balloon enteroscopy as still with anemia despite extensive GI work up. He denies issues odynophagia, dysphagia, GERD, nausea, vomiting, diarrhea, constipation, or red blood
in stools. Denies NSAID or anticoagulation use. Pt has been taking Tramadol along with scheduled Tylenol for pain.
[place]: Spring 2023 Dr. Grier 'polyp'
EGD 07/31/24 (Dr. Pimentel) Z line irregular, small HH, patchy inflammation, erosions and erythema in the gastric antrum. Second portion of the duodenum and examined portion of the duodenum were normal.
COLO 07/31/24 (Dr. Pimentel) Examined portion of the ileum was normal. Entire examined colon normal. Diverticulosis in the sigmoid colon.
EGD: salguti 10/17/24 -No lesions in entire esophagus Z-line variable, 3 cm, small HH- Erosive gastropathy-no bleeding and no stigmata of recent bleeding Normal examined duodenum. No specimens collected.
capsule: 10/23/24 - stomach normal, small bowel tiny AVM's- proximal, no mass lesion, or polyps, colon normal mucosal
01/07/25 [facility] second opinion GI -- Dr. Guthrie -- awaiting records for DrDebby
01/08/25- EGD- walp difficulty to advance back 4th portion of due to looping in stomach with resistance, esophageal plaques candidiasis, 2cm HH, non bleeding gastric ulcers, multiple duodenal angioectasia, s/p APC
01/13/25- bohning, normal esophagus - Erosive gastropathy with no bleeding and no stigmata of recent bleeding Multiple angioectasias in the duodenum with active oozing in the third portion of the duodenum distal to the ampulla. Treated with argon
plasma coagulation (APC). No specimens collected.
Past Medical History
Past Medical History: Arrhythmias (2:1 AV block), CAD, Cancer (CLL), CHF (with reduced EF), COPD, CVA, HTN, Hypercholesterolemia, Valvular Disease (mild ) and Other (abdominal aortic aneurysm with endovascular repair and stent with possible leak
on imaging in past, iron def anemia, choledocholithiasis, BPH, biliary ductal dilation )
Past Surgical History: Other ( Pacemaker, abdominal aortic aneurysm with endovascular repair and stent, ERCP, trauma to kidney with repair, celiac, SM,and Renal artery stent per imaging, hernia repair, Watchman)
Social History
Tobacco: Former Smoker
Alcohol: Occasional
Drug: None
Personal:
Living: With Family
Employment: Retired
Family History
Family History: Other (No family history gastrointestinal malignancy or IBD)
Allergies / Home Medications
Allergy/AdvReac Type Severity Reaction Status Date / Time
atorvastatin (From Lipitor) Allergy calf pain Verified 01/27/25 10:35
niacin Allergy 'not feel Verified 01/27/25 10:35
well'
oxycodone (From Percocet) Allergy Rash Verified 01/27/25 10:35
�Medication �Instructions �Recorded
rosuvastatin 40 mg tablet 40 mg PO DAILY High Cholesterol 02/13/23
tamsulosin 0.4 mg capsule 0.4 mg PO DAILY Urinary Issue 02/13/23
umeclidinium 62.5 mcg/actuation 1 inh inhalation R DAILY COPD 02/13/23
blister powder for inhalation
(Incruse Ellipta)
potassium chloride 10 mEq 10 meq PO DAILY Electrolyte 02/17/23
capsule,extended release Repletion #30 caps
furosemide 20 mg tablet 20 mg PO DAILY Electrolyte 02/14/24
Repletion
metoprolol succinate 50 mg 50 mg PO DAILY Blood Pressure 10/16/24
tablet,extended release 24 hr
(Toprol XL)
acetaminophen 325 mg tablet 325 mg PO Q6HPRN PRN MILD PAIN 01/27/25
(Tylenol)
dapagliflozin propanediol 10 mg 10 mg PO DAILY 01/27/25
tablet (Farxiga)
pantoprazole 40 mg tablet,delayed 40 mg PO BID Gastrointestinal Issue 01/27/25
release (Protonix)
polyethylene glycol 3350 17 gram 17 g PO DAILY Constipation 01/27/25
oral powder packet (Miralax)
tramadol 25 mg tablet 25 mg PO Q6HPRN PRN MODERATE Pain 01/27/25
Review of Systems
-
History Source: Patient
Constitutional: Reports Weight Loss and Fatigue (with fall)
EENT: Reports No Symptoms
Cardiac: Reports No Symptoms
Abdomen/GI: Reports Abdominal Pain
: Reports No Symptoms
Musculoskeletal: Reports Other
Skin: Reports No Symptoms
Neurological: Reports Weakness and Other (falls)
Endocrine: Reports No Symptoms
Hematologic/Lymphatic: Reports Bleeding (black stools)
Vital Signs
Temp Pulse Resp BP Pulse Ox
98.0 F 86 21 139/74 95
01/27/25 10:33 01/27/25 14:15 01/27/25 14:15 01/27/25 14:00 01/27/25 14:00
Physical Exam
Exam
General: Other (pale thin appearing )
HEENT: Normocephalic and Anicteric
Respiratory: Clear
Cardiac: Regular Rhythm
GI: Soft, Non Distended and Tender (lower abdomen into pelvis )
Rectal: Other (ER dark heme + stools)
Musculoskeletal: No Clubbing and No Cyanosis
Neuro: AO x 3
Psych: Calm
Results
WBC 28.1 10^3/uL (4.8-10.8) H 01/27/25 10:54
Hgb 7.7 g/dL (13.0-18.0) L 01/27/25 10:54
Hct 26.6 % (39.0-52.0) L 01/27/25 10:54
MCV 77.8 fL (80.0-94.0) L 01/27/25 10:54
Plt Count 230 10^3/uL (130-400) 01/27/25 10:54
Sodium 131 mmol/L (135-145) L 01/27/25 10:54
Potassium 4.4 mmol/L (3.5-5.1) 01/27/25 10:54
Chloride 93 mmol/L (98-107) L 01/27/25 10:54
Carbon Dioxide 33 mmol/L (22-30) H 01/27/25 10:54
BUN 20 mg/dl (9-20) 01/27/25 10:54
Creatinine 0.6 mg/dL (0.7-1.3) L 01/27/25 10:54
Calcium 9.0 mg/dl (8.4-10.2) 01/27/25 10:54
Total Bilirubin 0.7 mg/dl (0.2-1.3) 01/27/25 10:54
AST 129 U/L (17-59) H 01/27/25 10:54
ALT 92 U/L (0-50) H 01/27/25 10:54
Alkaline Phosphatase 90 U/L (38-126) 01/27/25 10:54
Diagnostic Image Results:
01/10/25 CT Abd/pelvis W/wo Iv Cont
Prior aortic fenestrated aortobiiliac endograft which appears patent. The excluded aneurysm sac is increased in size from prior measuring 7.0 cm, previously 6.6 cm. There are findings consistent with endoleak extending along the left iliac limb,
similar to prior. There is new stranding along the excluded aneurysm sac and proximal iliac limbs as well as extensive right iliac and retroperitoneal lymphadenopathy. While this patient has reported history of CLL for which the lymph nodes may be
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 Recommend vascular surgery consultation.
Mild circumferential urinary bladder wall thickening which is nonspecific although can be seen with cystitis. Recommend correlation with urinalysis.
There is chronic mild gallbladder wall thickening and enhancement which element of chronic cholecystitis is possible.
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
Prior GI Procedures:
[place]: Spring 2023 Dr. Grier 'polyp'
EGD 07/31/24 (Dr. Pimentel) Z line irregular, small HH, patchy inflammation, erosions and erythema in the gastric antrum. Second portion of the duodenum and examined portion of the duodenum were normal.
COLO 07/31/24 (Dr. Pimentel) Examined portion of the ileum was normal. Entire examined colon normal. Diverticulosis in the sigmoid colon.
EGD: sebas 10/17/24 -No lesions in entire esophagus Z-line variable, 3 cm, small HH- Erosive gastropathy-no bleeding and no stigmata of recent bleeding Normal examined duodenum. No specimens collected.
capsule: 10/23/24 - stomach normal, smal bowel tiny AVM's- proximal, no mass lesion, or polyps, colon normal mucosal
01/07/25 [facility] second opinion GI awaiting records
01/08/25- EGD- walp difficulty to advance back 4th portion of due to looping in stomach with resistance, esophageal plaques candidiasis, 2cm HH, non bleeding gastric ulcers, multiple duodenal angioectasia, s/p APC
01/13/25- bohning, normal esophagus - Erosive gastropathy with no bleeding and no stigmata of recent bleeding Multiple angioectasias in the duodenum with active oozing in the third portion of the duodenum distal to the ampulla. Treated with
argon plasma coagulation (APC). No specimens collected.
Assessment / Plan
-
79-year-old male with past medical history of CLL (follows with Dr. Herrera), hyperlipidemia, 2-1 AV block status post post pacemaker, TIA, CAD with anteroseptal RI in 1999,CVA, PAF s/p Watchman 02/20/2024, COPD, hyperlipidemia, CHF, BPH, abdominal
aortic aneurysm with endovascular repair and stent May 2021 at [facility] off Plavix , prior CT in September with concerning for new contained rupture of the [place] AAA surrounding an abdominal aortobiiliac endograft with evaluated by his CT
Surg at [facility] who states this was not a leak, trauma to kidney with repair, choledocholithiasis status post EUS/ERCP 09/2023 extracting stones with follow up EUS in 12/2023 with duct dilation without pathology, celiac, SM and renal artery stent per
imaging, and LEVI with wt loss and work up over last year with Dr. Pimentel and through . He also had recent second opinion with Dr. Guthrie but was awaiting record review. On recent admission 01/08-01/14 he had hbg 7-8 range and completed EGD x 2
on 01/08 difficulty advancing to 4th portion of duodenum with looping but non bleeding ulcers and multiple duodenal angiectasias s/p APC and repeat 01/13 with multiple angioectasia in duodenum with oozing with APC treatment. he now returns with
weakness with fall and dark stools. He also admits to concern for continued wt loss with wt 232 5 month ago now down to 165 lbs. On admission labs with WBC 28,100, hbg 7.7, platelets 230(prior 90-110 range) na 131, bili 0.7, AST 129, ALT 92, alk
phos 90, albumin 2.7. Pt has also had lower abdominal pain and adenopathy due for biopsy at [facility] next week. Pt with 3 units transfused over last few weeks. In review with patient he current admits to tenderness with concern for enlarge lower
abdominal nodes. Pain is now radiating into back. He is due for follow up biopsy next week with Dr. Delcid. He also admits to continued black stool. He did have follow up last week with Dr. Mar and discussed possible double balloon
enteroscopy as still with anemia despite extensive GI work up. Denies NSAID or anticoagulation use. Pt has been taking Tramadol along with scheduled Tylenol for pain.
[place]: Spring 2023 Dr. Grier 'polyp'
EGD 07/31/24 (Dr. Pimentel) Z line irregular, small HH, patchy inflammation, erosions and erythema in the gastric antrum. Second portion of the duodenum and examined portion of the duodenum were normal.
COLO 07/31/24 (Dr. Pimentel) Examined portion of the ileum was normal. Entire examined colon normal. Diverticulosis in the sigmoid colon.
EGD: salguti 10/17/24 -No lesions in entire esophagus Z-line variable, 3 cm, small HH- Erosive gastropathy-no bleeding and no stigmata of recent bleeding Normal examined duodenum. No specimens collected.
capsule: 10/23/24 - stomach normal, small bowel tiny AVM's- proximal, no mass lesion, or polyps, colon normal mucosal
01/07/25 [facility] second opinion GI -- Dr. Guthrie -- awaiting records for DrDebby
01/08/25- EGD- walp difficulty to advance back 4th portion of due to looping in stomach with resistance, esophageal plaques candidiasis, 2cm HH, non bleeding gastric ulcers, multiple duodenal angioectasia, s/p APC
01/13/25- bohning, normal esophagus - Erosive gastropathy with no bleeding and no stigmata of recent bleeding Multiple angioectasias in the duodenum with active oozing in the third portion of the duodenum distal to the ampulla. Treated with argon
plasma coagulation (APC). No specimens collected.
-weakness with fall
-recurrent GI bleeding with dark heme + stool on admission--recent EGD with erosive gastropathy and multiple duodenal angioectasia with oozing (-hx erosive gastropathy on EGD 10/2024 and tiny proximal AVM on capsule 10/2024)
-recent jasmin esophagitis on Diflucan
-ongoing microcytic anemia
-leukocytosis with chronic elevation
-ongoing lower abdominal pain due for biopsy next week
-hx CLL
-thrombocytopenia
-GB thickening per imaging
-wt loss of 232 down to 160's over last year
-concern for enlarge lymph nodes in neck and lower abdomen
-pancolitis noted on prior CT 09/2024
-CT in September with concerning for new contained rupture of the [place] AAA surrounding an abdominal aortobiliac endograft with evaluated by his CT Surg at [facility] who states this was not a leak
-choledocholithiasis status post EUS/ERCP 09/2023 extracting stones with follow up EUS in 12/2023 with duct dilation without pathology
other med problems:
hyperlipidemia, 2-1 AV block status post post pacemaker, TIA, CAD with anteroseptal RI in 1999, PAF s/p Watchman 02/20/2024, COPD, hyperlipidemia, CHF, BPH, abdominal aortic aneurysm with endovascular repair and stent May 2021 at [place] [facility] off Plavix , trauma to kidney with repair, hx celiac,SM and renal artery stents per imaging
PLAN:
Pt with continued dark stool and ongoing anemia
s/p 3 units transfused last few weeks
extensive work up as noted
if continued drop or signs of aggressive bleeding consider double balloon -- if hbg remains stable consider OP evaluation
pt also concern for wt loss with decreased appetite agree with plan for biopsy next week at [facility]
trend hbg transfuse < 7
ok for low residue dinner
will need continued heme follow OP for periodic iron and close watch of hbg
-
-
Thank you for consultation and allowing me to participate in the patient's care. Please call the merchandise presentation associate GI physician during the after hours with any questions or concerns.
[2025-01-27 15:30] LABS: Absolute Neutrophils -Man Diff 25.2 10^3/uL (1.4-6.5); Anisocytosis 2+; Normal RBC Morphology No; Platelets Checked Yes
[2025-01-27 15:31] LABS: Hypochromasia 3+; Macrocytosis 1+; Microcytosis 1+
--- NOTE | 2025-01-27 15:31 | VNURNOTE ---
Chart reviewed. Patient is current with [facility]. Will continue to follow hospital course and DC plans.
[2025-01-27 15:32] LABS: Hypersegmented Neutrophil 2+; Total Cells Counted 100
[2025-01-27 15:33] LABS: Polychromasia 1+; Target Cells 1+
[2025-01-27 16:32] LABS: Hematocrit 24.8 % (39.0-52.0); Hemoglobin 7.4 g/dL (13.0-18.0)
[2025-01-27] MEDS: TYLENOL 650 MG PO ×2 (17:30→23:31)
[2025-01-27] MEDS: PROTONIX 40 MG PO (19:55)
[2025-01-27 23:23] LABS: Hematocrit 24.7 % (39.0-52.0); Hemoglobin 7.1 g/dL (13.0-18.0)
[2025-01-28] VITALS (12 sets, daily range): BP systolic 82–144; BP diastolic 49–68; PULSE 86–106; BMI 24.6
[2025-01-28] MEDS: ULTRAM 25 MG PO ×4 (01:25→22:11)
[2025-01-28] MEDS: TYLENOL 650 MG PO ×3 (05:31→18:01)
--- NOTE | 2025-01-28 06:12 | W.PN.GI.CBS2 ---
Today's Communication / Plan
-
No signs of overt GI bleeding since admission and previous occult GI bleeding 2/2 known SB AVMs. Previously advised to have DBE and to be arranged as outpatient as patient follows with Dr. Mar. Recommend assessing response to transfusions and
ongoing supportive care. GI will sign-off, please re-contact with any questions or concerns.
Assessment / Plan
-
#SB AVMs
#Recurrent, Occult GI Bleeding
#Acute on Chronic Anemia
#Symptomatic Anemia
#Hx of CLL
#Retroperitoneal Lymphadenopathy
Mr. Gray is a 79 y.o male with an extensive past medical history of CLL (f/w Dr. Herrera), AV block (s/p PPM), TIA, CAD, CVA, PAF (s/p Watchman 02/2024), COPD, PAD, hx of AAA repair (in 2021 at [place], off plavix), history of small bowel AVMs
complicated by prior obscure GI bleeding in the past (as detailed below) who re-presented to the ED with with dark stools, weight loss and intermittent lower abdominal pain. Patient has undergone multiple endoscopic evaluations in the past and was
recently seen in the GI office with Dr. Mar back on 01/24/25 given his obscure GI bleeding and known AVMs. He was advised double-balloon enteroscopy (DBE) as a definitive intervention given his previous capsule endoscopy revealing AVMs in the
proximal small bowel. He was referred to [facility] for a DBE as an outpatient was also advised to follow-up with his vascular surgeon as he was having lower abdominal pain concerning for potential vascular etiology (such as chronic mesenteric ischemia).
He represented to the ED with ongoing intermittent darker stools and chronic lower abdominal pain found to have a Hgb 7.7 (previously 8.7 on 01/14/25). Clinically, concern for recurrent black stools in the setting of his known bleeding small bowel
AVMs. Would defer pursuing an endoscopic evaluation as he was previously advised to have a double-balloon enteroscopy based on his prior video capsule endoscopy. Furthermore, in regards to his chronic lower abdominal discomfort denies any other
symptoms suggest a vascular etiology although does have risk factors. Suspect this is likely due to his extensive retroperitoneal lymphadenopathy and right iliac lymphadenopathy. Of note, he was also scheduled for an outpatient lymph node biopsy
at [facility] next week. For now, favor conservative approach and continue to monitor his serial Hgb and transfuse if needed. No plans for an inpatient endoscopic evaluation at this time and favor outpatient DBE with [facility]. However, if ongoing dark stools
and anemia requiring transfusions would consider transfer to [facility] for consideration of a DBE.
Prior GI Records / Data Review:
[place]: Spring 2023 Dr. Grier 'polyp'
EGD 07/31/24 (Dr. Pimentel) Z line irregular, small HH, patchy inflammation, erosions and erythema in the gastric antrum. Second portion of the duodenum and examined portion of the duodenum were normal.
COLO 07/31/24 (Dr. Pimentel) Examined portion of the ileum was normal. Entire examined colon normal. Diverticulosis in the sigmoid colon.
EGD: sebas 10/17/24 -No lesions in entire esophagus Z-line variable, 3 cm, small HH- Erosive gastropathy-no bleeding and no stigmata of recent bleeding Normal examined duodenum. No specimens collected.
capsule: 10/23/24 - stomach normal, small bowel tiny AVM's- proximal, no mass lesion, or polyps, colon normal mucosal
01/07/25 [facility] opinion GI -- Dr. Guthrie -- awaiting records for
[facility] 4[facility] portion of due to looping in stomach with resistance, esophageal plaques candidiasis, 2cm HH, non bleeding gastric ulcers, multiple duodenal angioectasia, s/p APC
01/13/25- bohning, normal esophagus - Erosive gastropathy with no bleeding and no stigmata of recent bleeding Multiple angioectasias in the duodenum with active oozing in the third portion of the duodenum distal to the ampulla. Treated with argon
plasma coagulation (APC). No specimens collected.
Recommendations:
- Diet as tolerated
- Trend Hgb with serial CBC, transfuse for goal Hgb > 8.0
- Ordered 1 uPRBC for Hgb 6.6, f/u post-transfusion CBC and assess response
- Empiric PPI BiD
- Given occult bleeding, favor deferring inpatient transfer at this time and favor outpatient DBE at [facility]
- No plans for any endoscopic intervention at this time given recent scopes back on 07/2024 and previous VCE findings
- Avoidance of all NSAIDs
- Monitor for signs of any overt GI bleeding while inpatient and notify GI
- Has biopsy arranged at [facility] next week given his RP lymphadenopathy
- Rest of ongoing care as per primary team
Discussed with primary internal medicine team this afternoon. GI will sign-off, please recontact with any questions or concerns.
Subjective
Subjective
Date of Service: January 28, 2025
- Drift in Hgb from 7.7 -> 7.1
- Otherwise, no acute events overnight
Resting comfortably, denies any recent dark stools overnight or early this AM. Still with lower back pain but denies any other nausea/vomiting or abdominal pain.
Objective
Data Reviewed
Laboratory Data:
Laboratory Results
Total Bilirubin 0.7 mg/dl (0.2-1.3) 01/27/25 10:54
AST 129 U/L (17-59) H 01/27/25 10:54
ALT 92 U/L (0-50) H 01/27/25 10:54
Alkaline Phosphatase 90 U/L (38-126) 01/27/25 10:54
Vital Signs and I&O:
Vital Signs
Temp Pulse Resp BP Pulse Ox
98.2 F 94 16 137/68 97
01/28/25 03:09 01/28/25 03:09 01/28/25 03:09 01/28/25 03:09 01/28/25 03:09
I&O
01/26/25 01/27/25 01/28/25
06:59 06:59 06:59
Intake Total 200 / 200
Output Total 250 / 250
Balance -50 / -50
Physical Exam
Physical Exam
HEENT: Anicteric and Moist mucous membranes
Pulmonary: Other (Normal WOB on room air)
GI: Soft, Non Distended and Non Tender
Extremities: No Edema
Neuro: Non Focal
[2025-01-28 06:59] LABS: Hematocrit 23.1 % (39.0-52.0); Hemoglobin 6.6 g/dL (13.0-18.0); Mean Corp Hgb Conc. 28.6 g/dL (33.0-37.0); Mean Corpuscular Volume 80.2 fL (80.0-94.0); Platelet Count 188 10^3/uL (130-400); Red Cell Dist. Width 23.1 % (11.5-14.5)
[2025-01-28 07:19] LABS: Blood Urea Nitrogen 19 mg/dl (9-20); Calcium 8.7 mg/dl (8.4-10.2); Carbon Dioxide 33 mmol/L (22-30); Chloride 94 mmol/L (98-107); Estimated Creatinine Clearance 90 ml/min; Glucose 97 mg/dl (70-99); Potassium 3.9 mmol/L (3.5-5.1); Sodium 130 mmol/L (135-145); eGFR > 60.00
[2025-01-28] MEDS: SPIRIVA RESPIMAT 2.5 MCG 2 PUFF INH (07:57)
[2025-01-28] MEDS: LASIX PO (08:35)
[2025-01-28] MEDS: FLOMAX 0.4 MG PO (08:38)
[2025-01-28] MEDS: PROTONIX 40 MG PO ×2 (08:38→20:52)
[2025-01-28] MEDS: KCL 10 MEQ PO (08:38)
[2025-01-28] MEDS: CRESTOR 40 MG PO (08:38)
[2025-01-28] MEDS: TOPROL XL 50 MG PO (08:38)
--- NOTE | 2025-01-28 09:21 | CM ---
Patient seen at bedside on . Patient to be followed by [facility] at discharge. CM will continue to follow for discharge planning needs.
Plan home with no needs.
--- NOTE | 2025-01-28 09:25 | CM ---
Patient seen at bedside on . Patient states that he is doing well and has no needs at this time. CM will continue to follow for discharge planning needs.
Plan; home with no needs anticipated
--- NOTE | 2025-01-28 11:41 | W.PN.HOSP.TC ---
Today's Communication/Plan
-
transfuse prbc
trend h/h
GI recs
Assessment / Plan
Assessment / Plan
General: Well Developed, Well Nourished and No Apparent Distress
HEENT: NormoCephalic, Moist mucous membranes and Atraumatic
Respiratory: Clear
Cardiac: S1/S2 and Regular Rhythm; No Murmur or Rub
GI: Soft, Non Distended, Normal Bowel Sounds and Tender; No Organomegaly
Rectal: Deferred by Provider; No Maroon Stools
Musculoskeletal: No Clubbing, No Cyanosis and No Edema
Skin: No Rash
Neuro: Nonfocal/grossly intact
Psych: Calm
# Symptomatic anemia likely secondary recurrent GI bleeding
- Hemoglobin 6.6. Will transfuse 1 unit of PRBC and repeat H&H later today.
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
- s/p repeat EGD 01/13 normal esophagus. Erosive gastropathy with no bleeding and no stigmata of recent bleeding. 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
- trend hgb, transfuse if hgb less than 7
- GI consulted and recommended transfusion. Patient will eventually need double-balloon enteroscopy.
#progressive weakness weakness secondary to GI bleed as well as CLL
#fall
- PT/OT consulted
- CT head negative.
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
#hxt of AAA s/p stents
-follows vascular at [place]
-plan for Biopsy next Monday.
#Esophageal Candidiasis
-finished the course of Fluconazole 200mg.
# History of CLL
-follows oncology as outpatient
# Chronic hyponatremia
- Sodium 130. Monitor for now.
-treated with Samsca last admission
-monitor BMP
# Transaminitis likely from fluconazole
- AST 129, ALT 92
-continue to trend.
#paroxysmal atrial fibrillation
-s/p watchman
- continue metoprolol
#HFrEF-not in acute exacerbation
-daily weights
-I & Os
-hold Farxiga
-hold Lasix
#COPD
- continue Incruse Ellipta
#BPH
- continue tamsulosin
#CLL
-follows with [facility] in [place]
-no current treatment
#GERD
-PPI continued
#HLD
-statin continued
#CVA
Code status: full code
DVT prophylaxis: SCDs in the setting of GI bleed
Anticipated Discharge: 24 - 48 hours
Subjective/Interval History
-
Date of Service: January 28, 2025
states feeling weak
no bm today
Objective Data
-
Labs:
Laboratory Results
01/28/25 01/28/25 01/28/25
06:35 06:35 06:35
WBC 24.0 H
Hgb 6.6 L* Cancelled
Hct 23.1 L Cancelled
Plt Count 188
Sodium 130 L
Potassium 3.9
Chloride 94 L
Carbon Dioxide 33 H
BUN 19
Creatinine 0.6 L
Glucose 97
Calcium 8.7
01/28/25 01/28/25
15:00 21:00
WBC
Hgb Pending Pending
Hct Pending Pending
Plt Count
Sodium
Potassium
Chloride
Carbon Dioxide
BUN
Creatinine
Glucose
Calcium
Vital Signs:
Vital Signs
Temp Pulse Resp BP Pulse Ox
98.4 F 91 20 126/59 96
01/28/25 10:50 01/28/25 10:50 01/28/25 10:50 01/28/25 10:50 01/28/25 10:41
I&O
01/27/25 01/28/25 01/29/25
06:59 06:59 06:59
Intake Total 200 / 200 0 / 0
Output Total 250 / 250
Balance -50 / -50 0 / 0
Data Reviewed
-
Total Time Spent with Patient (in minutes): 55
--- NOTE | 2025-01-28 14:18 | VNURNOTE ---
[facility] liaison met with pt and spouse at bedside. PIER MASTER pt was active on [facility] services. Confirmed he'd like VN upon DC. [facility].
[2025-01-28 15:06] LABS: Hematocrit 24.5 % (39.0-52.0); Hemoglobin 7.4 g/dL (13.0-18.0)
[2025-01-28 21:58] LABS: Hematocrit 29.0 % (39.0-52.0); Hemoglobin 8.8 g/dL (13.0-18.0)
[2025-01-29] MEDS: TYLENOL 650 MG PO ×3 (00:10→17:33)
--- NOTE | 2025-01-29 03:19 | DOWNTIME ---
There was a [employer] Client [employer] Downtime on 01/29/2025 from 0100 to 01/29/2025 at 0255. Downtime documentation of patient's care, including medication administrations, has been reconciled in the electronic record per guidelines. Refer to the
patient's paper chart under the miscellaneous tab to see printed paper medication records and downtime forms.
[2025-01-29] MEDS: ULTRAM 25 MG PO (04:34)
[2025-01-29 07:30] VITALS: BP 128/71
[2025-01-29 07:44] LABS: Hematocrit 30.8 % (39.0-52.0); Hemoglobin 9.7 g/dL (13.0-18.0); Mean Corp Hgb Conc. 31.5 g/dL (33.0-37.0); Mean Corpuscular Volume 80.2 fL (80.0-94.0); Platelet Count 190 10^3/uL (130-400); Red Cell Dist. Width 20.7 % (11.5-14.5)
[2025-01-29] MEDS: SPIRIVA RESPIMAT 2.5 MCG 2 PUFF INH (07:46)
[2025-01-29 08:02] LABS: Absolute Neutrophils -Man Diff 23.6 10^3/uL (1.4-6.5); Anisocytosis 2+; Hypochromasia 2+; Normal RBC Morphology No; Platelets Checked Yes; Polychromasia 2+
[2025-01-29 08:03] LABS: Ovalocytes 1+; Stomatocytes 1+; Target Cells 1+; Total Cells Counted 100
[2025-01-29 08:17] LABS: Blood Urea Nitrogen 14 mg/dl (9-20); Calcium 8.8 mg/dl (8.4-10.2); Carbon Dioxide 30 mmol/L (22-30); Chloride 94 mmol/L (98-107); Estimated Creatinine Clearance 90 ml/min; Glucose 88 mg/dl (70-99); Potassium 3.9 mmol/L (3.5-5.1); Sodium 128 mmol/L (135-145); eGFR > 60.00
[2025-01-29 08:45] VITALS: BP 146/58; PULSE 62; O2SAT 98
[2025-01-29] MEDS: TOPROL XL 50 MG PO (08:54)
[2025-01-29] MEDS: PROTONIX 40 MG PO ×2 (08:54→19:56)
[2025-01-29] MEDS: KCL 10 MEQ PO (08:54)
[2025-01-29] MEDS: CRESTOR 40 MG PO (08:54)
[2025-01-29] MEDS: FLOMAX 0.4 MG PO (08:54)
--- NOTE | 2025-01-29 09:18 | PN.CDI ---
CDI
- -
CDI:
Physician Documentation Request
Admit Date: 01/27/25 14:14
Dear Doctor,
Please review the following and provide your response in the progress notes.
Clinical Indicators:
Pt admitted with fall, progressive weakness secondary to GI bleed and CLL
01/28 PN: ' Symptomatic anemia likely secondary recurrent GI bleeding
- Hemoglobin 6.6. Will transfuse 1 unit of PRBC and repeat H&H later today.'
Based on the above, could you clarify, in your progress note, which of the following is the most likely type of anemia you are evaluating, monitoring and/or treating?
Acute blood loss anemia
Acute blood loss anemia with baseline chronic anemia (Specify type)
Other
Use of terms such as suspected, likely, concern for, or probable (associated with a specific diagnosis that is being evaluated, monitored, or treated as if it exists) are acceptable and can be coded in the inpatient setting, when documented at the
time of discharge.
Thank you,
Serenity Villalobos RN, BSN
CDI Specialist
[place] [facility]
Please use your independent medical judgment in providing your response.
[2025-01-29 09:23] VITALS: BP 146/58; PULSE 62; O2SAT 98
[2025-01-29 10:32] VITALS: BP 131/58
--- NOTE | 2025-01-29 10:53 | W.PN.HOSP.TC ---
Addendum entered and electronically signed by Sharad Navarro MD 01/29/25 13:45:
d/w with spouse and another family member at bedside in details. Explain to them the hospital course so far, improvement in hgb. Mild downtrend in sodium and to hold off on IVF. Family wants to discuss about DBE -will defer to GI. Pt with no bowel
movement here. Hgb has remained stable overnight s/p 2u of PRBC so far. Ensure added as pt with not much appetite.
Original Note:
Today's Communication/Plan
-
repeat BMP
Encourage po intake
hgb stabilized
Assessment / Plan
Assessment / Plan
General: less pale today, sitting in chair
HEENT: NormoCephalic, Moist mucous membranes and Atraumatic
Respiratory: Clear
Cardiac: S1/S2 and Regular Rhythm; No Murmur or Rub
GI: Soft, Non Distended, Normal Bowel Sounds and Tender; No Organomegaly
Musculoskeletal: No Clubbing, No Cyanosis and No Edema
Skin: No Rash
Neuro: Nonfocal/grossly intact
Psych: Calm
# Symptomatic anemia likely secondary recurrent GI bleeding
- Hemoglobin 9.7 s/p 2u of PRBC. Goal Hgb>8
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
- s/p repeat EGD 01/13 normal esophagus. Erosive gastropathy with no bleeding and no stigmata of recent bleeding. 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
- GI consulted and recommended transfusion. Patient will eventually need double-balloon enteroscopy as outpatient-coordinate with Dr. Mar
#progressive weakness weakness secondary to GI bleed as well as CLL
#fall
- PT/OT consulted
- CT head negative.
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
#hxt of AAA s/p stents
-follows vascular at [place]
-plan for Biopsy next Monday.
#Esophageal Candidiasis
-finished the course of Fluconazole 200mg.
# History of CLL
-follows oncology as outpatient
# Chronic hyponatremia
- Na at 128. Mild downtrend.
-Fluid restriction added. Cont lasix
-monitor BMP
# Transaminitis
-continue to trend.
#paroxysmal atrial fibrillation
-s/p watchman
- continue metoprolol
#HFrEF-not in acute exacerbation
-daily weights
-I & Os
-hold Farxiga
-cont lasix
#COPD
- continue Incruse Ellipta
#BPH
- continue tamsulosin
#CLL
-follows with [facility] in [place]
-no current treatment
#GERD
-PPI continued
#HLD
-statin continued
#CVA
Code status: full code
DVT prophylaxis: SCDs in the setting of GI bleed
d/w with spouse in details on 01/28.
Anticipated Discharge: Within 24 hours
Subjective/Interval History
-
Date of Service: January 29, 2025
Not much appetite
feeling better after blood transfusion
intermittent R groin pain-chronic
denies any bowel last 24h
Objective Data
-
Labs:
Laboratory Results
01/29/25 01/29/25
06:39 14:00
WBC 25.7 H
Hgb 9.7 L
Hct 30.8 L
Plt Count 190
Sodium 128 L Pending
Potassium 3.9 Pending
Chloride 94 L Pending
Carbon Dioxide 30 Pending
BUN 14 Pending
Creatinine 0.5 L Pending
Glucose 88 Pending
Calcium 8.8 Pending
Vital Signs:
Vital Signs
Temp Pulse Resp BP Pulse Ox
97.9 F 81 18 131/58 96
01/29/25 07:30 01/29/25 10:32 01/29/25 07:30 01/29/25 10:32 01/29/25 07:30
I&O
01/28/25 01/29/25 01/30/25
06:59 06:59 06:59
Intake Total 200 / 200 740 / 740
Output Total 250 / 250 375 / 375
Balance -50 / -50 365 / 365
[2025-01-29] MEDS: LASIX 20 MG PO (11:10)
[2025-01-29] MEDS: ULTRAM 50 MG PO (11:13)
[2025-01-29] MEDS: DILAUDID 0.25 MG IV ×2 (13:18→22:22)
--- NOTE | 2025-01-29 14:01 | CM ---
CM reviewed chart, care ongoing.
Patient current with [facility], will continue services upon d/c.
CM will continue to follow for all d/c planning needs.
Plan; home with resumption of [facility]
--- NOTE | 2025-01-29 15:12 | W.PN.UPDATE ---
Update Note
Progress Note Update
Reviewed with about anemia issue with extensive work up thus far. Next step may be double balloon but pt responding to transfusion now hbg 9.7 I discussed with concern for transfer may delay bx next week and take several day to take
place. Recommended DBE as outpatient. Will try to reach to [place] for input.
[2025-01-29 15:28] VITALS: BP 116/64
[2025-01-29 15:29] LABS: ALT (SGPT) 82 U/L (0-50); AST (SGOT) 95 U/L (17-59); Albumin 2.5 g/dl (3.5-5.0); Alkaline Phosphatase 97 U/L (38-126); Total Protein 5.0 g/dl (6.3-8.2)
[2025-01-29 15:31] LABS: Blood Urea Nitrogen 13 mg/dl (9-20); Calcium 8.6 mg/dl (8.4-10.2); Carbon Dioxide 33 mmol/L (22-30); Chloride 91 mmol/L (98-107); Estimated Creatinine Clearance 90 ml/min; Glucose 117 mg/dl (70-99); Potassium 3.5 mmol/L (3.5-5.1); Sodium 127 mmol/L (135-145); eGFR > 60.00
[2025-01-29 23:16] VITALS: BP 127/70
[2025-01-30] MEDS: TYLENOL 650 MG PO ×4 (01:35→23:46)
[2025-01-30] MEDS: DILAUDID 0.25 MG IV ×4 (03:41→19:08)
[2025-01-30 06:00] VITALS: BMI 24.4
[2025-01-30 07:30] VITALS: BP 155/73
[2025-01-30] MEDS: SPIRIVA RESPIMAT 2.5 MCG 2 PUFF INH (07:30)
[2025-01-30] MEDS: CRESTOR 40 MG PO (07:50)
[2025-01-30] MEDS: LASIX 20 MG PO (07:51)
[2025-01-30] MEDS: KCL 10 MEQ PO (07:51)
[2025-01-30] MEDS: PROTONIX 40 MG PO ×2 (07:51→20:32)
[2025-01-30] MEDS: FLOMAX 0.4 MG PO (07:51)
[2025-01-30] MEDS: TOPROL XL 50 MG PO (07:52)
[2025-01-30 08:05] LABS: Hematocrit 29.5 % (39.0-52.0); Hemoglobin 9.1 g/dL (13.0-18.0); Mean Corp Hgb Conc. 30.8 g/dL (33.0-37.0); Mean Corpuscular Volume 80.8 fL (80.0-94.0); Nucleated Red Blood Cells % 0.3 % (-); Platelet Count 176 10^3/uL (130-400); Red Cell Dist. Width 21.1 % (11.5-14.5)
[2025-01-30 08:17] LABS: Blood Urea Nitrogen 12 mg/dl (9-20); Calcium 8.5 mg/dl (8.4-10.2); Carbon Dioxide 31 mmol/L (22-30); Chloride 93 mmol/L (98-107); Estimated Creatinine Clearance 90 ml/min; Glucose 92 mg/dl (70-99); Potassium 3.8 mmol/L (3.5-5.1); Sodium 127 mmol/L (135-145); eGFR > 60.00
--- NOTE | 2025-01-30 11:44 | W.PN.HOSP.TC ---
Addendum entered and electronically signed by Sharad Navarro MD 01/30/25 13:19:
Subacute blood loss anemia with baseline chronic anemia
Original Note:
Today's Communication/Plan
-
advance diet
trend hgb-seems to have stabilized
no bm
Await GI input
increase po intake
Assessment / Plan
Assessment / Plan
General: in no acute distress,
HEENT: NormoCephalic, Moist mucous membranes and Atraumatic
Respiratory: Clear
Cardiac: S1/S2 and Regular Rhythm; No Murmur or Rub
GI: Soft, Non Distended, Normal Bowel Sounds and Tender; No Organomegaly
Musculoskeletal: No Clubbing, No Cyanosis and No Edema
Skin: No Rash
Neuro: Nonfocal/grossly intact
Psych: Calm
# Symptomatic anemia likely secondary recurrent GI bleeding-seems to have stopped
- Hemoglobin 9.1 s/p 2u of PRBC. Goal Hgb>8
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
- s/p repeat EGD 01/13 normal esophagus. Erosive gastropathy with no bleeding and no stigmata of recent bleeding. 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
- GI on board and will d/w case with [facility]. However, patient with no bm for days and bleeding has stopped.
#progressive weakness weakness secondary to GI bleed as well as CLL
#Fall
- PT/OT consulted
- CT head negative.
- advanced to regular diet. Ensure added. Encourage to increase po intake
#recent CT with stranding along excluded sac as well as proximal iliac limbs with extensive lymphadenopathy
#likely abdominal pain secondary to lymphadenopathy
#hxt of AAA s/p stents
-follows vascular at [place]
-plan for Biopsy next Monday.
#Esophageal Candidiasis
-finished the course of Fluconazole 200mg.
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
- Na at 127. Mild downtrend.
-.Cont lasix
- monitor BMP
-received samsca last admit
-Does have mildly po intake/solutes. Encourage to eat more.
-nephro input
# Transaminitis
-mild improvement
#paroxysmal atrial fibrillation
-s/p watchman
-continue metoprolol
#HFrEF-not in acute exacerbation
-daily weights
-I & Os
-hold Farxiga
-cont lasix
#COPD
- continue Incruse Ellipta
#BPH
- continue tamsulosin
#CLL
-follows oncology as outpatient [facility] Dr. Jose Manuel Herrera. Last seen 01/02/25.
-no current treatment
#GERD
-PPI continued
#HLD
-statin continued
#CVA
Code status: full code
DVT prophylaxis: SCDs in the setting of anemia
d/w with spouse in details on 01/29.
PT- recs SNF. Unclear dispo at this time.
Anticipated Discharge: 24 - 48 hours
Subjective/Interval History
-
Date of Service: January 30, 2025
remains without bowel movement
states he is thirsty
Objective Data
-
Labs:
Laboratory Results
01/30/25
06:55
WBC 23.1 H
Hgb 9.1 L
Hct 29.5 L
Plt Count 176
Sodium 127 L
Potassium 3.8
Chloride 93 L
Carbon Dioxide 31 H
BUN 12
Creatinine 0.5 L
Glucose 92
Calcium 8.5
Vital Signs:
Vital Signs
Temp Pulse Resp BP Pulse Ox
97.7 F 88 16 155/72 97
01/30/25 07:30 01/30/25 07:51 01/30/25 07:31 01/30/25 07:51 01/30/25 07:30
I&O
01/29/25 01/30/25 01/31/25
06:59 06:59 06:59
Intake Total 740 / 740 1200 / 1200
Output Total 375 / 375 1275 / 1275
Balance 365 / 365 -75 / -75
Data Reviewed
-
Total Time Spent with Patient (in minutes): 55
[2025-01-30 12:07] VITALS: BMI 24.4
--- NOTE | 2025-01-30 14:44 | W.PN.UPDATE ---
Update Note
Progress Note Update
Dr. Quintero review with Dr. Travon Starr for DBE as next step. With no stools for several days and stable hbg today will need OP eval. I discussed with and contact information given to and placed on discharged. Dr. Quintero sent
patient information to [facility] to set up. I stressed to need for close monitoring of hbg with hematology(follows with Dr. Herrera) or PCP. We also discussed EGD in past with difficulty passing scope and may have difficulty with DBE. Treatment if
unable to find bleeding would be hematology and continued transfusions and Iron as needed. Plan for repeat hbg in AM and possible discharge if otherwise stable. I updated Dr. Navarro. Pt also need follow up next week for biopsy to exclude other
medical issues with pain and adenopathy. All questions answered.
--- NOTE | 2025-01-30 14:51 | CM ---
CM reviewed chart, patient seen bedside.
CM discussed therapy recommendations of SNF- patient would like to return home with [facility].
Patient reports he has several appointments next week at [facility].
CM will continue to follow for all d/c planning needs.
Plan; [facility]
[2025-01-30 15:15] VITALS: BP 120/55
[2025-01-30 16:03] VITALS: BP 124/52; BP 83/37; BP 95/51; PULSE 88; PULSE 90; PULSE 96
--- NOTE | 2025-01-30 16:19 | W.CON.NEPH ---
Consultation
-
Date/Time Consultation Requested: 01/30/25 1202
Date/Time Consultation Performed: 01/30/25 1740
Requesting Provider: Sharad Riley
Performing Provider: Yojana Hernández
Reason for Consultation: Hypoantremia
Medical History
-
Chief Complaint: weakness
History of Present Illness:
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 He has hyperlipidemia which is controlled on statin therapy. He also
has known heart failure with reduced ejection fraction on chronic diuretic therapy as well as Farxiga. He has diagnosed CLL though not on active treatment. presented to ER with complaining of progressive weakness shortness of breath with exertion
over the last few weeks. patient had a fall today and hit his head on the floor due to the weakness on 01/27. Had remained with dark stool. patient has history of AAA with stents and concern for enlarged lymph nodes and was schedule for Biopsy as
out pt.
He was recently d/c with concern of GIB and underwent EGD On 01/13 with Erosive gastropathy with no bleeding and no stigmata of recent bleeding. 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
ampulla treated with APC. He has had intermittent hyponatremia episodes over the last 2 years as well though typically above 130. Most recent admit he required samsca for worsening hyponatremia and cotn lasix and FR at d/c. On this admit sodium was
131 and now decreasing to 127 hence nephrology consulted. He recieved PRBC with stable hb and felt no active bleeding currently, followed by GI. He offers no n/v. no abd pain,. NO BM since admit. No CP or sob. NO fever. No dysuria.
Past Medical History
Hyperlipidemia, coronary artery disease, AAA, cataracts, groin abscess, [place], ventricular tachycardia, bundle branch block, paroxysmal A-fib, pacemaker, diastolic heart failure, DJD, headache, sick sinus syndrome, TIA, CLL, UTI
Past Surgical History: Other (Pacer implantation, left groin abscess removal, stent, cardiac ablation, Watchman procedure,)
Social History
Tobacco: Former Smoker
Alcohol: Occasional
Drug: None
Personal:
Living: With Family
Family History
Family History: Not Pertinent
Allergies / Home Medications
Allergy/AdvReac Type Severity Reaction Status Date / Time
atorvastatin (From Lipitor) Allergy calf pain Verified 01/27/25 16:17
niacin Allergy 'not feel Verified 01/27/25 16:17
well'
oxycodone (From Percocet) Allergy Rash Verified 01/27/25 16:17
�Medication �Instructions �Recorded �Confirmed �Type
rosuvastatin 40 mg tablet 40 mg PO DAILY High Cholesterol 02/13/23 01/27/25 History
tamsulosin 0.4 mg capsule 0.4 mg PO DAILY Urinary Issue 02/13/23 01/27/25 History
umeclidinium 62.5 mcg/actuation 1 inh inhalation R DAILY COPD 02/13/23 01/27/25 History
blister powder for inhalation
(Incruse Ellipta)
potassium chloride 10 mEq 10 meq PO DAILY Electrolyte 02/17/23 01/27/25 Rx
capsule,extended release Repletion #30 caps
furosemide 20 mg tablet 20 mg PO DAILY Electrolyte 02/14/24 01/27/25 History
Repletion
metoprolol succinate 50 mg 50 mg PO DAILY Blood Pressure 10/16/24 01/27/25 History
tablet,extended release 24 hr
(Toprol XL)
acetaminophen 325 mg tablet 325 mg PO Q6HPRN PRN MILD PAIN 01/27/25 01/27/25 History
(Tylenol)
dapagliflozin propanediol 10 mg 10 mg PO DAILY Diabetes 01/27/25 01/27/25 History
tablet (Farxiga)
pantoprazole 40 mg tablet,delayed 40 mg PO BID Gastrointestinal Issue 01/27/25 01/27/25 History
release (Protonix)
polyethylene glycol 3350 17 gram 17 g PO DAILY Constipation 01/27/25 01/27/25 History
oral powder packet (Miralax)
tramadol 25 mg tablet 25 mg PO Q6HPRN PRN MODERATE Pain 01/27/25 01/27/25 History
Review of Systems
-
All other systems: Negative unless noted
Physical Exam
Vital Signs
Vital Signs
Temp Pulse Resp BP Pulse Ox
98.6 F 93 16 120/55 96
01/30/25 15:15 01/30/25 15:15 01/30/25 15:15 01/30/25 15:15 01/30/25 15:15
Lab Results
WBC 23.1 10^3/uL (4.8-10.8) H 01/30/25 06:55
RBC 3.65 10^6/uL (4.70-6.10) L 01/30/25 06:55
Hgb 9.1 g/dL (13.0-18.0) L 01/30/25 06:55
Hct 29.5 % (39.0-52.0) L 01/30/25 06:55
Plt Count 176 10^3/uL (130-400) 01/30/25 06:55
Sodium 127 mmol/L (135-145) L 01/30/25 06:55
Potassium 3.8 mmol/L (3.5-5.1) 01/30/25 06:55
Chloride 93 mmol/L (98-107) L 01/30/25 06:55
Carbon Dioxide 31 mmol/L (22-30) H 01/30/25 06:55
BUN 12 mg/dl (9-20) 01/30/25 06:55
Creatinine 0.5 mg/dL (0.7-1.3) L 01/30/25 06:55
eGFR > 60.00 01/30/25 06:55
Glucose 92 mg/dl (70-99) 01/30/25 06:55
Calcium 8.5 mg/dl (8.4-10.2) 01/30/25 06:55
Albumin 2.5 g/dl (3.5-5.0) L 01/29/25 06:39
Physical Exam
General: Awake, Alert, Oriented, AOx3, No Distress and Nontoxic
HEENT: EOMI, Conjunctivae Clear and Facial Symmetry
Respiratory: Clear, Normal Excursion and Nonlabored Respirations
Cardiac: S1/S2, Regular Rate/Rhythm and Murmur
Breast: Deferred by me
Abdomen: Soft, Nontender and Nondistended
Musculoskeletal: No Cyanosis and No Edema
Skin: No Rash
Neuro: Nonfocal/Grossly Intact
Psych: Mood/afflect pleasant, Insight/judgement good and Appropriate
Assessment/Plan
-
IMP;
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
Symptomatic anemia likely secondary recurrent GI bleeding
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
- s/p repeat EGD 01/13 normal esophagus. Erosive gastropathy with no bleeding and no stigmata of recent bleeding. 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
progressive weakness weakness secondary to GI bleed as well as CLL
Fall
recent CT with stranding along excluded sac as well as proximal iliac limbs with extensive lymphadenopathy
abdominal pain secondary to lymphadenopathy
hxt of AAA s/p stents, Fenestrated EVAR
Esophageal Candidiasis
Transaminitis
paroxysmal atrial fibrillation-s/p watchman
HFrEF
COPD
BPH
CLL-no active treatment
GERD
HLD
CVA
Plan:
A/w concern of GIB, s/p PRBC , known angioectasias
acute on chr hyponatremia-SIADH
U osmo 454, U na 101, CXR clear
BP stable with out hypotension
will dose samca today
normal renal function
encourage solute intake
follow labs
d/w pt and nursing
[2025-01-31 00:15] VITALS: BP 108/56
[2025-01-31] MEDS: ULTRAM 50 MG PO ×2 (03:46→23:20)
[2025-01-31] MEDS: DILAUDID 0.25 MG IV ×3 (05:08→19:33)
[2025-01-31 07:30] VITALS: BP 147/58
[2025-01-31] MEDS: SPIRIVA RESPIMAT 2.5 MCG 2 PUFF INH (07:49)
[2025-01-31 07:53] LABS: Hematocrit 27.8 % (39.0-52.0); Hemoglobin 8.6 g/dL (13.0-18.0); Mean Corp Hgb Conc. 30.9 g/dL (33.0-37.0); Mean Corpuscular Volume 81.0 fL (80.0-94.0); Nucleated Red Blood Cells % 0.2 % (-); Platelet Count 180 10^3/uL (130-400); Red Cell Dist. Width 20.8 % (11.5-14.5)
[2025-01-31 08:09] LABS: Blood Urea Nitrogen 20 mg/dl (9-20); Calcium 8.4 mg/dl (8.4-10.2); Carbon Dioxide 33 mmol/L (22-30); Chloride 93 mmol/L (98-107); Estimated Creatinine Clearance 90 ml/min; Glucose 107 mg/dl (70-99); Potassium 3.6 mmol/L (3.5-5.1); Sodium 129 mmol/L (135-145); eGFR > 60.00
[2025-01-31] MEDS: TYLENOL 650 MG PO (08:26)
[2025-01-31] MEDS: CRESTOR 40 MG PO (08:26)
[2025-01-31] MEDS: PROTONIX 40 MG PO ×2 (08:27→19:33)
[2025-01-31] MEDS: TOPROL XL 50 MG PO (08:27)
[2025-01-31] MEDS: KCL 10 MEQ PO (08:27)
[2025-01-31] MEDS: FLOMAX 0.4 MG PO (08:27)
[2025-01-31] MEDS: LASIX 20 MG PO (08:27)
--- NOTE | 2025-01-31 09:24 | PN.CDI ---
CDI
- -
CDI:
Physician Documentation Request
Admit Date: 01/27/25 14:14
Dear Doctor,
Please review the following and provide your response in the progress notes.
Clinical Indicators:
Pt admitted for Symptomatic anemia likely secondary recurrent GI bleeding.
01/31 Registered Dietitian Note: ' Follow up as per level of care. Re-assessment due to weight loss...
Meal intake: avg. 90% (nurse's documentation)...
Current BW: (01/30) 155 lbs 8 oz BMI: 24.4 (normal). Weight history (10/18/24) 184 [address]
RD ordered fortified pudding BID
Patient meets AND and ASPEN criteria for severe protein calorie malnutrition of chronic disease due to a loss of more than 7.5% BW loss over one month and less than 75% of estimated nutrition needs met for more than 1 month.'
Based on the above information and your assessment, which of the following most accurately represents the patient's nutritional status?
Severe Protein Calorie Malnutrition
Other (please specify)
[place] Criteria (ACP Hospitalist 2017)
2 or more criteria must be present for either
non severe or severe malnutrition
Note that the criteria differs related to the
presence of an acute or chronic illness
Chronic Illness
Energy Intake Non Severe: <75% for >1 month
Severe: <75% for >1 month
Weight Loss Non Severe: 5% over 1 month
7.5% over 3 months
10% over 6 months
20% over 1 year
Severe: >5% over 1 month
>7.5% over 3 months
>10% over 6 months
>20% over 1 year
Body Fat Non Severe: Mild Loss
Severe: Severe Loss
Muscle Mass Non Severe: Mild Loss
Severe: Severe Loss
Fluid Accumulation Non Severe: Mild Accumulation
Severe: Moderate to severe
accumulation
Reduced Senior Account Manager Strength Non Severe: N/A
Severe: Measurably reduced
Use of terms such as suspected, likely, concern for, or probable (associated with a specific diagnosis that is being evaluated, monitored, or treated as if it exists) are acceptable and can be coded in the inpatient setting, when documented at the
time of discharge.
Thank you,
Serenity Villalobos RN, BSN
CDI Specialist
[place] Text
Please use your independent medical judgment in providing your response.
[2025-01-31 11:18] VITALS: BP 106/68; BP 86/56; PULSE 104; PULSE 94
--- NOTE | 2025-01-31 11:20 | W.PN.HOSP.TC ---
Today's Communication/Plan
-
trend hgb
trend bmp
oob/encourage po intake
ppi bid
Assessment / Plan
Assessment / Plan
General: in no acute distress,
HEENT: NormoCephalic, Moist mucous membranes and Atraumatic
Respiratory: Clear
Cardiac: S1/S2 and Regular Rhythm; No Murmur or Rub
GI: Soft, Non Distended, Normal Bowel Sounds and Tender; No Organomegaly
Musculoskeletal: No Clubbing, No Cyanosis and No Edema
Skin: No Rash
Neuro: Nonfocal/grossly intact
Psych: Calm
# Symptomatic anemia likely secondary recurrent GI bleeding in the setting of CLL
# Subacute blood loss anemia with baseline chronic anemia
- Hemoglobin 8.6 s/p 2u of PRBC. Having formed brown bowel movements. No active signs of bleeding. No significant bump in hemoglobin also has history of CLL.
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
- s/p repeat EGD 01/13 normal esophagus. Erosive gastropathy with no bleeding and no stigmata of recent bleeding. 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
- Dr. Quintero discussed with manager of warehouse at [facility] and they recommended outpatient follow-up. Please see gastroenterology correspondence for complete details.
#progressive weakness weakness secondary to GI bleed as well as CLL
#Fall
- PT/OT consulted
- CT head negative.
- advanced to regular diet. Ensure added. Encourage to increase po intake. Appetite slowly improving.
#recent CT with stranding along excluded sac as well as proximal iliac limbs with extensive lymphadenopathy
#likely abdominal pain secondary to lymphadenopathy
#hxt of AAA s/p stents
-follows vascular at [place]
-plan for Biopsy next Monday.
#Esophageal Candidiasis
-finished the course of Fluconazole 200mg.
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
- Na at 129.
-.Cont lasix
- monitor BMP
-received samsca last admit
-Does have mildly po intake/solutes. Encourage to eat more.
-nephro input
# Transaminitis
-mild improvement
#paroxysmal atrial fibrillation
-s/p watchman
-continue metoprolol
#HFrEF-not in acute exacerbation
-daily weights
-I & Os
-hold Farxiga
-cont lasix
#COPD
- continue Incruse Ellipta
#BPH
- continue tamsulosin
#CLL
-follows oncology as outpatient [facility] Dr. Jose Manuel Herrera. Last seen 01/02/25.
-no current treatment
#GERD
-PPI continued
#HLD
-statin continued
#CVA
Code status: full code
DVT prophylaxis: SCDs in the setting of anemia
d/w with spouse in details on 01/29.
PT- recs SNF. Unclear dispo at this time.
Anticipated Discharge: Within 24 hours
Subjective/Interval History
-
Date of Service: January 31, 2025
Had formed brown-colored bowel movement
In better spirits today
Appetite is improving
Objective Data
-
Labs:
Laboratory Results
01/31/25
07:02
WBC 22.4 H
Hgb 8.6 L
Hct 27.8 L
Plt Count 180
Sodium 129 L
Potassium 3.6
Chloride 93 L
Carbon Dioxide 33 H
BUN 20
Creatinine 0.5 L
Glucose 107 H
Calcium 8.4
Vital Signs:
Vital Signs
Temp Pulse Resp BP Pulse Ox
98.6 F 91 14 147/58 95
01/31/25 07:30 01/31/25 08:27 01/31/25 07:51 01/31/25 08:27 01/31/25 07:30
I&O
01/30/25 01/31/25 02/01/25
06:59 06:59 06:59
Intake Total 1200 / 1200 1080 / 1080
Output Total 1275 / 1275 700 / 700
Balance -75 / -75 380 / 380
Data Reviewed
-
Total Time Spent with Patient (in minutes): 55
[2025-01-31 14:02] VITALS: BP 102/45; BP 111/56; BP 119/58
[2025-01-31 15:22] VITALS: BP 127/55
[2025-01-31 15:34] VITALS: BMI 24.4
--- NOTE | 2025-01-31 15:58 | W.PN.NEPH.PH ---
Today's Communication / Plan
-
Add fluid restriction
Follow BMP
Assessment/Plan
-
IMP;
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
Symptomatic anemia likely secondary recurrent GI bleeding
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
- s/p repeat EGD 01/13 normal esophagus. Erosive gastropathy with no bleeding and no stigmata of recent bleeding. 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
progressive weakness weakness secondary to GI bleed as well as CLL
Fall
recent CT with stranding along excluded sac as well as proximal iliac limbs with extensive lymphadenopathy
abdominal pain secondary to lymphadenopathy
hxt of AAA s/p stents, Fenestrated EVAR
Esophageal Candidiasis
Transaminitis
paroxysmal atrial fibrillation-s/p watchman
HFrEF
COPD
BPH
CLL-no active treatment
GERD
HLD
CVA
Plan:
A/w concern of GIB, s/p PRBC , known angioectasias
acute on chronic hyponatremia-SIADH , add fluid restriction 48 ounces daily
U osmo 454, U na 101, CXR clear
BP stable with out hypotension
Sodium up to 129 following [facility]a administration on 01/30/2025
normal renal function
encourage solute intake
follow labs
d/w pt and nursing
-
-
Date of Service: January 31, 2025
CC / HPI / ROS
-
Chief Complaint:
Hyponatremia
History of Present Illness:
Serum sodium up to 129 following [facility]a intervention
Hemodynamically stable
Review of Systems:
Nonoliguric
No fever
No reported chest pain
Labs
-
Labs:
WBC 22.4 10^3/uL (4.8-10.8) H 01/31/25 07:02
RBC 3.43 10^6/uL (4.70-6.10) L 01/31/25 07:02
Hgb 8.6 g/dL (13.0-18.0) L 01/31/25 07:02
Hct 27.8 % (39.0-52.0) L 01/31/25 07:02
Plt Count 180 10^3/uL (130-400) 01/31/25 07:02
Sodium 129 mmol/L (135-145) L 01/31/25 07:02
Potassium 3.6 mmol/L (3.5-5.1) 01/31/25 07:02
Chloride 93 mmol/L (98-107) L 01/31/25 07:02
Carbon Dioxide 33 mmol/L (22-30) H 01/31/25 07:02
BUN 20 mg/dl (9-20) 01/31/25 07:02
Creatinine 0.5 mg/dL (0.7-1.3) L 01/31/25 07:02
eGFR > 60.00 01/31/25 07:02
Glucose 107 mg/dl (70-99) H 01/31/25 07:02
Calcium 8.4 mg/dl (8.4-10.2) 01/31/25 07:02
Albumin 2.5 g/dl (3.5-5.0) L 01/29/25 06:39
Physical Exam
-
Vital Signs:
Vital Signs
Temp Pulse Resp BP Pulse Ox
98.6 F 96 16 127/55 98
01/31/25 15:22 01/31/25 15:22 01/31/25 15:22 01/31/25 15:22 01/31/25 15:34
Cardiovascular:: Regular rate and rhythm
Respiratory:: Bilateral: CTA
Lung Excursion:: Normal
Abdomen:: Nontender and Soft
Bowel Sounds:: Normal
Extremity Edema:: +1: Bilateral:
[2025-01-31 21:48] LABS: Glucose - Point of Care 142 mg/dl (70-99)
[2025-01-31 23:29] VITALS: BP 136/54
[2025-02-01] MEDS: DILAUDID 0.25 MG IV ×2 (00:24→05:34)
[2025-02-01 05:40] VITALS: BMI 24.0
[2025-02-01 07:26] LABS: Hematocrit 27.7 % (39.0-52.0); Hemoglobin 8.1 g/dL (13.0-18.0); Mean Corp Hgb Conc. 29.2 g/dL (33.0-37.0); Mean Corpuscular Volume 83.9 fL (80.0-94.0); Platelet Count 180 10^3/uL (130-400); Red Cell Dist. Width 21.2 % (11.5-14.5)
[2025-02-01 08:00] VITALS: BP 121/96; BP 141/68; PULSE 104; PULSE 83
[2025-02-01 08:00] LABS: Blood Urea Nitrogen 26 mg/dl (9-20); Calcium 8.5 mg/dl (8.4-10.2); Carbon Dioxide 32 mmol/L (22-30); Chloride 94 mmol/L (98-107); Estimated Creatinine Clearance 90 ml/min; Glucose 115 mg/dl (70-99); Potassium 3.5 mmol/L (3.5-5.1); Sodium 132 mmol/L (135-145); eGFR > 60.00
[2025-02-01 08:10] LABS: Absolute Neutrophils -Man Diff 23.5 10^3/uL (1.4-6.5); Anisocytosis 1+; Normal RBC Morphology No; Platelets Checked Yes
[2025-02-01 08:11] LABS: Hypochromasia 2+; Ovalocytes 1+; Polychromasia 2+; Stomatocytes 1+; Target Cells FEW; Total Cells Counted 100
[2025-02-01] MEDS: SPIRIVA RESPIMAT 2.5 MCG 2 PUFF INH (08:24)
[2025-02-01] MEDS: CRESTOR 40 MG PO (08:36)
[2025-02-01] MEDS: FLOMAX 0.4 MG PO (08:36)
[2025-02-01] MEDS: TOPROL XL 50 MG PO (08:36)
[2025-02-01] MEDS: PROTONIX 40 MG PO ×2 (08:36→19:31)
[2025-02-01] MEDS: KCL 10 MEQ PO (08:37)
[2025-02-01] MEDS: LASIX 20 MG PO (08:37)
[2025-02-01] MEDS: TYLENOL 650 MG PO ×2 (08:44→19:31)
--- NOTE | 2025-02-01 11:14 | CM ---
Patient seen at bedside
PT rec SNF - patient and agreeable
[email or web address] packet left in room
will enter [facility] referral, to review packet & give additional facilities to enter
PLAN: SNF, pending bed availability
[2025-02-01] MEDS: ULTRAM 50 MG PO ×2 (11:23→18:22)
--- NOTE | 2025-02-01 11:44 | W.PN.HOSP.TC ---
Today's Communication/Plan
-
bowel regimen
oob
trend hgb -may require transfusion prior to dc to SNF
Assessment / Plan
Assessment / Plan
General: in no acute distress,
HEENT: NormoCephalic, Moist mucous membranes and Atraumatic
Respiratory: Clear
Cardiac: S1/S2 and Regular Rhythm; No Murmur or Rub
GI: Soft, Non Distended, Normal Bowel Sounds and Tender; No Organomegaly
Musculoskeletal: No Clubbing, No Cyanosis and No Edema
Skin: No Rash
Neuro: Nonfocal/grossly intact
Psych: Calm
# Symptomatic anemia likely secondary recurrent GI bleeding in the setting of CLL
# Subacute blood loss anemia with baseline chronic anemia
- Hemoglobin 8.1 s/p 2u of PRBC. Having formed brown bowel movements. No active signs of bleeding. Component of anemia also likely from CLL.
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
- s/p repeat EGD 01/13 normal esophagus. Erosive gastropathy with no bleeding and no stigmata of recent bleeding. 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
- Dr. Quintero discussed with vest busheler at [facility] and they recommended outpatient follow-up. Please see gastroenterology correspondence for complete details.
#progressive weakness weakness secondary to GI bleed as well as CLL
#Fall
- PT/OT consulted
- CT head negative.
- advanced to regular diet. Ensure added. Encourage to increase po intake. Appetite slowly improving.
#recent CT with stranding along excluded sac as well as proximal iliac limbs with extensive lymphadenopathy
#likely abdominal pain secondary to lymphadenopathy
#hxt of AAA s/p stents
-follows vascular at [place]
-plan for Biopsy next Monday.
#Esophageal Candidiasis
-finished the course of Fluconazole 200mg.
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
- Na improving at 132.
-.Cont lasix
- monitor BMP
-received [facility] last admit
-Does have mildly po intake/solutes. Encourage to eat more.
-nephro input
# Transaminitis
-mild improvement
#paroxysmal atrial fibrillation
-s/p watchman
-continue metoprolol
#HFrEF-not in acute exacerbation
-daily weights
-I & Os
-hold Farxiga
-cont lasix
#COPD
- continue Incruse Ellipta
#BPH
- continue tamsulosin
#CLL
#Leukocytosis likely secondary to CLL
-follows oncology as outpatient [facility] Dr. Jose Manuel Herrera. Last seen 01/02/25.
-no current treatment
-Remains afebrile. Some component could be from reactive
#GERD
-PPI continued
#HLD
-statin continued
#CVA
# Severe protein caloric malnutrition due to chronic disease
- Encourage p.o. intake. Ensure added. Dietary following.
Code status: full code
DVT prophylaxis: SCDs in the setting of anemia
d/w with spouse in details on 01/29.
PT- recs SNF. Pt/spouse now wants to go SNF. CM aware.
Anticipated Discharge: Within 24 hours
Subjective/Interval History
-
Date of Service: February 01, 2025
states of intermittent abd cramps
Objective Data
-
Labs:
Laboratory Results
02/01/25
06:22
WBC 25.3 H
Hgb 8.1 L
Hct 27.7 L
Plt Count 180
Sodium 132 L
Potassium 3.5
Chloride 94 L
Carbon Dioxide 32 H
BUN 26 H
Creatinine 0.6 L
Glucose 115 H
Calcium 8.5
Vital Signs:
Vital Signs
Temp Pulse Resp BP Pulse Ox
97.7 F 93 16 141/68 95
02/01/25 08:00 02/01/25 08:26 02/01/25 08:26 02/01/25 08:00 02/01/25 08:26
I&O
01/31/25 02/01/25 02/02/25
06:59 06:59 06:59
Intake Total 1080 / 1080 660 / 660
Output Total 700 / 700 800 / 800
Balance 380 / 380 -140 / -140
[2025-02-01] MEDS: MIRALAX 17 GRAMS PO (12:21)
[2025-02-01] MEDS: MYLICON 80 MG PO (13:48)
[2025-02-01 15:32] VITALS: BP 115/54
--- NOTE | 2025-02-01 15:43 | W.PN.NEPH.PH ---
Today's Communication / Plan
-
Chief Complaint:
Hyponatremia
History of Present Illness:
Review of Systems:
Assessment/Plan
-
IMP;
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
Symptomatic anemia likely secondary recurrent GI bleeding
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
- s/p repeat EGD 01/13 normal esophagus. Erosive gastropathy with no bleeding and no stigmata of recent bleeding. 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
progressive weakness weakness secondary to GI bleed as well as CLL
Fall
recent CT with stranding along excluded sac as well as proximal iliac limbs with extensive lymphadenopathy
abdominal pain secondary to lymphadenopathy
hxt of AAA s/p stents, Fenestrated EVAR
Esophageal Candidiasis
Transaminitis
paroxysmal atrial fibrillation-s/p watchman
HFrEF
COPD
BPH
CLL-no active treatment
GERD
HLD
CVA
Plan:
Sodium stable at 132, last Samsca administration was on 01/30/2025
A/w concern of GIB, s/p PRBC , known angioectasias
acute on chronic hyponatremia-SIADH , add fluid restriction 48 ounces daily
U osmo 454, U na 101, CXR clear
BP stable with out hypotension
normal renal function
encourage solute intake
follow labs
-
-
Date of Service: February 01, 2025
CC / HPI / ROS
-
Chief Complaint:
Hyponatremia
History of Present Illness:
Serum sodium up to 130 following [facility] intervention on 01/30/2025
Hemodynamically stable
Review of Systems:
Nonoliguric
No fever
No reported chest pain
Labs
-
Labs:
WBC 25.3 10^3/uL (4.8-10.8) H 02/01/25 06:22
RBC 3.30 10^6/uL (4.70-6.10) L 02/01/25 06:22
Hgb 8.1 g/dL (13.0-18.0) L 02/01/25 06:22
Hct 27.7 % (39.0-52.0) L 02/01/25 06:22
Plt Count 180 10^3/uL (130-400) 02/01/25 06:22
Sodium 132 mmol/L (135-145) L 02/01/25 06:22
Potassium 3.5 mmol/L (3.5-5.1) 02/01/25 06:22
Chloride 94 mmol/L (98-107) L 02/01/25 06:22
Carbon Dioxide 32 mmol/L (22-30) H 02/01/25 06:22
BUN 26 mg/dl (9-20) H 02/01/25 06:22
Creatinine 0.6 mg/dL (0.7-1.3) L 02/01/25 06:22
eGFR > 60.00 02/01/25 06:22
Glucose 115 mg/dl (70-99) H 02/01/25 06:22
Calcium 8.5 mg/dl (8.4-10.2) 02/01/25 06:22
Albumin 2.5 g/dl (3.5-5.0) L 01/29/25 06:39
Physical Exam
-
Vital Signs:
Vital Signs
Temp Pulse Resp BP Pulse Ox
97.7 F 106 16 115/54 98
02/01/25 15:32 02/01/25 15:32 02/01/25 15:32 02/01/25 15:32 02/01/25 15:32
Cardiovascular:: Regular rate and rhythm
Respiratory:: Bilateral: CTA
Lung Excursion:: Normal
Abdomen:: Nontender and Soft
Bowel Sounds:: Normal
Extremity Edema:: +1: Bilateral:
[2025-02-01 19:38] VITALS: BP 99/70
[2025-02-01 23:46] VITALS: BP 137/59
[2025-02-02] MEDS: ULTRAM 50 MG PO ×2 (02:47→14:54)
[2025-02-02 06:00] VITALS: BMI 23.9
[2025-02-02 07:30] VITALS: BP 126/94
[2025-02-02 07:30] LABS: Hematocrit 26.5 % (39.0-52.0); Hemoglobin 8.0 g/dL (13.0-18.0); Mean Corp Hgb Conc. 30.2 g/dL (33.0-37.0); Mean Corpuscular Volume 80.8 fL (80.0-94.0); Platelet Count 166 10^3/uL (130-400); Red Cell Dist. Width 21.0 % (11.5-14.5)
[2025-02-02 07:33] LABS: Blood Urea Nitrogen 28 mg/dl (9-20); Calcium 8.9 mg/dl (8.4-10.2); Carbon Dioxide 34 mmol/L (22-30); Chloride 93 mmol/L (98-107); Estimated Creatinine Clearance 90 ml/min; Glucose 91 mg/dl (70-99); Potassium 3.9 mmol/L (3.5-5.1); Sodium 128 mmol/L (135-145); eGFR > 60.00
[2025-02-02] MEDS: SPIRIVA RESPIMAT 2.5 MCG 2 PUFF INH (08:06)
[2025-02-02] MEDS: CRESTOR 40 MG PO (08:43)
[2025-02-02] MEDS: LASIX 20 MG PO (08:44)
[2025-02-02] MEDS: KCL 10 MEQ PO (08:44)
[2025-02-02] MEDS: FLOMAX 0.4 MG PO (08:45)
[2025-02-02] MEDS: MIRALAX 17 GRAMS PO (08:45)
[2025-02-02] MEDS: PROTONIX 40 MG PO ×2 (08:45→19:29)
[2025-02-02] MEDS: TOPROL XL 50 MG PO (08:45)
[2025-02-02 08:52] LABS: Normal RBC Morphology No; Platelets Checked Yes
[2025-02-02 08:53] LABS: Anisocytosis 2+; Hypochromasia 2+; Microcytosis 3+; Polychromasia Slight; Target Cells 1+; Total Cells Counted 100
[2025-02-02] MEDS: ZOFRAN 4 MG IV (12:13)
--- NOTE | 2025-02-02 12:15 | W.PN.NEPH.PH ---
Today's Communication / Plan
-
follow bmp
maintain fluid restriction and lasix
Assessment/Plan
-
IMP;
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
Symptomatic anemia likely secondary recurrent GI bleeding
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
- s/p repeat EGD 01/13 normal esophagus. Erosive gastropathy with no bleeding and no stigmata of recent bleeding. 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
progressive weakness weakness secondary to GI bleed as well as CLL
Fall
recent CT with stranding along excluded sac as well as proximal iliac limbs with extensive lymphadenopathy
abdominal pain secondary to lymphadenopathy
hxt of AAA s/p stents, Fenestrated EVAR
Esophageal Candidiasis
Transaminitis
paroxysmal atrial fibrillation-s/p watchman
HFrEF
COPD
BPH
CLL-no active treatment
GERD
HLD
CVA
Plan:
Sodium stable at 128, last Samsca administration was on 01/30/2025
maintain lasix and fluid restriction
A/w concern of GIB, s/p PRBC , known angioectasias
acute on chronic hyponatremia-SIADH , maintained on fluid restriction 48 ounces daily
U osmo 454, U na 101, CXR clear
BP stable with out hypotension
normal renal function
encourage solute intake
follow labs
-
-
Date of Service: February 02, 2025
CC / HPI / ROS
-
Chief Complaint:
Hyponatremia
History of Present Illness:
Serum sodium up to 128 following [facility] intervention on 01/30/2025
Hemodynamically stable
Review of Systems:
Nonoliguric
No fever
No reported chest pain
Labs
-
Labs:
WBC 25.3 10^3/uL (4.8-10.8) H 02/02/25 05:17
RBC 3.28 10^6/uL (4.70-6.10) L 02/02/25 05:17
Hgb 8.0 g/dL (13.0-18.0) L 02/02/25 05:17
Hct 26.5 % (39.0-52.0) L 02/02/25 05:17
Plt Count 166 10^3/uL (130-400) 02/02/25 05:17
Sodium 128 mmol/L (135-145) L 02/02/25 05:17
Potassium 3.9 mmol/L (3.5-5.1) 02/02/25 05:17
Chloride 93 mmol/L (98-107) L 02/02/25 05:17
Carbon Dioxide 34 mmol/L (22-30) H 02/02/25 05:17
BUN 28 mg/dl (9-20) H 02/02/25 05:17
Creatinine 0.6 mg/dL (0.7-1.3) L 02/02/25 05:17
eGFR > 60.00 02/02/25 05:17
Glucose 91 mg/dl (70-99) 02/02/25 05:17
Calcium 8.9 mg/dl (8.4-10.2) 02/02/25 05:17
Albumin 2.5 g/dl (3.5-5.0) L 01/29/25 06:39
Physical Exam
-
Vital Signs:
Vital Signs
Temp Pulse Resp BP Pulse Ox
97.4 F 87 16 126/94 96
02/02/25 07:30 02/02/25 08:08 02/02/25 08:08 02/02/25 07:30 02/02/25 08:08
Cardiovascular:: Regular rate and rhythm
Respiratory:: Bilateral: CTA
Lung Excursion:: Normal
Abdomen:: Nontender and Soft
Bowel Sounds:: Normal
Extremity Edema:: +1: Bilateral:
--- NOTE | 2025-02-02 12:41 | W.PN.HOSP.TC ---
Today's Communication/Plan
-
CM for dispo
trend hgb
encourage po intake
Assessment / Plan
Assessment / Plan
General: in no acute distress,
HEENT: NormoCephalic, Moist mucous membranes and Atraumatic
Respiratory: Clear
Cardiac: S1/S2 and Regular Rhythm; No Murmur or Rub
GI: Soft, Non Distended, Normal Bowel Sounds and Tender; No Organomegaly
Musculoskeletal: No Clubbing, No Cyanosis and No Edema
Skin: No Rash
Neuro: Nonfocal/grossly intact
Psych: Calm
# Symptomatic anemia likely secondary recurrent GI bleeding in the setting of CLL
# Subacute blood loss anemia with baseline chronic anemia
- Hemoglobin 8 s/p 2u of PRBC. Having formed brown bowel movements. No active signs of bleeding. Component of anemia also likely from CLL.
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
- s/p repeat EGD 01/13 normal esophagus. Erosive gastropathy with no bleeding and no stigmata of recent bleeding. 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
- Dr. Quintero discussed with plastic jig and fixture builder at [facility] and they recommended outpatient follow-up. Please see gastroenterology correspondence for complete details.
#progressive weakness weakness secondary to GI bleed as well as CLL
#Fall
- PT/OT consulted
- CT head negative.
- advanced to regular diet. Ensure added. Encourage to increase po intake. Appetite slowly improving.
#recent CT with stranding along excluded sac as well as proximal iliac limbs with extensive lymphadenopathy
#likely abdominal pain secondary to lymphadenopathy
#hxt of AAA s/p stents
-follows vascular at [place]
-plan for Biopsy next Monday. If goes to SNF- hopefully SNF can make exception to go/arrange transport for appt or can he go to SNF close to [facility]?
#Esophageal Candidiasis
-finished the course of Fluconazole 200mg.
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
- Na downtrended to 128.
-.Cont lasix
- monitor BMP
-received [facility] last admit
-Does have mildly po intake/solutes. Encourage to eat more.
-nephro input
# Transaminitis
-mild improvement
#paroxysmal atrial fibrillation
-s/p watchman
-continue metoprolol
#HFrEF-not in acute exacerbation
-daily weights
-I & Os
-hold Farxiga
-cont lasix
#COPD
- continue Incruse Ellipta
#BPH
- continue tamsulosin
#CLL
#Leukocytosis likely secondary to CLL
-follows oncology as outpatient [facility] Dr. Jose Manuel Herrera. Last seen 01/02/25.
-no current treatment
-Remains afebrile. Some component could be from reactive
#GERD
-PPI continued
#HLD
-statin continued
#CVA
# Severe protein caloric malnutrition due to chronic disease
- Encourage p.o. intake. Ensure added. Dietary following.
Code status: full code
DVT prophylaxis: SCDs in the setting of anemia
Spouse updated on 02/02/25-all questions answered to her satisfaction.
PT- recs SNF. Pt/spouse now wants to go SNF. CM aware.
Anticipated Discharge: > 48 hours
Subjective/Interval History
-
Date of Service: February 02, 2025
had bm yesterday
episode of nausea/vomiting
Objective Data
-
Labs:
Laboratory Results
02/02/25
05:17
WBC 25.3 H
Hgb 8.0 L
Hct 26.5 L
Plt Count 166
Sodium 128 L
Potassium 3.9
Chloride 93 L
Carbon Dioxide 34 H
BUN 28 H
Creatinine 0.6 L
Glucose 91
Calcium 8.9
Vital Signs:
Vital Signs
Temp Pulse Resp BP Pulse Ox
97.4 F 87 16 126/94 96
02/02/25 07:30 02/02/25 08:08 02/02/25 08:08 02/02/25 07:30 02/02/25 08:08
I&O
02/01/25 02/02/25 02/03/25
06:59 06:59 06:59
Intake Total 660 / 660 440 / 440
Output Total 800 / 800 370 / 370
Balance -140 / -140 70 / 70
Data Reviewed
-
Total Time Spent with Patient (in minutes): 55
--- NOTE | 2025-02-02 14:15 | CM ---
CM met with pt and spouse at bedside. SNF referral sent to [facility]. [facility] snf referral pending review in [facility].
[2025-02-02 15:30] VITALS: BP 122/44
[2025-02-02] MEDS: TYLENOL 650 MG PO (19:29)
[2025-02-02 22:42] VITALS: BP 128/60
[2025-02-03] VITALS (7 sets, daily range): BP systolic 100–130; BP diastolic 41–57; PULSE 91; O2SAT 95; BMI 24.1
[2025-02-03] MEDS: ULTRAM 50 MG PO (01:11)
[2025-02-03] MEDS: TYLENOL 650 MG PO ×2 (06:37→16:22)
[2025-02-03 07:53] LABS: Hematocrit 24.4 % (39.0-52.0); Hemoglobin 7.4 g/dL (13.0-18.0); Mean Corp Hgb Conc. 30.3 g/dL (33.0-37.0); Mean Corpuscular Volume 81.9 fL (80.0-94.0); Nucleated Red Blood Cells % 0.3 % (-); Platelet Count 164 10^3/uL (130-400); Red Cell Dist. Width 20.9 % (11.5-14.5)
[2025-02-03 08:22] LABS: ALT (SGPT) 48 U/L (0-50); AST (SGOT) 73 U/L (17-59); Albumin 2.3 g/dl (3.5-5.0); Alkaline Phosphatase 81 U/L (38-126); Blood Urea Nitrogen 26 mg/dl (9-20); Calcium 8.8 mg/dl (8.4-10.2); Carbon Dioxide 35 mmol/L (22-30); Chloride 94 mmol/L (98-107); Estimated Creatinine Clearance 68 ml/min; Glucose 102 mg/dl (70-99); Potassium 4.0 mmol/L (3.5-5.1); Sodium 131 mmol/L (135-145); Total Protein 4.8 g/dl (6.3-8.2); eGFR > 60.00
[2025-02-03] MEDS: SPIRIVA RESPIMAT 2.5 MCG 2 PUFF INH (08:30)
[2025-02-03] MEDS: CRESTOR 40 MG PO (09:06)
[2025-02-03] MEDS: LASIX 20 MG PO (09:06)
[2025-02-03] MEDS: PROTONIX 40 MG PO ×2 (09:06→20:25)
[2025-02-03] MEDS: KCL 10 MEQ PO (09:06)
[2025-02-03] MEDS: FLOMAX 0.4 MG PO (09:07)
[2025-02-03] MEDS: MIRALAX 17 GRAMS PO (09:07)
[2025-02-03] MEDS: TOPROL XL 50 MG PO (09:07)
--- NOTE | 2025-02-03 09:20 | W.PN.HOSP.TC ---
Today's Communication/Plan
-
Give one unit of blood
dc later today if possible
Assessment / Plan
Assessment / Plan
Physical exam :
General: in no acute distress,
HEENT: Normocephalic, Moist mucous membranes and Atraumatic
Respiratory: Clear
Cardiac: S1/S2 and Regular Rhythm; No Murmur or Rub
GI: Soft, Non Distended, Normal Bowel Sounds and Tender; No Organomegaly
Musculoskeletal: No Clubbing, No Cyanosis and No Edema
Skin: No Rash
Neuro: Nonfocal/grossly intact
Psych: Calm
# Symptomatic anemia likely secondary recurrent GI bleeding in the setting of CLL
# Subacute blood loss anemia with baseline ( anemia of chronic disease)
- Hemoglobin 7.5 s/p 2u of PRBC. Will give anothe runit before discharge 02/03. Having formed brown bowel movements. No active signs of bleeding. Component of anemia also likely from CLL.
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
- s/p repeat EGD 01/13 normal esophagus. Erosive gastropathy with no bleeding and no stigmata of recent bleeding. 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
- Dr. Quintero discussed with director of plant operations at [facility] and they recommended outpatient follow-up. Please see gastroenterology correspondence for complete details.
#progressive weakness weakness secondary to GI bleed as well as CLL
#Fall
- PT/OT consulted
- CT head negative.
- advanced to regular diet. Ensure added. Encourage to increase po intake. Appetite slowly improving.
#recent CT with stranding along excluded sac as well as proximal iliac limbs with extensive lymphadenopathy
#likely abdominal pain secondary to lymphadenopathy
#hxt of AAA s/p stents
-follows vascular at [place] who is planning to do a Biopsy Wednesday. If goes to SNF.
#Esophageal Candidiasis
-finished the course of Fluconazole 200mg.
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
- Na downtrended to 128.
-.Cont lasix
- monitor BMP
-received [facility] last admit
-Does have mildly po intake/solutes. Encourage to eat more.
-nephro input
# Transaminitis
-mild improvement
#paroxysmal atrial fibrillation
-s/p watchman
-continue metoprolol
#HFrEF-not in acute exacerbation
-daily weights
-I & Os
-hold Farxiga
-cont lasix
#COPD
- continue Incruse Ellipta
#BPH
- continue tamsulosin
#CLL/ anemia of chronic disease
#Leukocytosis likely secondary to CLL
-follows oncology as outpatient [facility] Dr. Jose Manuel Herrera. Last seen 01/02/25.
-no current treatment
-Remains afebrile. Some component could be from reactive
#GERD
-PPI continued
#HLD
-statin continued
#CVA
# Severe protein caloric malnutrition due to chronic disease
- Encourage p.o. intake. Ensure added. Dietary following.
Code status: full code
DVT prophylaxis: SCDs in the setting of anemia
Spouse updated on 02/02/25-all questions answered to her satisfaction.
PT- recs SNF. Pt/spouse now wants to go SNF. CM aware.
Total dc time spent to see the patient, examine the patient, review data and lab results, discuss discharge/ treatment plan with patient, nursing staff around 67 minutes�
Anticipated Discharge: Today
Subjective/Interval History
-
Date of Service: February 03, 2025
Objective Data
-
Labs:
Laboratory Results
02/03/25
07:36
WBC 20.6 H
Hgb 7.4 L
Hct 24.4 L
Plt Count 164
Sodium 131 L
Potassium 4.0
Chloride 94 L
Carbon Dioxide 35 H
BUN 26 H
Creatinine 0.8
Glucose 102 H
Calcium 8.8
Total Bilirubin 0.8
AST 73 H
ALT 48
Alkaline Phosphatase 81
Vital Signs:
Vital Signs
Temp Pulse Resp BP Pulse Ox
97.7 F 80 18 111/48 97
02/03/25 07:30 02/03/25 09:07 02/03/25 08:37 02/03/25 09:07 02/03/25 08:37
I&O
02/02/25 02/03/25 02/04/25
06:59 06:59 06:59
Intake Total 440 / 440 120 / 120
Output Total 370 / 370 425 / 425
Balance 70 / 70 -305 / -305
--- NOTE | 2025-02-03 10:41 | CM ---
Addendum entered by Simran Davidson 02/03/25 14:10:
Patient spoke with CM about the biopsy and Patient for discharge to [facility] today. [phone]/fax [phone]. Patient reviewed IMM and is in agreement. Patient for transfer via ambulance. CM will continue to follow for discharge
planning needs.
Original Note:
Patient seen at bedside on . CM reviewed all scripts and sent request for confirmation to [facility] of bed availability. CM will continue to follow for discharge planning needs.
Plan; SNF:[facility]
--- NOTE | 2025-02-03 13:00 | W.PN.NEPH.PH ---
Today's Communication / Plan
-
follow BMP
Assessment/Plan
-
IMP;
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
Symptomatic anemia likely secondary recurrent GI bleeding
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
- s/p repeat EGD 01/13 normal esophagus. Erosive gastropathy with no bleeding and no stigmata of recent bleeding. 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
progressive weakness weakness secondary to GI bleed as well as CLL
Fall
recent CT with stranding along excluded sac as well as proximal iliac limbs with extensive lymphadenopathy
abdominal pain secondary to lymphadenopathy
hxt of AAA s/p stents, Fenestrated EVAR
Esophageal Candidiasis
Transaminitis
paroxysmal atrial fibrillation-s/p watchman
HFrEF
COPD
BPH
CLL-no active treatment
GERD
HLD
CVA
Plan:
possible dc
continue lasix and FR
BMP in 1 week
-
-
Date of Service: February 03, 2025
CC / HPI / ROS
-
Chief Complaint:
Hyponatremia
History of Present Illness:
Serum sodium up to 131
Hemodynamically stable
Review of Systems:
Nonoliguric
No fever
No reported chest pain
Labs
-
Labs:
WBC 20.6 10^3/uL (4.8-10.8) H 02/03/25 07:36
RBC 2.98 10^6/uL (4.70-6.10) L 02/03/25 07:36
Hgb 7.4 g/dL (13.0-18.0) L 02/03/25 07:36
Hct 24.4 % (39.0-52.0) L 02/03/25 07:36
Plt Count 164 10^3/uL (130-400) 02/03/25 07:36
Sodium 131 mmol/L (135-145) L 02/03/25 07:36
Potassium 4.0 mmol/L (3.5-5.1) 02/03/25 07:36
Chloride 94 mmol/L (98-107) L 02/03/25 07:36
Carbon Dioxide 35 mmol/L (22-30) H 02/03/25 07:36
BUN 26 mg/dl (9-20) H 02/03/25 07:36
Creatinine 0.8 mg/dL (0.7-1.3) 02/03/25 07:36
eGFR > 60.00 02/03/25 07:36
Glucose 102 mg/dl (70-99) H 02/03/25 07:36
Calcium 8.8 mg/dl (8.4-10.2) 02/03/25 07:36
Albumin 2.3 g/dl (3.5-5.0) L 02/03/25 07:36
Physical Exam
-
Vital Signs:
Vital Signs
Temp Pulse Resp BP Pulse Ox
97.7 F 80 18 111/48 97
02/03/25 07:30 02/03/25 09:07 02/03/25 08:37 02/03/25 09:07 02/03/25 08:37
Cardiovascular:: Regular rate and rhythm
Respiratory:: Bilateral: CTA
Lung Excursion:: Normal
Abdomen:: Nontender and Soft
Bowel Sounds:: Normal
Extremity Edema:: +1: Bilateral:
[2025-02-03] MEDS: ULTRAM 25 MG PO ×2 (13:54→20:24)
--- NOTE | 2025-02-03 15:46 | PTCARENOTE ---
This RN attempted to call report to [facility] x 2. No response and unable to leave . This RN will try again, prior to slate picker time at 1800.
--- NOTE | 2025-02-03 17:01 | PTCARENOTE ---
Patient no longer being discharged to [facility]. Plan is for patient to be transferred to [facility], tomorrow, in anticipation for his scheduled biopsy on Monday. This RN spoke with Stephanie, at [facility], who spoke with Dr. Quick. Per Dr. Quick, transfer
request will be put in by her tomorrow.
--- NOTE | 2025-02-03 17:33 | PTCARENOTE ---
x 1 unit PRBC transfused. Patient tolerated infusion well. No suspected reaction. Vital signs stable.
[2025-02-04] MEDS: TYLENOL 650 MG PO ×3 (00:46→16:44)
[2025-02-04 04:50] VITALS: BMI 24.2
[2025-02-04] MEDS: SPIRIVA RESPIMAT 2.5 MCG INH (07:29)
[2025-02-04] MEDS: PROTONIX 40 MG PO (08:03)
[2025-02-04] MEDS: KCL 10 MEQ PO (08:03)
[2025-02-04] MEDS: CRESTOR 40 MG PO (08:03)
[2025-02-04] MEDS: FLOMAX 0.4 MG PO (08:03)
[2025-02-04] MEDS: TOPROL XL 50 MG PO (08:04)
[2025-02-04 08:05] VITALS: BP 117/51
[2025-02-04] MEDS: MIRALAX 17 GRAMS PO (08:08)
[2025-02-04] MEDS: LASIX 20 MG PO (08:13)
[2025-02-04] MEDS: ULTRAM 25 MG PO ×2 (09:51→16:44)
--- NOTE | 2025-02-04 09:54 | W.PN.HOSP.TC ---
Today's Communication/Plan
-
dc to [facility] when bed is available
Assessment / Plan
Assessment / Plan
Physical exam :
General: in no acute distress,
HEENT: Normocephalic, Moist mucous membranes and Atraumatic
Respiratory: Clear
Cardiac: S1/S2 and Regular Rhythm; No Murmur or Rub
GI: Soft, Non Distended, Normal Bowel Sounds and Tender; No Organomegaly
Musculoskeletal: No Clubbing, No Cyanosis and No Edema
Skin: No Rash
Neuro: Nonfocal/grossly intact
Psych: Calm
# Symptomatic anemia likely secondary recurrent GI bleeding in the setting of CLL
# Subacute blood loss anemia with baseline ( anemia of chronic disease)
- Hemoglobin 7.5 s/p 3 units of PRBC. Patient is having formed brown bowel movements. No active signs of bleeding. Component of anemia also likely from CLL. Patient is scheduled to have double-balloon enteroscopy with Dr. Cool
Matty. Patient is known to have AVMs
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
- s/p repeat EGD 01/13 normal esophagus. Erosive gastropathy with no bleeding and no stigmata of recent bleeding. 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
- Dr. Quintero discussed with roller skater at [facility] and they recommended outpatient follow-up. Please see gastroenterology correspondence for complete details.
#progressive weakness weakness secondary to GI bleed as well as CLL
#Fall
- PT/OT consulted
- CT head negative.
- advanced to regular diet. Ensure added. Encourage to increase po intake. Appetite slowly improving.
#recent CT with stranding along excluded sac as well as proximal iliac limbs with extensive lymphadenopathy
#likely abdominal pain secondary to lymphadenopathy
#hxt of AAA s/p stents
-follows vascular at [facility] who is planning to do a Biopsy Monday. If goes to SNF.
#Esophageal Candidiasis
-finished the course of Fluconazole 200mg.
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
- Na downtrended to 128.
-.Cont lasix
- monitor BMP
-received samsca last admit
-Does have mildly po intake/solutes. Encourage to eat more.
-nephro input
# Transaminitis
-mild improvement
#paroxysmal atrial fibrillation
-s/p watchman
-continue metoprolol
#HFrEF-not in acute exacerbation
-daily weights
-I & Os
-hold Farxiga
-cont lasix
#COPD
- continue Incruse Ellipta
#BPH
- continue tamsulosin
#CLL/ anemia of chronic disease
#Leukocytosis likely secondary to CLL
-follows oncology as outpatient [facility] Dr. Jose Manuel Herrera. Last seen 01/02/25.
-no current treatment
-Remains afebrile. Some component could be from reactive
#GERD
-PPI continued
#HLD
-statin continued
#CVA
# Severe protein caloric malnutrition due to chronic disease
- Encourage p.o. intake. Ensure added. Dietary following.
Code status: full code
DVT prophylaxis: SCDs in the setting of anemia
Spouse updated on 02/02/25-all questions answered to her satisfaction.
PT- recs SNF. Pt/spouse now wants to go SNF. CM aware.
I received a call from [facility]/vascular surgery ( [employer]ENT[employer] - Stephanie with vascular)on evening of 02/03, they wanted to take the patient to finish vascular workup including biopsy that was originally planned on Monday 02/05. We held dc to [facility] as that what
patient and wanted. Patient signed consent to transfer, I called [facility] transfer center 02/[address] Montez who accepted the patient.
Total dc time spent to see the patient, examine the patient, review data and lab results, discuss discharge/ treatment plan with patient, nursing staff around 67 minutes�
Anticipated Discharge: Today
Subjective/Interval History
-
Date of Service: February 04, 2025
no complaints
Objective Data
-
Vital Signs:
Vital Signs
Temp Pulse Resp BP Pulse Ox
98.3 F 80 16 117/51 95
02/04/25 08:05 02/04/25 08:13 02/04/25 08:05 02/04/25 08:13 02/04/25 08:05
I&O
02/03/25 02/04/25 02/05/25
06:59 06:59 06:59
Intake Total 120 / 120 250 / 250
Output Total 425 / 425 150 / 150
Balance -305 / -305 100 / 100
[2025-02-04 10:29] LABS: Hemoglobin 8.1 g/dL (13.0-18.0)
[2025-02-04 12:03] VITALS: BP 88/43; BP 99/44
--- NOTE | 2025-02-04 14:14 | W.PN.NEPH.PH ---
Today's Communication / Plan
-
tx to [facility]
Assessment/Plan
-
IMP;
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
Symptomatic anemia likely secondary recurrent GI bleeding
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
- s/p repeat EGD 01/13 normal esophagus. Erosive gastropathy with no bleeding and no stigmata of recent bleeding. 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
progressive weakness weakness secondary to GI bleed as well as CLL
Fall
recent CT with stranding along excluded sac as well as proximal iliac limbs with extensive lymphadenopathy
abdominal pain secondary to lymphadenopathy
hxt of AAA s/p stents, Fenestrated EVAR
Esophageal Candidiasis
Transaminitis
paroxysmal atrial fibrillation-s/p watchman
HFrEF
COPD
BPH
CLL-no active treatment
GERD
HLD
CVA
Plan:
transfer to [facility]
continue lasix and FR
follow BMP
-
-
Date of Service: February 04, 2025
CC / HPI / ROS
-
Chief Complaint:
Hyponatremia
History of Present Illness:
Serum sodium up to 131 yesterday
Hemodynamically stable
Review of Systems:
Nonoliguric
No fever
No reported chest pain
Labs
-
Labs:
WBC 20.6 10^3/uL (4.8-10.8) H 02/03/25 07:36
RBC 2.98 10^6/uL (4.70-6.10) L 02/03/25 07:36
Hgb 8.1 g/dL (13.0-18.0) L 02/04/25 10:24
Hct 24.4 % (39.0-52.0) L 02/03/25 07:36
Plt Count 164 10^3/uL (130-400) 02/03/25 07:36
Sodium 131 mmol/L (135-145) L 02/03/25 07:36
Potassium 4.0 mmol/L (3.5-5.1) 02/03/25 07:36
Chloride 94 mmol/L (98-107) L 02/03/25 07:36
Carbon Dioxide 35 mmol/L (22-30) H 02/03/25 07:36
BUN 26 mg/dl (9-20) H 02/03/25 07:36
Creatinine 0.8 mg/dL (0.7-1.3) 02/03/25 07:36
eGFR > 60.00 02/03/25 07:36
Glucose 102 mg/dl (70-99) H 02/03/25 07:36
Calcium 8.8 mg/dl (8.4-10.2) 02/03/25 07:36
Albumin 2.3 g/dl (3.5-5.0) L 02/03/25 07:36
Physical Exam
-
Vital Signs:
Vital Signs
Temp Pulse Resp BP Pulse Ox
98.3 F 80 16 117/51 95
02/04/25 08:05 02/04/25 08:13 02/04/25 08:05 02/04/25 08:13 02/04/25 08:05
Cardiovascular:: Regular rate and rhythm
Lung Excursion:: Normal
Abdomen:: Nontender and Soft
Bowel Sounds:: Normal
Extremity Edema:: None: Bilateral:
--- NOTE | 2025-02-04 14:16 | CM ---
Addendum entered by Marlys Jones 02/04/25 14:42:
Transport changed to 18:00.
Original Note:
Patient has a bed at [facility] for specialized acute care services. Ambulance transport requested and scheduled for 16:00. notified via phone message. Physician to Physician contact completed.
[2025-02-04 15:39] VITALS: BP 93/47
--- NOTE | 2025-02-04 20:37 | TRANSFER ---
Patient discharged to [facility] via acute care transport . Patient left on stretcher with belongings. IV taken out by supriya MCMANUS. Report given to Jeremi at [facility].
--- NOTE | 2025-02-05 07:02 | W.DCSUMMARY ---
Discharge Summary
Discharge Data
Date of Admission: 01/27/25
Date of Discharge: 02/04/25
-
Pending Results: No
Hospital Course
79 years old male presented to the hospital with progressive weakness and anemia. Patient had history of lower GI bleeding secondary to arteriovenous malformations. Hemoglobin was 7.7 on admission. Patient received 2 units of blood transfusion.
He did not have active lower GI bleeding. His stools were brown in color. Patient was evaluated by compliance assistant. GI recommended double-balloon enteroscopy based on most recent capsule endoscopy study. Patient had abdominal discomfort and
felt secondary to ongoing lymphadenopathy and underlying vascular disease. Patient was noted to have hyponatremia secondary to SIADH. Patient was evaluated by craft recruiter. He was given tolvaptan and fluid restriction. Sodium improved to 131.
Patient was evaluated by physical therapy and recommended SNF placement. Patient had scheduled vascular procedure at [place] by his vascular surgeon Dr. Montez. Dr. Montez contacted medical service and requested to transfer the patient to [facility]
to do his procedure. Patient remained hemodynamically stable. He had received total of 3 units of blood transfusion and hemoglobin upon discharge was 8.1. Patient was advised to follow-up with his GI doctor and oncologist to treat underlying
chronic anemia. Patient was transferred to [facility] in a stable condition.
Discharge Plan
-
Patient Disposition: Acute Care Hospital
Discharge Orders:
Discharge Patient (As Directed); Ordered 02/03/25
Ordered By: Masood Quick
Discharge Date and Time
Discharge Date/Time: 02/04/25 19:40
Print Language: SAMI
== END 2025-02-04 19:40 | disposition short-term general hospital (02) | DRG 377 ==
LOC: 4 WEST ACU 14:14
PROVIDERS: Hospitalist; Registered Nurse; ADMITTING PHYSICIAN Hospitalist; ATTENDING PHYSICIAN Internal Medicine; CONSULT PHYSICIAN Internal Medicine; CONSULT PHYSICIAN Student in an Organized Health Care Education/Training Program; EMERGENCY PHYSICIAN Emergency Medicine; FAMILY PHYSICIAN Family Medicine
PROC: 30233N1 Transfusion of Nonautologous Red Blood Cells into Peripheral Vein, Percutaneous Approach (ICD-10-PCS; 2025-01-28)
DX: K92.2 Gastrointestinal hemorrhage, unspecified (principal); E43 Unspecified severe protein-calorie malnutrition; E22.2 Syndrome of inappropriate secretion of antidiuretic hormone; D62 Acute posthemorrhagic anemia; B37.81 Candidal esophagitis; I50.22 Chronic systolic (congestive) heart failure; C91.10 Chronic lymphocytic leukemia of B-cell type not having achieved remission; Q27.30 Arteriovenous malformation, site unspecified; I48.0 Paroxysmal atrial fibrillation; I25.10 Atherosclerotic heart disease of native coronary artery without angina pectoris; R74.01 Elevation of levels of liver transaminase levels; R59.0 Localized enlarged lymph nodes; D69.6 Thrombocytopenia, unspecified; I11.0 Hypertensive heart disease with heart failure; J44.9 Chronic obstructive pulmonary disease, unspecified; K21.9 Gastro-esophageal reflux disease without esophagitis; E78.5 Hyperlipidemia, unspecified; N40.0 Benign prostatic hyperplasia without lower urinary tract symptoms; Z68.24 Body mass index [BMI] 24.0-24.9, adult; Z79.899 Other long term (current) drug therapy; Z87.891 Personal history of nicotine dependence; Z95.0 Presence of cardiac pacemaker
CPT/HCPCS: 70450; 71046; 80048; 80053; 82248; 82962; 83930; 83935; 84300; 84484; 85014; 85018; 85025; 85027; 86850; 86900; 86901; 86920; 93005; 94640; 97163; 97166; 97530; 97535; 99285; P9016

== ENCOUNTER 2025-02-12 11:10 | Emergency (ER) | payer MEDICARE, OTHER, SELFPAY ==
[2025-02-12] VITALS (10 sets, daily range): BP systolic 93–112; BP diastolic 45–54; BMI 25.2
[2025-02-12 11:51] LABS: Hematocrit 28.0 % (39.0-52.0); Hemoglobin 8.4 g/dL (13.0-18.0); Mean Corp Hgb Conc. 30.0 g/dL (33.0-37.0); Mean Corpuscular Volume 82.8 fL (80.0-94.0); Platelet Count 141 10^3/uL (130-400); Red Cell Dist. Width 20.7 % (11.5-14.5)
[2025-02-12 12:03] LABS: ALT (SGPT) 21 U/L (0-50); AST (SGOT) 52 U/L (17-59); Albumin 2.4 g/dl (3.5-5.0); Alkaline Phosphatase 107 U/L (38-126); Blood Urea Nitrogen 17 mg/dl (9-20); Calcium 8.7 mg/dl (8.4-10.2); Carbon Dioxide 31 mmol/L (22-30); Chloride 94 mmol/L (98-107); Glucose 96 mg/dl (70-99); Lipase 190 U/L (23-300); Potassium 4.1 mmol/L (3.5-5.1); Sodium 127 mmol/L (135-145); Total Protein 5.0 g/dl (6.3-8.2); eGFR > 60.00
[2025-02-12 12:10] LABS: Nucleated Red Blood Cells % 0.5 % (-)
--- NOTE | 2025-02-12 13:26 | ED.GENMED ---
History of Present Illness
General
Chief Complaint: Abdominal Pain
Time Seen by Provider: 02/12/25 13:26
History of Present Illness
History of Present Illness:
FOCUSED PAST MEDICAL HISTORY
- COPD, A-fib, high blood pressure, CHF, had Watchman procedure, CLL, history of GI bleeding related to AVMs
REVIEW OF OLD RECORDS
- Patient was admitted with progressive weakness and anemia and was transfused during last admission, hyponatremia was felt to be related to SIADH
- I reviewed some of the notes listed by the nurses through phone calls on [employer]
- I reviewed additional notes from hospitalizations here at [place] in which patient also had abdominal pain which was felt to be secondary to lymphadenopathy
Note:
CHIEF COMPLAINT(S)
Left-sided abdominal pain and persistent vomiting for three days.
HISTORY OF PRESENT ILLNESS
The patient is an 79-year-old male with a recent history of lymph node removal surgery on the right side and ongoing evaluation for Chronic Lymphocytic Leukemia (CLL). He was transferred from a rehabilitation facility after being too weak to
participate in rehabilitative activities. On evaluation, the patient reports significant pain on the left side of the abdomen. He describes tenderness to palpation in this area, though denies any pain at the surgical site on the right side, which
appears to be healing well. The patient has been experiencing persistent vomiting for the past three days. He has been taking Tramadol 50 milligrams for pain management; however, the exact cause of the left-sided pain remains unclear.
PAST MEDICAL AND SURGICAL HISTORY
The patient had recent lymph node removal surgery on the right side.
EXTERNAL RECORDS REVIEWED
According to reviewed records, the patient has a white blood cell count of 34,000, which is elevated from previous counts but remains consistent with CLL rather than an acute infection. Previous hemoglobin levels showed improvement from 7.0 to 8.7.
The patients medical records from [facility] were reviewed, documenting this information.
CHRONIC MEDICAL CONDITIONS SIGNIFICANTLY AFFECTING CARE
Chronic Lymphocytic Leukemia (CLL).
PHYSICAL EXAM
General: Alert, no acute distress. Appears generally weak and debilitated
Skin: Appears somewhat pale
Head: Normocephalic, atraumatic.
Neck: Supple, trachea midline.
Eye Ears, nose, mouth and throat: Oral mucosa moist.
Cardiovascular: Normal peripheral perfusion, No edema.
Respiratory: Respirations are non-labored.
Gastrointestinal: Mild left lower quadrant tenderness with no peritoneal signs, surgical wound to the right lower quadrant shows no sign of infection and he has no tenderness in the right lower quadrant
Back: Normal range of motion, Normal alignment.
Musculoskeletal: Normal range of motion, normal strength.
Neurological: Alert and oriented to person, place, time, and situation, No focal neurological deficit observed.
Psychiatric: Cooperative, appropriate mood & affect.
PLAN
- Order a computed tomography (CT) scan of the abdomen to evaluate the cause of left-sided pain.
- Initiate intravenous (IV) access for contrast administration.
- Monitor lab results and reevaluate based on CT findings.
- If no significant findings are present, consider discharge back to the rehabilitation facility.
DIFFERENTIAL DIAGNOSIS
The Differential Diagnosis includes, in no particular order and is not limited to:
1. Post-surgical complication (such as hematoma or seroma)
2. Abdominal infection or abscess
3. Gastrointestinal obstruction
4. Acute kidney injury
5. Acute pancreatitis
6. Acute cholecystitis
7. Diverticulitis
8. Medication side effect (e.g., Tramadol-induced nausea/vomiting)
9. Musculoskeletal pain
10. Ischemic bowel disease.
RADIOLOGY
- Reviewed CT imaging and reviewed radiologist interpretation of that there is concern for endoleak however this appears to have been present in the past
LABS
- White count 34.2 (was 20.6 1 weeks ago), hemoglobin 8.4 slightly higher than 8.1 from 1 weeks ago, sodium slightly low at 127, LFTs and lipase unremarkable
UPDATE
- CT imaging abnormal and I initially discussed with Dr. Murry. He suggested that we contact vascular at [facility]. Significant delays with getting a hold of vascular at [facility].
- I did try to call the twice and it went straight to voicemail with no availability to leave a message as the voicemail box is full
- I called again from the patient's cell phone and again it went straight to voicemail
- Sodium has chronically been low
- Hemoglobin is improved compared to prior
- I discussed case with vascular, Dr. 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
- Throughout stay in the ED, the patient has remained appear fairly comfortable while resting on the stretcher as long as he does not sit upright
- Dr. Montez did not feel patient needed to be admitted to the hospital
- I further look for records at [facility] and I saw no sign of heme-onc notes here
- Dr. Montez said that he will reach out to oncology at [facility] will reach out to the patient for further plan
- Blood pressure slightly low here and we did give IV fluids prior to discharge back to [facility]
Past History
Past History
ED Past Medical History: Arrthythmia, COPD and Hypercholesterolemia
ED Past Surgical History: Cardiac (Pacemaker) and Orthopedic
Social History
Tobacco: Former smoker
Phy Exam
Physical Exam
Physical Exam:
See HPI
Course
Orders/Labs/Results
Orders:
Orders
02/12/25 11:35
Complete Blood Count/With Diff Urgent
Comprehensive Metabolic Panel Urgent
Lipase Urgent
02/12/25 13:52
0.9% Sodium Chloride 500 ml [Nss] 500 ml IV BOLUS
Ondansetron Injectable [Zofran] 4 mg IV NOW STA
02/12/25 13:53
CT Abd/pelvis W Iv Cont Urgent
Comment:
Reason For Exam: LLQ pain; recent RLQ lymph node bx; vomiting
02/12/25 19:56
0.9% Sodium Chloride 500 ml [Nss] 500 ml IV BOLUS
Abnormal Lab Results
02/12/25
11:35
WBC 34.2 H 10^3/uL
(4.8-10.8)
RBC 3.38 L 10^6/uL
(4.70-6.10)
Hgb 8.4 L g/dL
(13.0-18.0)
Hct 28.0 L %
(39.0-52.0)
MCH 24.9 L pg
(27.0-31.0)
MCHC 30.0 L g/dL
(33.0-37.0)
RDW 20.7 H %
(11.5-14.5)
Abs Immat Gran (auto) 0.4 H 10^3/uL
(0-0.05)
Absolute Neuts (auto) 28.0 H 10^3/uL
(1.4-6.5)
Absolute Lymphs (auto) 4.0 H 10^3/uL
(1.2-3.4)
Absolute Monos (auto) 1.8 H 10^3/uL
(0.1-0.6)
Immature Gran % 1.1 H %
(0-0.5)
Neutrophils % 81.9 H %
(42.2-75.2)
Lymphocytes % 11.7 L %
(20.5-51.1)
Sodium 127 L mmol/L
(135-145)
Chloride 94 L mmol/L
(98-107)
Carbon Dioxide 31 H mmol/L
(22-30)
Total Protein 5.0 L g/dl
(6.3-8.2)
Albumin 2.4 L g/dl
(3.5-5.0)
02/12/25 11:35
02/12/25 11:35
Vital Signs
Initial and Last Documented VS:
Initial Vital Signs
Temp Pulse Resp BP Pulse Ox
36.4 C 85 18 96/45 99
02/12/25 11:25 02/12/25 11:25 02/12/25 11:25 02/12/25 11:25 02/12/25 11:25
Last Documented Vital Signs
Temp Pulse Resp BP Pulse Ox
36.4 C 83 20 103/49 97
02/12/25 11:25 02/12/25 19:30 02/12/25 19:30 02/12/25 19:00 02/12/25 16:15
*Pulse Oximetry
SaO2: 99
Oxygen Mode of Delivery: Room air
Patient hypoxic: no
*Critical Care Note
Total Time (30-74mins, 75-104mins- exclusive of procedures): Not Applicable
ED Attending Note
-
Portions of this chart may have been created with voice recognition software.� Occasional wrong word or��sound alike� substitutions may have occurred due to the inherent limitations of voice recognition software.
Discharge Plan
Departure
Patient Disposition: Home (Routine Discharge)
Date of Disposition: 02/12/25
Time of Disposition: 20:06
Patient with high blood pressure during this ER visit?: Yes
Discharge Problem:
Abdominal pain
Instructions: Abdominal Pain
Prescriptions:
No Action
tamsulosin 0.4 mg capsule
0.4 mg PO DAILY
rosuvastatin 40 mg tablet
40 mg PO DAILY
Incruse Ellipta 62.5 mcg/actuation Blister With Device
1 inh INHALATION R DAILY
potassium chloride 10 mEq capsule, extended release
10 meq PO DAILY Qty: 30 0RF
furosemide 20 mg Tablet
20 mg PO DAILY
metoprolol succinate [Toprol XL] 50 mg Tablet Extended Release 24 Hr
50 mg PO DAILY
acetaminophen [Tylenol] 325 mg Tablet
325 mg PO Q6HPRN PRN (Reason: MILD PAIN)
polyethylene glycol 3350 [Miralax] 17 gram Powder In Packet
17 g PO DAILY
dapagliflozin propanediol [Farxiga] 10 mg Tablet
10 mg PO DAILY
Rx Instructions:
ON HOLD UNTIL 01/28/25
pantoprazole [Protonix] 40 mg tablet,delayed release (DR/EC)
40 mg PO BID
tramadol 25 mg tablet
25 mg PO Q6HPRN PRN (Reason: mod to severe pain) Qty: 0 0RF
Referrals:
Raphael Fenton, [Family Provider, Family Practice]
Activity Restrictions/Additional Instructions:
I spoke to Dr. Montez at [facility]. The CAT scan here showed concern for an endoleak however when I spoke to the doctor at [facility] this is old and would not be current new problem to explain your pain. They did just get the pathology report
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 They state that there is no good treatment for this but he said that they would reach out to your oncologist for further recommendations. They did not feel that you needed to be
transferred to [facility] at this time. Follow-up with your oncologist. I tried calling your twice but it went to voicemail twice and when you call it also went to voicemail as well.
Interventions
Interventions:
*Risk Screen - Suicide Last Done: 02/12/25 11:25
*General Assessment Last Done: 02/12/25 11:25
*Neglect/Abuse Screening Last Done: 02/12/25 11:25
*ED COVID-19 Vaccine History Last Done: 02/12/25 11:25
*ED Influenza Vaccine History Last Done: 02/12/25 11:[address]
[facility] Fall Risk Assessment Tool Last Done: 02/12/25 14:00
NP-Nacgfk-Tqdonsmylb Assessment Last Done: 02/12/25 15:00
Discharge Date and Time
Print Language: TAMAZIGHT
[2025-02-12] MEDS: NSS 500 IV ×2 (14:14→20:09)
[2025-02-12] MEDS: ZOFRAN 4 MG IV (14:14)
== END 2025-02-12 21:03 | disposition home or self-care (01) ==
LOC: EMR 11:10
PROVIDERS: Student in an Organized Health Care Education/Training Program; EMERGENCY PHYSICIAN Emergency Medicine; FAMILY PHYSICIAN Family Medicine
DX: R10.32 Left lower quadrant pain (principal); C91.10 Chronic lymphocytic leukemia of B-cell type not having achieved remission; I48.91 Unspecified atrial fibrillation; I11.0 Hypertensive heart disease with heart failure; I50.9 Heart failure, unspecified; E78.00 Pure hypercholesterolemia, unspecified; J44.9 Chronic obstructive pulmonary disease, unspecified; E22.2 Syndrome of inappropriate secretion of antidiuretic hormone; Z95.0 Presence of cardiac pacemaker; Z87.891 Personal history of nicotine dependence
CPT/HCPCS: 99284; 96374; 96361; 74177; 80053; 83690; 85025; Q9967

== ENCOUNTER 2025-02-27 22:10 | Inpatient (IN) | payer MEDICARE, OTHER, SELFPAY ==
[2025-02-27] VITALS (11 sets, daily range): BP systolic 82–107; BP diastolic 36–80; BMI 21.2
[2025-02-27 19:58] LABS: Hematocrit 23.0 % (39.0-52.0); Hemoglobin 6.5 g/dL (13.0-18.0); Mean Corp Hgb Conc. 28.3 g/dL (33.0-37.0); Mean Corpuscular Volume 84.6 fL (80.0-94.0); Red Cell Dist. Width 21.2 % (11.5-14.5)
[2025-02-27 20:01] LABS: INR 1.68; PT 19.5 Sec (11.4-14.6)
[2025-02-27 20:02] LABS: APTT 53.4 Sec (23.4-35.0)
--- NOTE | 2025-02-27 20:06 | ED.GENMED ---
History of Present Illness
General
Chief Complaint: Abnormal Lab Value
Source: patient, records, long term records and previous hospital records
Exam Limitations: clinical condition
Time Seen by Provider: 02/27/25 19:45
History of Present Illness
History of Present Illness:
79-year-old male complex past medical history CLL heart failure lung disease hyponatremia SIADH GI bleeding CHF obesity COPD pacemaker stroke iron deficiency anemia presents with abnormal labs states he has had some dark stool which is not uncommon
for him, he says he is on a blood thinner, nursing believes he is not on a blood thinner I evaluated the patient he is ill-appearing hypotensive pale just passed a form dark brown guaiac positive stool he was able to consent for blood, states he
feels fatigued and short of breath
Past History
Past History
ED Past Medical History: Arrthythmia, Cancer, COPD and Hypercholesterolemia
ED Past Surgical History: Cardiac (Pacemaker) and Orthopedic
Social History
Tobacco: Former smoker
Alcohol: None
Drug: None
Living: long term
Employment: Not employed
Family History
Family History: Unable to obtain
Review of Systems
Review of Systems
Unable to obtain full review of systems at this time due to: due to acuity
All Other Systems: Not applicable
Constitutional: Reports fatigue; Denies fever
Respiratory: Reports trouble breathing
Cardiac: Denies chest pain
ABD/GI: Reports black stools; Denies abdominal pain
: Reports no symptoms
Musculoskeletal: Reports no symptoms
Neurological: Reports weakness
Endocrine: Reports no symptoms
Hematologic/Lymphatic: Reports bleeding
Phy Exam
Physical Exam
Physical Exam:
Physical Exam
General: Ill-appearing male pale hypotensive
Neck: Pallor
Heart: Regular rate
Lungs: No crackle
Abdomen: Soft nontender brown guaiac positive stool in the bed
Neuro: Globally weak oriented to person place
Skin: no rash
Psychiatric: Flat affect
Extremities: Slight edema is present
Course
Orders/Labs/Results
Orders:
Orders
02/27/25 19:40
EKG [Electrocardiogram (*1)] Urgent
Reason for Study: Fatigue / Weakness
EKG- Treatment ONCE
02/27/25 19:41
Type And Crossmatch [Type+Screen] Urgent
Complete Blood Count/With Diff Urgent
Comprehensive Metabolic Panel Urgent
PTT Urgent
Prothrombin Time Urgent
02/27/25 20:05
CR Chest Portable - 1 View Urgent
Comment:
Reason For Exam: lwo bp low hgg
Reason Study Needs to be Portable: Patient Unstable
02/27/25 20:07
Urinalysis Reflex To Culture Urgent
Date Specimen was Collected: 02/27/25
Time Specimen was Collected: 20:06
Urine Microscopic Reflex Cult Urgent
Urine Culture Urgent
SASHA Source: U
Specimen Description:
Date Specimen was Collected: 02/27/25
Time Specimen was Collected: 20:06
02/27/25 20:31
Blood Bank Products [* Blood Bank Products] Urgent
Blood Bank Products: *Packed RBC Leuko (PRBC's
Quantity: 2
Transfuse Today: Yes
Reason: Anemia
02/27/25 20:33
Pantoprazole [Protonix IV] 40 mg IV NOW STA
02/27/25 20:47
Add On- LAB Urgent
Tests Added?: Urine culture
02/27/25 21:00
0.9% Sodium Chloride 1000 ml [Nss] 1,000 ml IV 250 mls/hr
Abnormal Lab Results
02/27/25 02/27/25
19:41 20:07
WBC 37.5 H 10^3/uL
(4.8-10.8)
RBC 2.72 L 10^6/uL
(4.70-6.10)
Hgb 6.5 L* g/dL
(13.0-18.0)
Hct 23.0 L %
(39.0-52.0)
MCH 23.9 L pg
(27.0-31.0)
MCHC 28.3 L g/dL
(33.0-37.0)
RDW 21.2 H %
(11.5-14.5)
MPV 11.1 H fL
(7.4-10.4)
Abs Immat Gran (auto) 0.6 H 10^3/uL
(0-0.05)
Absolute Neuts (auto) 31.3 H 10^3/uL
(1.4-6.5)
Absolute Lymphs (auto) 3.8 H 10^3/uL
(1.2-3.4)
Absolute Monos (auto) 1.7 H 10^3/uL
(0.1-0.6)
Immature Gran % 1.5 H %
(0-0.5)
Neutrophils % 83.4 H %
(42.2-75.2)
Lymphocytes % 10.2 L %
(20.5-51.1)
PT 19.5 H Sec
(11.4-14.6)
APTT 53.4 H Sec
(23.4-35.0)
Sodium 132 L mmol/L
(135-145)
BUN 31 H mg/dl
(9-20)
Creatinine 1.5 H mg/dL
(0.7-1.3)
AST 79 H U/L
(17-59)
Alkaline Phosphatase 157 H U/L
(38-126)
Total Protein 4.9 L g/dl
(6.3-8.2)
Albumin 2.2 L g/dl
(3.5-5.0)
Ur Occult Blood Reflex 4+ A
(Negative)
Leukocyte Esterase Rfl 3+ A
(Negative)
Urine RBC 3-6 A /HPF
(0-2)
Urine WBC (Reflex) >100 A /HPF
(0-5)
Urine Bacteria (Reflex) Many A
(Negative)
Urine Glucose 3+ A
(Negative)
Urine Albumin (Reflex) 3+ A
(Neg - Trace)
02/27/25 19:41
02/27/25 19:41
Vital Signs
Initial and Last Documented VS:
Initial Vital Signs
Temp Pulse Resp BP Pulse Ox
97.8 F 93 24 105/50 99
02/27/25 19:26 02/27/25 19:26 02/27/25 19:26 02/27/25 19:26 02/27/25 19:26
Last Documented Vital Signs
Temp Pulse Resp BP Pulse Ox
97.8 F 92 20 82/45 99
02/27/25 19:26 02/27/25 20:15 02/27/25 20:15 02/27/25 20:00 02/27/25 20:15
*Pulse Oximetry
SaO2: 97
Nasal Cannula flow liters per minute: 2
Patient hypoxic: no
*EKG
Interpreted by ED Provider?: Yes
Interpretation: normal
Comparison EKG: no comparison EKG present
Heart Rate: 87
Rate: normal
Rhythm: sinus
Ischemia: non-specific ST changes
*Economics Teacher Interpretation
Rate: normal
Interpretation: normal
Heart Rate: 78
Rhythm: sinus
*Critical Care Note
Total Time (30-74mins, 75-104mins- exclusive of procedures): 32
Data Reviewed
Review of Other/Old Records Reveals: Labs, Records and Progress Notes
Source: patient and records
Update Note
Update Note:
845, blood pressure soft treated with saline and then blood ordered urine noted
ED Attending Note
-
Portions of this chart may have been created with voice recognition software.� Occasional wrong word or��sound alike� substitutions may have occurred due to the inherent limitations of voice recognition software.
Discharge Plan
Departure
Patient Disposition: Admit
Date of Disposition: 02/27/25
Time of Disposition: 20:48
Admit to: ICU
Presentation/result/management discussed w/ accepting MD/DO: Hospitalist
Patient with high blood pressure during this ER visit?: No
Condition: Serious
Discharge Problem:
CLL (chronic lymphocytic leukemia), Gastric ulcer, Severe protein-calorie malnutrition, Iron deficiency anemia, Paroxysmal atrial fibrillation, Anemia
Prescriptions:
No Action
tamsulosin 0.4 mg capsule
0.4 mg PO DAILY
rosuvastatin 40 mg tablet
40 mg PO DAILY
Incruse Ellipta 62.5 mcg/actuation Blister With Device
1 inh INHALATION R DAILY
potassium chloride 10 mEq capsule, extended release
10 meq PO DAILY Qty: 30 0RF
furosemide 20 mg Tablet
20 mg PO DAILY
metoprolol succinate [Toprol XL] 50 mg Tablet Extended Release 24 Hr
50 mg PO DAILY
acetaminophen [Tylenol] 325 mg Tablet
325 mg PO Q6HPRN PRN (Reason: MILD PAIN)
polyethylene glycol 3350 [Miralax] 17 gram Powder In Packet
17 g PO DAILY
dapagliflozin propanediol [Farxiga] 10 mg Tablet
10 mg PO DAILY
Rx Instructions:
ON HOLD UNTIL 01/28/25
pantoprazole [Protonix] 40 mg tablet,delayed release (DR/EC)
40 mg PO BID
tramadol 25 mg tablet
25 mg PO Q6HPRN PRN (Reason: mod to severe pain) Qty: 0 0RF
Referrals:
Raphael Fenton DO [Family Provider, Family Practice]
Interventions
Interventions:
*General Assessment Last Done: 02/27/25 19:36
*Neglect/Abuse Screening Last Done: 02/27/25 19:35
*ED COVID-19 Vaccine History Last Done: 02/27/25 19:32
*ED Influenza Vaccine History Last Done: 02/27/25 19:32
[facility] Fall Risk Assessment Tool Last Done: 02/27/25 19:37
*Risk Screen - Suicide (C-SSRS) Last Done: 02/27/25 19:36
Discharge Date and Time
Print Language: MAORI
[2025-02-27 20:17] LABS: Urine Character Cloudy (Clear)
[2025-02-27 20:18] LABS: ALT (SGPT) 32 U/L (0-50); AST (SGOT) 79 U/L (17-59); Albumin 2.2 g/dl (3.5-5.0); Alkaline Phosphatase 157 U/L (38-126); Blood Urea Nitrogen 31 mg/dl (9-20); Calcium 8.7 mg/dl (8.4-10.2); Carbon Dioxide 24 mmol/L (22-30); Chloride 102 mmol/L (98-107); Estimated Creatinine Clearance 36 ml/min; Glucose 92 mg/dl (70-99); Potassium 4.2 mmol/L (3.5-5.1); Sodium 132 mmol/L (135-145); Total Protein 4.9 g/dl (6.3-8.2); eGFR 46.48
[2025-02-27 20:25] LABS: Nucleated Red Blood Cells % 1.1 % (-); Platelet Count 130 10^3/uL (130-400)
[2025-02-27 20:26] LABS: Anisocytosis 2+; Normal RBC Morphology No
[2025-02-27 20:27] LABS: Hypochromasia 2+; Macrocytosis 1+; Microcytosis 1+
[2025-02-27 20:28] LABS: Stomatocytes 1+; Target Cells 1+
[2025-02-27 20:29] LABS: Polychromasia Slight
[2025-02-27 20:32] LABS: Urine Squamous Cell 0-2 /LPF (Few)
[2025-02-27 20:34] LABS: Urine White Cell >100 /HPF (0-5)
--- NOTE | 2025-02-27 20:37 | HPS.HSE ---
Family Physician
-
Family Physician: Raphael Fenton DO
Chief Complaint
-
low hemoglobin
History of Present Illness
79-year-old male complex past medical history CLL heart failure lung disease hyponatremia SIADH GI bleeding CHF obesity COPD pacemaker stroke iron deficiency anemia presents with abnormal labs states he has had some dark stool which is not uncommon
for him. patient complained of lower abdominal pain for long time. denied n,vomiting. denied DE LU[place], dizzy or syncope. he is complaining of fatigue,weakness and sob. denied chest pain. denied dysuria or hematuria.
patient passed a form dark brown guaiac positive stool he was able to consent for blood. 2 units ordered in the ER.
Medical History
Past Medical History
Past Medical History: Reports Other
Additional Past Medical History:
Hyperlipidemia, coronary artery disease, abdominal aortic aneurysm, left ventricular systolic dysfunction, bilateral cataracts, groin abscess, [place], ventricular tachycardia, bundle branch block, paroxysmal atrial fibs, pacemaker, DJD, migraine, sick
sinus syndrome, TIA
Past Surgical History: Reports Other
Additional Past Surgical History:
Cardiac stent, cardiac ablation, Watchman
Social History
Tobacco: Non-smoker
Alcohol: None
Drug: None
Personal:
Living: [facility]
Family History
Family History: Not pertinent
Allergies / Home Medications
Allergies reflects when Allergies were last updated in [facility].
Home Medications with original date entered in [facility]
Allergy/Medication List:
Allergies
Allergy/AdvReac Type Severity Reaction Status Date / Time
atorvastatin (From Lipitor) Allergy calf pain Verified 02/27/25 19:33
niacin Allergy 'not feel Verified 02/27/25 19:33
well'
oxycodone (From Percocet) Allergy Rash Verified 02/27/25 19:33
Home Medications
rosuvastatin 40 mg tablet 40 mg PO DAILY High Cholesterol 02/13/23
tamsulosin 0.4 mg capsule 0.4 mg PO DAILY Urinary Issue 02/13/23
umeclidinium 62.5 mcg/actuation blister powder for inhalation (Incruse Ellipta) 1 inh inhalation R DAILY COPD 02/13/23
potassium chloride 10 mEq capsule,extended release 10 meq PO DAILY Electrolyte Repletion #30 caps 02/17/23
furosemide 20 mg tablet 20 mg PO DAILY Electrolyte Repletion 02/14/24
metoprolol succinate 50 mg tablet,extended release 24 hr (Toprol XL) 50 mg PO DAILY Blood Pressure 10/16/24
acetaminophen 325 mg tablet (Tylenol) 325 mg PO Q6HPRN PRN MILD PAIN 01/27/25
dapagliflozin propanediol 10 mg tablet (Farxiga) 10 mg PO DAILY Diabetes 01/27/25
pantoprazole 40 mg tablet,delayed release (Protonix) 40 mg PO BID Gastrointestinal Issue 01/27/25
polyethylene glycol 3350 17 gram oral powder packet (Miralax) 17 g PO DAILY Constipation 01/27/25
tramadol 25 mg tablet 25 mg PO Q6HPRN PRN mod to severe pain #0 tabs 02/03/25
Review of Systems
-
Constitutional: Reports Fatigue
EENT: Reports No Symptoms
Respiratory: Reports Trouble Breathing
Cardiac: Reports No Symptoms
Abdomen/GI: Reports Abdominal Pain and Black Stools
: Reports No Symptoms
Musculoskeletal: Reports No Symptoms
Skin: Reports No Symptoms
Neurological: Reports No Symptoms
Endocrine: Reports No Symptoms
Hematologic/Lymphatic: Reports No Symptoms
Psych: Reports No Symptoms
Physical Exam
Vital Signs
Vital Signs
Temp Pulse Resp BP Pulse Ox
97.8 F 92 20 82/45 99
02/27/25 19:26 02/27/25 20:15 02/27/25 20:15 02/27/25 20:00 02/27/25 20:15
Physical Exam
General: Well Developed, Well Nourished and No Apparent Distress
HEENT: NormoCephalic, Moist mucous membranes and Atraumatic
Respiratory: Clear
Cardiac: S1/S2 and Regular Rhythm; No Murmur or Rub
GI: Soft, Non Distended, Normal Bowel Sounds and Tender; No Organomegaly
Rectal: Deferred by Provider
Musculoskeletal: No Clubbing, No Cyanosis and No Edema
Skin: No Rash
Neuro: AO x 3 and Nonfocal/grossly intact
Psych: Calm
Laboratory Results
-
02/27/25 19:41
02/27/25 19:41
Laboratory Results
PT 19.5 Sec (11.4-14.6) H 02/27/25 19:41
INR 1.68 02/27/25 19:41
APTT 53.4 Sec (23.4-35.0) H 02/27/25 19:41
Total Bilirubin 0.8 mg/dl (0.2-1.3) 02/27/25 19:41
AST 79 U/L (17-59) H 02/27/25 19:41
ALT 32 U/L (0-50) 02/27/25 19:41
Alkaline Phosphatase 157 U/L (38-126) H 02/27/25 19:41
Data Reviewed
-
Lab Data: Labs Reviewed by me
Impression/Plan
-
#acute blood loss anemia secondary to GI bleed
-heme positive stool
-hgb 6.5
-2 units ordered iN ER
-continue to trend hgb
-clear liquid diet
-IV PPI
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
- s/p repeat EGD 01/13 normal esophagus. Erosive gastropathy with no bleeding and no stigmata of recent bleeding. 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
#CLL/ anemia of chronic disease
#Leukocytosis likely secondary to CLL
-follows oncology as outpatient [facility] Dr. Jose Manuel Herrera. Last seen 01/02/25.
-no current treatment
-Remains afebrile.
#New diagnosis of angiosarcoma
-consult oncology
-CM consulted for hospice.
#chronic hyponatremia
-na 132
-ctm
#perry likely from GI bleed
-cr 1.5
-ctm
#Hypotension likely hypovolemic
-ctm
#hxt of AAA s/p stents
-asa continued
#paroxysmal atrial fibrillation
-s/p watchman
-continue metoprolol with hold parameter
#HFrEF-not in acute exacerbation
-daily weights
-I & Os
-hold Farxiga
-hold Lasix
#COPD
- continue Incruse Ellipta
#BPH
- continue tamsulosin
#GERD
-PPI continued
#HLD
-statin continued
#CVA
# Severe protein caloric malnutrition due to chronic disease
Code status: full code
--- NOTE | 2025-02-27 20:41 | W.PN.UPDATE ---
Update Note
Progress Note Update
This is an addendum to H&P written by BUNDLE CLERK Karin Harrell
I saw and examined the patient.
The BUNDLE CLERK's note was reviewed and I agree with the note.
Comment:
Mr. 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
adenopathy sent to the ER for abnormal labs in setting of dark stools.
Last hospitalization, EGD deferred as patient was advised to have a double-balloon enteroscopy.
Triage VS: T 97.8, P 93, RR 24, BP 105/50, SpO2 99%
LABS: WBC 37.5, Hg 6.5, PLT 130, Na 132, K+ 4.2, CO2 24, Cr 1.5, Glucose 92, liver enzymes WNL
Recent diagnosis of Angiosarcoma
-long talk had with patient's family. He was recently diagnosed with angiosarcoma but does not know about this diagnosis. They were waiting to tell him until he moved to [facility]. Initially discussed transfer to [place] for DBE for GI
Bleed but on further discussion, family only wants comfort care and they do not want to put patient through more procedures
-admit overnight with plans for Hospice consult and family meeting tomorrow so family can discuss this diagnosis and GOC with patient
-Oncology consult to help give input for family meeting. Patient states his outpatient Oncologist told them that it is unlikely he would live to the end of the year
-He has suprapubic pain now from chronic lymphadenopathy. Will do bladder scan, low dose Dilaudid PRN - more liberal with pain meds once GOC clarified
-will need to have further code status discussions tomorrow - when I brought it up again to patient he said he wants to stay full code but he'll think about it and wants to talk more about it tomorrow
Hx CLL
Acute on Chronic Anemia
Melena
Hx Small bowel AVM's
Erosive gastropathy
-DBE recommended last admission, patient has not yet had
-transfuse blood this evening to stabilize patient for further GOC discussions tomorrow
-IV PPI BID
Acute Kidney Injury
-IVF overnight
Paroxysmal Atrial Fibrillation - s/p Watchman
AAA s/p endograft at [facility] with concern for endoleak on imaging (determined not to require intervention at [facility] - 10/04)
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
Hx SIADH
Hyponatremia
-Na on admit 132
76 minutes spent on patient care
[2025-02-27] MEDS: PROTONIX IV 40 MG IV (21:02)
[2025-02-27] MEDS: NSS 1000 IV (21:04)
[2025-02-27] MEDS: MELATONIN 3 MG PO (23:17)
[2025-02-27] MEDS: TYLENOL 650 MG PO (23:38)
[2025-02-28] VITALS (20 sets, daily range): BP systolic 89–120; BP diastolic 41–56; PULSE 72–76; BMI 21.4
--- NOTE | 2025-02-28 00:20 | PTCARENOTE ---
Pt admitted to IMU. AAOx3, forgetful at times.General weakness. First unit of RBC being administer. Pt is A-V PACER in the monitor. +1 B/L LE edema. Abd round. Lung sounds are diminished at the bases w/ occasional dry cough, SaO2 98% 2L NC. Call
billy within reach.
[2025-02-28 07:15] LABS: Hematocrit 27.9 % (39.0-52.0); Hemoglobin 8.5 g/dL (13.0-18.0); Mean Corp Hgb Conc. 30.5 g/dL (33.0-37.0); Mean Corpuscular Volume 84.3 fL (80.0-94.0); Platelet Count 110 10^3/uL (130-400); Red Cell Dist. Width 18.7 % (11.5-14.5)
[2025-02-28 07:25] LABS: Blood Urea Nitrogen 32 mg/dl (9-20); Calcium 8.4 mg/dl (8.4-10.2); Carbon Dioxide 21 mmol/L (22-30); Chloride 107 mmol/L (98-107); Estimated Creatinine Clearance 37 ml/min; Glucose 83 mg/dl (70-99); Potassium 3.9 mmol/L (3.5-5.1); Sodium 136 mmol/L (135-145); eGFR 46.48
--- NOTE | 2025-02-28 07:30 | PTCARENOTE ---
Assume care from previous nurse. Patient AAOX3. On 2L O2 oxygen saturation of 94%. Pt is awake and conversant, with mild complain of abdominal pain. PRN Tramadol given, see chart. Call billy within reach. Plan of care ongoing.
[2025-02-28] MEDS: ULTRAM 25 MG PO (07:59)
[2025-02-28] MEDS: TOPROL XL 50 MG PO (08:01)
[2025-02-28] MEDS: FLOMAX 0.4 MG PO (08:01)
[2025-02-28] MEDS: CRESTOR 40 MG PO (08:01)
[2025-02-28] MEDS: NSS (PRESERVATIVE FREE) 10 ML IV (08:02)
[2025-02-28] MEDS: PROTONIX IV 40 MG IV (08:02)
[2025-02-28] MEDS: SPIRIVA RESPIMAT 2.5 MCG 2 PUFF INH (08:05)
--- NOTE | 2025-02-28 08:34 | VNURNOTE ---
Chart reviewed. Patient is current with [facility]. Will continue to follow hospital course and DC plans.
--- NOTE | 2025-02-28 10:27 | CM ---
I.A: Completed By ILANA Kim.
Patient lives with his in a [facility] with 1-2 (?) STI. DME: Patient has a rolling walker, has been at [facility] for 20 days, uses O2 there. Patient has had [facility] in the past.
PCP: Dr. Raphael Fenton
Pharm: [facility]
Patient may need transportation Home. Consult went in for Hospice. PLAN: TBD.
--- NOTE | 2025-02-28 10:29 | CM ---
Addendum entered by Judy Zhang 02/28/25 17:20:
F/U: Conversation happened with the Oncologist, family, patient- all were tearful. Then family requested - Hospice conversation, happened via phone w/ Yarely Stockton (you can TT her) (Tiffany was off), and patient is not appropriate for inpatient
yet. The cannot care for him at home. Thus, the plan is for us to start comfort care then hopefully he will have symptoms to make him inpatient. Yarely will follow over this weekend.
Original Note:
F/U: CM Botaiwo called the re: Hospice. said that a conversation with her, patient, their daughter, maybe other family members will happen today btw 2-3pm where Oncologist will tell the patient about his cancer/ poor prognosis. Discussing
Hospice, asked that conversation with them happen after this time frame. CM will let Hospitalist and [facility]- [employer] Studies Director know. PLAN: TBD, Home Hospice (?).
--- NOTE | 2025-02-28 14:25 | HOSPNOTE ---
Hospice referral received. I spoke to the family after they spoke to the oncologist with [facility]. At this time I am not convinced that he is inpatient appropriate at this very moment in time... i think he could turn, possibly. My recommendation
would be to initiate comfort and see what he requires over the next 24-48 hours. I explained to the family there is specific criteria to remain in the hospital under inpatient. I reviewed his oxygen requirement is not there. I reviewed he only took
tramadol this am, according to family he was getting Dilaudid while i was on the phone with them... he is taking in liquids... i was told by the family, he cant go home as his cant care for him.. i reviewed that is not a requirement to stay in
the hospital.. I reviewed that families would then hire private caregivers vs facility. I also discussed code status. They state they will have to ask patient as he was just given all of this news.. they also asked me if this was because of money.i
shared with them it has nothing to do with money but rather medicare rules and guidelines. I also shared that is projected to be a week or less for inpatient... i reviewed the signs of actively dying that help us to see that... i reviewed if
while under comfort he does not meet inpatient criteria then we would need to discuss alternative options. i reviewed that he would likely be downgraded from imu to 2 north. We left it as they are going to talk to the patient, and will let the nurse
and doctor know if they wish to proceed with dnr/comfort measures. If they opt for this, please let me know and we will follow over the weekend and see if he meets inpatient criteria. CM, Attending and Primary Nurse updated. Will continue to follow.
[2025-02-28] MEDS: DILAUDID 0.5 MG IV ×3 (14:27→21:57)
--- NOTE | 2025-02-28 15:45 | W.PN.UPDATE ---
Update Note
Progress Note Update
Discussed current status and goals of care with patient and his family at bedside. Patient had just been on the phone with his primary oncologist to discuss severity of his prognosis due to new diagnosis of angiosarcoma. The patient would like to
change his CODE STATUS to DNR/DNI and pursue comfort measures. Lab draws have been discontinued and comfort measure orders have been placed.
--- NOTE | 2025-02-28 16:43 | W.PN.HOSP.TC ---
Today's Communication/Plan
-
Assessment / Plan
Assessment / Plan
General: No Apparent Distress, Comfortable and Conversant
HEENT: NormoCephalic, Moist mucous membranes, Atraumatic
Respiratory: Clear and Non Labored Respirations
Cardiac: Regular rhythm, heart rate 80
GI: Soft, Non Tender, Non Distended and Normal Bowel Sounds
Musculoskeletal: No Edema, no deformity
Skin: Warm and dry
: NO Mix
Neuro: Awake, Alert, Nonfocal/grossly intact
Psych: Calm and cooperative
Mr. Gray is a 79-year-old male with a medical history of paroxysmal A-fib (status post Watchman), AAA (status post endovascular repair and stent 05/2021), CLL (not on active treatment), GI bleed (secondary to small bowel AVMs) and SIADH who
presented with melena and anemia. He had multiple episodes of dark stools and hemoglobin in the ED was 6.5. He was transfused 2 units PRBCs and admitted for further evaluation and management of recurrent GI bleeding.
GI bleeding:
- History of GI bleeding due to small bowel AVMs
- Initial hemoglobin in the ED was 6.5, transfused 2 units PRBCs => hemoglobin 8.5
- Conservative management with no further diagnostics at this point as patient and family have decided to pursue comfort measures, no further lab draws
Angiosarcoma:
- Recent diagnosis
- Patient discussed this diagnosis with his primary oncologist via telephone with his family at bedside, understands very poor prognosis for this disease
- Patient and family would like to pursue hospice care
- Comfort measures have been ordered, case management consulted, hospice team aware
DVT prophylaxis: Not indicated in the setting of comfort care
CODE STATUS: DNR/DNI
Anticipated Discharge: 24 - 48 hours
Subjective/Interval History
-
Date of Service: February 28, 2025
Patient was seen and examined at bedside this morning. Reevaluated this afternoon with family at bedside for goals of care discussion. Now pursuing comfort care.
Objective Data
-
Labs:
Laboratory Results
02/28/25
06:13
WBC 34.5 H
Hgb 8.5 L D
Hct 27.9 L
Plt Count 110 L
Sodium 136
Potassium 3.9
Chloride 107
Carbon Dioxide 21 L
BUN 32 H
Creatinine 1.5 H
Glucose 83
Calcium 8.4
Vital Signs:
Vital Signs
Temp Pulse Resp BP Pulse Ox
97.9 F 80 13 100/48 95
02/28/25 15:16 02/28/25 08:01 02/28/25 06:00 02/28/25 08:01 02/28/25 06:00
I&O
02/27/25 02/28/25 03/01/25
06:59 06:59 06:59
Intake Total 1979
Output Total 360 / 360
Balance 1979 -360 / -360
Review of Systems
-
History Source: Patient
All other systems: Reviewed and negative
Physical Exam
-
General: Appears Chronically Ill
[2025-02-28] MEDS: NSS (PRESERVATIVE FREE) IV (19:04)
[2025-02-28] MEDS: PROTONIX IV IV (19:05)
[2025-02-28] MEDS: MELATONIN PO (20:53)
--- NOTE | 2025-02-28 20:54 | PTCARENOTE ---
unable to verify vitals prior to 1900.
[2025-03-01] VITALS: BP 90/37
--- NOTE | 2025-03-01 00:18 | PTCARENOTE ---
assumed care of patient. pt is AAOx3, tearful, thankful for care. medicated with IV dilaudid per patients request, complaining of abd. pain. care ongoing.
[2025-03-01 02:00] VITALS: BP 110/62
[2025-03-01] MEDS: DILAUDID 0.5 MG IV ×5 (04:52→14:54)
[2025-03-01] MEDS: SPIRIVA RESPIMAT 2.5 MCG 2 PUFF INH (07:24)
--- NOTE | 2025-03-01 07:43 | PTCARENOTE ---
Assumed care from tombstone carver nurse. Pt awale and reports 8/10 abdominal pain radiating to the back. PRN Dilaudid administered with comfort measures provided. Patient is AAOx3, conversant and pleasant. VSS, on 3L O2 with oxygen saturation at 98%.
Pain will continue to be monitored. Call billy within reach. Plan of care ongoing.
[2025-03-01] MEDS: BenGay-Like 1 APPLIC TOPICAL ×2 (09:00→13:30)
[2025-03-01] MEDS: FLOMAX PO (09:23)
[2025-03-01] MEDS: PROTONIX IV IV (09:24)
[2025-03-01] MEDS: NSS (PRESERVATIVE FREE) IV (09:24)
--- NOTE | 2025-03-01 10:11 | HOSPNOTE ---
Patient will be admitted to inpatient hospice today. Inpatient hospice for the management of pain that could not be managed in the outpatient setting. Attending and Primary Nurse aware. Admissions notified and bed requested for 2 north. Family will
be arriving by noon, they are updated and in agreement. Hospice nurse will meet family to sign consents at that time as well.
--- NOTE | 2025-03-01 15:29 | PTCARENOTE ---
Patient and family were present at bedside with hospice nurse. Extensive discussion held regarding the option of transitioning to hospice care with a focus on comfort measures and symptom management. Hospice philosophy, services, and expectations
were reviewed. Questions were addressed, and support provided to patient and family.
--- NOTE | 2025-03-01 15:29 | W.DCSUMMARY ---
Discharge Summary
Discharge Data
Date of Admission: 02/27/25
Date of Discharge: 03/01/25
Total time spent discharging patient (in min): 50
-
Pending Results: No
Hospital Course
Mr. 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 He had multiple episodes of dark stools and hemoglobin in the ED was 6.5. He was transfused 2 units PRBCs and admitted for further evaluation and management of recurrent GI bleeding. After
discussion between patient, family, and patient's primary oncologist decision was made to pursue hospice care. Patient has been discharged to inpatient hospice.
General: No Apparent Distress, Comfortable and Conversant
HEENT: NormoCephalic, Moist mucous membranes, Atraumatic
Respiratory: Clear and Non Labored Respirations
Cardiac: Regular rhythm, heart rate 80
GI: Soft, Non Tender, Non Distended and Normal Bowel Sounds
Musculoskeletal: No Edema, no deformity
Skin: Warm and dry
: NO Mix
Neuro: Awake, Alert, Nonfocal/grossly intact
Psych: Calm and cooperative
Discharge Plan
-
Patient Disposition: Hospice - Inpatient
Discharge Diagnosis/Procedures: Hospice care
Referrals:
Raphael Fenton DO [Family Provider, [facility]]
Prescriptions:
Continued
tamsulosin 0.4 mg capsule
0.4 mg PO DAILY
rosuvastatin 40 mg tablet
40 mg PO DAILY
Incruse Ellipta 62.5 mcg/actuation Blister With Device
1 inh INHALATION R DAILY
potassium chloride 10 mEq capsule, extended release
10 meq PO DAILY Qty: 30 0RF
furosemide 20 mg Tablet
20 mg PO DAILY
metoprolol succinate [Toprol XL] 50 mg Tablet Extended Release 24 Hr
50 mg PO DAILY
acetaminophen [Tylenol] 325 mg Tablet
325 mg PO Q6HPRN PRN (Reason: MILD PAIN)
polyethylene glycol 3350 [Miralax] 17 gram Powder In Packet
17 g PO DAILY
dapagliflozin propanediol [Farxiga] 10 mg Tablet
10 mg PO DAILY
Rx Instructions:
ON HOLD UNTIL 01/28/25
sennosides 8.6 mg Tablet
8.6 mg PO BID
melatonin 3 mg Tablet
3 mg PO HS
potassium chloride [Klor-Con] 20 mEq Packet
20 meq PO DAILY
lansoprazole [Prevacid] 30 mg Capsule,Delayed Release(Dr/Ec)
30 mg PO BID
aspirin 81 mg Tablet
81 mg PO DAILY
albuterol sulfate 90 mcg/actuation HFA aerosol inhaler
INHALATION Q4H PRN (Reason: sob)
tramadol 25 mg tablet
25 mg PO Q4HPRN PRN (Reason: mod to severe pain)
Discharge Orders:
Discharge Patient (As Directed); Ordered 03/01/25
Ordered By: Xavier Mejia
Discharge Date and Time
Print Language: SWEDISH
--- NOTE | 2025-03-03 09:16 | CM ---
F/U: Patient went to Inpatient Hospice with . PLAN: Inpatient Hospice.
== END 2025-03-01 16:57 | disposition hospice, inpatient (51) | DRG 377 ==
LOC: IMU 22:10
PROVIDERS: Emergency Medicine; Registered Nurse; ADMITTING PHYSICIAN Student in an Organized Health Care Education/Training Program; ATTENDING PHYSICIAN Internal Medicine; EMERGENCY PHYSICIAN Emergency Medicine; FAMILY PHYSICIAN Family Medicine
PROC: 30233N1 Transfusion of Nonautologous Red Blood Cells into Peripheral Vein, Percutaneous Approach (ICD-10-PCS; 2025-02-27)
DX: K55.21 Angiodysplasia of colon with hemorrhage (principal); E43 Unspecified severe protein-calorie malnutrition; D62 Acute posthemorrhagic anemia; C91.10 Chronic lymphocytic leukemia of B-cell type not having achieved remission; I50.20 Unspecified systolic (congestive) heart failure; C49.9 Malignant neoplasm of connective and soft tissue, unspecified; N17.9 Acute kidney failure, unspecified; E87.1 Hypo-osmolality and hyponatremia; Z51.5 Encounter for palliative care; J44.9 Chronic obstructive pulmonary disease, unspecified; E78.00 Pure hypercholesterolemia, unspecified; I95.9 Hypotension, unspecified; I25.10 Atherosclerotic heart disease of native coronary artery without angina pectoris; I71.40 Abdominal aortic aneurysm, without rupture, unspecified; M19.90 Unspecified osteoarthritis, unspecified site; I48.0 Paroxysmal atrial fibrillation; D63.8 Anemia in other chronic diseases classified elsewhere; E86.1 Hypovolemia; K31.89 Other diseases of stomach and duodenum; N40.0 Benign prostatic hyperplasia without lower urinary tract symptoms; K21.9 Gastro-esophageal reflux disease without esophagitis; Z66 Do not resuscitate; Z87.891 Personal history of nicotine dependence; Z95.0 Presence of cardiac pacemaker; Z68.21 Body mass index [BMI] 21.0-21.9, adult; Z79.51 Long term (current) use of inhaled steroids; Z79.84 Long term (current) use of oral hypoglycemic drugs; Z86.73 Personal history of transient ischemic attack (TIA), and cerebral infarction without residual deficits; I25.2 Old myocardial infarction; Z88.5 Allergy status to narcotic agent; Z88.8 Allergy status to other drugs, medicaments and biological substances; Z95.5 Presence of coronary angioplasty implant and graft; Z86.79 Personal history of other diseases of the circulatory system
CPT/HCPCS: 36430; 71045; 80048; 80053; 81003; 81015; 85025; 85027; 85610; 85730; 86850; 86900; 86901; 86920; 87077; 87086; 87186; 93005; 94640; 96361; 96374; 99291; P9016

== ENCOUNTER 2025-03-01 17:01 | Inpatient (IN) | payer OTHER, SELFPAY ==
--- NOTE | 2025-03-01 15:25 | HOSPNOTE ---
Patient admitted onto hospice [facility] for managment of severe Pain and SOB that could not be managed in the outpatient setting. Patient is AAOx3, complaining of lower abdominal/groin pain 10/20, received IV Dilauded during visit with good results.
Patient vocalized pain dropped down to a 1-2/. Emotional support provided. Admission and diagnosis approved by Dr. Mejia and Marcie SCHWARTZ.
--- NOTE | 2025-03-01 15:50 | ADM.HSP ---
Admission - Hospice
History of Present Illness
Mr. 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 He had multiple episodes of dark stools and hemoglobin in the ED was 6.5. He was transfused 2 units PRBCs and admitted for further evaluation and management of recurrent GI bleeding. After
discussion between patient, family, and patient's primary oncologist decision was made to pursue hospice care. Patient has been discharged to inpatient hospice.
Reason for Hospice Admission
Frequent IV pain medication
Review of Systems
History Source: Patient and Family
All other systems: Reviewed and Negative
Physical Exam
General: No Apparent Distress, Comfortable and Conversant
HEENT: NormoCephalic, Moist mucous membranes, Atraumatic
Respiratory: Clear and Non Labored Respirations
Cardiac: Regular rhythm, heart rate 80
GI: Soft, Non Tender, Non Distended and Normal Bowel Sounds
Musculoskeletal: No Edema, no deformity
Skin: Warm and dry
: NO Mix
Neuro: Awake, Alert, Nonfocal/grossly intact
Psych: Calm and cooperative
General: Appears Chronically Ill
Assessment/Medication Plan
Mr. 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 He had multiple episodes of dark stools and hemoglobin in the ED was 6.5. He was transfused 2 units PRBCs and admitted for further evaluation and management of recurrent GI bleeding. After
discussion between patient, family, and patient's primary oncologist decision was made to pursue hospice care. Patient has been discharged to inpatient hospice.
Comfort care:
- Comfort measures ordered, titrate as needed
[2025-03-01] MEDS: DILAUDID 0.5 MG IV ×2 (19:22→22:51)
[2025-03-01] MEDS: ROBINUL 0.2 MG IV (19:27)
[2025-03-01] MEDS: SENOKOT 8.6 MG PO (20:07)
[2025-03-01] MEDS: PROTONIX 40 MG PO (20:07)
--- NOTE | 2025-03-01 22:08 | PTCARENOTE ---
RN transformer assembly supervisor spoke with patients family, in agreement to transfer patient to 4w at this time. Call placed to 4w for report, awaiting return call. Will transfer patient as able.
--- NOTE | 2025-03-01 22:50 | PTCARENOTE ---
Received pt from IMU. Slid pt over to new bed without incident. Pt medicated for pain, see MAY.
[2025-03-01] MEDS: NSS (PRESERVATIVE FREE) 0.5 ML IV (23:03)
[2025-03-01] MEDS: ATIVAN 1 MG IV (23:04)
[2025-03-01 23:10] VITALS: BP 116/58
[2025-03-02] MEDS: DILAUDID 0.5 MG IV ×5 (06:08→21:33)
[2025-03-02 07:39] VITALS: BP 114/62
[2025-03-02] MEDS: SENOKOT 8.6 MG PO (07:54)
[2025-03-02] MEDS: PROTONIX 40 MG PO (07:54)
[2025-03-02] MEDS: FLOMAX 0.4 MG PO (07:54)
[2025-03-02] MEDS: MIRALAX 17 GRAMS PO (07:55)
[2025-03-02] MEDS: ZOFRAN 4 MG IV ×2 (07:55→17:34)
[2025-03-02] MEDS: ROBINUL 0.2 MG IV (07:56)
--- NOTE | 2025-03-02 08:00 | PTCARENOTE ---
Patient AAOx3, slow, slurred speech. Patient c/o RLQ pain 7/10 and nausea. Patient spitting up clear saliva.Zofran, Robinul and Dilaudid given with good relief. Patient repositioned, urinal propped per patient request, call billy in reach.
--- NOTE | 2025-03-02 11:50 | CM ---
Chart reviewed and patient has been admitted under [facility] hospice, comp field case manager will follow along with [facility] team.
Plan; GIP
--- NOTE | 2025-03-02 12:15 | PTCARENOTE ---
Patient c/o 09/19 RLQ pain. Patient restless in bed. Dilaudid and Ativan given with relief. Patient sleeping comfortably, family at bedside. Family updated with plan of care, all questions answered.
[2025-03-02] MEDS: ATIVAN 1 MG IV (12:19)
[2025-03-02 15:40] VITALS: BP 109/49
--- NOTE | 2025-03-02 16:57 | W.PN.HOSP.TC ---
Today's Communication/Plan
-
Assessment / Plan
Assessment / Plan
Mr. 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 He had multiple episodes of dark stools and hemoglobin in the ED was 6.5. He was transfused 2 units PRBCs and admitted for further evaluation and management of recurrent GI bleeding. After
discussion between patient, family, and patient's primary oncologist decision was made to pursue hospice care. Patient has been discharged to inpatient hospice.
Comfort care:
- Comfort measures ordered, titrate as needed
Anticipated Discharge: > 48 hours
Subjective/Interval History
-
Date of Service: March 02, 2025
Patient was seen and examined at bedside this morning. Comfortable.
Objective Data
-
Vital Signs:
Vital Signs
Temp Pulse Resp BP Pulse Ox
97.2 F 88 16 109/49 93
03/02/25 15:40 03/02/25 15:40 03/02/25 15:40 03/02/25 15:40 03/02/25 15:40
I&O
03/01/25 03/02/25 03/03/25
06:59 06:59 06:59
Intake Total 480 / 480
Output Total 100 / 100
Balance 380 / 380
Review of Systems
-
History Source: Patient
All other systems: Reviewed and negative
Physical Exam
-
General: Appears Chronically Ill
--- NOTE | 2025-03-02 18:33 | PTCARENOTE ---
Patient transferred to 2135. Family made aware and directions given.
[2025-03-02 19:00] VITALS: BP 94/40
[2025-03-02] MEDS: SENOKOT PO (20:14)
[2025-03-02] MEDS: PROTONIX PO (20:14)
[2025-03-03] MEDS: DILAUDID 0.5 MG IV ×3 (00:15→02:22)
[2025-03-03] MEDS: DILAUDID 50 IV (02:57)
[2025-03-03 07:00] VITALS: BP 84/44
[2025-03-03] MEDS: SENOKOT PO (07:55)
[2025-03-03] MEDS: FLOMAX PO (07:55)
[2025-03-03] MEDS: PROTONIX PO (07:55)
[2025-03-03] MEDS: MIRALAX PO (07:55)
[2025-03-03] MEDS: NSS (PRESERVATIVE FREE) 0.5 ML IV (08:05)
[2025-03-03] MEDS: DILAUDID 0.25 MG IV (08:05)
[2025-03-03] MEDS: ATIVAN 1 MG IV (08:05)
--- NOTE | 2025-03-03 10:29 | HOSPNOTE ---
SN recieved patient in bed, patient non responsive to SN verbalization or gentle touch. Patient FLACC score 0 during visit, PRN dilaudid and PRN ativan given prior to SN visit. Patient hands and feet cool to touch, pale. Patient lungs CTA, unable to
obtain pox. Patient has hypoactive bowel sounds. Patient overall appears comfortable. Emotional support provided. SN coordinated with facility RN, stated patient started on Dilaudid drip last night. No other concerns noted. Reinforced to call office
with any questions or concerns. Patient remains inpatient appropriate for management of pain and anxiety that is unable to be obtained in an outside setting. Discharge planning continues
--- NOTE | 2025-03-03 11:27 | W.PN.HOSP.TC ---
Today's Communication/Plan
-
cont comfort care
Assessment / Plan
Assessment / Plan
79yo M with PMHX of CLL, CHF, SIADH, COPD, SSS s/p PPM, LEVI, GI bleed broguht to the hospital with anemia and dark stool, has a known Hx of AVM. Also new diagnosis of angiosarcoma. Due to poor prognosis as per discussion between family and patients
oncologist - decision made to establish comfort care and patient was accepted to inpatient hospice.
A/P:
#Acute on chronic blood loss anemia 2/2 GIB
#Small bowel AVM
#CLL
#Angiosarcoma
#SIADH
#SSS s/p PPM
#LEVI
#Chronic HFrEF
#Afib s/p Watchman
#AAA s/p stent
#BPH
#Hx of CVA
#Severe protein calorie malnutrition
admitted to inpatient hospice: cont symptomatic treatment of pain, anxiety, dyspnea, constipation
DVT ppx not indicated
I have spent at least 36min reviewing chart, test results and providing direct patient care
Anticipated Discharge: 24 - 48 hours
Subjective/Interval History
-
Date of Service: March 03, 2025
Objective Data
-
Vital Signs:
Vital Signs
Temp Pulse Resp BP Pulse Ox
97.7 F 93 16 84/44 83
03/03/25 07:00 03/03/25 07:00 03/03/25 07:00 03/03/25 07:00 03/03/25 07:00
I&O
03/02/25 03/03/25 03/04/25
06:59 06:59 06:59
Intake Total 480 / 480 60 / 60
Output Total 100 / 100 500 / 500
Balance 380 / 380 -440 / -440
Review of Systems
-
Unable to obtain full review of systems at this time due to: Acuity
Physical Exam
-
General: Comfortable
Respiratory: Clear to Auscultation
Neuro: Sedated
Psych: Calm
--- NOTE | 2025-03-03 13:48 | W.PN.DEATH ---
Pronouncement of
-
Called to see patient to pronounce.
No spontaneous heart tones or respirations noted.
Patient not responsive to verbal stimuli.
Patient is pronounced .
Time of : 13:30
Date of : 03/03/25
Cause of : acute blood loss anemia
Family Notified: Yes
--- NOTE | 2025-03-03 14:43 | PTCARENOTE ---
Patient has no heart tones upon auscultation. made aware. Family at bedside. Tiffany, boats renter notified.
--- NOTE | 2025-03-03 15:33 | W.DCSUMMARY ---
Discharge Summary
Discharge Data
Date of Admission: 03/01/25
Date of Discharge: 03/03/25
-
Pending Results: No
Hospital Course
79yo M with PMHX of CLL, CHF, SIADH, COPD, SSS s/p PPM, LEVI, GI bleed broguht to the hospital with anemia and dark stool, has a known Hx of AVM. Also new diagnosis of angiosarcoma. Due to poor prognosis as per discussion between family and patients
oncologist - decision made to establish comfort care and patient was accepted to inpatient hospice. Patient on 03/03/25 at 13:30 with family bedside
Patient was managed for:
#Acute on chronic blood loss anemia 2/2 GIB
#Small bowel AVM
#CLL
#Angiosarcoma
#SIADH
#SSS s/p PPM
#LEVI
#Chronic HFrEF
#Afib s/p Watchman
#AAA s/p stent
#BPH
#Hx of CVA
#Severe protein calorie malnutrition
Discharge Plan
-
Referrals:
UNKNOWN - PT NOT,INTERVIEWE [Family Provider]
Prescriptions:
No Action
tamsulosin 0.4 mg capsule
0.4 mg PO DAILY
rosuvastatin 40 mg tablet
40 mg PO DAILY
Incruse Ellipta 62.5 mcg/actuation Blister With Device
1 inh INHALATION R DAILY
potassium chloride 10 mEq capsule, extended release
10 meq PO DAILY Qty: 30 0RF
furosemide 20 mg Tablet
20 mg PO DAILY
metoprolol succinate [Toprol XL] 50 mg Tablet Extended Release 24 Hr
50 mg PO DAILY
acetaminophen [Tylenol] 325 mg Tablet
325 mg PO Q6HPRN PRN (Reason: MILD PAIN)
polyethylene glycol 3350 [Miralax] 17 gram Powder In Packet
17 g PO DAILY
dapagliflozin propanediol [Farxiga] 10 mg Tablet
10 mg PO DAILY
Rx Instructions:
ON HOLD UNTIL 01/28/25
sennosides 8.6 mg Tablet
8.6 mg PO BID
melatonin 3 mg Tablet
3 mg PO HS
potassium chloride [Klor-Con] 20 mEq Packet
20 meq PO DAILY
lansoprazole [Prevacid] 30 mg Capsule,Delayed Release(Dr/Ec)
30 mg PO BID
aspirin 81 mg Tablet
81 mg PO DAILY
albuterol sulfate 90 mcg/actuation HFA aerosol inhaler
INHALATION Q4H PRN (Reason: sob)
tramadol 25 mg tablet
25 mg PO Q4HPRN PRN (Reason: mod to severe pain)
Discharge Date and Time
Print Language: TELUGU
== END 2025-03-03 13:30 | disposition expired | DRG 951 ==
LOC: 2 NORTH 17:01
PROVIDERS: ADMITTING PHYSICIAN Internal Medicine; ATTENDING PHYSICIAN Internal Medicine
DX: Z51.5 Encounter for palliative care (principal); K55.21 Angiodysplasia of colon with hemorrhage; E43 Unspecified severe protein-calorie malnutrition; D62 Acute posthemorrhagic anemia; C91.10 Chronic lymphocytic leukemia of B-cell type not having achieved remission; E22.2 Syndrome of inappropriate secretion of antidiuretic hormone; I50.22 Chronic systolic (congestive) heart failure; I49.5 Sick sinus syndrome; I71.40 Abdominal aortic aneurysm, without rupture, unspecified; J44.9 Chronic obstructive pulmonary disease, unspecified; N40.0 Benign prostatic hyperplasia without lower urinary tract symptoms; Z95.0 Presence of cardiac pacemaker